=== PATIENT | female | born 1945 | race Caucasian/White ===

== ENCOUNTER 2017-12-29 15:20 | Inpatient (IN) | payer MEDICARE, MEDICAID ==
[~2017-12-29] VITALS: Ht 157.5 cm; Wt 52.2 kg
[2017-12-29] MEDS ORDERED: PIPERACILLIN /TAZOBACTAM 3.375 G in IV D5W 50 ML IV ONE (15:30)
[2017-12-29] MEDS ORDERED: IV NS 0.9% 1,000 ML BAG IV ONE (15:30)
--- NOTE | 2017-12-29 15:30 | NUR ---
BIBRA FROM HOME C/O ALTERED MENTAL STATUS, LKW=YESTERDAY PER DAUGHTER REPORT. NON VERBAL AT THIS MOMENT. SKIN IS WARM AND DRY. RESP IS EVEN AND UNLABORED WITH NAD NOTED. PLACED ON THE MONITOR. AWAITING MD FOR EVAL.
[2017-12-29 15:52] LABS: CALCIUM, SERUM 9.6 mg/dL (8.5-10.1); CARBON DIOXIDE 28 mmol/L (21-32); CHLORIDE 102 mmol/L (98-107); CREATININE 2.1 mg/dL (0.6-1.3); GLUCOSE 107 mg/dL (74-106); POTASSIUM 4.8 mmol/L (3.5-5.1); SODIUM SERUM 141 mmol/L (136-145); UREA NITROGEN, BLOOD 43 mg/dL (7-18)
[2017-12-29 15:53] LABS: BASOPHILS # (AUTO) 0.1 /CMM (0.0-0.2); BASOPHILS % (AUTO) 0.3 % (0.0-2.0); HEMATOCRIT 38 % (33-45); HEMOGLOBIN 12.3 g/dL (11.5-14.8); LYMPHOCYTES # (AUTO) 1.5 /CMM (0.8-4.8); LYMPHOCYTES % (AUTO) 5.7 % (20.0-44.0); MEAN CORPUSCULAR HGB CONC 33 g/dl (31.0-36.0); MEAN CORPUSCULAR VOLUME 76 fL (82-100); MONOCYTES # (AUTO) 0.7 /CMM (0.1-1.30); MONOCYTES % (AUTO) 2.7 % (2.0-12.0); NEUTROPHILS # (AUTO) 24.8 /CMM (1.8-8.9); NEUTROPHILS % (AUTO) 91.3 % (43.0-81.0); PLATELET COUNT (AUTO) 268 /CMM (150-450); RDW COEFFICIENT OF VARIATION 15.1 (11.5-15.0); RED BLOOD CELL COUNT(AUTO) 4.97 MIL/uL (4.0-5.2); WHITE BLOOD COUNT (AUTO) 27.2 K/uL (4.3-11.0)
[2017-12-29 15:57] LABS: ALANINE AMINOTRANSFERASE 30 U/L (12-78); ALBUMIN 2.9 g/dL (3.4-5.0); ALKALINE PHOSPHATASE 96 U/L (46-116); ASPARTATE AMINOTRANSFERASE 32 U/L (15-37); BILIRUBIN,DIRECT 0.3 mg/dL (0.0-0.2); BILIRUBIN,TOTAL 0.6 mg/dL (0.2-1.0); TOTAL PROTEIN, SERUM 8.6 g/dL (6.4-8.2)
[2017-12-29 15:59] LABS: TROPONIN I 0.018 ng/mL (0.00-0.056)
[2017-12-29 16:00] LABS: INR 1.07 (0.85-1.15)
[2017-12-29 16:10] LABS: APPEARANCE,URINE Cloudy (CLEAR); BILIRUBIN,URINE Negative (NEGATIVE); BLOOD, URINE Moderate Ery/uL (NEGATIVE); COLOR,URINE Yellow (YELLOW); KETONES,URINE Negative (NEGATIVE); LEUKOCYTE ESTERASE ,URINE Large (NEGATIVE); NITRITE, URINE Negative (NEGATIVE); PROTEIN,URINE >=300 mg/dl (NEGATIVE); UGLUCOSE Negative (NEGATIVE); UROBILINOGEN,URINE 0.2 EU/dL (0.2)
--- NOTE | 2017-12-29 16:10 | NUR ---
PATIENT TRANSPORTED FOR CT HEAD VIA [facility].
[2017-12-29 16:22] LABS: WBC,URINE 81-100 /HPF (0-3)
[2017-12-29 16:23] LABS: SQUAMOUS EPITHELIAL CELL,UR Few /HPF (None Seen)
[2017-12-29 16:25] LABS: BACTERIA,URINE 2+ /HPF (None Seen); URINE AMORPHOUS URATE Many /HPF (None Seen)
[2017-12-29] MEDS ORDERED: ACETAMINOPHEN 650 MG/SUPP.RECT RC ONE ×2 (16:30→16:56)
[2017-12-29 16:33] LABS: BAND % (MANUAL) 1 % (0.0-5.0); BASOPHILS % (MANUAL) 0 % (0.0-2.0); EOSINOPHILS % (MANUAL) 0 % (0-4); LYMPHOCYTES % (MANUAL) 12 % (16-48); MONOCYTES % (MANUAL) 4 % (0-11.0); NEUTROPHILS % (MANUAL) 83 (42-76)
--- NOTE | 2017-12-29 16:56 | NUR ---
CALLED NURSING SUP. FOR TELE BED
--- NOTE | 2017-12-29 16:56 | NUR ---
GRIFFIN PAGED, DEYANIRA FIGUEROA AIRCRAFT STRUCTURAL DESIGN ENGINEER INTERN
--- NOTE | 2017-12-29 17:00 | NUR ---
TELE 326-2, DEYANIRA FIGUEROA NP ADMITTING
[2017-12-29] MEDS ORDERED: ONDANSETRON HCL/PF 4 MG/2 ML VIAL IVP PRN (17:30)
[2017-12-29] MEDS ORDERED: DIGO125T PO (18:00)
[2017-12-29] MEDS ORDERED: POTA10TA21 PO (18:00)
[2017-12-29] MEDS ORDERED: BETH25TA PO (18:00)
[2017-12-29] MEDS ORDERED: CYAN10009 PO (18:00)
[2017-12-29] MEDS ORDERED: MONT10TA22 PO (18:00)
[2017-12-29] MEDS ORDERED: FERR325T23 PO (18:00)
[2017-12-29] MEDS ORDERED: MECL-102 PO (18:00)
[2017-12-29] MEDS ORDERED: TIZA4TAB4 PO (18:00)
[2017-12-29] MEDS ORDERED: FOLI1TAB16 PO (18:00)
[2017-12-29] MEDS ORDERED: GABA-532 PO (18:00)
[2017-12-29] MEDS ORDERED: FLUO10TA PO (18:00)
[2017-12-29] MEDS ORDERED: ERGO500014 PO (18:00)
[2017-12-29] MEDS ORDERED: MELO-105 PO (18:00)
[2017-12-29] MEDS ORDERED: ROSU5TAB12 PO (18:00)
[2017-12-29] MEDS ORDERED: TRAM50TA2 PO (18:00)
[2017-12-29] MEDS ORDERED: FAMO20TA8 PO (18:00)
[2017-12-29] MEDS ORDERED: ASPI-1152 PO (18:00)
[2017-12-29] MEDS ORDERED: BACL10TA PO (18:00)
--- NOTE | 2017-12-29 18:10 | NUR ---
*ROEL 101
[2017-12-29] MEDS ORDERED: FEE PK DOSING 1 MIN EA MC ONE (18:33)
--- NOTE | 2017-12-29 18:53 | NUR ---
REPORT GIVEN TO ADWOA MCCLENDON FOR ANTONI TELE 101
[2017-12-29] MEDS ORDERED: VANCOMYCIN 1 GM in IV D5W 250 ML IV ONE (19:00)
--- NOTE | 2017-12-29 19:20 | NUR ---
RN NOTES ADMITTED A 72YEAR OLD FROM EMERGENCY DEPARTMENT VIA STRETCHER ACCOMPANIED BY TWO CHEESEMAKER HELPER WITH NO RESPIRATORY DISTRESS OR SHORTNESS OF BREATH. BREATHING EVEN AND UNLABORED. ON 2LPM O2 VIA NASAL CANNULA, TOLERATING WELL. VITAL SIGNS CHECKED WNL. NO PHYSICAL MANIFESTATION OF PAIN OR DISCOMFORT. ALERT AND RESPONSIVE. NON VERBAL. NEEDS ATTENDED. KEPT CLEAN AND DRY. WILL CONTINUE TO MONITOR.
[2017-12-29 20:00] VITALS: BP_SYST 91; BP_DIAS 51; BP_DIAS 53
[2017-12-29] MEDS: IV NS 0.9% 1,000 ML IV PRN (20:29)
[2017-12-30] VITALS: BP 144/68
[2017-12-30] MEDS ORDERED: PIPERACILLIN /TAZOBACTAM 3.375 G in IV D5W 50 ML IV SCH ×2
[2017-12-30] MEDS: PIPERACILLIN /TAZOBACTAM 2.25 G in IV D5W 50 ML IV SCH ×4 (00:02→17:16)
[2017-12-30 04:00] VITALS: BP 111/62
--- NOTE | 2017-12-30 07:00 | NUR ---
RN NOTES NO SIGNIFICANT CHANGE OF CONDITION, REMAINS AFEBRILE WITH SKIN WARM AND DRY TO TOUCH. NO PHYSICAL MANIFESTATION OF PAIN OR DISCOMFORT. ALERT AND RESPONSIVE. NODS HEAD TO ANSWER A YES QUESTION. VITAL SIGNS WNL. KEPT CLEAN AND DRY.
--- NOTE | 2017-12-30 07:00 | NUR ---
RN NOTES RECEIVED PT ON BED, A/Ox1, ON 2L O2 N/C , RESPIRATION EVEN AND UNLABORED, NO SOB NOTED, ON TELE HR IN 70'S SR , IVF NS AT 75CC./HR RUNNING VIA R WRIST IV SITE G 20 , SITE CDI, SR UP x3, CALL LIGHT WITHIN EASY REACH, BED LOCKED AND IN LOWEST POSITION , WILL CONTINUE TO MONITOR .
[2017-12-30 08:00] VITALS: BP 105/50
[2017-12-30] MEDS: FAMOTIDINE (20 MG) 20 MG TABLET PO SCH ×2 (08:23→16:35)
[2017-12-30] MEDS: BETHANECHOL CHLORIDE (25 MG) 25 MG TABLET PO SCH ×2 (08:23→16:36)
[2017-12-30] MEDS: DIGOXIN 0.125 MG TABLET PO SCH (08:23)
[2017-12-30] MEDS: POTASSIUM CHLORIDE 10 MEQ TABLET.SA PO SCH (08:23)
[2017-12-30] MEDS: CYANOCOBALAMIN 100 MCG TABLET PO SCH (08:23)
[2017-12-30] MEDS: MECLIZINE HCL 25 MG TABLET PO SCH ×3 (08:23→16:36)
[2017-12-30] MEDS: FOLIC ACID 1 MG TABLET PO SCH ×2 (08:23→16:35)
[2017-12-30] MEDS: ASPIRIN EC 81 MG TABLET.DR PO SCH (08:23)
[2017-12-30] MEDS: Fluoxetine 10 mg capsule PO SCH (08:23)
[2017-12-30] MEDS: FERROUS SULFATE (325 MG) 325 MG/TAB TABLET PO SCH ×2 (08:23→16:36)
[2017-12-30] MEDS: ATORVASTATIN 10 MG TABLET PO SCH (08:23)
[2017-12-30] MEDS: PANTOPRAZOLE 40 MG VIAL IV SCH (08:24)
[2017-12-30] MEDS: TIZANIDINE HCL 4 MG TABLET PO SCH ×2 (08:24→16:36)
[2017-12-30] MEDS: MONTELUKAST SODIUM (10MG) 10 MG TABLET PO SCH (08:24)
[2017-12-30] MEDS: LACTOBACILLUS RHAMNOSUS GG 1 EACH CAP.SPRINK PO SCH ×2 (08:49→16:36)
[2017-12-30] MEDS ORDERED: MELOXICAM 7.5 MG TABLET PO SCH (09:00)
[2017-12-30] MEDS ORDERED: POTASSIUM CITRATE 5 MEQ TABLET.SA PO SCH (09:00)
[2017-12-30 11:55] LABS: CALCIUM, SERUM 8.4 mg/dL (8.5-10.1); CARBON DIOXIDE 26 mmol/L (21-32); CHLORIDE 107 mmol/L (98-107); CREATININE 2.3 mg/dL (0.6-1.3); GLUCOSE 138 mg/dL (74-106); SODIUM SERUM 142 mmol/L (136-145); UREA NITROGEN, BLOOD 53 mg/dL (7-18)
[2017-12-30 12:00] VITALS: BP_SYST 85; BP_SYST 88; BP_DIAS 44
--- NOTE | 2017-12-30 12:26 | NUR ---
RN NOTES BP=85/44/ HR =55 [place] SECRETARY BOOKKEEPER NOTIFED, NEW ORDER GIVEN .
[2017-12-30] MEDS ORDERED: IV NS 0.9% 1,000 ML IV PRN ×2 (12:30→15:30)
--- NOTE | 2017-12-30 13:00 | NUR ---
RN NOTES BP= 94/55 AT THIS TIME , FAMILY AT THE BEDSIDE , CONTINUE TO MONITOR.
--- NOTE | 2017-12-30 13:33 | NUR ---
RN NOTE BP 90/49 HR 64 , PT ALERT NO DISTRESS NOTED, CONTINUE TO MONITOR
[2017-12-30] MEDS: IV NS 0.9% 1,000 ML IV PRN (13:35)
--- NOTE | 2017-12-30 15:00 | NUR ---
RN NOTES BP= 95/49 CONTINUE TO MONITOR .
[2017-12-30 16:00] VITALS: BP 94/52
[2017-12-30 16:19] LABS: APPEARANCE,URINE CLOUDY (CLEAR); BILIRUBIN,URINE NEGATIVE (NEGATIVE); BLOOD, URINE 3+ Ery/uL (NEGATIVE); COLOR,URINE YELLOW (YELLOW); KETONES,URINE NEGATIVE (NEGATIVE); LEUKOCYTE ESTERASE ,URINE 1+ (NEGATIVE); NITRITE, URINE POSITIVE (NEGATIVE); PROTEIN,URINE 2+ mg/dl (NEGATIVE); UGLUCOSE NEGATIVE (NEGATIVE); UROBILINOGEN,URINE 0.2 EU/dL (0.2)
[2017-12-30 16:26] LABS: CREATININE, URINE 28.8 MG/DL (30.0-125.0); URINE TOTAL PROTEIN 190.4 mg/dL (0-11.9)
[2017-12-30 16:52] LABS: EOSINOPHIL,URINE Rare
[2017-12-30 18:00] LABS: BACTERIA,URINE 3+ /HPF (None Seen); SQUAMOUS EPITHELIAL CELL,UR 0-2 /HPF (None Seen); WBC,URINE 81-100 /HPF (0-3)
--- NOTE | 2017-12-30 18:00 | NUR ---
RN NOTES NEUMANN INSERTED PER LD PLASTER CASTER ORDER .
--- NOTE | 2017-12-30 18:13 | NUR ---
RN NOTES PT REMANIS THE SAME, VSS STABLE, NS AT 75CC/HR RUNNING VIA R WRIST IV SITE , SR UP x3, CALL LIGHT WITHIN EASY REACH, WILL ENDOSE TO BACKUP SAWYER NURSE FOR ANTONI
[2017-12-30 20:00] VITALS: BP_SYST 130; BP_SYST 97; BP_DIAS 49; BP_DIAS 67
[2017-12-30] MEDS ORDERED: VANCOMYCIN 500 MG in IV D5W 100 ML IV SCH (20:00)
--- NOTE | 2017-12-30 20:05 | NUR ---
RN NOTES IN BED, LYING COMFORTABLY WITH NO DISTRESS NOTED. BREATHING EVEN AND UNLABORED. NO PHYSICAL MANIFESTATION OF PAIN OR DISCOMFORT. REMAINS AFEBRILE WITH SKIN WARM AND DRY TO TOUCH. ALERT AND RESPONSIVE WITH CONFUSION. KEPT CLEAN AND DRY WILL CONTINUE TO MONITOR.
[2017-12-31] VITALS: BP 107/67
[2017-12-31] MEDS: PIPERACILLIN /TAZOBACTAM 2.25 G in IV D5W 50 ML IV SCH ×4 (00:40→17:27)
[2017-12-31] MEDS: IV NS 0.9% 1,000 ML IV PRN ×2 (00:41→14:48)
[2017-12-31] MEDS ORDERED: DEXTROSE 50%-WATER 50 ML DISP.SYRIN ONE (02:46)
[2017-12-31] MEDS ORDERED: DEXTROSE 50%-WATER 50 ML DISP.SYRIN IVP ONE (03:00)
--- NOTE | 2017-12-31 03:15 | NUR ---
RN NOTES AT ABOUT 3AM NOTED PATIENT TO HAVE AN ELEVATED HEART RATE OF 126BPM. CHECKED VITAL SIGN. BP 133/65, TEMP 98.8 o2saT 100% RR 22. NOTED PATIENT TO BE DIAPHORETIC, BLOOD SUGAR CHECKED, 56MG/DL. CALLED DR LOWRY AND OBTAINED ORDER FOR D50, AND FOLLOW UP IN AM ACCUCHECK FOR THE PATIENT. NOTED AND CARRIED OUT. CHECKED BLOOD SUGAR AFTER 45MINUTES, 163MG/DL. WILL CONTINUE TO MONITOR.
[2017-12-31 04:00] VITALS: BP 133/65
--- NOTE | 2017-12-31 06:51 | NUR ---
RN CLOSING NOTES PATIENT COMFORTABLY LYING IN BED WITH NO ACUTE DISTRESS. BREATHING EVEN AND UNLABORED. MORE ALERT NOW AND VERBAL. NOTED WITH GROSS HEMATURIA. WILL ENDORSE TO AM SHIFT. NO COMPLAINT OF PAIN OR DISCOMFORT. KEPT CLEAN AND DRY.
[2017-12-31 07:32] LABS: EOSINOPHILS % (AUTO) 0.1 % (0.0-6.0); HEMATOCRIT 37 % (33-45); HEMOGLOBIN 11.4 g/dL (11.5-14.8); LYMPHOCYTES # (AUTO) 0.8 /CMM (0.8-4.8); LYMPHOCYTES % (AUTO) 2.8 % (20.0-44.0); MEAN CORPUSCULAR HGB CONC 31 g/dl (31.0-36.0); MEAN CORPUSCULAR VOLUME 78 fL (82-100); MONOCYTES # (AUTO) 0.5 /CMM (0.1-1.30); MONOCYTES % (AUTO) 1.8 % (2.0-12.0); NEUTROPHILS % (AUTO) 95.3 % (43.0-81.0); PLATELET COUNT (AUTO) 194 /CMM (150-450); RDW COEFFICIENT OF VARIATION 15.2 (11.5-15.0); RED BLOOD CELL COUNT(AUTO) 4.65 MIL/uL (4.0-5.2); WHITE BLOOD COUNT (AUTO) 28.4 K/uL (4.3-11.0)
[2017-12-31 07:47] LABS: ALANINE AMINOTRANSFERASE 49 U/L (12-78); ALBUMIN 2.2 g/dL (3.4-5.0); ALKALINE PHOSPHATASE 112 U/L (46-116); ASPARTATE AMINOTRANSFERASE 61 U/L (15-37); BILIRUBIN,TOTAL 0.6 mg/dL (0.2-1.0); CALCIUM, SERUM 8.5 mg/dL (8.5-10.1); CARBON DIOXIDE 22 mmol/L (21-32); CHLORIDE 108 mmol/L (98-107); CREATININE 2.5 mg/dL (0.6-1.3); GLUCOSE 82 mg/dL (74-106); PHOSPHORUS 4.8 mg/dL (2.5-4.9); POTASSIUM 3.7 mmol/L (3.5-5.1); SODIUM SERUM 144 mmol/L (136-145); UREA NITROGEN, BLOOD 52 mg/dL (7-18)
[2017-12-31 08:00] VITALS: BP 126/56
[2017-12-31 08:14] LABS: CREATINE KINASE, TOTAL 49 U/L (26-192)
[2017-12-31 08:39] LABS: BAND % (MANUAL) 6 % (0.0-5.0); LYMPHOCYTES % (MANUAL) 4 % (16-48); MONOCYTES % (MANUAL) 1 % (0-11.0); NEUTROPHILS % (MANUAL) 89 (42-76)
[2017-12-31] MEDS: TIZANIDINE HCL 4 MG TABLET PO SCH ×2 (09:03→16:56)
[2017-12-31] MEDS: Fluoxetine 10 mg capsule PO SCH (09:03)
[2017-12-31] MEDS: MONTELUKAST SODIUM (10MG) 10 MG TABLET PO SCH (09:03)
[2017-12-31] MEDS: FERROUS SULFATE (325 MG) 325 MG/TAB TABLET PO SCH ×2 (09:04→16:56)
[2017-12-31] MEDS: ASPIRIN EC 81 MG TABLET.DR PO SCH (09:04)
[2017-12-31] MEDS: LACTOBACILLUS RHAMNOSUS GG 1 EACH CAP.SPRINK PO SCH (09:04)
[2017-12-31] MEDS: FAMOTIDINE (20 MG) 20 MG TABLET PO SCH ×2 (09:04→16:55)
[2017-12-31] MEDS: BETHANECHOL CHLORIDE (25 MG) 25 MG TABLET PO SCH ×2 (09:04→16:58)
[2017-12-31] MEDS: PANTOPRAZOLE 40 MG VIAL IV SCH (09:05)
[2017-12-31] MEDS: MECLIZINE HCL 25 MG TABLET PO SCH ×3 (09:05→16:56)
[2017-12-31] MEDS: ATORVASTATIN 10 MG TABLET PO SCH (09:05)
[2017-12-31] MEDS: FOLIC ACID 1 MG TABLET PO SCH ×2 (09:05→16:56)
[2017-12-31] MEDS: POTASSIUM CHLORIDE 10 MEQ TABLET.SA PO SCH (09:06)
[2017-12-31] MEDS: DIGOXIN 0.125 MG TABLET PO SCH (09:07)
[2017-12-31] MEDS: CYANOCOBALAMIN 100 MCG TABLET PO SCH (09:08)
[2017-12-31] MEDS ORDERED: Z GUARD REMEDY 2 OZ OINT TP PRN (11:30)
[2017-12-31 13:12] LABS: BILIRUBIN,DIRECT 0.2 mg/dL (0.0-0.2); BILIRUBIN,TOTAL 0.5 mg/dL (0.2-1.0)
[2017-12-31] MEDS ORDERED: DEXTROSE 50%-WATER 50 ML DISP.SYRIN IV PRN (14:00)
[2017-12-31] MEDS ORDERED: CEFAZOLIN IV SCH (14:00)
[2017-12-31] MEDS ORDERED: D5W IV SCH (14:00)
[2017-12-31 16:00] VITALS: BP 106/51
[2017-12-31] MEDS: BLOOD SUGAR DIAGNOSTIC 1 EACH STRIP IN SCH ×2 (17:07→21:58)
[2017-12-31 18:46] LABS: APPEARANCE,URINE CLEAR (CLEAR); BILIRUBIN,URINE NEGATIVE (NEGATIVE); BLOOD, URINE 3+ Ery/uL (NEGATIVE); COLOR,URINE YELLOW (YELLOW); KETONES,URINE NEGATIVE (NEGATIVE); LEUKOCYTE ESTERASE ,URINE 2+ (NEGATIVE); NITRITE, URINE NEGATIVE (NEGATIVE); PROTEIN,URINE 2+ mg/dl (NEGATIVE); UGLUCOSE NEGATIVE (NEGATIVE); UROBILINOGEN,URINE 0.2 EU/dL (0.2)
[2017-12-31 18:53] LABS: CREATININE, URINE 63.7 MG/DL (30.0-125.0)
--- NOTE | 2017-12-31 19:00 | NUR ---
RN NOTE PT NOTED WITH LOW URINE OUTPUT, 200 ML FOR THE SHIFT, MD NOTIFIED, US KIDNEY AND F/C FLUSH ORDERED, F/C FLUSHES WELL, BLADDER SCANNER CHECKED EARLIER, NO RESIDUAL NOTED. PT ALSO PILLS TUBES AND IV. PER MD TO ORDER MITTENS RESTRAINTS.
[2017-12-31 19:08] LABS: BACTERIA,URINE 4+ /HPF (None Seen); RBC,URINE 21-50 /HPF (0-2); SQUAMOUS EPITHELIAL CELL,UR 0-2 /HPF (None Seen); WBC,URINE 81-100 /HPF (0-3)
--- NOTE | 2017-12-31 19:30 | NUR ---
MS RN INITIAL NOTE PT RECEIVED AWAKE IN BED. A/O X 1 AND RESPONSIVE TO NAME. ON 2L OF O2 AND SATURATING 98%. BREATHING REGULAR AND UNLABORED. IV R WRIST #20 CLEAN AND DRY WITH FLUIDS INFUSING. BILATERAL SOFT MITTENS ON FOR PT SAFETY. BED ALARM ENABLED AND LOCKED IN PLACE. HOB ELEVATED. WILL CONTINUE TO MONITOR.
[2017-12-31 20:00] VITALS: BP_SYST 122; BP_SYST 94; BP_DIAS 45; BP_DIAS 65
[2017-12-31 21:00] VITALS: BP 124/54
[2017-12-31 21:10] LABS: EOSINOPHIL,URINE Rare
[2017-12-31] MEDS ORDERED: CT SWABBABLE VALVE TRANS SET 1 EA INFUS.SET MC ONE (22:06)
[2017-12-31] MEDS ORDERED: IOHEXOL-300 100 ML VIAL IV ONE (22:06)
--- NOTE | 2017-12-31 23:00 | NUR ---
MS RN NOTE ORDER TO DO STAT CT UROGRAM . SPOKE WITH SON CHRISTEL AND RECEIVED CONSENT VIA TELEPHONE FOR PROCEDURE. RADIOLOGY PICKED PT UP AND SENT TO RADIOLOGY. IV INFILTRATED AND UNABLE TO START IV AFTER 2 UNSUCCESSFUL ATTEMPTS. PT RETURNED SAFELY TO ROOM. ABLE TO START 2 IV RAC #20 AND INRAV #22. CALLED RADIOLOGY BACK AND SAID THEY WERE TOO BUSY WILL MATERIAL SCHEDULER PT AT 5AM. SON AWARE.
[2018-01-01] VITALS: BP_SYST 119; BP_SYST 124; BP_DIAS 54; BP_DIAS 62
[2018-01-01] MEDS: PIPERACILLIN /TAZOBACTAM 2.25 G in IV D5W 50 ML IV SCH ×2 (00:45→05:08)
[2018-01-01 04:00] VITALS: BP_SYST 106; BP_SYST 144; BP_DIAS 61; BP_DIAS 78
[2018-01-01] MEDS: IV NS 0.9% 1,000 ML IV PRN ×2 (05:10→17:34)
--- NOTE | 2018-01-01 05:30 | NUR ---
MS RN NOTE SPOKE WITH RADIOLOGY THAT THEY ARE UNABLE TO PERFORM CT UROGRAM DUE TO CREATININE TOO HIGH AT 2.5. WILL F/U WITH .
[2018-01-01 06:21] LABS: BASOPHILS # (AUTO) 0.1 /CMM (0.0-0.2); BASOPHILS % (AUTO) 0.3 % (0.0-2.0); EOSINOPHILS % (AUTO) 1.7 % (0.0-6.0); HEMATOCRIT 32 % (33-45); HEMOGLOBIN 10.3 g/dL (11.5-14.8); LYMPHOCYTES # (AUTO) 1.7 /CMM (0.8-4.8); MEAN CORPUSCULAR HGB CONC 32 g/dl (31.0-36.0); MEAN CORPUSCULAR VOLUME 77 fL (82-100); MONOCYTES # (AUTO) 0.5 /CMM (0.1-1.30); MONOCYTES % (AUTO) 2.6 % (2.0-12.0); NEUTROPHILS # (AUTO) 18.1 /CMM (1.8-8.9); NEUTROPHILS % (AUTO) 87.4 % (43.0-81.0); PLATELET COUNT (AUTO) 185 /CMM (150-450); RDW COEFFICIENT OF VARIATION 14.9 (11.5-15.0); WHITE BLOOD COUNT (AUTO) 20.7 K/uL (4.3-11.0)
[2018-01-01 06:27] LABS: CALCIUM, SERUM 8.6 mg/dL (8.5-10.1); CARBON DIOXIDE 21 mmol/L (21-32); CHLORIDE 112 mmol/L (98-107); CREATININE 2.8 mg/dL (0.6-1.3); GLUCOSE 92 mg/dL (74-106); MAGNESIUM 2.1 mg/dL (1.8-2.4); POTASSIUM 4.3 mmol/L (3.5-5.1); SODIUM SERUM 147 mmol/L (136-145); UREA NITROGEN, BLOOD 50 mg/dL (7-18)
--- NOTE | 2018-01-01 06:50 | NUR ---
MS RN CLOSING NOTE PT REMAINED STABLE DURING SHIFT. NO ACUTE DISTRESS NOTED. REPOSITIONED Q2H. HOB ELEVATED. NO BOWEL MOVEMENT THROUGHOUT SHIFT. IV SITES IN PLACE AND FLUSHING WELL. MITTENS ON ORDERED. NEUMANN CATHETER IN PLACE AND DRAINING BY GRAVITY. WILL ENDORSE TO NEXT SHIFT FOR CONTINUITY OF CARE.
--- NOTE | 2018-01-01 07:21 | NUR ---
RN NOTES RECEIVED PT FROM MIXED ANIMAL VETERINARIAN, A&0X1-2, PRIMARILY SLOVAK SPEAKING. ON 2L NC SATING WELL NO SOB OR DISTRESS NOTED. NEUMANN DRAINING TO GRAVITY. NIRAV AND RAC IV SITE INTACT WITH IVF AT 150ML/HR. BED LOCKED AND IN LOWEST POSITION, CALL LIGHT WITHIN REACH, SIDE RAILS UPX3, WILL CONT TO SAMREEN.
[2018-01-01] MEDS: BLOOD SUGAR DIAGNOSTIC 1 EACH STRIP IN SCH ×4 (07:56→21:57)
[2018-01-01 08:00] VITALS: BP 146/75
[2018-01-01] MEDS: CYANOCOBALAMIN 100 MCG TABLET PO SCH (08:11)
[2018-01-01] MEDS: FERROUS SULFATE (325 MG) 325 MG/TAB TABLET PO SCH ×2 (08:11→16:15)
[2018-01-01] MEDS: POTASSIUM CHLORIDE 10 MEQ TABLET.SA PO SCH (08:11)
[2018-01-01] MEDS: ASPIRIN EC 81 MG TABLET.DR PO SCH (08:11)
[2018-01-01] MEDS: PANTOPRAZOLE 40 MG VIAL IV SCH (08:11)
[2018-01-01] MEDS: FOLIC ACID 1 MG TABLET PO SCH ×2 (08:11→16:15)
[2018-01-01] MEDS: MONTELUKAST SODIUM (10MG) 10 MG TABLET PO SCH (08:11)
[2018-01-01] MEDS: BETHANECHOL CHLORIDE (25 MG) 25 MG TABLET PO SCH ×2 (08:11→16:15)
[2018-01-01] MEDS: ATORVASTATIN 10 MG TABLET PO SCH (08:11)
[2018-01-01] MEDS: TIZANIDINE HCL 4 MG TABLET PO SCH ×2 (08:11→16:14)
[2018-01-01] MEDS: DIGOXIN 0.125 MG TABLET PO SCH (08:11)
[2018-01-01] MEDS: Fluoxetine 10 mg capsule PO SCH (08:11)
[2018-01-01] MEDS: MECLIZINE HCL 25 MG TABLET PO SCH ×3 (08:11→16:15)
[2018-01-01] MEDS: FAMOTIDINE (20 MG) 20 MG TABLET PO SCH ×2 (08:11→16:14)
--- NOTE | 2018-01-01 10:51 | NUR ---
WOUND CARE CONSULT: PT PRESENTS WITH STAGE 3 ULCER TO SACRUM, PRESENT ON ADMISSION. SCARRING TO LEFT POSTERIOR THIGH AND SCAB TO LEFT ARM. FIRST STEP MATTRESS ORDERED. ALL WOUND CARE RECOMMENDATIONS AND SKIN PROTECTION MEASURES DISCUSSED WITH NURSING STAFF. WILL SEE PRN. CURRENT JOVANA SCORE IS 12. MD IN AGREEMENT WITH PLAN OF CARE. Addendum: 01/01/18 at 1052 by CHERELLE LEMONS WNDNU Amended: Links added.
[2018-01-01] MEDS: HYDROGEL DRESSING 90 GM TUBE TP SCH (12:16)
--- NOTE | 2018-01-01 13:17 | NUR ---
BRADY received a call from wound RN Lizbeth informing SW that pt. has a stage 3 wound and to inquire if pt. has assistance at home. BRADY consulted with case management specialist Dario who informed SW that pt. lives at home with and has a caregiver. Pt. is also receiving [facility] hours per month. Dario informed SW he will speak to the family in regards to possible SNF placement or Home health. BRADY updated ADWOA Nivees with the aforementioned information.
[2018-01-01] MEDS: CEFAZOLIN 500 MG in IV NS 0.9% 50 ML IV SCH (13:31)
[2018-01-01 16:00] VITALS: BP 163/85
--- NOTE | 2018-01-01 19:22 | NUR ---
MS RN INITIAL NOTE PT RECEIVED AWAKE IN BED. A/O X 1 AND RESPONSIVE TO NAME. ON 2L OF O2 AND SATURATING 98%. BREATHING REGULAR AND UNLABORED. BILATERAL SOFT WRIST RESTRAINTS ON FOR PT SAFETY AND CIRCULATION CHECKED. BED ALARM ENABLED AND LOCKED IN PLACE. NO FACIAL GRIMACE NOTED. HOB ELEVATED. WILL CONTINUE TO MONITOR.
[2018-01-01 20:00] VITALS: BP 163/86
[2018-01-02] MEDS: CEFAZOLIN 500 MG in IV NS 0.9% 50 ML IV SCH ×3 (00:23→23:56)
[2018-01-02] MEDS: ACETAMINOPHEN 325 MG TABLET PO PRN (02:03)
[2018-01-02 04:00] VITALS: BP 163/88
--- NOTE | 2018-01-02 05:00 | NUR ---
MS RN NOTE NOTED PT WITH BLOOD IN URINE. FLUSHED NEUMANN CATHETER WITH NS AND STILL HAS BLOOD WITH CLOTS. THEN BLOOD WITH LARGE CLOTS NOTED ON KATHERIN AREA AND INCONTINENCE PAD. SPOKE WITH SERVICES EXECUTIVE MAYLIN LOWRY STILL OPERATOR WITH NEW ORDER TO DO STAT CBC AND RELAY RESULTS. YESTERDAY H/H 10. AND TODAY'S H/H 10.. ORDERS TO CONTINUE TO MONITOR AND ENDORSE TO NEXT SHIFT.
[2018-01-02 05:11] LABS: *SPE A/G RATIO 0.7 (0.7-1.7); *SPE ALBUMIN 2.6 g/dL (2.9-4.4); *SPE ALPHA-1-GLOBULIN 0.5 g/dL (0.0-0.4); *SPE ALPHA-2-GLOBULIN 1.1 g/dL (0.4-1.0); *SPE GLOBULIN, TOTAL 3.6 g/dL (2.2-3.9); *SPE M-SPIKE Not Observed g/dL (Not Observed)
[2018-01-02 05:14] LABS: BASOPHILS # (AUTO) 0.3 /CMM (0.0-0.2); BASOPHILS % (AUTO) 1.3 % (0.0-2.0); EOSINOPHILS % (AUTO) 1.9 % (0.0-6.0); HEMATOCRIT 35 % (33-45); HEMOGLOBIN 10.9 g/dL (11.5-14.8); LYMPHOCYTES # (AUTO) 1.8 /CMM (0.8-4.8); LYMPHOCYTES % (AUTO) 8.1 % (20.0-44.0); MEAN CORPUSCULAR HGB CONC 32 g/dl (31.0-36.0); MEAN CORPUSCULAR VOLUME 77 fL (82-100); MONOCYTES # (AUTO) 0.8 /CMM (0.1-1.30); MONOCYTES % (AUTO) 3.5 % (2.0-12.0); NEUTROPHILS # (AUTO) 18.5 /CMM (1.8-8.9); NEUTROPHILS % (AUTO) 85.2 % (43.0-81.0); PLATELET COUNT (AUTO) 178 /CMM (150-450); RDW COEFFICIENT OF VARIATION 15.4 (11.5-15.0); RED BLOOD CELL COUNT(AUTO) 4.48 MIL/uL (4.0-5.2); WHITE BLOOD COUNT (AUTO) 21.7 K/uL (4.3-11.0)
[2018-01-02 05:28] LABS: ALANINE AMINOTRANSFERASE 25 U/L (12-78); ALBUMIN 1.8 g/dL (3.4-5.0); ALKALINE PHOSPHATASE 107 U/L (46-116); ASPARTATE AMINOTRANSFERASE 33 U/L (15-37); BILIRUBIN,TOTAL 0.3 mg/dL (0.2-1.0); CALCIUM, SERUM 9.3 mg/dL (8.5-10.1); CARBON DIOXIDE 16 mmol/L (21-32); CHLORIDE 113 mmol/L (98-107); GLUCOSE 80 mg/dL (74-106); MAGNESIUM 2.2 mg/dL (1.8-2.4); PHOSPHORUS 5.4 mg/dL (2.5-4.9); POTASSIUM 4.7 mmol/L (3.5-5.1); SODIUM SERUM 143 mmol/L (136-145); TOTAL PROTEIN, SERUM 6.6 g/dL (6.4-8.2); UREA NITROGEN, BLOOD 47 mg/dL (7-18)
[2018-01-02 05:29] LABS: PREALBUMIN 12.1 MG/DL (18.0-35.7)
[2018-01-02 06:05] LABS: EOSINOPHILS % (MANUAL) 2 % (0-4); LYMPHOCYTES % (MANUAL) 5 % (16-48); MONOCYTES % (MANUAL) 2 % (0-11.0); NEUTROPHILS % (MANUAL) 91 (42-76)
--- NOTE | 2018-01-02 07:29 | NUR ---
MS RN CLOSING NOTE SPOKE WITH LAB SAYING OVA AND PARASITE STOOL SPECIMEN WAS NOT ENOUGH TO PROCESS BUT STANDING ORDER FOR C-DIFF HAD BEEN ORDERED BY DEYANIRA DEVI AND PROCESSED. CHARGE NURSE AWARE.
[2018-01-02 08:00] VITALS: BP 146/84
[2018-01-02] MEDS: ASPIRIN EC 81 MG TABLET.DR PO SCH (08:33)
[2018-01-02] MEDS: FAMOTIDINE (20 MG) 20 MG TABLET PO SCH ×2 (08:33→16:57)
[2018-01-02] MEDS: POTASSIUM CHLORIDE 10 MEQ TABLET.SA PO SCH (08:33)
[2018-01-02] MEDS: FOLIC ACID 1 MG TABLET PO SCH ×2 (08:33→16:57)
[2018-01-02] MEDS: FERROUS SULFATE (325 MG) 325 MG/TAB TABLET PO SCH ×2 (08:33→16:56)
[2018-01-02] MEDS: PANTOPRAZOLE 40 MG VIAL IV SCH (08:33)
[2018-01-02] MEDS: TIZANIDINE HCL 4 MG TABLET PO SCH ×2 (08:34→16:57)
[2018-01-02] MEDS: BETHANECHOL CHLORIDE (25 MG) 25 MG TABLET PO SCH ×2 (08:34→16:57)
[2018-01-02] MEDS: ATORVASTATIN 10 MG TABLET PO SCH (08:34)
[2018-01-02] MEDS: Fluoxetine 10 mg capsule PO SCH (08:34)
[2018-01-02] MEDS: BLOOD SUGAR DIAGNOSTIC 1 EACH STRIP IN SCH ×4 (08:34→22:35)
[2018-01-02] MEDS: MECLIZINE HCL 25 MG TABLET PO SCH ×3 (08:34→16:56)
[2018-01-02] MEDS: MONTELUKAST SODIUM (10MG) 10 MG TABLET PO SCH (08:34)
[2018-01-02] MEDS: CYANOCOBALAMIN 100 MCG TABLET PO SCH (08:34)
[2018-01-02] MEDS: DIGOXIN 0.125 MG TABLET PO SCH (08:34)
[2018-01-02] MEDS: HYDROGEL DRESSING 90 GM TUBE TP SCH (08:35)
--- NOTE | 2018-01-02 09:30 | NUR ---
DOCTORS LIST NOW AVAILABLE. PUT A CALL IN TO DR FELIPE TO INFORM OF LARGE CLOTS IN CATHETER AND INCREASED PT BLEEDING. WAITING FOR RETURN CALL.
--- NOTE | 2018-01-02 10:50 | NUR ---
CONTINUOUS BLADDER IRRIGATION STARTED PER DR MACK'S ORDER. AFTER FLUSH, PT IS DRAINING PINK TINGED URINE AND RETURNING NS. WILL MONITOR CLOSELY.
--- NOTE | 2018-01-02 11:25 | NUR ---
DR MACK CALLED AND ASKED TO HAVE AN ORDER FOR CYSTOGRAM WITH CONTRAST AND BILATERAL NEPHRO US ORDERED. STATES HE WANTS PT TO HAVE CYSTOGRAM AND US DONE PRIOR TO NEPHROSTOMY TUBE PLACEMENT. ALSO STATES TO HAVE ORDER FOR NEPHROSTOMY TUBES BILATERAL. WILL PLACE ORDERS. RADIOLOGY INFORMED OF ORDERS.
--- NOTE | 2018-01-02 11:50 | NUR ---
PT SON, JORDAN, REFUSING TO SIGN CONSENT FOR CYSTOGRAM. SON STATES HE IS WORRIED ABOUT THE CONTRAST NEEDED FOR THE EXAM AND DOES NOT WANT HER TO HAVE THE PROCEDURE. EXPLAINED TO THE SON THAT THE HR MANAGER IS THE PERSON WHO ORDERED THE TEST AND STATES SHE NEEDS THE EXAM TO TAKE THE NEXT STEP. SON STILL REFUSED. CALLED DR QUINTANILLA'S OFFICE TO INFORM, WAITING FOR RETURN CALL.
--- NOTE | 2018-01-02 11:52 | NUR ---
PT IS REFUSING ALL PO INTAKE WITH SON TRANSLATING PATIENT STATES "NOTHING NOW, NO FOOD NO MEDICATION." EXPLAINED THE IMPORTANCE OF MEDICATIONS AND EATING, BUT PT STILL REFUSING.
--- NOTE | 2018-01-02 12:11 | NUR ---
DR TANNER ON FLOOR. TRANSITION ASSISTANT CHANGED THE THREE WAY CATHETER THERE WAS A LOT OF CLOGS AND UNABLE TO CLEAR. PT NO DRAINING BRIGHT RED URINE WITH CLOTS ON IRRIGATION.
[2018-01-02 12:12] LABS: PTH, INTACT 133 pg/mL (15-65)
[2018-01-02] MEDS ORDERED: MORPHINE SULFATE INJ 4 MG/ML DISP.SYRIN IV ONE (13:30)
[2018-01-02 14:02] LABS: BASOPHILS % (AUTO) 0.1 % (0.0-2.0); EOSINOPHILS % (AUTO) 0.5 % (0.0-6.0); HEMATOCRIT 30 % (33-45); HEMOGLOBIN 9.8 g/dL (11.5-14.8); LYMPHOCYTES # (AUTO) 1.3 /CMM (0.8-4.8); MEAN CORPUSCULAR HGB CONC 32 g/dl (31.0-36.0); MEAN CORPUSCULAR VOLUME 76 fL (82-100); MONOCYTES # (AUTO) 0.5 /CMM (0.1-1.30); MONOCYTES % (AUTO) 1.9 % (2.0-12.0); NEUTROPHILS # (AUTO) 24.6 /CMM (1.8-8.9); NEUTROPHILS % (AUTO) 92.5 % (43.0-81.0); PLATELET COUNT (AUTO) 249 /CMM (150-450); RDW COEFFICIENT OF VARIATION 15.1 (11.5-15.0); WHITE BLOOD COUNT (AUTO) 26.6 K/uL (4.3-11.0)
[2018-01-02 16:00] VITALS: BP 130/70
--- NOTE | 2018-01-02 19:00 | NUR ---
PT STABLE AT THIS TIME. DRAINING PALE PINK COLORED OUTPUT FROM NEUMANN. NO SOB OR DISTRESS NOTED AT THIS TIME. PATIENT DENIES PAIN. Addendum: 01/02/18 at 1912 by CIRO DAVIS RN HEART RATE SR IN THE 90S. VITALS STABLE.
[2018-01-02 20:00] VITALS: BP 132/76
[2018-01-02 21:25] LABS: BASOPHILS # (AUTO) 0.1 /CMM (0.0-0.2); BASOPHILS % (AUTO) 0.2 % (0.0-2.0); EOSINOPHILS % (AUTO) 0.1 % (0.0-6.0); HEMATOCRIT 27 % (33-45); HEMOGLOBIN 8.9 g/dL (11.5-14.8); LYMPHOCYTES # (AUTO) 1.4 /CMM (0.8-4.8); LYMPHOCYTES % (AUTO) 4.9 % (20.0-44.0); MEAN CORPUSCULAR HGB CONC 33 g/dl (31.0-36.0); MEAN CORPUSCULAR VOLUME 76 fL (82-100); MONOCYTES # (AUTO) 0.6 /CMM (0.1-1.30); MONOCYTES % (AUTO) 2.1 % (2.0-12.0); NEUTROPHILS # (AUTO) 26.8 /CMM (1.8-8.9); NEUTROPHILS % (AUTO) 92.7 % (43.0-81.0); PLATELET COUNT (AUTO) 263 /CMM (150-450); RDW COEFFICIENT OF VARIATION 15.3 (11.5-15.0); RED BLOOD CELL COUNT(AUTO) 3.51 MIL/uL (4.0-5.2)
[2018-01-03] MEDS ORDERED: AMINOCAPROIC ACID IV ONE ×2 (01:00→07:30)
[2018-01-03] MEDS ORDERED: D5W IV ONE ×2 (01:00→07:30)
--- NOTE | 2018-01-03 01:00 | NUR ---
RN NOTE MEDICATION AMICAR 4000 MG IV SCHEDULED AT 1 AM, MEDICATION IS NOT AVAILABLE IN THE HOSPITAL, SPOKE TO ZION POON NP TO ADMINISTER MEDICATION AT 7AM WHEN PHARMACY OPENS
[2018-01-03 04:00] VITALS: BP 123/60
[2018-01-03 06:33] LABS: BASOPHILS % (AUTO) 0.1 % (0.0-2.0); HEMATOCRIT 23 % (33-45); HEMOGLOBIN 7.5 g/dL (11.5-14.8); LYMPHOCYTES # (AUTO) 1.9 /CMM (0.8-4.8); LYMPHOCYTES % (AUTO) 6.7 % (20.0-44.0); MEAN CORPUSCULAR HGB CONC 33 g/dl (31.0-36.0); MEAN CORPUSCULAR VOLUME 76 fL (82-100); MONOCYTES # (AUTO) 0.7 /CMM (0.1-1.30); MONOCYTES % (AUTO) 2.4 % (2.0-12.0); NEUTROPHILS # (AUTO) 25.8 /CMM (1.8-8.9); NEUTROPHILS % (AUTO) 90.8 % (43.0-81.0); PLATELET COUNT (AUTO) 253 /CMM (150-450); RDW COEFFICIENT OF VARIATION 15.3 (11.5-15.0); RED BLOOD CELL COUNT(AUTO) 3.06 MIL/uL (4.0-5.2); WHITE BLOOD COUNT (AUTO) 28.4 K/uL (4.3-11.0)
[2018-01-03 06:50] LABS: CALCIUM, SERUM 8.4 mg/dL (8.5-10.1); CARBON DIOXIDE 17 mmol/L (21-32); CHLORIDE 115 mmol/L (98-107); CREATININE 4.2 mg/dL (0.6-1.3); GLUCOSE 90 mg/dL (74-106); PHOSPHORUS 6.4 mg/dL (2.5-4.9); SODIUM SERUM 148 mmol/L (136-145); UREA NITROGEN, BLOOD 51 mg/dL (7-18)
[2018-01-03] MEDS: ERGOCALCIFEROL (VITAMIN D 2) 50,000 UNIT CAPSULE PO SCH (07:30)
[2018-01-03 08:00] VITALS: BP 122/53
[2018-01-03 08:09] LABS: INR 1.1 (0.87-1.13)
[2018-01-03] MEDS: BLOOD SUGAR DIAGNOSTIC 1 EACH STRIP IN SCH ×4 (08:18→21:43)
[2018-01-03] MEDS: ASPIRIN EC 81 MG TABLET.DR PO SCH (09:00)
[2018-01-03] MEDS: MECLIZINE HCL 25 MG TABLET PO SCH ×3 (09:00→17:00)
[2018-01-03] MEDS: MONTELUKAST SODIUM (10MG) 10 MG TABLET PO SCH (09:00)
[2018-01-03] MEDS: BETHANECHOL CHLORIDE (25 MG) 25 MG TABLET PO SCH ×2 (09:00→17:00)
[2018-01-03] MEDS: Fluoxetine 10 mg capsule PO SCH (09:00)
[2018-01-03] MEDS: FERROUS SULFATE (325 MG) 325 MG/TAB TABLET PO SCH ×2 (09:00→17:00)
[2018-01-03] MEDS: CYANOCOBALAMIN 100 MCG TABLET PO SCH (09:00)
[2018-01-03] MEDS: TIZANIDINE HCL 4 MG TABLET PO SCH ×2 (09:00→17:00)
[2018-01-03] MEDS: FOLIC ACID 1 MG TABLET PO SCH ×2 (09:00→17:00)
[2018-01-03] MEDS: ATORVASTATIN 10 MG TABLET PO SCH (09:00)
[2018-01-03] MEDS: FAMOTIDINE (20 MG) 20 MG TABLET PO SCH ×2 (09:00→17:00)
[2018-01-03 10:10] LABS: LYMPHOCYTES % (MANUAL) 7 % (16-48); MONOCYTES % (MANUAL) 2 % (0-11.0); NEUTROPHILS % (MANUAL) 91 (42-76)
[2018-01-03] MEDS: IV D5W 1,000 ML IV PRN (11:08)
[2018-01-03] MEDS: PANTOPRAZOLE 40 MG VIAL IV SCH (11:08)
[2018-01-03] MEDS: HYDROGEL DRESSING 90 GM TUBE TP SCH (11:12)
[2018-01-03 12:00] VITALS: BP 109/46
[2018-01-03] MEDS: CEFAZOLIN 500 MG in IV NS 0.9% 50 ML IV SCH (12:01)
[2018-01-03] MEDS: DIGOXIN 0.125 MG TABLET PO SCH (12:06)
--- NOTE | 2018-01-03 12:32 | NUR ---
AWAITING KIDNEY US ORDER TO BE ENTERED SPOKE TO ADWOA CAMPOS AT 1200
--- NOTE | 2018-01-03 15:34 | NUR ---
PATIENT WITH POOR IV ACCESS,UNABLE TO GET PERIPHERAL VEIN DESPITE USE OF ACCUVEINSTACIA AT BEDSIDE ORDERED MIDLINE,NURSING SUP MADE AWARE.PATIENT WITH NO URINE OUTPUT ALSO PENDING NEPHROSTOMY, AWARE.STACIA OROZCO TALKING TO FAMILY AT BEDSIDE,WILL FF. UP.
[2018-01-03 16:00] VITALS: BP 133/46
--- NOTE | 2018-01-03 16:50 | NUR ---
DISCUSS WITH STACIA OROZCO THAT PER CM DR. BRADFORD MIGHT SEE PT. AND IF NOT CAN TRANSFER TO [place].PER DR. STACIA TANNER PT. VERY SICK AND NEED NEPHROSTOMY DONE AND UNSTABLE FOR TRANSFER .NURSING SUP NOTIFIED PT. SCHEDULE FOR NEPHROSTOMY IN AM AT 1030.FAMILY MADE AWARE.
[2018-01-03] MEDS: CEFEPIME 1 GM in IV D5W 50 ML IV SCH (17:36)
--- NOTE | 2018-01-03 17:36 | NUR ---
STARTED TO HAVE BLOODY OUTPUT IN FC,MD NOTIFIED AND GAVE ORDERS TO RESUME BLADDER IRRIGATION,ABLE TO OBTAIN CRANBERRY CLORED POST IRRIGATION INITIATED.
--- NOTE | 2018-01-03 19:30 | NUR ---
ROEL/RN NOTES: RECEIVED PT. IN BED W/ HOB ELEVATED W/ O2 @ 2LPM VIA N/C SAT. 98%. A/O X 1 TO NAME BUT MORE RESPONSIVE TO SON. ON TELE MONITOR W/ SR. W/ SOFT WRIST RESTRAINT DUE TO PULLING ON HER F/C. HAS CONTINUOUS BLADDER IRRIGATION W/ PINK COLOR OUTPUT. PT. WILL BE NPO AFTER MIDNIGHT. NO FACIAL GRIMACES OR MOANING NOTED. CALL LIGHT W/REACH. BEDS LOCKED IN LOW POSITION. WILL CONTINUE TO MONITOR.
[2018-01-03 20:00] VITALS: BP_SYST 121; BP_SYST 131; BP_DIAS 66
[2018-01-04] VITALS (18 sets, daily range): BP systolic 115–149; BP diastolic 35–76
[2018-01-04] MEDS: BLOOD SUGAR DIAGNOSTIC 1 EACH STRIP IN SCH ×4 (06:37→22:32)
[2018-01-04 06:50] LABS: BASOPHILS % (AUTO) 0.2 % (0.0-2.0); EOSINOPHILS % (AUTO) 0.5 % (0.0-6.0); LYMPHOCYTES # (AUTO) 2.2 /CMM (0.8-4.8); LYMPHOCYTES % (AUTO) 8.6 % (20.0-44.0); MEAN CORPUSCULAR HGB CONC 32 g/dl (31.0-36.0); MEAN CORPUSCULAR VOLUME 76 fL (82-100); NEUTROPHILS # (AUTO) 22.6 /CMM (1.8-8.9); NEUTROPHILS % (AUTO) 86.7 % (43.0-81.0); PLATELET COUNT (AUTO) 273 /CMM (150-450); RDW COEFFICIENT OF VARIATION 15.7 (11.5-15.0); RED BLOOD CELL COUNT(AUTO) 2.69 MIL/uL (4.0-5.2); WHITE BLOOD COUNT (AUTO) 26.1 K/uL (4.3-11.0)
[2018-01-04 06:56] LABS: CALCIUM, SERUM 8.3 mg/dL (8.5-10.1); CARBON DIOXIDE 18 mmol/L (21-32); CHLORIDE 114 mmol/L (98-107); CREATININE 5.1 mg/dL (0.6-1.3); GLUCOSE 96 mg/dL (74-106); PHOSPHORUS 6.6 mg/dL (2.5-4.9); POTASSIUM 4.4 mmol/L (3.5-5.1); SODIUM SERUM 146 mmol/L (136-145); UREA NITROGEN, BLOOD 55 mg/dL (7-18)
[2018-01-04 06:59] LABS: URINE TOTAL PROTEIN 98.6 mg/dL (0-11.9)
[2018-01-04 07:31] LABS: CREATININE, URINE < 0.6 MG/DL (30.0-125.0)
[2018-01-04 07:43] LABS: HEMATOCRIT 20 % (33-45); HEMOGLOBIN 6.6 g/dL (11.5-14.8)
--- NOTE | 2018-01-04 07:46 | NUR ---
RN/ROEL NOTES: NO ACUTE CHANGES NOTED DURING THIS SHIFT. REPORT GIVEN TO NEXT SHIFT FOR ANTONI.
--- NOTE | 2018-01-04 07:58 | NUR ---
ROEL RN NOTE PATIENT IN BED , ALL NEEDS ATTENDED WITH NEUMANN CATH TO CONT BLADDER IRRIGATION ON NPO STATUS , RT FA HL INTACT ON IVF ORDERED, BED IN LOWEST AND LOCKED POSITION WILL CONT TO MONITOR CLOSELY CONT ON SOFT RESTRAIN ORDERED FOR PATIENT SAFETY , CALL LIGHT WITHIN REACH
[2018-01-04 08:08] LABS: BAND % (MANUAL) 2 % (0.0-5.0); LYMPHOCYTES % (MANUAL) 10 % (16-48); MONOCYTES % (MANUAL) 3 % (0-11.0); NEUTROPHILS % (MANUAL) 85 (42-76)
[2018-01-04] MEDS: PANTOPRAZOLE 40 MG VIAL IV SCH (08:54)
[2018-01-04] MEDS: MECLIZINE HCL 25 MG TABLET PO SCH ×3 (08:55→16:32)
[2018-01-04] MEDS: ASPIRIN EC 81 MG TABLET.DR PO SCH (08:56)
[2018-01-04] MEDS: Fluoxetine 10 mg capsule PO SCH (08:56)
[2018-01-04] MEDS: MONTELUKAST SODIUM (10MG) 10 MG TABLET PO SCH (08:56)
[2018-01-04] MEDS: FOLIC ACID 1 MG TABLET PO SCH ×2 (08:56→16:32)
[2018-01-04] MEDS: CYANOCOBALAMIN 100 MCG TABLET PO SCH (08:56)
[2018-01-04] MEDS: ATORVASTATIN 10 MG TABLET PO SCH (08:56)
[2018-01-04] MEDS: BETHANECHOL CHLORIDE (25 MG) 25 MG TABLET PO SCH ×2 (08:56→16:32)
[2018-01-04] MEDS: FAMOTIDINE (20 MG) 20 MG TABLET PO SCH ×2 (08:56→16:32)
[2018-01-04] MEDS: FERROUS SULFATE (325 MG) 325 MG/TAB TABLET PO SCH ×2 (08:56→16:32)
[2018-01-04] MEDS: HYDROGEL DRESSING 90 GM TUBE TP SCH (08:57)
[2018-01-04] MEDS: TIZANIDINE HCL 4 MG TABLET PO SCH ×2 (08:57→16:32)
--- NOTE | 2018-01-04 09:00 | NUR ---
ROEL RN NOTE DR LUU PROMOTIONS ASSISTANT SALES MARKETING AWARE THAT BUN AND CREATINE IS ABNORMAL, PHOS LEVEL IS 6.6
--- NOTE | 2018-01-04 09:04 | NUR ---
ROEL ADWOA OTE CALLED TO DR STACIA OROZCO NOTIFIED THAT 6.6 WITH ORDER 2 UNITS PRBC ,ORDER CARRIED OUT
[2018-01-04] MEDS ORDERED: FENTANYL PF 250MCG/5ML AMPUL IV ONE (09:30)
[2018-01-04] MEDS ORDERED: NALOXONE PREFILLED SYRINGE 2 MG/2 ML SYRINGE IV ONE (09:30)
[2018-01-04] MEDS ORDERED: MIDAZOLAM HCL 5MG/ML VIAL 25 MG/5 ML VIAL IV ONE (09:30)
[2018-01-04] MEDS: IV D5W 1,000 ML IV PRN (11:23)
--- NOTE | 2018-01-04 12:00 | NUR ---
ROEL RN NOTE TRY TO GO TO LAB TO PICK BLOOD BUT PATIENT IS TAKING FOR PROCEDURE WILL F\U AFTER
[2018-01-04] MEDS ORDERED: IV NS 0.9% 500 ML IV ONE (12:15)
[2018-01-04] MEDS ORDERED: IOHEXOL-350 100 ML VIAL IV ONE (12:15)
[2018-01-04] MEDS ORDERED: LIDOCAINE HCL/PF 1% 30 ML SDV ONE (13:53)
--- NOTE | 2018-01-04 14:36 | NUR ---
ROEL RN NOTE STILL AT PROCEDURE UNABLE TO REPOSITION
--- NOTE | 2018-01-04 15:12 | NUR ---
ROEL RN NOTE STARTED ORDERED 1ST UNIT PRBC NO ADVERSE REACTION NOTE , ALSO PER STACIA TANNER DNP OK TO CONT BLADDER IRRIGATION AND SEND SPECIMEN FOR CX OK TO START [facility] SOFT DIET Addendum: 01/04/18 at 1532 by CARLOTA YIN RN SPECIMENT FOR NEPHROSTOMES CX SEND TO LAB
[2018-01-04] MEDS: DIGOXIN 0.125 MG TABLET PO SCH (15:48)
--- NOTE | 2018-01-04 16:00 | NUR ---
ROEL RN NOTE UNABLE TO GIVE MAXIPINE IV PB ,PATIENT ON BLOOD TRANSFUSIONS, WILL F\U
--- NOTE | 2018-01-04 17:20 | NUR ---
ROEL RN NOTE CONT ON BLOOD TRANSFUSION, NEW HL ON RT WRIST INSERTED MARSHAL 20 WITH GOOD BLOOD RETURN,
--- NOTE | 2018-01-04 17:45 | NUR ---
ROEL RN NOTE BLOOD TRANSFUSION 1 UNIT PRBC COMPETED ,NO ADVERSE REACTION NOTED STARTED TO INFUSE MAXIPINE IVPB
--- NOTE | 2018-01-04 18:00 | NUR ---
ROEL RN NOTE UNABLE TO REMOVE SOFT RESTRAIN ,PATIENT AT RISK TO REMOVE ALL LINES, WILL F\U
--- NOTE | 2018-01-04 18:35 | NUR ---
ROEL RN NOTE ON RT SIDE NEPHROSTOMY 350 ML OF URINE AND LT SIDE NEPHROSTOMY 400ML CON ON BLADDER IRRIGATION ORDERED
[2018-01-04] MEDS: CEFEPIME 1 GM in IV D5W 50 ML IV SCH (18:41)
--- NOTE | 2018-01-04 19:30 | NUR ---
ROEL/RN NOTES: RECEIVED PT. IN BED W/ HOB ELEVATED W/ O2 @ 2LPM VIA N/C SAT. 97%. A/O X 1-2 SPEAKS UPPER SORBIAN AND LITTLE JORDANIAN. ON TELE MONITOR W/ SR 95. W/ KARIE. SOFT WRIST RESTRAINTS DUE TO PT. PULLING OUT IV'S. HAS A LEFT AND RIGHT UROSTOMY TUBE W/ CRANBERRY COLOR. HAS A F/C W/ LOW RATE CONTINUOUS BLADDER IRRIGATION W/ CRANBERRY COLOR. S/P 1 UNIT BLOOD TRANSFUSION AN AM SHIFT. HAS RFA G 20 PATENT AND INTACT W/ IVF PER ORDER. CALL LIGHT W/ REACH. ALL NEEDS MEET. WILL CONTINUE TO MONITOR.
--- NOTE | 2018-01-04 22:00 | NUR ---
ROEL/RN NOTES: STARTED W/ 2ND. BLOOD TRANSFUSION.
[2018-01-05 00:31] VITALS: BP 143/75
--- NOTE | 2018-01-05 00:45 | NUR ---
ROEL/RN NOTES: 2ND UNIT BLOOD TRANSFUSION UNIT FINISHED W/ NO ADVERSE REACTIONS. PT. TOLERATED WELL.
[2018-01-05 04:00] VITALS: BP 151/70
[2018-01-05 07:11] LABS: BASOPHILS % (AUTO) 0.1 % (0.0-2.0); EOSINOPHILS % (AUTO) 0.8 % (0.0-6.0); HEMATOCRIT 31 % (33-45); HEMOGLOBIN 10.3 g/dL (11.5-14.8); LYMPHOCYTES % (AUTO) 8.5 % (20.0-44.0); MEAN CORPUSCULAR HGB CONC 34 g/dl (31.0-36.0); MEAN CORPUSCULAR VOLUME 80 fL (82-100); MONOCYTES # (AUTO) 0.8 /CMM (0.1-1.30); MONOCYTES % (AUTO) 3.3 % (2.0-12.0); NEUTROPHILS # (AUTO) 20.3 /CMM (1.8-8.9); NEUTROPHILS % (AUTO) 87.3 % (43.0-81.0); PLATELET COUNT (AUTO) 258 /CMM (150-450); RDW COEFFICIENT OF VARIATION 17.2 (11.5-15.0); RED BLOOD CELL COUNT(AUTO) 3.84 MIL/uL (4.0-5.2); WHITE BLOOD COUNT (AUTO) 23.2 K/uL (4.3-11.0)
[2018-01-05 07:18] LABS: CALCIUM, SERUM 8.4 mg/dL (8.5-10.1); CARBON DIOXIDE 16 mmol/L (21-32); CHLORIDE 114 mmol/L (98-107); CREATININE 4.3 mg/dL (0.6-1.3); GLUCOSE 83 mg/dL (74-106); MAGNESIUM 1.9 mg/dL (1.8-2.4); PHOSPHORUS 6.3 mg/dL (2.5-4.9); SODIUM SERUM 147 mmol/L (136-145); UREA NITROGEN, BLOOD 54 mg/dL (7-18)
--- NOTE | 2018-01-05 07:40 | NUR ---
ROEL/RN NOTES: NO ACUTE CHANGES NOTED DURING THIS SHIFT. REPORT GIVEN TO AM NURSE FOR ANTONI.
[2018-01-05] MEDS: BLOOD SUGAR DIAGNOSTIC 1 EACH STRIP IN SCH ×4 (07:49→21:04)
--- NOTE | 2018-01-05 07:50 | NUR ---
RN NOTE RECEIVED PATIENT AWAKE IN BED WITH HOB ELEVATED FOR COMFORT. ALERT AND ORIENTED X 1-2, BUT IS ABLE TO UNDERSTAND IN HER RED CLIFF LANGUAGE. BREATHING EVEN AND UNLABORED WITH NO DISTRESS NOTED. CURRENTLY ON O2 2L VIA NC SATURATING WELL. ON GAS ATTENDANT SINUS RHYTHM HR OF 92. PATIENT HAS SOFT WRIST RESTRAINT ON LEFT WRIST DUE TO PATIENT PULLING OUT IV'S. WILL RELEASE AND ASSESS CIRCULATION Q2HRS. EMILT HAS A LEFT AND RIGHT UROSTOMY TUBE W/ PINK LEMONADE COLOR AND HAS A F/C WITH LOW RATE CONTINUOUS BLADDER IRRIGATION PINK LEMONADE COLOR. RIGHT FA IV SITE IN TACT AND PATENT. BED LOW AND LOCKED POSITION. PLACED CALL LIGHT WITH IN REACH. WILL CONTINUE TO MONITOR CLOSELY
[2018-01-05 08:00] VITALS: BP 135/82
[2018-01-05] MEDS: Fluoxetine 10 mg capsule PO SCH (08:14)
[2018-01-05] MEDS: MECLIZINE HCL 25 MG TABLET PO SCH ×3 (08:14→16:23)
[2018-01-05] MEDS: ATORVASTATIN 10 MG TABLET PO SCH (08:14)
[2018-01-05] MEDS: FAMOTIDINE (20 MG) 20 MG TABLET PO SCH ×2 (08:14→16:23)
[2018-01-05] MEDS: MONTELUKAST SODIUM (10MG) 10 MG TABLET PO SCH (08:14)
[2018-01-05] MEDS: ASPIRIN EC 81 MG TABLET.DR PO SCH (08:14)
[2018-01-05] MEDS: PANTOPRAZOLE 40 MG VIAL IV SCH (08:15)
[2018-01-05] MEDS: FERROUS SULFATE (325 MG) 325 MG/TAB TABLET PO SCH ×2 (08:15→16:23)
[2018-01-05] MEDS: BETHANECHOL CHLORIDE (25 MG) 25 MG TABLET PO SCH ×2 (08:15→16:23)
[2018-01-05] MEDS: FOLIC ACID 1 MG TABLET PO SCH ×2 (08:15→16:23)
[2018-01-05] MEDS: TIZANIDINE HCL 4 MG TABLET PO SCH ×2 (08:15→16:22)
[2018-01-05] MEDS: HYDROGEL DRESSING 90 GM TUBE TP SCH (08:16)
[2018-01-05] MEDS: CYANOCOBALAMIN 100 MCG TABLET PO SCH (08:52)
[2018-01-05 12:00] VITALS: BP 135/61
[2018-01-05] MEDS: DIGOXIN 0.125 MG TABLET PO SCH (12:25)
[2018-01-05] MEDS: IV D5W 1,000 ML IV PRN (13:52)
[2018-01-05 14:17] LABS: *SPE A/G RATIO 0.8 (0.7-1.7); *SPE ALBUMIN 2.1 g/dL (2.9-4.4); *SPE ALPHA-1-GLOBULIN 0.5 g/dL (0.0-0.4); *SPE ALPHA-2-GLOBULIN 0.8 g/dL (0.4-1.0); *SPE BETA GLOBULIN 0.8 g/dL (0.7-1.3); *SPE GLOBULIN, TOTAL 2.8 g/dL (2.2-3.9); *SPE M-SPIKE Not Observed g/dL (Not Observed); *SPEGAMMA GLOBULIN 0.7 g/dL (0.4-1.8)
[2018-01-05] MEDS: CEFEPIME 1 GM in IV D5W 50 ML IV SCH (15:25)
[2018-01-05 16:00] VITALS: BP 120/52
--- NOTE | 2018-01-05 18:51 | NUR ---
RN NOTE PATIENT REMAINED STABLE THROUGHOUT SHIFT, NO ACUTE DISTRESS NOTED. CONTINUED WITH BLADDER IRRIGATION AT A LOW RATE. WILL ENDORSE TO NEXT SHIFT CONTINUE CONTINUITY OF CARE.
--- NOTE | 2018-01-05 18:57 | NUR ---
RN NOTE PATIENTS MARISEL RODRIGUEZ STATED THAT PATIENT TAKES BACLOFEN AND COPAXONE AT HOME. CALLED MD STACIA TANNER RECEIVED NEW ORDERS FOR PATIENT TO START BACLOFEN 20 QID AND COPAXONE. PATIENTS MARISEL RODRIGUEZ BROUGHT COPAXONE FROM HOME AND GAVE IT TO ME. TOOK MEDICATION TO STACIA FROM PHARMACY TO TRANSCRIBE THE DOSE AND FREQUENCY. WILL ENDORSE TO NEXT SHIFT.
--- NOTE | 2018-01-05 19:30 | NUR ---
RN OPENING NOTES PT AWAKE AND ALERT. RESTING IN BED. NO COMPLAINTS OF PAIN, SOB, OR DISTRESS AT THIS TIME. PT IS SAMI/CZECH SPEAKER. PT TELE MONITORED SINUS RHYTHM. PT HAS A LEFT AND RIGHT UROSTOMY TUBES INTACT AND DRAINING WELL. PT HAS [address] CONTINUOUS BLADDER IRRIGATION. PT HAS RIGHT WRIST RESTRAINT DUE TO PULLING OUT HER IV. PT HAS A RIGHT FOREARM #20 RUNNING D5 @100ML/HR. SAFETY PRECAUTIONS IN PLACE, BED IN LOW, LOCKED POSITION, X3 SIDE RAILS UP, CALL LIGHT WITHIN REACH. WILL CONTINUE TO MONITOR.
[2018-01-05 20:00] VITALS: BP 153/94
[2018-01-05] MEDS: BACLOFEN (10 MG) 10 MG TABLET PO SCH (20:50)
[2018-01-05] MEDS: COPAXONE 40 MG SQ SCH (20:54)
[2018-01-06] VITALS (7 sets, daily range): BP systolic 111–155; BP diastolic 64–84
[2018-01-06] MEDS: IV D5W 1,000 ML IV PRN ×3 (00:30→22:18)
[2018-01-06 06:08] LABS: COMPLEMENT C3, SERUM 122 mg/dL (82-167); COMPLEMENT C4, SERUM 21 mg/dL (14-44)
[2018-01-06 06:29] LABS: BASOPHILS % (AUTO) 0.1 % (0.0-2.0); EOSINOPHILS % (AUTO) 4.2 % (0.0-6.0); HEMATOCRIT 32 % (33-45); HEMOGLOBIN 10.8 g/dL (11.5-14.8); LYMPHOCYTES # (AUTO) 2.7 /CMM (0.8-4.8); LYMPHOCYTES % (AUTO) 11.4 % (20.0-44.0); MEAN CORPUSCULAR HGB CONC 34 g/dl (31.0-36.0); MEAN CORPUSCULAR VOLUME 80 fL (82-100); MONOCYTES # (AUTO) 0.5 /CMM (0.1-1.30); NEUTROPHILS # (AUTO) 19.3 /CMM (1.8-8.9); NEUTROPHILS % (AUTO) 82.3 % (43.0-81.0); PLATELET COUNT (AUTO) 288 /CMM (150-450); RDW COEFFICIENT OF VARIATION 16.9 (11.5-15.0); RED BLOOD CELL COUNT(AUTO) 4.01 MIL/uL (4.0-5.2); WHITE BLOOD COUNT (AUTO) 23.5 K/uL (4.3-11.0)
--- NOTE | 2018-01-06 06:42 | NUR ---
RN CLOSING NOTES PT AWAKE AND ALERT. RESTING IN BED. NO COMPLAINTS OF PAIN, SOB, OR DISTRESS OVERNIGHT. PT IS FAROESE/GRENADIAN/ SAMI SPEAKER. PT TELE MONITORED SINUS RHYTHM 92. PT HAS LEFT AND RIGHT UROSTOMY TUBES INTACT AND DRAINING WELL. PT HAS 3 WAY CONTINUOUS BLADDER IRRIGATION. OUTPUT OVERNIGHT FROM L/R UROSTOMY AND NEUMANN: 9900 AFTER 3 BAGS OF 3L NS CONTINUOUSLY INFUSED INTO BLADDER. PT HAS RIGHT WRIST RESTRAINT DUE TO PULLING OUT HER IV. PT HAS A RIGHT FOREARM #20 RUNNING D5 @100ML/HR. SAFETY PRECAUTIONS IN PLACE, BED IN LOW, LOCKED POSITION, X3 SIDE RAILS UP, CALL LIGHT WITHIN REACH. ALL PT NEEDS MET. WILL ENDORSE TO DAY SHIFT NURSE FOR CONTINUITY OF CARE
--- NOTE | 2018-01-06 07:10 | NUR ---
teleprinter initial notes Received patient in bed, awake, head of bed elevated, no SOB or distress noted, on 2lpm via NC and tolerated well, 02 sat of 98%. Alert and oriented x 2, lithuanian/uzbek speaking. on tele monitor SR heart rate of 91, no complaint of pain or discomfort noted. Irrigation bag in placed and running. Bilateral nephrostomy bag in placed. left side is more clear. Right side bag still pinkish blood in color. IV intact and patent with IVF infusing well. Cormier in placed. Call light with in patient reach, will continue to monitor accordingly.
[2018-01-06 07:36] LABS: CALCIUM, SERUM 8.5 mg/dL (8.5-10.1); CARBON DIOXIDE 20 mmol/L (21-32); CHLORIDE 109 mmol/L (98-107); CREATININE 2.4 mg/dL (0.6-1.3); GLUCOSE 98 mg/dL (74-106); MAGNESIUM 1.5 mg/dL (1.8-2.4); PHOSPHORUS 3.9 mg/dL (2.5-4.9); SODIUM SERUM 144 mmol/L (136-145); UREA NITROGEN, BLOOD 40 mg/dL (7-18)
[2018-01-06] MEDS: PANTOPRAZOLE 40 MG VIAL IV SCH (08:18)
[2018-01-06] MEDS: ASPIRIN EC 81 MG TABLET.DR PO SCH (08:19)
[2018-01-06] MEDS: BACLOFEN (10 MG) 10 MG TABLET PO SCH ×5 (08:19→21:30)
[2018-01-06] MEDS: MECLIZINE HCL 25 MG TABLET PO SCH ×3 (08:19→16:35)
[2018-01-06] MEDS: TIZANIDINE HCL 4 MG TABLET PO SCH ×2 (08:19→16:35)
[2018-01-06] MEDS: BETHANECHOL CHLORIDE (25 MG) 25 MG TABLET PO SCH ×2 (08:19→16:35)
[2018-01-06] MEDS: FOLIC ACID 1 MG TABLET PO SCH ×2 (08:19→16:35)
[2018-01-06] MEDS: ATORVASTATIN 10 MG TABLET PO SCH (08:19)
[2018-01-06] MEDS: Fluoxetine 10 mg capsule PO SCH (08:19)
[2018-01-06] MEDS: FAMOTIDINE (20 MG) 20 MG TABLET PO SCH ×2 (08:19→16:35)
[2018-01-06] MEDS: MONTELUKAST SODIUM (10MG) 10 MG TABLET PO SCH (08:19)
[2018-01-06] MEDS: FERROUS SULFATE (325 MG) 325 MG/TAB TABLET PO SCH ×2 (08:19→16:35)
[2018-01-06] MEDS: BLOOD SUGAR DIAGNOSTIC 1 EACH STRIP IN SCH ×4 (08:20→21:29)
[2018-01-06] MEDS: HYDROGEL DRESSING 90 GM TUBE TP SCH (08:20)
[2018-01-06 09:03] LABS: BAND % (MANUAL) 1 % (0.0-5.0); EOSINOPHILS % (MANUAL) 4 % (0-4); LYMPHOCYTES % (MANUAL) 13 % (16-48); MONOCYTES % (MANUAL) 5 % (0-11.0); MYELOCYTES % 1 % (0-0); NEUTROPHILS % (MANUAL) 76 (42-76)
[2018-01-06] MEDS: CYANOCOBALAMIN 100 MCG TABLET PO SCH (09:20)
[2018-01-06] MEDS ORDERED: POTASSIUM CHLORIDE 20 MEQ TAB.PRT.SR PO ONE (10:30)
[2018-01-06] MEDS ORDERED: Magnesium 1GM/D5W 100ML PREMIX PIGGYBACK IV ONE (10:30)
[2018-01-06] MEDS: Magnesium 1GM/D5W 100ML PREMIX 100 ML IV SCH ×3 (11:06→13:39)
[2018-01-06] MEDS: DIGOXIN 0.125 MG TABLET PO SCH (12:23)
[2018-01-06] MEDS: CEFEPIME 1 GM in IV D5W 50 ML IV SCH (16:34)
--- NOTE | 2018-01-06 19:21 | NUR ---
telecom specialist closing notes All needs provided, attended, and anticipated, patient in stable condition. Endorsed to next shift RN to continue care. Call light with in reach.
--- NOTE | 2018-01-06 19:40 | NUR ---
MAINTENANCE MILLWRIGHT NOTE RECEIVED PATIENT FROM DAY SHIFT, PATIENT IS ALERT AND ORIENTEDX2, NO S/S OF RESPIRATORY DISTRESS, GETTING O2 VIA NC 2L/MIN. NO FACIAL GRIMACE NOTED. FAMILY AT BEDSIDE. TWO NEPHROSTOMY BAGS AND NEUMANN PRESENT, NEUMANN HAS BLOODY URINE, RIGHT SIDE HAS BLOODY DRAINAGE ALSO. MD AWARE OF IT. IV ON LEFT HAND IS PATENT AND INTACT, FLUID IS RUNNING. TELE SR 88. SRX2, BED IN LOW POSITION, CALL LIGHT WITHIN REACH, WILL CONTINUE TO MONITOR THE PATIENT.
[2018-01-07] VITALS: BP 90/51
[2018-01-07 04:00] VITALS: BP 104/56
--- NOTE | 2018-01-07 06:44 | NUR ---
MANAGER INVENTORY MANAGEMENT NOTE PATIENT IS RESTING IN BED COMFORTABLY, SLEPT THROUGHOUT THE SHIFT. PATIENT GOT TOTAL 3 BAGS OF 3L NS, EMPTIED NEPHROSTOMY AND NEUMANN CATH BAGS FREQUENTLY. IV ON LEFT HAND IS PATENT AND INTACT, FLUID IS RUNNING. MORNING CARE RENDERED. TELE SR 74. NO S/S OF RESPIRATORY DISTRESS OF FACIAL GRIMACE NOTED. WILL ENDORSE TO DAY SHIFT NURSE FOR ANTONI.
[2018-01-07 07:14] LABS: EOSINOPHILS % (AUTO) 0.2 % (0.0-6.0); HEMATOCRIT 31 % (33-45); LYMPHOCYTES # (AUTO) 2.5 /CMM (0.8-4.8); LYMPHOCYTES % (AUTO) 7.6 % (20.0-44.0); MEAN CORPUSCULAR HGB CONC 33 g/dl (31.0-36.0); MEAN CORPUSCULAR VOLUME 80 fL (82-100); MONOCYTES # (AUTO) 0.8 /CMM (0.1-1.30); MONOCYTES % (AUTO) 2.5 % (2.0-12.0); NEUTROPHILS # (AUTO) 29.7 /CMM (1.8-8.9); NEUTROPHILS % (AUTO) 89.7 % (43.0-81.0); PLATELET COUNT (AUTO) 310 /CMM (150-450); RDW COEFFICIENT OF VARIATION 16.7 (11.5-15.0); RED BLOOD CELL COUNT(AUTO) 3.83 MIL/uL (4.0-5.2)
[2018-01-07 07:20] LABS: WHITE BLOOD COUNT (AUTO) 33.1 K/uL (4.3-11.0)
[2018-01-07 07:29] LABS: CARBON DIOXIDE 23 mmol/L (21-32); CHLORIDE 103 mmol/L (98-107); CREATININE 1.4 mg/dL (0.6-1.3); GLUCOSE 161 mg/dL (74-106); MAGNESIUM 1.8 mg/dL (1.8-2.4); PHOSPHORUS 3.2 mg/dL (2.5-4.9); SODIUM SERUM 139 mmol/L (136-145); UREA NITROGEN, BLOOD 27 mg/dL (7-18)
[2018-01-07 07:33] LABS: POTASSIUM 2.4 mmol/L (3.5-5.1)
--- NOTE | 2018-01-07 07:45 | NUR ---
SUPERVISOR LEAF SPRING FABRICATION NOTE: RECEIVED PATIENT IN BED, ALERT TO HER NAME, SPONTANEOUSLY OPEN HER EYES WHEN CALLED AND NODDED HER HEAD WHEN ANSWERING TO THE NURSE. ON O2 2L NC SATURATING 100%. NO FACIAL GRIMACING NOTED AND DENIED PAIN. HOB ELEVATED. ON MANAGER OF NETWORK, SR HR= 88. (L) HAND IV PERIPHERAL LINE NOTED INTACT AND PATENT INFUSING D5W @ 100ML/HR. CALL LIGHT WITHIN REACH. NEEDS ANTICIPATED. CALLED AND PAGED DR. STACIA TANNER RE: THE PATIENT'S WBC (33.1) AND POTASSIUM (2.4). AWAITING FOR MD'S RESPONSE.
[2018-01-07] MEDS: BLOOD SUGAR DIAGNOSTIC 1 EACH STRIP IN SCH ×4 (07:50→21:11)
[2018-01-07 08:00] VITALS: BP 106/61
[2018-01-07] MEDS: IV D5W 1,000 ML IV PRN (09:49)
[2018-01-07] MEDS: ATORVASTATIN 10 MG TABLET PO SCH (09:51)
[2018-01-07] MEDS: MONTELUKAST SODIUM (10MG) 10 MG TABLET PO SCH (09:52)
[2018-01-07] MEDS: FOLIC ACID 1 MG TABLET PO SCH ×3 (09:52→17:06)
[2018-01-07] MEDS: FAMOTIDINE (20 MG) 20 MG TABLET PO SCH ×3 (09:52→17:05)
[2018-01-07] MEDS: CYANOCOBALAMIN 100 MCG TABLET PO SCH (09:52)
[2018-01-07] MEDS: BETHANECHOL CHLORIDE (25 MG) 25 MG TABLET PO SCH ×3 (09:52→17:06)
[2018-01-07] MEDS: TIZANIDINE HCL 4 MG TABLET PO SCH ×2 (09:52→17:00)
[2018-01-07] MEDS: BACLOFEN (10 MG) 10 MG TABLET PO SCH ×5 (09:52→21:11)
[2018-01-07] MEDS: PANTOPRAZOLE 40 MG VIAL IV SCH (09:53)
[2018-01-07] MEDS: ASPIRIN EC 81 MG TABLET.DR PO SCH (09:53)
[2018-01-07] MEDS: Fluoxetine 10 mg capsule PO SCH (09:53)
[2018-01-07] MEDS: FERROUS SULFATE (325 MG) 325 MG/TAB TABLET PO SCH ×3 (09:53→17:05)
[2018-01-07] MEDS: MECLIZINE HCL 25 MG TABLET PO SCH ×4 (09:53→17:07)
[2018-01-07] MEDS: HYDROGEL DRESSING 90 GM TUBE TP PRN (09:55)
[2018-01-07] MEDS: HYDROGEL DRESSING 90 GM TUBE TP SCH (10:11)
[2018-01-07 10:21] LABS: LYMPHOCYTES % (MANUAL) 5 % (16-48); MONOCYTES % (MANUAL) 2 % (0-11.0); NEUTROPHILS % (MANUAL) 93 (42-76)
[2018-01-07] MEDS ORDERED: POTASSIUM CHLORIDE 20 MEQ TAB.PRT.SR PO ONE (11:00)
--- NOTE | 2018-01-07 11:02 | NUR ---
INDUSTRIAL MAINTENANCE MECHANIC NOTE: RECEIVED A CALL BACK FROM DR. STACIA TANNER RE: THE POTASSIUM OF THE PATIENT. MD GAVE AN ORDER TO REPLACE THE POTASSIUM W/ POTASSIUM 80MEQ PO X1 AND POTASSIUM 40MEQ IV AND REPEAT THE POTASSIUM LEVEL AFTER THE INFUSION.
[2018-01-07] MEDS: POTASSIUM CL. PREMIX PERIPHER. 50 ML IV SCH ×4 (11:31→15:34)
[2018-01-07 12:00] VITALS: BP 101/42
[2018-01-07] MEDS: DIGOXIN 0.125 MG TABLET PO SCH (13:00)
[2018-01-07 16:00] VITALS: BP 126/66
[2018-01-07] MEDS: CEFEPIME 1 GM in IV D5W 50 ML IV SCH (17:05)
--- NOTE | 2018-01-07 19:09 | NUR ---
SYSTEMS ARCHITECTURE ANALYST NOTE: PATIENT IN BED, ALERT TO HER NAME, SPONTANEOUSLY OPEN HER EYES WHEN CALLED AND NODDED HER HEAD WHEN ANSWERING TO THE NURSE. ON O2 2L NC SATURATING 100%. NO FACIAL GRIMACING NOTED AND DENIED PAIN. HOB ELEVATED. ON MACHINE SILK SCREEN PRINTER, SR HR= 85. (L) HAND IV PERIPHERAL LINE NOTED INTACT AND PATENT INFUSING D5W @ 100ML/HR. CALL LIGHT WITHIN REACH. RE-DRAW FOR THE POTASSIUM LEVEL WAS DONE AND AWAITING FOR THE RESULT. REPORT GIVEN TO PM SHIFT NURSE FOR CONTINUITY OF CARE.
--- NOTE | 2018-01-07 19:40 | NUR ---
HEALTH INSURANCE AGENT NOTES, RECEIVED PATIENT IN BED, SLEEPING AT THIS TIME, BREATHING EVEN AND UNLABORED, SO S\S OF PAIN OR DISCOMFORT NOTED AT THIS TIME, NOTED WITH BILATERAL NEPHROSTOMY DRAINAGE AT THIS TIME ABOUT 50CC IN EACH BAG YELLOWISH COLOR, ALSO NOTED WITH BLOODY URINE IN F/C, ALONG WITH IRRIGATION, LEFT HAND IV ACCESS INTACT AND PATENT, IFV INFUSING WELL AND PATIENT TOLERATED WELL, DRY AND CLEAN AT THIS TIME, AND WELL REPOSITIONED, CALL LIGHT W/I REACH, WILL CONTINUE TO MONITOR CLOSELY.
[2018-01-07 20:00] VITALS: BP 96/54
[2018-01-07] MEDS: METRONIDAZOLE 250 MG TABLET PO SCH (21:55)
[2018-01-08] VITALS: BP 115/61
[2018-01-08] MEDS: IV D5W 1,000 ML IV PRN ×2 (00:02→14:33)
[2018-01-08] MEDS: METRONIDAZOLE 250 MG TABLET PO SCH ×4 (00:03→18:09)
[2018-01-08] MEDS: ACETAMINOPHEN 325 MG TABLET PO PRN (03:05)
[2018-01-08 04:00] VITALS: BP 107/60
[2018-01-08 06:45] LABS: BASOPHILS # (AUTO) 0.1 /CMM (0.0-0.2); BASOPHILS % (AUTO) 0.2 % (0.0-2.0); HEMATOCRIT 27 % (33-45); HEMOGLOBIN 8.9 g/dL (11.5-14.8); LYMPHOCYTES # (AUTO) 3.9 /CMM (0.8-4.8); LYMPHOCYTES % (AUTO) 12.2 % (20.0-44.0); MEAN CORPUSCULAR HGB CONC 33 g/dl (31.0-36.0); MEAN CORPUSCULAR VOLUME 81 fL (82-100); MONOCYTES # (AUTO) 1.1 /CMM (0.1-1.30); MONOCYTES % (AUTO) 3.3 % (2.0-12.0); NEUTROPHILS # (AUTO) 26.4 /CMM (1.8-8.9); NEUTROPHILS % (AUTO) 82.3 % (43.0-81.0); PLATELET COUNT (AUTO) 320 /CMM (150-450); RDW COEFFICIENT OF VARIATION 16.9 (11.5-15.0); RED BLOOD CELL COUNT(AUTO) 3.27 MIL/uL (4.0-5.2)
--- NOTE | 2018-01-08 06:45 | NUR ---
ANESTHESIOLOGIST ATTENDING NOTES, PATIENT IN BED, AWAKE AT THIS TIME, BREATHING EVEN AND UNLABORED, SO S\S OF PAIN OR DISCOMFORT NOTED AT THIS TIME, O2 SATURATION >97% @2LPM VIA NC, BILATERAL NEPHROSTOMY DRAINAGE AT THIS TIME ABOUT, EMPTIED AT THIS TIME, CONTINUE WITH BLOODY URINE IN F/C, ALONG WITH IRRIGATION, LEFT HAND IV ACCESS INTACT AND PATENT, IVF INFUSING WELL AND PATIENT TOLERATED WELL, DRY AND CLEAN AT THIS TIME, AND WELL REPOSITIONED, CALL LIGHT W/I REACH, CONTINUE WITH RIGHT WRIST BILATERAL RESTRAIN DUE TO PATIENT PULLING TUBINGS, FREQUENT CHECKS FOR CIRCULATION AND SKIN INTEGRITY PROVIDED, NO ABNORMALITY NOTES AT THIS TIME, NO SIGNIFICANT CHANGE OF CONDITION THROUGHOUT THE NIGHT, WILL ENDORSE CONTINUITY OF CARE TO ONCOMING NURSE,
[2018-01-08 07:13] LABS: CALCIUM, SERUM 8.1 mg/dL (8.5-10.1); CARBON DIOXIDE 26 mmol/L (21-32); CHLORIDE 102 mmol/L (98-107); CREATININE 1.1 mg/dL (0.6-1.3); GLUCOSE 87 mg/dL (74-106); MAGNESIUM 1.5 mg/dL (1.8-2.4); PHOSPHORUS 2.2 mg/dL (2.5-4.9); SODIUM SERUM 139 mmol/L (136-145); UREA NITROGEN, BLOOD 21 mg/dL (7-18)
[2018-01-08 07:22] LABS: POTASSIUM 2.4 mmol/L (3.5-5.1)
[2018-01-08] MEDS: BLOOD SUGAR DIAGNOSTIC 1 EACH STRIP IN SCH ×4 (07:30→21:00)
[2018-01-08 08:00] VITALS: BP 97/59
[2018-01-08] MEDS: CYANOCOBALAMIN 100 MCG TABLET PO SCH (09:00)
--- NOTE | 2018-01-08 09:00 | NUR ---
Rn notes: received pt in bed awake, alert, oriented x2 verbally responsive with soft voice, taken poor intake, ivf infusing, repositioned for comfort, cather urine clear yellow, st on the monitor, no distress.
[2018-01-08 10:03] LABS: BAND % (MANUAL) 1 % (0.0-5.0); EOSINOPHILS % (MANUAL) 2 % (0-4); LYMPHOCYTES % (MANUAL) 9 % (16-48); MONOCYTES % (MANUAL) 4 % (0-11.0); MYELOCYTES % 1 % (0-0); NEUTROPHILS % (MANUAL) 83 (42-76)
[2018-01-08] MEDS ORDERED: Magnesium 1GM/D5W 100ML PREMIX 100 ML IV SCH (11:17)
[2018-01-08] MEDS: PANTOPRAZOLE 40 MG VIAL IV SCH (11:29)
[2018-01-08] MEDS: ASPIRIN EC 81 MG TABLET.DR PO SCH (11:29)
[2018-01-08] MEDS: BETHANECHOL CHLORIDE (25 MG) 25 MG TABLET PO SCH ×2 (11:30→18:09)
[2018-01-08] MEDS: BACLOFEN (10 MG) 10 MG TABLET PO SCH ×4 (11:30→20:52)
[2018-01-08] MEDS: FERROUS SULFATE (325 MG) 325 MG/TAB TABLET PO SCH ×2 (11:30→18:09)
[2018-01-08] MEDS: MONTELUKAST SODIUM (10MG) 10 MG TABLET PO SCH (11:30)
[2018-01-08] MEDS: TIZANIDINE HCL 4 MG TABLET PO SCH ×2 (11:31→18:09)
[2018-01-08] MEDS: ATORVASTATIN 10 MG TABLET PO SCH (11:31)
[2018-01-08] MEDS: FAMOTIDINE (20 MG) 20 MG TABLET PO SCH ×2 (11:31→18:09)
[2018-01-08] MEDS: FOLIC ACID 1 MG TABLET PO SCH ×2 (11:31→18:09)
[2018-01-08] MEDS: MECLIZINE HCL 25 MG TABLET PO SCH ×3 (11:31→18:09)
[2018-01-08] MEDS: Fluoxetine 10 mg capsule PO SCH (11:31)
[2018-01-08] MEDS: HYDROGEL DRESSING 90 GM TUBE TP SCH (11:33)
[2018-01-08 12:00] VITALS: BP 105/64
[2018-01-08] MEDS ORDERED: NEUTRA PHOS 1 POWD.PACKET PO ONE (12:00)
--- NOTE | 2018-01-08 12:00 | NUR ---
Rn notes: Repositioned for comfort, afebrile, nephrostomy in place draining yellow urine, encouarge pos fluids, iv infusing as orders no distress,
[2018-01-08] MEDS ORDERED: POTASSIUM CL. PREMIX PERIPHER. 50 ML IV SCH (12:30)
[2018-01-08] MEDS ORDERED: POTASSIUM CHLORIDE 20 MEQ TAB.PRT.SR PO ONE (12:30)
[2018-01-08 13:09] LABS: *ANCANTIMYELOPEROXIDASE (MPO) <9.0 U/mL (0.0-9.0); *ANCANTIPROTEINASE 3 (PR-3) AB <3.5 U/mL (0.0-3.5)
[2018-01-08] MEDS: DIGOXIN 0.125 MG TABLET PO SCH (14:35)
[2018-01-08] MEDS: CEFEPIME 1 GM in IV D5W 50 ML IV SCH (15:02)
[2018-01-08 15:11] LABS: *ANCA ATYPICAL p-ANCA <1:20 titer (Neg:<1:20); *ANCA CYTOPLASMIC (C-ANCA) <1:20 titer (Neg:<1:20); *ANCA PERINUCLEAR (P-ANCA) <1:20 titer (Neg:<1:20)
[2018-01-08 16:00] VITALS: BP 93/56
--- NOTE | 2018-01-08 17:41 | NUR ---
Dr Young was called d/t pt's nephrostomy forbes is cramberry urine also B/p was low at 1645 in the 80s now , awaiting for md to call back,pt's son in unit and made him aware.
--- NOTE | 2018-01-08 19:25 | NUR ---
TECHNICAL ANALYST NOTES, RECEIVED PATIENT IN BED, AWAKE, ALERT AND ORIENTED TO SELF, AND ABLE TO COMMUNICATE NEEDS AND CONCERNS, BREATHING EVEN AND UNLABORED, SO C/O OF PAIN OR DISCOMFORT REPORTED AT THIS TIME, BILATERAL NEPHROSTOMY DRAINAGE AT THIS TIME ABOUT 30ML IN EACH BAG YELLOWISH COLOR, ALSO NOTED WITH BLOODY URINE IN F/C, ALONG WITH IRRIGATION, ON LOW RATE CONTINUOUS IRRIGATION AT THIS TIME, LEFT HAND IV ACCESS INTACT AND PATENT, IVF INFUSING WELL AND PATIENT TOLERATED WELL, DRY AND CLEAN AT THIS TIME, AND WELL REPOSITIONED, CALL LIGHT W/I REACH, WILL CONTINUE TO MONITOR CLOSELY.
[2018-01-08 20:00] VITALS: BP 99/46
[2018-01-08] MEDS: COPAXONE 40 MG SQ SCH (21:00)
[2018-01-09] VITALS: BP 114/64
[2018-01-09] MEDS: CEFEPIME 1 GM in IV D5W 50 ML IV SCH ×2 (01:29→14:32)
[2018-01-09 04:00] VITALS: BP 130/73
[2018-01-09] MEDS: ACETAMINOPHEN 325 MG TABLET PO PRN ×2 (05:06→22:41)
[2018-01-09] MEDS: IV D5W 1,000 ML IV PRN (05:43)
[2018-01-09 07:10] LABS: CALCIUM, SERUM 8.3 mg/dL (8.5-10.1); CARBON DIOXIDE 26 mmol/L (21-32); CHLORIDE 105 mmol/L (98-107); GLUCOSE 89 mg/dL (74-106); MAGNESIUM 1.6 mg/dL (1.8-2.4); PHOSPHORUS 2.6 mg/dL (2.5-4.9); POTASSIUM 3.6 mmol/L (3.5-5.1); SODIUM SERUM 141 mmol/L (136-145); UREA NITROGEN, BLOOD 18 mg/dL (7-18)
[2018-01-09 07:13] LABS: BASOPHILS % (AUTO) 0.2 % (0.0-2.0); EOSINOPHILS % (AUTO) 3.9 % (0.0-6.0); HEMATOCRIT 27 % (33-45); LYMPHOCYTES % (AUTO) 11.2 % (20.0-44.0); MEAN CORPUSCULAR HGB CONC 34 g/dl (31.0-36.0); MEAN CORPUSCULAR VOLUME 81 fL (82-100); MONOCYTES % (AUTO) 3.6 % (2.0-12.0); NEUTROPHILS # (AUTO) 21.6 /CMM (1.8-8.9); NEUTROPHILS % (AUTO) 81.1 % (43.0-81.0); PLATELET COUNT (AUTO) 338 /CMM (150-450); RDW COEFFICIENT OF VARIATION 17.8 (11.5-15.0); RED BLOOD CELL COUNT(AUTO) 3.32 MIL/uL (4.0-5.2); WHITE BLOOD COUNT (AUTO) 26.7 K/uL (4.3-11.0)
--- NOTE | 2018-01-09 07:30 | NUR ---
ROOFER METAL NOTES PATIENT IS A/O X2, APPEARS ANXIOUS. OXYGEN AT 2L VIA NC, NO SOB. RIGHT HAND, SOFT WRIST RESTRAINT IN PLACE. IVC IN LEFT HAND PATENT AND INTACT, IVF D5W INFUSING AT 100ML/HR. NEUMANN 3WAY CATH IN PLACE, DRAINAGE NOTED HEMATURIA. CONTINUOUS BLADDER IRRIGATION IN PROGRESS, LEAKING FLUIDS WITH REDDISH BLOOD SURROUNDING URETHRAL AREA. BILATERAL NEPHROSTOMY TUBE INTACT WITH FLUID DRAINAGE IN THE BAG. DENIES PAIN, SAFETY MEASURES IN PLACE. WILL CONT TO MONITOR.
[2018-01-09 08:00] VITALS: BP 136/72
[2018-01-09] MEDS: BLOOD SUGAR DIAGNOSTIC 1 EACH STRIP IN SCH ×4 (08:50→23:19)
[2018-01-09] MEDS: TIZANIDINE HCL 4 MG TABLET PO SCH ×2 (08:50→17:34)
[2018-01-09] MEDS: BACLOFEN (10 MG) 10 MG TABLET PO SCH ×4 (08:51→20:44)
[2018-01-09] MEDS: MECLIZINE HCL 25 MG TABLET PO SCH ×3 (08:51→17:34)
[2018-01-09] MEDS: ATORVASTATIN 10 MG TABLET PO SCH (08:51)
[2018-01-09] MEDS: BETHANECHOL CHLORIDE (25 MG) 25 MG TABLET PO SCH ×2 (08:51→17:34)
[2018-01-09] MEDS: CYANOCOBALAMIN 100 MCG TABLET PO SCH (08:51)
[2018-01-09] MEDS: ASPIRIN EC 81 MG TABLET.DR PO SCH (08:51)
[2018-01-09] MEDS: FAMOTIDINE (20 MG) 20 MG TABLET PO SCH ×2 (08:51→17:34)
[2018-01-09] MEDS: PANTOPRAZOLE 40 MG VIAL IV SCH (08:52)
[2018-01-09] MEDS: MONTELUKAST SODIUM (10MG) 10 MG TABLET PO SCH (08:52)
[2018-01-09] MEDS: FERROUS SULFATE (325 MG) 325 MG/TAB TABLET PO SCH ×2 (08:52→17:34)
[2018-01-09] MEDS: FOLIC ACID 1 MG TABLET PO SCH ×2 (09:01→17:34)
[2018-01-09] MEDS: Fluoxetine 10 mg capsule PO SCH (09:02)
[2018-01-09] MEDS: HYDROGEL DRESSING 90 GM TUBE TP SCH (10:13)
[2018-01-09 10:17] LABS: EOSINOPHILS % (MANUAL) 4 % (0-4); LYMPHOCYTES % (MANUAL) 12 % (16-48); MONOCYTES % (MANUAL) 5 % (0-11.0); NEUTROPHILS % (MANUAL) 79 (42-76)
[2018-01-09 12:11] LABS: *PEUR ALBUMIN 28.1 % (.); *PEUR ALPHA-1-GLOBULIN 6.8 % (.); *PEUR ALPHA-2-GLOBULIN 20.6 % (.); *PEUR BETA GLOBULIN 32.8 % (.); *PEUR GAMMA GLOBULIN 11.8 % (.)
[2018-01-09] MEDS: Magnesium 1GM/D5W 100ML PREMIX 100 ML IV SCH ×2 (12:15→13:14)
[2018-01-09] MEDS: DIGOXIN 0.125 MG TABLET PO SCH (13:07)
[2018-01-09 16:00] VITALS: BP 135/73
[2018-01-09] MEDS ORDERED: POTASSIUM CL. PREMIX PERIPHER. 50 ML IV SCH (17:00)
--- NOTE | 2018-01-09 19:40 | NUR ---
ROD BUSTER HELPER NOTES, RECEIVED PATIENT IN BED, AWAKE AT THIS TIME, BREATHING EVEN AND UNLABORED, SO S\S OF PAIN OR DISCOMFORT NOTED AT THIS TIME, NOTED WITH BILATERAL NEPHROSTOMY DRAINAGE AT THIS TIME ABOUT 50CC IN EACH BAG YELLOWISH COLOR, ALSO NOTED WITH IN F/C EMPTY PRIOR SHIFT EMPTIED, F/C 3WAYS, WILL FLUSH ORDERED, WITH IRRIGATION, DRY AND CLEAN AT THIS TIME, AND WELL REPOSITIONED, CALL LIGHT W/I REACH, WILL CONTINUE TO MONITOR CLOSELY.
[2018-01-09 20:00] VITALS: BP 130/63
--- NOTE | 2018-01-09 20:07 | NUR ---
MS RN CLOSING NOTES VS REMAINS STABLE, AFEBRILE DURING THE SHIFT. LOW MAGNESIUM 1.6, SUPPLEMENTED TODAY ORDERED. BILATERAL NEPHROSTOMY TUBE, INTACT, NO LEAKING, DRESSING CLEAN AND DRY. 3WAY NEUMANN IN PLACE, WITH CONTINUOUS BLADDER IRRIGATION. NEW ORDERS TO FLUSH 3WAY NEUMANN CATH EVERY 4 HOURS DUE TO BLOOD CLOTS FROM NEUMANN CATH. FOR CT UROGRAM ORDERED. NO IVC PERIPHERAL LINE AT THIS TIME, UNABLE TO RE INSERT IVC, ATTEMPTED X2 BY 2 RN, UNSUCCESSFUL. FOR MIDLINE INSERTION ORDERED, CHARGE NURSE IS AWARE, DR. STACIA TANNER WAS INFORMED. SAFETY MEASURES IN PLACE, ENDORSED TO NIGHT RN.
[2018-01-10] MEDS: CEFEPIME 1 GM in IV D5W 50 ML IV SCH ×3 (01:00→21:21)
[2018-01-10 04:00] VITALS: BP 123/76
--- NOTE | 2018-01-10 06:27 | NUR ---
PLATE PUT IN WORKER NOTES, PATIENT IN BED, SLEEPING AT THIS TIME, BREATHING EVEN AND UNLABORED, SO S\S OF PAIN OR DISCOMFORT NOTED AT THIS TIME, NOTED WITH BILATERAL NEPHROSTOMY DRAINAGE AT THIS TIME WITH F/C 3WAYS FOR CONTINUOS LOW RATE IRRIGATION, AND FLUSH Q4HRS ORDERED, DRY AND CLEAN AT THIS TIME, AND WELL REPOSITIONED, CALL LIGHT W/I REACH, WILL HAVE CT UROGRAM, CONSENT OBTAINED FROM SON JORDAN FERNANDEZ, AND IS IN CHART, WILL BE NPO AFTER BREAKFAST PER RADIOLOGY, NO CHANGE IN CONDITION THROUGHOUT THE NIGHT, CONTINUE IN SOFT WRIST RESTRAINS FOR RIGHT WRIST, DUE TO PATIENT PULLING TUBINGS AND EQUIPMENT, FREQUENT CHECKS FOR SKIN AND CIRCULATION PROVIDED, BED LOCKED AND IN PROPER POSITION, CALL LIGHT W/I REACH, WILL ENDORSE CONTINUITY OF CARE TO ONCOMING NURSE.
[2018-01-10 06:30] LABS: BASOPHILS % (AUTO) 0.1 % (0.0-2.0); EOSINOPHILS % (AUTO) 1.9 % (0.0-6.0); HEMATOCRIT 27 % (33-45); HEMOGLOBIN 8.8 g/dL (11.5-14.8); LYMPHOCYTES # (AUTO) 2.7 /CMM (0.8-4.8); LYMPHOCYTES % (AUTO) 9.2 % (20.0-44.0); MEAN CORPUSCULAR HGB CONC 33 g/dl (31.0-36.0); MEAN CORPUSCULAR VOLUME 81 fL (82-100); MONOCYTES # (AUTO) 0.7 /CMM (0.1-1.30); MONOCYTES % (AUTO) 2.4 % (2.0-12.0); NEUTROPHILS # (AUTO) 25.9 /CMM (1.8-8.9); NEUTROPHILS % (AUTO) 86.4 % (43.0-81.0); PLATELET COUNT (AUTO) 370 /CMM (150-450); RDW COEFFICIENT OF VARIATION 18.1 (11.5-15.0); RED BLOOD CELL COUNT(AUTO) 3.27 MIL/uL (4.0-5.2)
[2018-01-10 07:08] LABS: CALCIUM, SERUM 8.3 mg/dL (8.5-10.1); CARBON DIOXIDE 26 mmol/L (21-32); CHLORIDE 105 mmol/L (98-107); CREATININE 0.8 mg/dL (0.6-1.3); GLUCOSE 85 mg/dL (74-106); MAGNESIUM 1.8 mg/dL (1.8-2.4); PHOSPHORUS 3.2 mg/dL (2.5-4.9); POTASSIUM 3.7 mmol/L (3.5-5.1); SODIUM SERUM 141 mmol/L (136-145); UREA NITROGEN, BLOOD 15 mg/dL (7-18)
--- NOTE | 2018-01-10 07:15 | NUR ---
RN INITIAL NOTES: Rec'd pt awake on bed, not in any distress, A/O x 1. On NC at 2lpm, no SOB. No IV line access noted. Has FC on CBI, still w/ hematuria & clots noted on BSB. Has bilateral nephrostomy tube patent & intact. Has R soft wrist restraint d/t pulling out of lines. Pt has sched CT urogram today. Inserted new line on R hand G22, w/ good venous return. Provided comfort & safety environment. Bed kept low & in locked pos. Call light placed w/in reach. will continue to monitor & attend pt needs.
[2018-01-10 08:00] VITALS: BP 129/70
[2018-01-10] MEDS: BLOOD SUGAR DIAGNOSTIC 1 EACH STRIP IN SCH ×4 (08:14→21:26)
[2018-01-10 08:35] LABS: BAND % (MANUAL) 2 % (0.0-5.0); EOSINOPHILS % (MANUAL) 1 % (0-4); LYMPHOCYTES % (MANUAL) 14 % (16-48); MONOCYTES % (MANUAL) 4 % (0-11.0); NEUTROPHILS % (MANUAL) 79 (42-76)
[2018-01-10] MEDS ORDERED: IV NS 0.9% 500 ML IV ONE (09:00)
[2018-01-10] MEDS ORDERED: IOHEXOL-300 100 ML VIAL IV ONE (09:00)
[2018-01-10] MEDS ORDERED: CT SWABBABLE VALVE TRANS SET 1 EA INFUS.SET MC ONE (09:00)
[2018-01-10] MEDS: PANTOPRAZOLE 40 MG VIAL IV SCH (09:05)
[2018-01-10] MEDS: HYDROGEL DRESSING 90 GM TUBE TP SCH (09:09)
--- NOTE | 2018-01-10 09:45 | NUR ---
RN NOTES: CT Urogram done. Pt tolerated the procedure.
[2018-01-10] MEDS: BACLOFEN (10 MG) 10 MG TABLET PO SCH ×4 (10:24→21:36)
[2018-01-10] MEDS: ATORVASTATIN 10 MG TABLET PO SCH (10:24)
[2018-01-10] MEDS: ASPIRIN EC 81 MG TABLET.DR PO SCH (10:24)
[2018-01-10] MEDS: Fluoxetine 10 mg capsule PO SCH (10:24)
[2018-01-10] MEDS: MONTELUKAST SODIUM (10MG) 10 MG TABLET PO SCH (10:24)
[2018-01-10] MEDS: FERROUS SULFATE (325 MG) 325 MG/TAB TABLET PO SCH ×2 (10:24→16:36)
[2018-01-10] MEDS: MECLIZINE HCL 25 MG TABLET PO SCH ×3 (10:24→16:32)
[2018-01-10] MEDS: FOLIC ACID 1 MG TABLET PO SCH ×2 (10:25→16:33)
[2018-01-10] MEDS: FAMOTIDINE (20 MG) 20 MG TABLET PO SCH ×2 (10:25→16:33)
[2018-01-10] MEDS: TIZANIDINE HCL 4 MG TABLET PO SCH ×2 (10:25→16:34)
[2018-01-10] MEDS: BETHANECHOL CHLORIDE (25 MG) 25 MG TABLET PO SCH ×2 (10:25→16:33)
[2018-01-10] MEDS: ERGOCALCIFEROL (VITAMIN D 2) 50,000 UNIT CAPSULE PO SCH (10:27)
[2018-01-10] MEDS: CYANOCOBALAMIN 100 MCG TABLET PO SCH (10:27)
[2018-01-10 12:00] VITALS: BP 105/62
--- NOTE | 2018-01-10 12:30 | NUR ---
RN NOTES: ADITHYA Midline G18 inserted c/o Dr. Almaraz. No bleeding noted. Pt tolerated well.
[2018-01-10] MEDS: IV D5W 1,000 ML IV PRN (12:36)
[2018-01-10] MEDS: DIGOXIN 0.125 MG TABLET PO SCH (12:49)
[2018-01-10 16:00] VITALS: BP 125/68
--- NOTE | 2018-01-10 16:00 | NUR ---
RN NOTES: Emilia DEVI made aware that son Lorenzo wanted to speak w/ her re: CT Urogram result. Lorenzo updated. Per Emilia, she will call Lorenzo re: plan of care.
[2018-01-10] MEDS ORDERED: LIDOCAINE 1%-EPI 1:100,000 20 ML VIAL TP ONE (17:30)
[2018-01-10] MEDS ORDERED: SILVER NITRATE APPLICATOR 1 EA BOX TP ONE (18:00)
--- NOTE | 2018-01-10 19:00 | NUR ---
RN CLOSING NOTES: No acute changes noted w/in shift. Pt tolerated NC at 2lpm, no SOB. New IV line on ADITHYA midline & R hand G22 kept patent & intact, w/ IVF infusing well. FC kept patent & intact still on CBI, flushed q4h. Bilateral nephrostomy tube kept patent & intact. Pt still has R soft wrist restraint d/t pulling out of lines. Consent secured for serial wound debridement, spoke w/ son Lorenzo. Per Lorenzo, he was able to talk to Emilia DEVI & discussed about poss transfer out to [facility] but they wanted pt to be transferred out to [facility] ([place] - MARK Bishpo made aware. Kept well rested. Needs attended. Bed kept low & in locked pos. Call light placed w/in reach. Endorsed to PM RN for ANTONI.
[2018-01-10 20:00] VITALS: BP 122/50
--- NOTE | 2018-01-10 20:00 | NUR ---
RN INITIAL NOTES: Received pt awake on bed, not in any distress, A/O x 1. On NC at 2lpm, no SOB. ADITHYA Midline #22 with fluids infusing . Has FC on CBI, still w/ hematuria & clots noted on BSB. Has bilateral nephrostomy tube patent & intact. Has R soft wrist restraint d/t pulling out of lines. Pt Provided comfort & safety environment. Bed kept low & in locked pos. Call light placed w/in reach. will continue to monitor & attend pt needs.
[2018-01-10] MEDS: COPAXONE 40 MG SQ SCH (21:36)
[2018-01-11] VITALS: BP 122/50
[2018-01-11] MEDS: IV D5W 1,000 ML IV PRN ×2 (00:05→21:37)
[2018-01-11 04:00] VITALS: BP 137/61
[2018-01-11 07:06] LABS: BASOPHILS % (AUTO) 0.2 % (0.0-2.0); EOSINOPHILS % (AUTO) 1.1 % (0.0-6.0); HEMATOCRIT 26 % (33-45); HEMOGLOBIN 8.7 g/dL (11.5-14.8); LYMPHOCYTES % (AUTO) 7.9 % (20.0-44.0); MEAN CORPUSCULAR HGB CONC 33 g/dl (31.0-36.0); MEAN CORPUSCULAR VOLUME 81 fL (82-100); MONOCYTES # (AUTO) 0.8 /CMM (0.1-1.30); MONOCYTES % (AUTO) 3.3 % (2.0-12.0); NEUTROPHILS # (AUTO) 21.9 /CMM (1.8-8.9); NEUTROPHILS % (AUTO) 87.5 % (43.0-81.0); PLATELET COUNT (AUTO) 287 /CMM (150-450); RDW COEFFICIENT OF VARIATION 17.9 (11.5-15.0); RED BLOOD CELL COUNT(AUTO) 3.23 MIL/uL (4.0-5.2); WHITE BLOOD COUNT (AUTO) 25.1 K/uL (4.3-11.0)
--- NOTE | 2018-01-11 07:08 | NUR ---
RN CLOSING NOTES: No acute changes noted w/in shift. Pt tolerated NC at 2lpm, no SOB. New IV line on ADITHYA midline & R hand G22 kept patent & intact, w/ IVF infusing well. FC kept patent & intact still on CBI, flushed q4h. Bilateral nephrostomy tube kept patent & intact. Pt still has R soft wrist restraint d/t pulling out of lines. Consent secured for serial wound debridement. Bed kept low & in locked pos. Call light placed w/in reach. Endorsed to AM RN for ANTONI.
[2018-01-11 07:32] LABS: CALCIUM, SERUM 8.5 mg/dL (8.5-10.1); CARBON DIOXIDE 26 mmol/L (21-32); CHLORIDE 102 mmol/L (98-107); CREATININE 1.1 mg/dL (0.6-1.3); GLUCOSE 108 mg/dL (74-106); MAGNESIUM 1.6 mg/dL (1.8-2.4); PHOSPHORUS 3.1 mg/dL (2.5-4.9); POTASSIUM 3.7 mmol/L (3.5-5.1); SODIUM SERUM 135 mmol/L (136-145); UREA NITROGEN, BLOOD 14 mg/dL (7-18)
[2018-01-11 08:00] VITALS: BP 127/69
[2018-01-11] MEDS: MECLIZINE HCL 25 MG TABLET PO SCH ×3 (09:58→16:40)
[2018-01-11] MEDS: FERROUS SULFATE (325 MG) 325 MG/TAB TABLET PO SCH ×2 (09:58→16:40)
[2018-01-11] MEDS: ATORVASTATIN 10 MG TABLET PO SCH (09:59)
[2018-01-11] MEDS: BACLOFEN (10 MG) 10 MG TABLET PO SCH ×4 (09:59→21:28)
[2018-01-11] MEDS: ASPIRIN EC 81 MG TABLET.DR PO SCH (09:59)
[2018-01-11] MEDS: MONTELUKAST SODIUM (10MG) 10 MG TABLET PO SCH (10:00)
[2018-01-11] MEDS: PANTOPRAZOLE 40 MG VIAL IV SCH (10:01)
[2018-01-11] MEDS: BETHANECHOL CHLORIDE (25 MG) 25 MG TABLET PO SCH ×2 (10:01→17:00)
[2018-01-11] MEDS: FOLIC ACID 1 MG TABLET PO SCH ×2 (10:01→16:40)
[2018-01-11] MEDS: Fluoxetine 10 mg capsule PO SCH (10:02)
[2018-01-11] MEDS: FAMOTIDINE (20 MG) 20 MG TABLET PO SCH ×2 (10:02→17:00)
[2018-01-11] MEDS: TIZANIDINE HCL 4 MG TABLET PO SCH ×2 (10:02→16:40)
[2018-01-11] MEDS: Magnesium 1GM/D5W 100ML PREMIX 100 ML IV SCH ×2 (10:31→14:55)
[2018-01-11] MEDS: BLOOD SUGAR DIAGNOSTIC 1 EACH STRIP IN SCH ×4 (10:48→21:27)
[2018-01-11] MEDS: HYDROGEL DRESSING 90 GM TUBE TP SCH (10:58)
[2018-01-11] MEDS: CYANOCOBALAMIN 100 MCG TABLET PO SCH (13:53)
[2018-01-11] MEDS: CEFEPIME 1 GM in IV D5W 50 ML IV SCH (13:58)
[2018-01-11] MEDS: DIGOXIN 0.125 MG TABLET PO SCH (13:59)
[2018-01-11 16:00] VITALS: BP 108/57
[2018-01-11 20:00] VITALS: BP_SYST 109; BP_SYST 94; BP_DIAS 49; BP_DIAS 61
--- NOTE | 2018-01-11 20:38 | NUR ---
RN NOTES IN BED RESTING COMFORTABLY WITH NO DISTRESS NOTED. BREATHING EVEN AND UNLABORED. O2 AT 2LPM VIA NASAL CANNULA WELL TOLERATED. HEAD OF BED ELEVATED. CONTINUOUS BLADDER IRRIGATION IN PLACE. NEUMANN CATHETER INTACT DRAINING CLEAR PINKISH URINE. NEPHROSTOMY TUBE PATENT, LEFT SIDE DRAINING CLEAR YELLOW URINE AND RIGHT SIDE DRAINING CLEAR PINKISH URINE. NO PHYSICAL MANIFESTATION OF PAIN OR DISCOMFORT. ALERT AND ORIENTED, MOUTHWORDS, PITCAIRN ISLANDER SPEAKING. KEPT CLEAN AND DRY. WILL CONTINUE TO MONITOR.
[2018-01-12] VITALS: BP 94/49
[2018-01-12] MEDS: CEFEPIME 1 GM in IV D5W 50 ML IV SCH ×2 (01:28→12:52)
[2018-01-12 04:00] VITALS: BP_SYST 94; BP_SYST 95; BP_DIAS 49; BP_DIAS 57
--- NOTE | 2018-01-12 06:32 | NUR ---
RN CLOSING NOTES NO SIGNIFICANT CHANGE OF CONDITION. VITAL SIGNS WNL. NO DISTRESS NOTED. BREATHING EVEN AND UNLABORED. NO COMPLAINT OF PAIN OR DISCOMFORT. LEFT AND RIGHT NEPHROSTOMY TUBE PATENT AND INTACT. KEPT CLEAN AND DRY. WILL ENDORSE TO AM SHIFT FOR CONTINUITY OF CARE.
[2018-01-12] MEDS: BLOOD SUGAR DIAGNOSTIC 1 EACH STRIP IN SCH ×4 (07:06→22:24)
[2018-01-12 07:10] LABS: BASOPHILS % (AUTO) 0.2 % (0.0-2.0); EOSINOPHILS % (AUTO) 2.1 % (0.0-6.0); HEMATOCRIT 26 % (33-45); HEMOGLOBIN 8.5 g/dL (11.5-14.8); LYMPHOCYTES # (AUTO) 2.5 /CMM (0.8-4.8); LYMPHOCYTES % (AUTO) 12.1 % (20.0-44.0); MEAN CORPUSCULAR HGB CONC 33 g/dl (31.0-36.0); MEAN CORPUSCULAR VOLUME 82 fL (82-100); MONOCYTES # (AUTO) 0.7 /CMM (0.1-1.30); MONOCYTES % (AUTO) 3.4 % (2.0-12.0); NEUTROPHILS # (AUTO) 16.9 /CMM (1.8-8.9); NEUTROPHILS % (AUTO) 82.2 % (43.0-81.0); PLATELET COUNT (AUTO) 325 /CMM (150-450); RDW COEFFICIENT OF VARIATION 18.3 (11.5-15.0); RED BLOOD CELL COUNT(AUTO) 3.15 MIL/uL (4.0-5.2); WHITE BLOOD COUNT (AUTO) 20.6 K/uL (4.3-11.0)
[2018-01-12 07:14] LABS: CALCIUM, SERUM 8.7 mg/dL (8.5-10.1); CARBON DIOXIDE 28 mmol/L (21-32); CHLORIDE 105 mmol/L (98-107); CREATININE 0.9 mg/dL (0.6-1.3); GLUCOSE 80 mg/dL (74-106); MAGNESIUM 1.9 mg/dL (1.8-2.4); PHOSPHORUS 3.4 mg/dL (2.5-4.9); POTASSIUM 3.2 mmol/L (3.5-5.1); SODIUM SERUM 141 mmol/L (136-145); UREA NITROGEN, BLOOD 13 mg/dL (7-18)
--- NOTE | 2018-01-12 07:46 | NUR ---
MS RN OPENING NOTE RECEIVED BEDSIDE SBAR REPORT ON THE PATIENT. PATIENT IS AWAKE ANS RESPONSIVE IN BED. PATIENT UNDERSTANDS GREENLANDIC, DOES NOT SPEAK, BUT NODS WITH THE HEAD WHEN SPOKEN TO IN GREENLANDIC. RN SPEAKS GREENLANDIC. EDUCATION/INFORMATION/DIRECTIONS ARE GIVEN IN GREENLANDIC. PATIENT IS IN BED. BED IS LOCKED IN LOWEST POSITION, SIDE RAILS UP X3, BED ALARM IS ON. NEUMANN CATHETER DRAINING PINK, BLOODY URINE. RIGHT NEPHROSTOMY DRAIN IS DRAINING SEROSANGUINEOUS FLUID. LEFT NEPHROSTOMY DRAIN IS DRAINING SEROUS FLUID. DENIES PAIN/DISCOMFORT AT THIS TIME. ALL NEEDS ARE MET. CALL LIGHT WITHIN REACH. EDUCATED TO CALL FOR ASSISTANCE USING THE CALL LIGHT AND VERBALIZED UNDERSTANDING. WILL CONTINUE TO ASSESS/MONITOR THROUGHOUT THE SHIFT.
[2018-01-12 08:00] VITALS: BP 95/57
[2018-01-12] MEDS: FERROUS SULFATE (325 MG) 325 MG/TAB TABLET PO SCH ×2 (10:38→17:41)
[2018-01-12] MEDS: MECLIZINE HCL 25 MG TABLET PO SCH ×3 (10:38→17:41)
[2018-01-12] MEDS: FAMOTIDINE (20 MG) 20 MG TABLET PO SCH ×2 (10:38→17:41)
[2018-01-12] MEDS: Fluoxetine 10 mg capsule PO SCH (10:38)
[2018-01-12] MEDS: ATORVASTATIN 10 MG TABLET PO SCH (10:39)
[2018-01-12] MEDS: MONTELUKAST SODIUM (10MG) 10 MG TABLET PO SCH (10:39)
[2018-01-12] MEDS: ASPIRIN EC 81 MG TABLET.DR PO SCH (10:39)
[2018-01-12] MEDS: FOLIC ACID 1 MG TABLET PO SCH ×2 (10:39→17:41)
[2018-01-12] MEDS: BETHANECHOL CHLORIDE (25 MG) 25 MG TABLET PO SCH ×2 (10:39→17:41)
[2018-01-12] MEDS: BACLOFEN (10 MG) 10 MG TABLET PO SCH ×4 (10:39→20:22)
[2018-01-12] MEDS: PANTOPRAZOLE 40 MG VIAL IV SCH (10:40)
--- NOTE | 2018-01-12 10:43 | NUR ---
DOCUMENTED PREVIOUS SHIFT'S MISSED MEDICATIONS NOT ADMINISTERED TO RID OF THE RED REMINDER FROM THE EMAR.
[2018-01-12] MEDS: TIZANIDINE HCL 4 MG TABLET PO SCH ×2 (10:48→17:42)
[2018-01-12] MEDS: CYANOCOBALAMIN 100 MCG TABLET PO SCH (10:48)
[2018-01-12] MEDS: HYDROGEL DRESSING 90 GM TUBE TP PRN ×2 (10:49→11:04)
[2018-01-12] MEDS: HYDROGEL DRESSING 90 GM TUBE TP SCH (11:05)
[2018-01-12] MEDS: DIGOXIN 0.125 MG TABLET PO SCH (12:51)
[2018-01-12] MEDS: POTASSIUM CHLORIDE 20 MEQ POWDER PACKET PO SCH ×2 (12:51→13:04)
[2018-01-12 16:00] VITALS: BP 95/57
[2018-01-12] MEDS ORDERED: CEFE1FRO IV (16:05)
[2018-01-12] MEDS ORDERED: PANT40VI IV (16:05)
[2018-01-12] MEDS ORDERED: BACL10TA PO (16:05)
--- NOTE | 2018-01-12 18:41 | NUR ---
PATIENT IS BEING TRANSFER TO [facility] [place] [facility]. SBAR TELEPHONE REPORT GIVEN TO ADWOA FLOYD. THE SON NOTIFIED VIA THE TELEPHONE. ALL BELONGINGS ARE ACCOUNTED FOR. ALL NURSING CARE RENDERED. WOUND CARE PERFORMED. SKIN ASSESSMENT PICTURES TAKEN AND PLACED IN THE CHART. ADITHYA MIDLINE IS INTACT AND PATENT. THREE WAY NEUMANN CATHETER INTACT, DRAINING SANGUINEOUS URINE. BILATERAL NEPHROTOMY DRAINS PRESENT. BOT DRAINING SEROUS FLUID. WILL ENDORSE TO THE AGRONOMY SPECIALIST NURSE FOR ANTONI. AMBULANCE AUXILIARY EQUIPMENT TENDER IS SCHEDULED BETWEEN 6:30-7:30 PM.
--- NOTE | 2018-01-12 19:33 | NUR ---
SPOKE ON THE PHONE WITH CHRISTEL THE SON OF THE PATIENT. CHRISTEL STATED PATIENT HAS COPAXON IN THE PHARMACY. RN PLACED COPAXON IN PATIENT'S BELONGINGS BAG. ONLY TWO SYRINGES LEFT IN THE BOX. CALLED CHRISTEL AND INFORMED. ENDORSED TO THE HATCHERY ATTENDANT NURSE.
--- NOTE | 2018-01-12 19:35 | NUR ---
MS RN CLOSING NOTE PATIENT IS AWAKE ANS RESPONSIVE IN BED. PATIENT IS IN BED. BED IS LOCKED IN LOWEST POSITION, SIDE RAILS UP X3, BED ALARM IS ON. NEUMANN CATHETER DRAINING PINK, BLOODY URINE. RIGHT NEPHROSTOMY DRAIN IS DRAINING SEROUS FLUID. LEFT NEPHROSTOMY DRAIN IS DRAINING SEROUS FLUID. DENIES PAIN/DISCOMFORT AT THIS TIME. ALL NEEDS ARE MET. CALL LIGHT WITHIN REACH. EDUCATED TO CALL FOR ASSISTANCE USING THE CALL LIGHT AND VERBALIZED UNDERSTANDING. WILL ENDORSE TO THE SPIRAL GEAR GENERATOR NURSE FOR ANTONI
[2018-01-12 20:00] VITALS: BP 100/61
--- NOTE | 2018-01-12 20:12 | NUR ---
RN INITIAL MS NOTE RECEIVED PT AWAKE IN BED STABLE VS WNR, PT FOR TRANSFER TO [facility] AWARE. AM SHIFT RN GAVE REPORT TO RN [place] DAY SHIFT, RM ASSIGNED [id number] NOT AWARE WHO MD IS, ALL PERSONAL BELONGING GIVEN TO EMT. SCHEDULED MEDS TO BE GIVEN ORDERED. PT CLEAN AND DRY.
[2018-01-12] MEDS: COPAXONE 40 MG SQ SCH (20:25)
--- NOTE | 2018-01-12 20:31 | NUR ---
[facility], UNABLE TO SCAN BARCODE
--- NOTE | 2018-01-12 22:14 | NUR ---
1189 CALL [facility] GAVE TO JUAN RN ADMITTING FULL REPORT AND REASON FOR THE TRANSFER. ON THE CASE NOT KNOWN BY CHARGE AND RN ADMITTING. AMBULANCE HERE TO SAMPLE CUTTER PT.
--- NOTE | 2018-01-12 22:38 | NUR ---
9639 SON JORDAN NOTIFIED OF PT SWITCH ADJUSTER MD ADMITTING IS SAMANTA AND SON AWARE ALL PERSONAL BELONGING TAKEN WITH PT.
== END 2018-01-12 22:33 | disposition short-term general hospital (02) | DRG 853 ==
LOC: ER 15:21 → TELE1 18:12 → TELE-TD 19:20 → TELE1 12-30 11:18 → MEDSG1 12-31 11:37 → TELE1 01-02 13:15 → TELE-TD 01-03 15:33 → TELE1 01-05 16:47 → MEDSG1 01-09 10:48
PROVIDERS: ADMIT Registered Nurse; ATTEND Registered Nurse
PROC: 0T133JD Bypass Right Kidney Pelvis to Cutaneous with Synthetic Substitute, Percutaneous Approach (ICD-10-PCS; 2018-01-04)
PROC: 0T143JD Bypass Left Kidney Pelvis to Cutaneous with Synthetic Substitute, Percutaneous Approach (ICD-10-PCS; 2018-01-04)
PROC: 30233N1 Transfusion of Nonautologous Red Blood Cells into Peripheral Vein, Percutaneous Approach (ICD-10-PCS; 2018-01-04)
PROC: 05H533Z Insertion of Infusion Device into Right Subclavian Vein, Percutaneous Approach (ICD-10-PCS; 2018-01-10)
PROC: B546ZZA Ultrasonography of Right Subclavian Vein, Guidance (ICD-10-PCS; 2018-01-10)
PROC: 0JB70ZZ Excision of Back Subcutaneous Tissue and Fascia, Open Approach (ICD-10-PCS; principal; 2018-01-11)
DX: A41.59 Other Gram-negative sepsis (principal); N17.0 Acute kidney failure with tubular necrosis; G92 Toxic encephalopathy; L89.153 Pressure ulcer of sacral region, stage 3; E87.2 Acidosis; E87.0 Hyperosmolality and hypernatremia; E11.22 Type 2 diabetes mellitus with diabetic chronic kidney disease; G35 Multiple sclerosis; N13.6 Pyonephrosis; B96.20 Unspecified Escherichia coli [E. coli] as the cause of diseases classified elsewhere; D49.4 Neoplasm of unspecified behavior of bladder; I50.32 Chronic diastolic (congestive) heart failure; I69.851 Hemiplegia and hemiparesis following other cerebrovascular disease affecting right dominant side; G93.89 Other specified disorders of brain; R65.20 Severe sepsis without septic shock; N18.9 Chronic kidney disease, unspecified; M19.90 Unspecified osteoarthritis, unspecified site; K21.9 Gastro-esophageal reflux disease without esophagitis; G89.4 Chronic pain syndrome; E78.5 Hyperlipidemia, unspecified; E53.8 Deficiency of other specified B group vitamins; E55.9 Vitamin D deficiency, unspecified; F32.9 Major depressive disorder, single episode, unspecified; F03.90 Unspecified dementia, unspecified severity, without behavioral disturbance, psychotic disturbance, mood disturbance, and anxiety; R33.9 Retention of urine, unspecified; M79.2 Neuralgia and neuritis, unspecified; B96.1 Klebsiella pneumoniae [K. pneumoniae] as the cause of diseases classified elsewhere; E83.39 Other disorders of phosphorus metabolism; M62.50 Muscle wasting and atrophy, not elsewhere classified, unspecified site; Z74.01 Bed confinement status; D50.9 Iron deficiency anemia, unspecified; N30.81 Other cystitis with hematuria; K76.0 Fatty (change of) liver, not elsewhere classified; E87.6 Hypokalemia
CPT/HCPCS: 36415; 36569; 70450-TC; 70551-TC; 71045-TC; 74178; 75989; 75989-TC; 76770-TC; 76856-TC; 80048-TC; 80053-TC; 80076-TC; 81000-TC; 82247-TC; 82248-TC; 82550-TC; 82570-TC; 82962-TC; 83520; 83605-TC; 83735-TC; 83970; 84100-TC; 84132-TC; 84134-TC; 84155; 84155-TC; 84156; 84165; 84166; 84300-TC; 84484-TC; 85025-TC; 85385-TC; 85610-TC; 85730-TC; 86256; 86850-TC; 86921-TC; 87040-TC; 87070-TC; 87081-TC; 87086-TC; 87186-TC; A4215; A4216; A4217; A4606; A6248; A6253; A6402; A6403; C9113; J0690; J0692; J2250; J2270; J2310; J2543; J3010; J3370; J3475; J3480; J3490; J7030; J7040; J7042; J7050; J7060; J7070; J8597; P9016-BL; Q9967; Z7610

== ENCOUNTER 2018-02-12 22:21 | Inpatient (IN) | payer MEDICARE, MEDICAID ==
[~2018-02-12] VITALS: Ht 165.1 cm; Wt 52.2 kg
[~2018-02-12 22:21] MED LIST: ASPI-1152 PO; BACL10TA PO; BETH25TA PO; CEFE1FRO IV; CYAN10009 PO; DIGO125T PO; ERGO500014 PO; FAMO20TA8 PO; FERR325T23 PO; FLUO10TA PO; FOLI1TAB16 PO; GABA-532 PO; MECL-102 PO; MELO-105 PO; MONT10TA22 PO; PANT40VI IV; POTA10TA21 PO; ROSU5TAB11 PO; TIZA4TAB4 PO; TRAM50TA2 PO
[2018-02-12] MEDS ORDERED: ACETAMINOPHEN 650 MG/SUPP.RECT RC ONE (22:46)
[2018-02-12] MEDS ORDERED: CEFEPIME 1 GM VIAL IV ONE (23:00)
[2018-02-12] MEDS ORDERED: IV NS 0.9% 1,000 ML BAG IV ONE (23:00)
[2018-02-12 23:12] LABS: BASOPHILS % (AUTO) 0.1 % (0.0-2.0); HEMATOCRIT 27 % (33-45); HEMOGLOBIN 8.9 g/dL (11.5-14.8); LYMPHOCYTES % (AUTO) 3.2 % (20.0-44.0); MEAN CORPUSCULAR HEMOGLOBIN 26 PG (26.0-33.0); MEAN CORPUSCULAR HGB CONC 33 g/dl (31.0-36.0); MEAN CORPUSCULAR VOLUME 81 fL (82-100); MONOCYTES # (AUTO) 0.7 /CMM (0.1-1.30); MONOCYTES % (AUTO) 2.1 % (2.0-12.0); NEUTROPHILS # (AUTO) 30.9 /CMM (1.8-8.9); NEUTROPHILS % (AUTO) 94.6 % (43.0-81.0); PLATELET COUNT (AUTO) 318 /CMM (150-450); RED BLOOD CELL COUNT(AUTO) 3.37 MIL/uL (4.0-5.2)
[2018-02-12] MEDS ORDERED: CEFEPIME 1 GM VIAL ONE (23:16)
[2018-02-12 23:28] LABS: WHITE BLOOD COUNT (AUTO) 32.6 K/uL (4.3-11.0)
[2018-02-12 23:32] LABS: INR 1.03 (0.87-1.13)
[2018-02-12 23:33] LABS: CALCIUM, SERUM 8.9 mg/dL (8.5-10.1); CARBON DIOXIDE 21 mmol/L (21-32); CHLORIDE 99 mmol/L (98-107); CREATININE 1.3 mg/dL (0.6-1.3); GLUCOSE 143 mg/dL (74-106); POTASSIUM 3.6 mmol/L (3.5-5.1); SODIUM SERUM 134 mmol/L (136-145); UREA NITROGEN, BLOOD 45 mg/dL (7-18)
[2018-02-12 23:38] LABS: ALANINE AMINOTRANSFERASE 84 U/L (12-78); ALBUMIN 2.1 g/dL (3.4-5.0); ALKALINE PHOSPHATASE 120 U/L (46-116); ASPARTATE AMINOTRANSFERASE 114 U/L (15-37); BILIRUBIN,DIRECT 0.1 mg/dL (0.0-0.2); BILIRUBIN,TOTAL 0.4 mg/dL (0.2-1.0); TOTAL PROTEIN, SERUM 7.3 g/dL (6.4-8.2)
[2018-02-12 23:40] LABS: BAND % (MANUAL) 5 % (0.0-5.0); LYMPHOCYTES % (MANUAL) 4 % (16-48); MONOCYTES % (MANUAL) 2 % (0-11.0); NEUTROPHILS % (MANUAL) 89 (42-76)
[2018-02-12 23:42] LABS: TROPONIN I 0.194 ng/mL (0.00-0.056)
[2018-02-13] VITALS (46 sets, daily range): BP systolic 77–157; BP diastolic 32–133
[2018-02-13] MEDS: ASPIRIN 325 MG TABLET PO ONE ×2 (00:30→00:44)
[2018-02-13] MEDS ORDERED: IV NS 0.9% 1,000 ML BAG IV ONE (00:30)
[2018-02-13] MEDS ORDERED: ASPIRIN 325 MG TABLET ONE (00:33)
[2018-02-13] MEDS ORDERED: VANCOMYCIN 1 GM in IV NS 0.9% 250 ML IV STA (00:57)
[2018-02-13] MEDS ORDERED: ASPIRIN 300 MG/SUPP.RECT RC STA (00:59)
[2018-02-13] MEDS ORDERED: NOREPINEPHRINE 8 MG in IV D5W 500 ML IV PRN ×4 (01:00→06:30)
[2018-02-13] MEDS ORDERED: ONDANSETRON HCL/PF 4 MG/2 ML VIAL IVP PRN (01:00)
[2018-02-13] MEDS ORDERED: VANCOMYCIN 1 GM in IV D5W 250 ML IV ONE (01:00)
[2018-02-13] MEDS ORDERED: ACETAMINOPHEN 650 MG/SUPP.RECT RC PRN (01:00)
[2018-02-13] MEDS ORDERED: ASPIRIN 300 MG/SUPP.RECT RC ONE (01:13)
[2018-02-13] MEDS ORDERED: VANCOMYCIN 1 GM VIAL ONE (01:13)
[2018-02-13] MEDS ORDERED: NOREPINEPHRINE 4 MG/4 ML AMPUL IV ONE (01:30)
--- NOTE | 2018-02-13 01:45 | NUR ---
PER MD'S ORDERS, LEVOPHED STARTED AT 2MCG/KG/MIN, TITRATE PER PROTOCOL. WILL CONTINUE TO MONITOR PT.
--- NOTE | 2018-02-13 02:16 | NUR ---
REPORT GIVEN TO GROUND CREWMANADWOA MCKEON FOR ANTONI
--- NOTE | 2018-02-13 04:00 | NUR ---
received pt from ER, alert, follows simple commands, SB, SR, receiving levo at 1mcg, on RA, lungs partially congested, no edema, NPO, L and R urostomy draining urine, no BM, v/s stable, no pain, pt cleaned, changed and repositioned q2hrs.
--- NOTE | 2018-02-13 05:00 | NUR ---
charting for Initial, Initial Physical and Past Medical assessment done on the paper, because of down time.
[2018-02-13 05:58] LABS: APPEARANCE,URINE CLOUDY (CLEAR); BILIRUBIN,URINE NEGATIVE (NEGATIVE); BLOOD, URINE NEGATIVE Ery/uL (NEGATIVE); COLOR,URINE YELLOW (YELLOW); KETONES,URINE NEGATIVE (NEGATIVE); LEUKOCYTE ESTERASE ,URINE TRACE (NEGATIVE); NITRITE, URINE NEGATIVE (NEGATIVE); PROTEIN,URINE 3+ mg/dl (NEGATIVE); UGLUCOSE NEGATIVE (NEGATIVE)
[2018-02-13] MEDS: IV NS 0.9% 1,000 ML IV PRN (06:00)
[2018-02-13 07:27] LABS: THYROID STIMULATING HORMONE 0.489 uIU/mL (0.358-3.74)
--- NOTE | 2018-02-13 07:30 | NUR ---
INITIAL NOTES: PT ALERT AND ORIENTED X1 THROUGH ARMEAN SPEAKING PERSON PT KNOWS NAME AND KEEPS REPEATING NAME WHEN ASKED TIME, PLACE, OR CIRCUMSTANCE. PT ABLE TO FOLLOW SIMPLE COMMANDS TO LIFT RIGHT ARM BUT LEFT ARM AND LEFT LEG UNABLE TO RISE. LEFT LEG ATTEMPTS TO RISE BOUT OVERCOME BY GRAVITY. PT S/P CVA WITH LEFT SIDE RESIDUAL WEAKNESS. PT SR ON JAIL OFFICER. PT HAS CT SCAN CONSENT. PT HAS TWO NEPHROLOGY TUBES PLACED IN KIDNEYS BOTH DRAINING HOWEVER, RIGHT SIDE DRAINS MORE THAN LEFT. LEFT-SIDE CLIENT MANAGER TUBE NEEDS REPOSITIONING. PT HAS 18 G IN LEFT HAND AND 20 G IN LEFT FOREARM BOTH H/L BUT FLUSH WELL. PT HAS TKO NS THROUGH TRIPLE LUMEN CATH IN LEFT EJ CLEAN DRY AND FLUSHES WELL. PT NPO SINCE ADMISSION. BED IN LOW POSITION LOCKED WILL CONTINUE TO MONITOR.
[2018-02-13 08:14] LABS: PH,URINE >8.5 (5.0-8.0)
[2018-02-13 08:16] LABS: BACTERIA,URINE Many /HPF (None Seen); SQUAMOUS EPITHELIAL CELL,UR Rare /HPF (None Seen); URIC ACID CRYSTALS,URINE Moderate /HPF (None Seen)
[2018-02-13] MEDS ORDERED: PANTOPRAZOLE 40 MG VIAL IV SCH (09:00)
[2018-02-13] MEDS: ASPIRIN EC 81 MG TABLET.DR PO SCH (09:28)
[2018-02-13] MEDS: MONTELUKAST SODIUM (10MG) 10 MG TABLET PO SCH (09:28)
[2018-02-13] MEDS: PANTOPRAZOLE 40 MG VIAL IV SCH (09:30)
[2018-02-13] MEDS ORDERED: FENTANYL PF 250MCG/5ML AMPUL IV ONE (13:30)
[2018-02-13] MEDS ORDERED: NALOXONE PREFILLED SYRINGE 2 MG/2 ML SYRINGE IV ONE (13:30)
[2018-02-13] MEDS ORDERED: MIDAZOLAM HCL 5MG/ML VIAL 25 MG/5 ML VIAL IV ONE (13:30)
[2018-02-13] MEDS ORDERED: LEVOFLOXACIN 500 MG /D5W 100ML 500 MG in PREMIX 1 EA IV ONE (17:00)
[2018-02-13] MEDS ORDERED: FEE PK DOSING 1 MIN EA MC ONE (17:24)
[2018-02-13] MEDS: PIPERACILLIN /TAZOBACTAM 2.25 G in IV NS 0.9% 50 ML IV SCH (18:22)
--- NOTE | 2018-02-13 19:22 | NUR ---
CLOSING: PT STABLE ALL SHIFT WENT TO IR TO HAVE LEFT NEPHROLOGY TUBE REPLACE. AFTER PT STARTED ON LEVOPHED AT 1 MCG. PT TOLERATED PROCEDURE WELL SON AT BEDISE CURRENTLY. LEFT NEPHROLOGY TUBE DRAINING WELL. ENDORSE CARE TO ASSISTANT PLANT CONTROL OPERATOR RN.
--- NOTE | 2018-02-13 19:30 | NUR ---
ELECTORAL OFFICER INITIAL NOTE RECEIVED PATIENT AWAKE, ALERT, SON AT BEDSIDE, STATES PATIENT DOES NOT SPEAK LIBERIAN AND SHE SOMETIMES RECOGNIZES HER SON WITH REMINDER. NO S/S PAIN OR DISCOMFORT. NO RESPIRATORY DISTRESS NOTED, ON RA SPO2 100%. SKIN WARM AND DRY TO TOUCH. ON TELE SR WITH PAC'S. NOTED WITH BILATERAL NEPHROSTOMY TUBES IN PLACE, DRAINING. DRESSING DRY AND INTACT. WITH F/C IN PLACE. WITH LIJ PATENT AND INTACT, NS AT 125ML/HR AND LEVO AT 2MCG/MIN RUNNING. NOTED PATIENT WITH RESTLESS RIGHT ARM, PER SON REQUEST TO HAVE HIS MOM'S RIGHT ARM RESTRAINED, PATIENT HAS PULLED HER LINES AND TUBES BEFORE. WITH NEW ORDER RIGHT ARM SOFT WRIST RESTRAINT. NOTED AND CARRIED OUT. HOB ELEVATED. SIDE RAILS UP AND LOCKED. BED KEPT AT LOWEST POSITION. WILL CLOSELY MONITOR.
[2018-02-13] MEDS: VANCOMYCIN 500 MG in IV NS 0.9% 100 ML IV SCH (20:13)
--- NOTE | 2018-02-13 20:55 | NUR ---
RANCH MANAGER NOTE SPOKE WITH TIMO REGARDING DR. PATEL MICRO REQUEST. PER FLASH, MICROBIOLOGISTS ARRIVE IN THE MORNING BETWEEN 6-7AM TO FAX MD REQUEST FOR THEM TO LOOK AT IN THE MORNING. [facility] [place] ORDER REQUEST FOR PREVIOUS REPORT OF SENSITIVITIES FAXED.
[2018-02-13] MEDS ORDERED: CEFEPIME 1 GM in IV D5W 50 ML IV SCH (23:00)
[2018-02-14] VITALS (24 sets, daily range): BP systolic 105–150; BP diastolic 58–103
[2018-02-14] MEDS: PIPERACILLIN /TAZOBACTAM 2.25 G in IV NS 0.9% 50 ML IV SCH ×5 (00:33→23:56)
[2018-02-14] MEDS: IV NS 0.9% 1,000 ML IV PRN ×2 (01:49→11:32)
[2018-02-14 04:28] LABS: BASOPHILS % (AUTO) 0.1 % (0.0-2.0); EOSINOPHILS % (AUTO) 0.5 % (0.0-6.0); HEMATOCRIT 25 % (33-45); LYMPHOCYTES % (AUTO) 5.4 % (20.0-44.0); MEAN CORPUSCULAR HEMOGLOBIN 27 PG (26.0-33.0); MEAN CORPUSCULAR HGB CONC 33 g/dl (31.0-36.0); MEAN CORPUSCULAR VOLUME 82 fL (82-100); MONOCYTES # (AUTO) 0.6 /CMM (0.1-1.30); MONOCYTES % (AUTO) 3.3 % (2.0-12.0); NEUTROPHILS # (AUTO) 16.1 /CMM (1.8-8.9); NEUTROPHILS % (AUTO) 90.7 % (43.0-81.0); PLATELET COUNT (AUTO) 261 /CMM (150-450); RDW COEFFICIENT OF VARIATION 15.6 (11.5-15.0); RED BLOOD CELL COUNT(AUTO) 3.01 MIL/uL (4.0-5.2); WHITE BLOOD COUNT (AUTO) 17.8 K/uL (4.3-11.0)
[2018-02-14 04:48] LABS: ALANINE AMINOTRANSFERASE 53 U/L (12-78); ALBUMIN 1.7 g/dL (3.4-5.0); ALKALINE PHOSPHATASE 98 U/L (46-116); ASPARTATE AMINOTRANSFERASE 51 U/L (15-37); BILIRUBIN,TOTAL 0.3 mg/dL (0.2-1.0); CALCIUM, SERUM 8.1 mg/dL (8.5-10.1); CARBON DIOXIDE 18 mmol/L (21-32); CHLORIDE 112 mmol/L (98-107); CREATININE 0.8 mg/dL (0.6-1.3); GLUCOSE 73 mg/dL (74-106); MAGNESIUM 1.4 mg/dL (1.8-2.4); PHOSPHORUS 3.5 mg/dL (2.5-4.9); SODIUM SERUM 145 mmol/L (136-145); TROPONIN I 0.061 ng/mL (0.00-0.056); UREA NITROGEN, BLOOD 25 mg/dL (7-18)
[2018-02-14 04:59] LABS: POTASSIUM 2.6 mmol/L (3.5-5.1)
[2018-02-14 05:10] LABS: EOSINOPHILS % (MANUAL) 1 % (0-4); LYMPHOCYTES % (MANUAL) 7 % (16-48); MONOCYTES % (MANUAL) 3 % (0-11.0); NEUTROPHILS % (MANUAL) 89 (42-76)
--- NOTE | 2018-02-14 05:11 | NUR ---
GUEST EXPERIENCE CAPTAIN NOTE RELAYED POTASSIUM LEVEL 2.6 TO DEYANIRA DEVI WITH NEW ORDERS FOR KCL 40MEQ NOW AND RECHECK BMP. NOTED AND CARRIED OUT. WILL CONTINUE TO MONITOR .
[2018-02-14] MEDS: POTASSIUM CL. PREMIX PERIPHER. 50 ML IV SCH ×4 (05:22→08:38)
--- NOTE | 2018-02-14 05:48 | NUR ---
KINDERGARTEN ASSISTANT NOTE SEEN AND EXAMINED BY DR. RIVAS
--- NOTE | 2018-02-14 06:01 | NUR ---
TRAINING DIRECTOR NOTE PER DR. RIVAS IF PATIENT IS OFF PRESSORS TIL THIS AFTERNOON, PATIENT CAN BE DOWNGRADED.
[2018-02-14] MEDS: Magnesium 1GM/D5W 100ML PREMIX 100 ML IV SCH ×2 (06:12→07:30)
[2018-02-14] MEDS: POTASSIUM CHLORIDE 20 MEQ TAB.PRT.SR PO SCH ×5 (06:13→10:45)
--- NOTE | 2018-02-14 06:36 | NUR ---
RETURN TO VENDOR CLOSING NOTE NO SIGNIFICANT CHANGES OVERNIGHT. NO RESPIRATORY DISTRESS, ON RA WITH SPO2 100%. AFEBRILE. PATIENT A/O TO SELF, FOLLOWS SIMPLE COMMANDS. OFF LEVO SINCE 2114 ON 02/13. KEPT CLEAN AND DRY. TURNED AND REPOSITIONED Q2 AND PRN. WOUND TX PROVIDED. RIGHT WRIST RESTRAINT IN PLACE, CIRCULATION CHECKED. HOB ELEVATED. SIDE RAILS UP AND LOCKED. BED KEPT AT LOWEST POSITION. WILL ENDORSE CONTINUITY OF CARE TO AM NURSE. Addendum: 02/14/18 at 0640 by RIRI JONES RN ADD TO NOTE BILATERAL NEPHROSTOMY IN PLACE, PATENT AND INTACT, DRAINING BY GRAVITY, NO OCCLUSION NOTED.
--- NOTE | 2018-02-14 06:41 | NUR ---
WOUND CARE CONSULT WOUND CARE RECEIVED CONSULT FOR PRESSURE ULCERS. WOUND CARE WILL DEFER CONSULT AND ALL TREATMENT PLANS TO SURGICAL TEAM WHO ARE CURRENTLY FOLLOWING. PATIENT WITH CURRENT JOVANA AT 12, ALL PRESSURE ULCER PREVENTION MEASURES ARE NOTED TO BE IN PLACE. WILL SEE PRN.
[2018-02-14] MEDS: VANCOMYCIN 500 MG in IV NS 0.9% 100 ML IV SCH ×2 (07:52→20:01)
--- NOTE | 2018-02-14 07:58 | NUR ---
ICU/RN INITIAL NOTES,AM RECEIVED REPORT FROM NIGHT NURSE. PT ALERT, OPENS EYES, FOLLOW SOME SIMPLE COMMANDS. PT ON ROOM AIR, NO DISTRESS NOTED, MAINTAINING 02 SAT >95%. ON TELE, PT SINUS WITH OCCASIONAL PACS. LEFT IJ AND PIV PATENT AND INTACT, NO S/S OF INFECTION OR INFILTRATION NOTED, IV FLUIDS INFUSING ORDERED. PT NPO EXCEPT MEDS AT THIS TIME, SWALLOW EVAL PENDING. RIGHT WRIST RESTRAINT IN PLACE, ASSESSED PER PROTOCOL. BILATERAL NEPHROSTOMY DRAINS PRESENT AND DRAINING. WILL CONTINUE TO MONITOR. ALL NEEDS WILL BE ATTENDED TO, SAFETY MEASURES TAKEN, BED IN LOW POSITION, SIDE RIALS UP, CALL LIGHT WITHIN REACH
[2018-02-14] MEDS: PANTOPRAZOLE 40 MG VIAL IV SCH (08:12)
[2018-02-14] MEDS: ASPIRIN EC 81 MG TABLET.DR PO SCH (08:13)
[2018-02-14] MEDS: MONTELUKAST SODIUM (10MG) 10 MG TABLET PO SCH (08:13)
--- NOTE | 2018-02-14 12:00 | NUR ---
ICU/RN: WALTER ALEJANDRO AT BEDSIDE. PT'S WOUNDS ASSESSED. PT SCHEDULED FOR WOUND DEBRIDEMENT TOMORROW. WILL OBTAIN CONSENT AND PLACE IN CHART. WILL CONTINUE WITH WOUND CARE ORDERED. PT TURNED AND REPOSITIONED Q 2HOURS AND NEEDED.
--- NOTE | 2018-02-14 14:50 | NUR ---
ICU/RN: REPORT ENDORSED TO SAMMY ORONA. PT TRANSFERRED TO ROOM 325-1. ALL BELONGINGS AND MEDICATIONS TRANSFERRED WITH PT. LINENS CHANGED, TURNED AND REPOSITIONED. CONSENT PLACED IN CHART. WILL CONTINUE CARE.
--- NOTE | 2018-02-14 15:00 | NUR ---
RN NOTES PT WAS BROUGHT TO FLOOR BY ICU NURSE IN STABLE CONDITION. PT ON RA, RESPIRATIONS ARE EVEN AND UNLABORED. IV ON LIJ INTACT AND RUNNING NS @ 125ML/HR AND RFA IV INTACT AND SL. BILATERAL NEPHROSTOMY TUBES IN PLACE AND DRAINING TO GRAVITY. NO SIGNS OF DISTRESS NOTED. SAFETY MEASURES ARE IN PLACE, CALL LIGHT IS IN REACH. WILL CONTINUE TO MONITOR.
[2018-02-14] MEDS: SOD FERRIC GLUC 125 MG in IV NS 0.9% 100 ML IV SCH (15:12)
[2018-02-14] MEDS: LEVOFLOXACIN 250 MG /D5W 50 ML 250 MG in PREMIX 1 EA IV SCH (16:06)
--- NOTE | 2018-02-14 18:49 | NUR ---
RN NOTES PT IS SITTING UP IN BED, AWAKE, RESTING COMFORTABLY. PT ON RA, RESPIRATIONS ARE EVEN AND UNLABORED. IV ON LIJ RUNNING NS @ 125ML/HR AND RFA INTACT AND SL. NEPHROSTOMY TUBES ARE IN PLACE AND DRAINING TO GRAVITY. NO SIGNS OF DISTRESS NOTED. SAFETY MEASURES ARE IN PLACE, CALL LIGHT IS IN REACH. WILL ENDORSE TO IC ENGINEER RN FOR CONTINUITY OF CARE.
--- NOTE | 2018-02-14 19:51 | NUR ---
MS RN NOTES RECEIVED ON BED A/O X1-2,BREATHING NON LABORED,WITH BILATERAL NEPHROSTOMY TUBE,EMPTY AT THE MOMENT.WITH LEFT IJ TRIPLE LUMEN INFUSING NS AT 125ML/HR RATE.ON PUREE DIET TOLERATED WELL.KCI MATTRESS IN USED FOR WOUND MANAGEMENT.SACRAL WOUND WITH DRESSING INTACT AND DRY.REPOSITION PER PROTOCOL.ISOLATION PRECAUTION FOR MRSA NARES,WILL CONTINUE TO MONITOR STATUS.
--- NOTE | 2018-02-14 20:00 | NUR ---
MS RN NOTES DUE VANCOMYCIN 500MG IVPB HUNG
[2018-02-14] MEDS: MUPIROCIN OINT 2% 22 GM TUBE SCH (20:56)
--- NOTE | 2018-02-15 | NUR ---
MS RN NOTES DUE ZOSYN 2.25GM IVPB HUNG
[2018-02-15] MEDS: IV NS 0.9% 1,000 ML IV PRN (01:29)
--- NOTE | 2018-02-15 02:00 | NUR ---
MS RN NOTES REPOSITION PER PROTOCOL
[2018-02-15] MEDS: PIPERACILLIN /TAZOBACTAM 2.25 G in IV NS 0.9% 50 ML IV SCH ×2 (05:30→11:10)
--- NOTE | 2018-02-15 05:30 | NUR ---
MS RN NOTES MORNING CARE RENDERED TOLERATED WELL,REPOSITION. DRESSING CHANGE DONE TO SACRAL WOUND. UV ZOSYN 2.25GM IVPB HUNG
--- NOTE | 2018-02-15 06:27 | NUR ---
MS RN NOTES NPO FOR NOW.POSSIBLE BUTTOCKS AND SACRAL WOUND DEBRIDEMENT.IVF INFUSING,SITE REMAINS PATENT.WILL ENDORSE TO SAMMY ORONA FOR ANTONI.
--- NOTE | 2018-02-15 07:15 | NUR ---
RN NOTES PT IS SITTING UP IN BED, SLEEPING COMFORTABLY. PT ON RA, RESPIRATIONS ARE EVEN AND UNLABORED. IV ON LIJ RUNNING NS @125ML/HR AND RFA INTACT AND SL. R SOFT WRIST RESTRAINT INTACT, NO SIGNS OF IRRITATION NOTED. NEPHROSTOMY TUBES IN PLACE AND DRAINING TO GRAVITY. NO SIGNS OF DISTRESS NOTED. SAFETY MEASURES ARE IN PLACE, CALL LIGHT IS IN REACH. WILL CONTINUE TO MONITOR.
[2018-02-15 07:22] LABS: BASOPHILS % (AUTO) 0.3 % (0.0-2.0); EOSINOPHILS % (AUTO) 1.1 % (0.0-6.0); HEMATOCRIT 25 % (33-45); HEMOGLOBIN 8.1 g/dL (11.5-14.8); LYMPHOCYTES # (AUTO) 1.7 /CMM (0.8-4.8); LYMPHOCYTES % (AUTO) 12.2 % (20.0-44.0); MEAN CORPUSCULAR HEMOGLOBIN 26 PG (26.0-33.0); MEAN CORPUSCULAR HGB CONC 32 g/dl (31.0-36.0); MEAN CORPUSCULAR VOLUME 81 fL (82-100); MONOCYTES # (AUTO) 0.5 /CMM (0.1-1.30); MONOCYTES % (AUTO) 3.3 % (2.0-12.0); NEUTROPHILS # (AUTO) 11.7 /CMM (1.8-8.9); NEUTROPHILS % (AUTO) 83.1 % (43.0-81.0); PLATELET COUNT (AUTO) 294 /CMM (150-450); RDW COEFFICIENT OF VARIATION 16.3 (11.5-15.0); RED BLOOD CELL COUNT(AUTO) 3.11 MIL/uL (4.0-5.2); WHITE BLOOD COUNT (AUTO) 14.1 K/uL (4.3-11.0)
[2018-02-15 07:42] LABS: ALANINE AMINOTRANSFERASE 42 U/L (12-78); ALBUMIN 1.8 g/dL (3.4-5.0); ALKALINE PHOSPHATASE 102 U/L (46-116); ASPARTATE AMINOTRANSFERASE 30 U/L (15-37); BILIRUBIN,TOTAL 0.3 mg/dL (0.2-1.0); CALCIUM, SERUM 8.8 mg/dL (8.5-10.1); CARBON DIOXIDE 19 mmol/L (21-32); CHLORIDE 113 mmol/L (98-107); CREATININE 0.7 mg/dL (0.6-1.3); GLUCOSE 82 mg/dL (74-106); MAGNESIUM 1.6 mg/dL (1.8-2.4); PHOSPHORUS 2.8 mg/dL (2.5-4.9); POTASSIUM 3.3 mmol/L (3.5-5.1); SODIUM SERUM 144 mmol/L (136-145); TOTAL PROTEIN, SERUM 6.1 g/dL (6.4-8.2); UREA NITROGEN, BLOOD 16 mg/dL (7-18)
[2018-02-15 08:00] VITALS: BP 152/86
[2018-02-15] MEDS: PANTOPRAZOLE 40 MG VIAL IV SCH (08:06)
[2018-02-15] MEDS: ASPIRIN EC 81 MG TABLET.DR PO SCH (08:06)
[2018-02-15] MEDS: MONTELUKAST SODIUM (10MG) 10 MG TABLET PO SCH (08:06)
[2018-02-15] MEDS: VANCOMYCIN 500 MG in IV NS 0.9% 100 ML IV SCH ×2 (08:06→20:20)
[2018-02-15] MEDS: MUPIROCIN OINT 2% 22 GM TUBE SCH ×2 (08:26→20:20)
[2018-02-15] MEDS: Magnesium 1GM/D5W 100ML PREMIX 100 ML IV SCH ×2 (09:12→10:12)
[2018-02-15] MEDS: POTASSIUM CHLORIDE 20 MEQ TAB.PRT.SR PO SCH ×3 (09:13→11:06)
[2018-02-15] MEDS ORDERED: LIDOCAINE 1%-EPI 1:100,000 20 ML VIAL TP ONE (10:30)
[2018-02-15] MEDS ORDERED: SILVER NITRATE APPLICATOR 1 EA BOX TP ONE (10:30)
[2018-02-15] MEDS: SOD FERRIC GLUC 125 MG in IV NS 0.9% 100 ML IV SCH (15:05)
[2018-02-15 16:00] VITALS: BP 137/83
[2018-02-15] MEDS: LEVOFLOXACIN 250 MG /D5W 50 ML 250 MG in PREMIX 1 EA IV SCH (16:21)
[2018-02-15] MEDS: ENSURE ENLIVE 237 ML LIQUID (VANILLA) PO SCH (18:00)
--- NOTE | 2018-02-15 18:50 | NUR ---
RN NOTES PT IS SITTING UP IN BED, RESTING COMFORTABLY. PT ON RA, RESPIRATIONS ARE EVEN AND UNLABORED. IV ON LIJ RUNNING NS @ 100ML/HR AND IV ON RFA INTACT AND SL. NEPHROSTOMY TUBES IN PLACE AND DRAINING TO GRAVITY. WOUND DEBRIDEMENT DONE TODAY AND DRESSING CHANGED. SOFT WRIST RESTRAINT ON R WRIST IN PLACE, NO SIGNS OF IRRITATION NOTED. ALL PT NEEDS ANTICIPATED FOR AND MET. NO SIGNS OF DISTRESS NOTED. SAFETY MEASURES ARE IN PLACE, CALL LIGHT IS IN REACH. WILL ENDORSE TO MANAGER PROJECT MANAGEMENT RN FOR CONTINUITY OF CARE.
--- NOTE | 2018-02-15 19:05 | NUR ---
MS ORONA OPENING NOTES: RECEIVED PT IN BED AND IS LAYING IN BED COMFORTABLY. PT IS ON ROOM AIR. PT IS ON IV FLUIDS AND BEING INFUSED WITH LEVAQUIN AT THIS TIME. PT HAS L AND R NEPHROSTOMY TUBES. PT HAS R WRIST RESTRAINT. PT HAS EYES OPEN AND SPEAKS CZECH ONLY. BED ALARM ACTIVATED. CALL LIGHT WITHIN PT'S REACH. BED KEPT IN LOW, LOCKED POSITION, AND SIDE RAILS X 2UP. WILL CONTINUE TO MONITOR PT. Addendum: 02/15/18 at 5 by ROSY REECE RN BOTH NEPHROSTOMY TUBES DRAINING YELLOWISH LIKE COLOR FLUID. ONE OF THEM HAS SEROSANGUINEOUS FLUID.
[2018-02-15 20:00] VITALS: BP 151/84
[2018-02-16] MEDS: IV NS 0.9% 1,000 ML IV PRN ×3 (00:38→22:22)
[2018-02-16 01:56] VITALS: BP 144/93
--- NOTE | 2018-02-16 03:15 | NUR ---
MS RN NOTES: INFORMED MARITO FIGUEROA THAT PT HAS NOT BEEN EATING THROUGHOUT THE DAY. PT REFUSED SNACKS. CHECKED BLOOD SUGAR AND IT WAS 77. CONCERNED ABOUT BLOOD SUGAR DROPPING IN THE MORNING. MARITO FIGUEROA AWARE. NO ORDERS FOR NOW.
--- NOTE | 2018-02-16 06:41 | NUR ---
MS RN CLOSING NOTES: ALL NEEDS WERE ATTENDED AND ANTICIPATED FOR. PT KEPT CLEAN, DRY, AND COMFORTABLE. PT TURNED AND REPOSITIONED Q2HRS. PT ON ROOM AIR. PT IS ONLY FRISIAN SPEAKING. PT HAS BILATERAL NEPHROSTOMY TUBES AND BOTH DRAINING YELLOW FLUID. L TUBE OUTPUT WAS 1,125ML AND R TUBE OUTPUT WAS 1,000ML. WOUND TX PERFORMED. PT HAS IV ON L IJ TRIPLE LUMEN CATH AND IS BEING INUSED WITH IV NS AT 125ML/HR. PT ALSO HAS R FOREARM #20G AND IS PATENT AND INTACT. BED ALARM ACTIVATED. CALL LIGHT WITHIN PT'S REACH. BED KEPT IN LOW, LOCKED POSITION, AND SIDE RAILS X 3 UP. WILL ENDORSE TO AM NURSE FOR ANTONI.
[2018-02-16 07:06] LABS: CALCIUM, SERUM 9.1 mg/dL (8.5-10.1); CARBON DIOXIDE 18 mmol/L (21-32); CHLORIDE 113 mmol/L (98-107); CREATININE 0.7 mg/dL (0.6-1.3); GLUCOSE 84 mg/dL (74-106); POTASSIUM 3.4 mmol/L (3.5-5.1); SODIUM SERUM 145 mmol/L (136-145); UREA NITROGEN, BLOOD 12 mg/dL (7-18)
--- NOTE | 2018-02-16 07:41 | NUR ---
MS RN OPENING NOTES RECEIVED PT SITTING UPRIGHT IN BED. AWAKE AND RESPONSIVE. RESPIRATIONS ARE EVEN AND UNLABORED, NOT IN ANY ACUTE DISTRESS NOTED. NO C/O PAIN, N/V, SOB AT THIS TIME. IV SITE INTACT, NO INFILTRATION NOTED. DRESSING KEPT CLEAN AND DRY. PT HAS BILATERAL NEPHROSTOMY TUBES WITH CLEAR YELLOW FLUID OUTPUT, INTACT AND FREE OF KINKS. SAFETY MEASURES ARE IN PLACE. WILL CONTINUE TO MONITOR THROUGHOUT SHIFT FOR CONTINUITY OF CARE.
[2018-02-16 08:00] VITALS: BP 142/98
[2018-02-16 08:39] LABS: BASOPHILS # (AUTO) 0.1 /CMM (0.0-0.2); BASOPHILS % (AUTO) 0.3 % (0.0-2.0); EOSINOPHILS % (AUTO) 0.4 % (0.0-6.0); HEMATOCRIT 27 % (33-45); HEMOGLOBIN 8.6 g/dL (11.5-14.8); LYMPHOCYTES # (AUTO) 1.7 /CMM (0.8-4.8); LYMPHOCYTES % (AUTO) 10.1 % (20.0-44.0); MEAN CORPUSCULAR HEMOGLOBIN 26 PG (26.0-33.0); MEAN CORPUSCULAR HGB CONC 32 g/dl (31.0-36.0); MEAN CORPUSCULAR VOLUME 81 fL (82-100); MONOCYTES # (AUTO) 0.5 /CMM (0.1-1.30); MONOCYTES % (AUTO) 2.7 % (2.0-12.0); NEUTROPHILS # (AUTO) 14.7 /CMM (1.8-8.9); NEUTROPHILS % (AUTO) 86.5 % (43.0-81.0); PLATELET COUNT (AUTO) 328 /CMM (150-450); RED BLOOD CELL COUNT(AUTO) 3.34 MIL/uL (4.0-5.2)
[2018-02-16] MEDS: MUPIROCIN OINT 2% 22 GM TUBE SCH ×2 (08:41→20:03)
[2018-02-16] MEDS: PANTOPRAZOLE 40 MG VIAL IV SCH (08:41)
[2018-02-16] MEDS: MONTELUKAST SODIUM (10MG) 10 MG TABLET PO SCH (08:41)
[2018-02-16] MEDS: POTASSIUM CHLORIDE 20 MEQ TAB.PRT.SR PO SCH ×3 (08:41→09:23)
[2018-02-16] MEDS: VANCOMYCIN 500 MG in IV NS 0.9% 100 ML IV SCH ×2 (08:41→19:49)
[2018-02-16] MEDS: ASPIRIN EC 81 MG TABLET.DR PO SCH (08:41)
[2018-02-16] MEDS: ENSURE ENLIVE 237 ML LIQUID (VANILLA) PO SCH ×3 (08:46→17:29)
[2018-02-16] MEDS: SOD FERRIC GLUC 125 MG in IV NS 0.9% 100 ML IV SCH (13:43)
[2018-02-16 16:00] VITALS: BP 146/92
[2018-02-16] MEDS: LEVOFLOXACIN 250 MG /D5W 50 ML 250 MG in PREMIX 1 EA IV SCH (17:29)
--- NOTE | 2018-02-16 18:22 | NUR ---
MS RN CLOSING NOTES ALL DUE MEDS GIVEN, NEEDS MET AND RENDERED. AWAKE AND RESPONSIVE, REMAINS AFEBRILE. RESPIRATIONS ARE EVEN AND UNLABORED, NOT IN ANY ACUTE DISTRESS NOTED. DENIES ANY PAIN. NO C/O SOB, N/V. IV SITE INTACT, NO INFILTRATION NOTED. DRESSING KEPT CLEAN AND DRY. REPOSITIONED PER PROTOCOL. BILATERAL NEPHROSTOMY DRAINING FREELY, TUBING FREE OF KINKS, WILL CLEAR/YELLOW DRAINAGE. SAFETY MEASURES ARE IN PLACE. WILL ENDORSE TO NEXT SHIFT FOR CONTINUITY OF CARE.
--- NOTE | 2018-02-16 19:15 | NUR ---
MS RN OPENING NOTES: RECEIVED PT IN BED AND IS AWAKE AT THIS TIME. PT IS GERMAN SPEAKING ONLY. PT HAS R SOFT WRIST RESTRAINT. PT HAS BILATERAL NEPHROSTOMY TUBES BOTH DRAINING FLUID. L IS PINK TINGED FLUID WHILE R IS CLEAR/YELLOW. PT HAS L IJ TRIPLE LUMEN AND IS BEING INFUSED WITH IV NS AT 125ML/HR. PT ALSO HAS R FA #20G AND IS PATENT AND INTACT. CALL LIGHT WITHIN PT'S REACH. BED KEPT IN LOW, LOCKED POSITION, AND SIDE RAILS X 2UP. BED ALARM ACTIVATED. WILL CONTINUE TO MONITOR PT.
[2018-02-16 20:00] VITALS: BP 122/64
--- NOTE | 2018-02-17 00:15 | NUR ---
MS RN NOTES: MARITO FIGUEROA AWARE OF PINK TINGED FLUID FROM L NEPHROSTOMY TUBE. WILL MONITOR FOR THE SHIFT. ALSO, OK TO RENEW RESTRAINT FOR R WRIST.
[2018-02-17] MEDS: IV NS 0.9% 1,000 ML IV PRN (05:26)
--- NOTE | 2018-02-17 06:34 | NUR ---
MS RN CLOSING NOTES: ALL NEEDS WERE ATTENDED AND ANTICIPATED FOR. PT ON ROOM AIR AND TOLERATING WELL. PT HAS L IJ TRIPLE LUMEN CATH AND BEING INFUSED WITH IV NS AT 125ML/HR. PT HAS R FOREARM IV AND IS PATENT AND INTACT. CURRENTLY S/L. PT HAS BILATERAL NEPHROSTOMY TUBES. L TUBE OUTPUT WAS 1565ML AND R TUBE OUTPUT WAS 750 ML. BED ALARM ACTIVATED. CALL LIGHT WITHIN PT'S REACH. BED KEPT IN LOW, LOCKED POSITION, AND SIDE RAILS X 2UP. PT TURNED AND REPOSITIONED. WILL ENDORSE TO AM NURSE FOR ANTONI.
--- NOTE | 2018-02-17 07:17 | NUR ---
MS RN OPENING NOTES RECEIVED PATIENT IN STABLE CONDITION. IN NO APPARENT DISTRESS. BEDSIDE RAILS ARE UPX2. BED IS LOCKED AND LOWERED. CALL LIGHT IS WITHIN REACH. IV LINE IS INTACT AND PATENT. WILL CONTINUE TO MONITOR.
[2018-02-17 07:34] LABS: BASOPHILS % (AUTO) 0.3 % (0.0-2.0); EOSINOPHILS % (AUTO) 0.4 % (0.0-6.0); HEMATOCRIT 26 % (33-45); HEMOGLOBIN 8.4 g/dL (11.5-14.8); LYMPHOCYTES # (AUTO) 2.4 /CMM (0.8-4.8); LYMPHOCYTES % (AUTO) 15.5 % (20.0-44.0); MEAN CORPUSCULAR HEMOGLOBIN 26 PG (26.0-33.0); MEAN CORPUSCULAR HGB CONC 32 g/dl (31.0-36.0); MEAN CORPUSCULAR VOLUME 81 fL (82-100); MONOCYTES # (AUTO) 0.6 /CMM (0.1-1.30); MONOCYTES % (AUTO) 3.9 % (2.0-12.0); NEUTROPHILS # (AUTO) 12.2 /CMM (1.8-8.9); NEUTROPHILS % (AUTO) 79.9 % (43.0-81.0); PLATELET COUNT (AUTO) 314 /CMM (150-450); RDW COEFFICIENT OF VARIATION 16.3 (11.5-15.0); RED BLOOD CELL COUNT(AUTO) 3.19 MIL/uL (4.0-5.2); WHITE BLOOD COUNT (AUTO) 15.3 K/uL (4.3-11.0)
[2018-02-17 07:39] LABS: CALCIUM, SERUM 8.7 mg/dL (8.5-10.1); CARBON DIOXIDE 22 mmol/L (21-32); CHLORIDE 114 mmol/L (98-107); CREATININE 0.7 mg/dL (0.6-1.3); GLUCOSE 92 mg/dL (74-106); SODIUM SERUM 147 mmol/L (136-145); UREA NITROGEN, BLOOD 13 mg/dL (7-18)
[2018-02-17] MEDS: VANCOMYCIN 500 MG in IV NS 0.9% 100 ML IV SCH ×2 (08:50→20:33)
[2018-02-17] MEDS: ENSURE ENLIVE 237 ML LIQUID (VANILLA) PO SCH ×3 (08:52→17:24)
[2018-02-17 08:55] LABS: BAND % (MANUAL) 2 % (0.0-5.0); LYMPHOCYTES % (MANUAL) 16 % (16-48); MONOCYTES % (MANUAL) 2 % (0-11.0); NEUTROPHILS % (MANUAL) 80 (42-76)
[2018-02-17] MEDS: PANTOPRAZOLE 40 MG VIAL IV SCH (08:55)
[2018-02-17] MEDS: ASPIRIN EC 81 MG TABLET.DR PO SCH (08:59)
[2018-02-17] MEDS: MONTELUKAST SODIUM (10MG) 10 MG TABLET PO SCH (08:59)
[2018-02-17] MEDS: POTASSIUM CHLORIDE 20 MEQ TAB.PRT.SR PO SCH ×3 (09:04→10:01)
[2018-02-17] MEDS: HYDROGEL DRESSING 90 GM TUBE TP SCH (09:04)
[2018-02-17] MEDS: MUPIROCIN OINT 2% 22 GM TUBE SCH ×2 (09:04→20:40)
[2018-02-17] MEDS ORDERED: Potassium Chloride 40 MEQ in IV D5W 1,000 ML IV PRN (12:15)
--- NOTE | 2018-02-17 13:05 | NUR ---
PHARMACY TO PROVIDE KCL + 40 MEQ IN D5W. BAG IS NOT YET AVAILABLE.
[2018-02-17] MEDS: SOD FERRIC GLUC 125 MG in IV NS 0.9% 100 ML IV SCH (15:28)
--- NOTE | 2018-02-17 15:28 | NUR ---
MS RN NOTES ADMINISTERED FERRLE[facility] PHARMACY PROVIDED MEDICATION
[2018-02-17] MEDS: LEVOFLOXACIN 250 MG /D5W 50 ML 250 MG in PREMIX 1 EA IV SCH (17:24)
--- NOTE | 2018-02-17 18:28 | NUR ---
MS RN CLOSING NOTES PATIENT IS IN STABLE CONDITION. IN NO APPARENT DISTRESS. BEDSIDE RAILS ARE UPX2. BED IS LOCKED AND LOWERED. CALL LIGHT IS WITHIN REACH. IV LINE IS INTACT AND PATENT. WILL ENDORSE CARE TO RESPIRATORY CARE TECHNICIAN NURSE FOR ANTONI.
--- NOTE | 2018-02-17 19:40 | NUR ---
MS RN OPENING NOTES PT IN BED , A/O X 2. PT LUXEMBOURGER SPEAKING. NO DISTRESS OR COMPLAIN OF PAIN AT THIS TIME.L IJ TRIPLE LUMEN , R FA G 20 INTACT AND PATENT. BED IN LOW AND LOCKED POSITION, SIDE RAILS UPX2, CALL LIGHT WITHIN REACH. WILL CONTINUE TO MONITOR .
[2018-02-17 20:00] VITALS: BP 145/87
--- NOTE | 2018-02-18 07:02 | NUR ---
MS RN CLOSING NOTES PT IN BED , A/O X 2. NO DISTRESS OR COMPLAIN OF PAIN AT THIS TIME.L IJ TRIPLE LUMEN , R FA G 20 INTACT AND PATENT, L NEPHROSTOMY TUBE DRAINING PINKISH OUTPUT IN MODERATE AMOUNT, R NEPHROSTOMY DRAINING YELLOWISH OUTPUT MODERATE AMOUNT. BED IN LOW AND LOCKED POSITION, SIDE RAILS UPX2, CALL LIGHT WITHIN REACH.
[2018-02-18 07:18] LABS: EOSINOPHILS % (AUTO) 0.9 % (0.0-6.0); HEMATOCRIT 27 % (33-45); HEMOGLOBIN 8.7 g/dL (11.5-14.8); LYMPHOCYTES # (AUTO) 2.7 /CMM (0.8-4.8); LYMPHOCYTES % (AUTO) 15.6 % (20.0-44.0); MEAN CORPUSCULAR HEMOGLOBIN 26 PG (26.0-33.0); MEAN CORPUSCULAR HGB CONC 32 g/dl (31.0-36.0); MEAN CORPUSCULAR VOLUME 81 fL (82-100); MONOCYTES # (AUTO) 0.8 /CMM (0.1-1.30); MONOCYTES % (AUTO) 4.3 % (2.0-12.0); NEUTROPHILS # (AUTO) 13.8 /CMM (1.8-8.9); NEUTROPHILS % (AUTO) 79.2 % (43.0-81.0); PLATELET COUNT (AUTO) 347 /CMM (150-450); RDW COEFFICIENT OF VARIATION 16.3 (11.5-15.0); RED BLOOD CELL COUNT(AUTO) 3.36 MIL/uL (4.0-5.2); WHITE BLOOD COUNT (AUTO) 17.5 K/uL (4.3-11.0)
[2018-02-18 07:30] LABS: ALANINE AMINOTRANSFERASE 25 U/L (12-78); ALBUMIN 2.4 g/dL (3.4-5.0); ALKALINE PHOSPHATASE 87 U/L (46-116); ASPARTATE AMINOTRANSFERASE 21 U/L (15-37); BILIRUBIN,TOTAL 0.4 mg/dL (0.2-1.0); CALCIUM, SERUM 9.2 mg/dL (8.5-10.1); CARBON DIOXIDE 22 mmol/L (21-32); CHLORIDE 111 mmol/L (98-107); CREATININE 0.7 mg/dL (0.6-1.3); GLUCOSE 86 mg/dL (74-106); PHOSPHORUS 3.4 mg/dL (2.5-4.9); POTASSIUM 3.1 mmol/L (3.5-5.1); SODIUM SERUM 146 mmol/L (136-145); TOTAL PROTEIN, SERUM 6.6 g/dL (6.4-8.2); UREA NITROGEN, BLOOD 12 mg/dL (7-18)
[2018-02-18 07:41] LABS: MAGNESIUM 1.2 mg/dL (1.8-2.4)
[2018-02-18 08:00] VITALS: BP 152/88
--- NOTE | 2018-02-18 09:20 | NUR ---
LOW POTASSIUM 3.1 DR. RIVAS ORDERED ORAL POTASSIUM SUPPLEMENT. CLARIFIED ORDERS WITH , ORDERED TO DC IV D5W + KCL 40 MEQ NOTED AND ACKNOWLEDGED.
[2018-02-18] MEDS: MONTELUKAST SODIUM (10MG) 10 MG TABLET PO SCH (09:26)
[2018-02-18] MEDS: POTASSIUM CHLORIDE 20 MEQ TAB.PRT.SR PO SCH ×5 (09:27→14:12)
[2018-02-18] MEDS: ASPIRIN EC 81 MG TABLET.DR PO SCH (09:28)
[2018-02-18] MEDS: PANTOPRAZOLE 40 MG VIAL IV SCH (09:28)
--- NOTE | 2018-02-18 09:30 | NUR ---
MS RN NOTES PATIENT IN BED, AWAKE, THAI SPEAKING. APPEARS PALE, ON ROOM AIR WITH NO SOB. RIGHT HAND WITH WRIST RESTRAINT IN PLACE, CIRCULATION INTACT, ABLE TO MOVE FINGERS WITHOUT DIFFICULTY. IVC IN LEFT IJ WITH TLC INTACT, FLUSHES WELL WITH GOOD BLOOD RETURN IN 2 PORT. BILATERAL NEPHROSTOMY TUBE INTACT, RIGHT TUBE DRAINING CLEAR YELLOW AND LEFT TUBE WITH SEROSANGUINEOUS FLUID DRAINAGE, DENIES PAIN. CALL LIGHT WITHIN REACH. WILL CONT TO MONITOR.
[2018-02-18] MEDS: ENSURE ENLIVE 237 ML LIQUID (VANILLA) PO SCH (09:33)
[2018-02-18] MEDS: VANCOMYCIN 500 MG in IV NS 0.9% 100 ML IV SCH ×2 (09:42→19:55)
[2018-02-18] MEDS: MUPIROCIN OINT 2% 22 GM TUBE SCH ×2 (09:48→20:46)
[2018-02-18] MEDS: HYDROGEL DRESSING 90 GM TUBE TP SCH (10:09)
[2018-02-18] MEDS: Magnesium 1GM/D5W 100ML PREMIX 100 ML IV SCH ×4 (10:48→14:12)
[2018-02-18] MEDS ORDERED: Magnesium 1GM/D5W 100ML PREMIX 1 G in PREMIX 1 EA IV SCH (11:30)
[2018-02-18] MEDS: ENSURE ENLIVE CHOC 237 ML CAN PO SCH ×2 (13:47→17:20)
[2018-02-18] MEDS: SOD FERRIC GLUC 125 MG in IV NS 0.9% 100 ML IV SCH (15:12)
[2018-02-18 16:00] VITALS: BP 138/79
[2018-02-18] MEDS: LEVOFLOXACIN 250 MG /D5W 50 ML 250 MG in PREMIX 1 EA IV SCH (16:36)
--- NOTE | 2018-02-18 18:20 | NUR ---
RN CLOSING NOTES PATIENT IN BED REMAINS STABLE, TOLERATED ROOM AIR WITH NO SHORTNESS OF BREATH. AFEBRILE DURING THE SHIFT, CONT ANTIBIOTIC PER ID RECOMMENDATION. MAGNESIUM AND POTASSIUM SUPPLEMENTED TODAY ORDERED. POOR APPETITE, PROVIDED NUTRITIONAL SUPPLEMENT ENSURE. LEFT IJ WITH TLC, PATENT AND INTACT, FLUSHES WELL WITH GOOD BLOOD RETURN. MAINTAINED SOFT WRIST RESTRAINT IN PLACE, CIRCULATION INTACT. SCD IN PLACE. CALL LIGHT WITHIN REACH, MAINTAINED CONTACT ISOLATION. WILL ENDORSE TO ONCOMING RN.
--- NOTE | 2018-02-18 19:10 | NUR ---
MS RN INITIAL NOTES: PATIENT RECEIVED IN BED, FAMILY AT BEDSIDE. BREARTING EVEN AND UNLABORED. NO SHORTNESS OF BREATH NOTED. ACCESS ON LEFT IJ WITH TLC, PATENT AND INTACT, FLUSHES WELL. SOFT WRIST RESTRAINT IN PLACE, CIRCULATION INTACT. SCD IN PLACE. CALL LIGHT WITHIN REACH. ON CONTACT ISOLATION. WILL CONTINUE TO MONITOR.
[2018-02-18 20:00] VITALS: BP 121/81
--- NOTE | 2018-02-19 06:42 | NUR ---
MS RN CLOSING NOTES: PATIENT IN BED, REMAINS STABLE. TOLERATED ROOM AIR WITH NO SHORTNESS OF BREATH. AFEBRILE DURING THE SHIFT. LEFT IJ WITH TLC, PATENT AND INTACT, FLUSHES WELL. MAINTAINED SOFT WRIST RESTRAINT IN PLACE, CIRCULATION INTACT. SCD IN PLACE. ALL NEEDS ATTENDED TO. ALL DUE MEDICATIONS GIVEN ORDERED. CALL LIGHT WITHIN REACH, MAINTAINED CONTACT ISOLATION. WILL ENDORSE ANTONI TO MORNING SHIFT RN. Addendum: 02/19/18 at 0718 by TRUNG BATEMAN RN ADDITIONAL NOTES: RIGHT NEPHROSTOMY TUBES DRAINED 550ML OF PALE YELLOW URINE. LEFT NEPHROSTOMY TUBE DRAINED 200ML OF PINK-TINGED YELLOW COLOR URINE
[2018-02-19 07:33] LABS: BASOPHILS % (AUTO) 0.2 % (0.0-2.0); EOSINOPHILS % (AUTO) 1.1 % (0.0-6.0); HEMATOCRIT 28 % (33-45); HEMOGLOBIN 8.8 g/dL (11.5-14.8); LYMPHOCYTES % (AUTO) 16.4 % (20.0-44.0); MEAN CORPUSCULAR HEMOGLOBIN 26 PG (26.0-33.0); MEAN CORPUSCULAR HGB CONC 32 g/dl (31.0-36.0); MEAN CORPUSCULAR VOLUME 81 fL (82-100); MONOCYTES # (AUTO) 0.7 /CMM (0.1-1.30); MONOCYTES % (AUTO) 4.1 % (2.0-12.0); NEUTROPHILS # (AUTO) 14.2 /CMM (1.8-8.9); NEUTROPHILS % (AUTO) 78.2 % (43.0-81.0); PLATELET COUNT (AUTO) 354 /CMM (150-450); RDW COEFFICIENT OF VARIATION 16.6 (11.5-15.0); RED BLOOD CELL COUNT(AUTO) 3.43 MIL/uL (4.0-5.2); WHITE BLOOD COUNT (AUTO) 18.2 K/uL (4.3-11.0)
[2018-02-19 07:39] LABS: CALCIUM, SERUM 9.4 mg/dL (8.5-10.1); CARBON DIOXIDE 26 mmol/L (21-32); CHLORIDE 110 mmol/L (98-107); CREATININE 0.9 mg/dL (0.6-1.3); GLUCOSE 97 mg/dL (74-106); POTASSIUM 3.5 mmol/L (3.5-5.1); SODIUM SERUM 146 mmol/L (136-145); UREA NITROGEN, BLOOD 16 mg/dL (7-18)
[2018-02-19 08:00] VITALS: BP 153/92
[2018-02-19] MEDS: VANCOMYCIN 500 MG in IV NS 0.9% 100 ML IV SCH ×2 (08:19→20:00)
[2018-02-19] MEDS: MUPIROCIN OINT 2% 22 GM TUBE SCH ×2 (08:27→20:17)
[2018-02-19] MEDS: ENSURE ENLIVE CHOC 237 ML CAN PO SCH ×3 (08:53→17:06)
[2018-02-19] MEDS: POTASSIUM CHLORIDE 20 MEQ TAB.PRT.SR PO SCH ×3 (08:54→11:49)
[2018-02-19] MEDS: MONTELUKAST SODIUM (10MG) 10 MG TABLET PO SCH (08:54)
[2018-02-19] MEDS: PANTOPRAZOLE 40 MG VIAL IV SCH (08:54)
[2018-02-19] MEDS: ASPIRIN EC 81 MG TABLET.DR PO SCH (08:54)
--- NOTE | 2018-02-19 08:54 | NUR ---
MS RN NOTES PATIENT IN BED, AWAKE, [place] SPEAKING. BREAKFAST SERVED WITH POOR APPETITE. OFFERED ENSURE DRINK FOR NUTRITIONAL SUPPLEMENT. APPEARS PALE, ON ROOM AIR WITH NO SOB. RIGHT HAND WITH WRIST RESTRAINT IN PLACE, CIRCULATION INTACT, ABLE TO MOVE FINGERS WITHOUT DIFFICULTY. IVC IN LEFT IJ WITH TLC INTACT, FLUSHES WELL WITH GOOD BLOOD RETURN IN ALL 3 LUMENS. BILATERAL NEPHROSTOMY TUBE INTACT, RIGHT TUBE DRAINING CLEAR YELLOW AND LEFT TUBE WITH PINKISH FLUID DRAINAGE, DENIES PAIN. CALL LIGHT WITHIN REACH. WILL CONT TO MONITOR. MAINTAINED CONTACT ISOLATION.
[2018-02-19] MEDS: HYDROGEL DRESSING 90 GM TUBE TP SCH (09:34)
--- NOTE | 2018-02-19 11:49 | NUR ---
WOUND CARE CONSULT WOUND CARE RECEIVED CONSULT FOR LEFT HEEL SCAR. WOUND CARE WILL DEFER CONSULT AND TREATMENT PLAN TO SURGICAL TEAM WHO ARE CURRENTLY FOLLOWING. WILL SEE PRN
[2018-02-19] MEDS: Z GUARD REMEDY 2 OZ OINT TP SCH (12:46)
[2018-02-19] MEDS: PIPERACILLIN /TAZOBACTAM 2.25 G in IV D5W 50 ML IV SCH ×3 (12:51→23:40)
[2018-02-19 16:00] VITALS: BP 134/80
[2018-02-19] MEDS: LEVOFLOXACIN 250 MG /D5W 50 ML 250 MG in PREMIX 1 EA IV SCH (16:57)
--- NOTE | 2018-02-19 18:26 | NUR ---
RN CLOSING NOTES PATIENT IN BED REMAINS STABLE, TOLERATED ROOM AIR WITH NO SHORTNESS OF BREATH. AFEBRILE DURING THE SHIFT, CONT ANTIBIOTIC PER ID RECOMMENDATION. POOR APPETITE, PROVIDED NUTRITIONAL SUPPLEMENT ENSURE. LEFT IJ WITH TLC, PATENT AND INTACT, FLUSHES WELL WITH GOOD BLOOD RETURNED. SOFT WRIST RESTRAINT IN PLACE, CIRCULATION INTACT. SCD IN PLACE. ELEVATED HEELS AT ALL TIMES, TURN AND REPOSITION Q 2HR. CALL LIGHT WITHIN REACH, MAINTAINED CONTACT ISOLATION. WILL ENDORSE TO ONCOMING RN.
--- NOTE | 2018-02-19 19:00 | NUR ---
MS RN INITIAL NOTES: PATIENT RECEIVED IN BED, AWAKE. ANSWERS TO NAME. ON ROOM AIR WITH NO SOB. RIGHT HAND WITH WRIST RESTRAINT IN PLACE, CIRCULATION INTACT, ABLE TO MOVE FINGERS WITHOUT DIFFICULTY. IV ACCESS IN LEFT IJ WITH TLC INTACT, FLUSHES WELL WITH GOOD BLOOD RETURN IN ALL 3 LUMENS. BILATERAL NEPHROSTOMY TUBE INTACT, RIGHT TUBE DRAINING CLEAR YELLOW AND LEFT TUBE WITH PINKISH FLUID DRAINAGE. NO COMPLAINTS OF PAIN OR DISCOMFORT OF THIS TIME. CALL LIGHT WITHIN REACH. MAINTAINED CONTACT ISOLATION. PATIENT STABLE ENDORSED BY THE MORNING SHIFT RN. WILL CONTINUE TO MONITOR
--- NOTE | 2018-02-19 19:55 | NUR ---
RN NOTES: VANCOMYCIN TROUGH IS 21. CALLED PHARMACY; TO HOLD VANCOMYCIN.
[2018-02-19 20:00] VITALS: BP 118/71
[2018-02-20] MEDS: PIPERACILLIN /TAZOBACTAM 2.25 G in IV D5W 50 ML IV SCH ×4 (05:18→23:18)
--- NOTE | 2018-02-20 06:46 | NUR ---
RN CLOSING NOTES: PATIENT IN BED REMAINS STABLE, TOLERATED ROOM AIR WITH NO SHORTNESS OF BREATH. AFEBRILE DURING THE SHIFT. OFFERED NUTRITIONAL SUPPLEMENT, ENSURE, BUT REFUSED. LEFT IJ WITH TLC, PATENT AND INTACT, FLUSHES WELL WITH GOOD BLOOD RETURN. SOFT WRIST RESTRAINT IN PLACE, CIRCULATION INTACT. SCD IN PLACE. ELEVATED HEELS AT ALL TIMES, TURN AND REPOSITION Q 2HR. ALL NEEDS ATTENDED TO, ALL MEDICATIONS GIVEN ORDERED. CALL LIGHT WITHIN REACH, MAINTAINED CONTACT ISOLATION. WILL ENDORSE ANTONI TO ONCOMING RN. Addendum: 02/20/18 at 0651 by TRUNG BATEMAN RN ADDITIONAL NOTES: RIGHT NEPHROSTOMY TUBE DRAINED 350ML OF CLEAR YELLOW URINE. LEFT NEPHROSTOMY TUBE DRAINED 300ML OF CLEAR YELLOW URINE
[2018-02-20 07:23] LABS: BASOPHILS # (AUTO) 0.1 /CMM (0.0-0.2); BASOPHILS % (AUTO) 0.3 % (0.0-2.0); EOSINOPHILS % (AUTO) 1.5 % (0.0-6.0); HEMATOCRIT 27 % (33-45); HEMOGLOBIN 8.7 g/dL (11.5-14.8); LYMPHOCYTES # (AUTO) 3.6 /CMM (0.8-4.8); MEAN CORPUSCULAR HEMOGLOBIN 26 PG (26.0-33.0); MEAN CORPUSCULAR HGB CONC 32 g/dl (31.0-36.0); MEAN CORPUSCULAR VOLUME 81 fL (82-100); MONOCYTES # (AUTO) 0.8 /CMM (0.1-1.30); MONOCYTES % (AUTO) 4.2 % (2.0-12.0); NEUTROPHILS # (AUTO) 13.2 /CMM (1.8-8.9); PLATELET COUNT (AUTO) 341 /CMM (150-450); RED BLOOD CELL COUNT(AUTO) 3.31 MIL/uL (4.0-5.2); WHITE BLOOD COUNT (AUTO) 17.8 K/uL (4.3-11.0)
[2018-02-20 07:35] LABS: CARBON DIOXIDE 26 mmol/L (21-32); CHLORIDE 108 mmol/L (98-107); CREATININE 0.9 mg/dL (0.6-1.3); GLUCOSE 90 mg/dL (74-106); POTASSIUM 3.8 mmol/L (3.5-5.1); SODIUM SERUM 145 mmol/L (136-145); UREA NITROGEN, BLOOD 22 mg/dL (7-18)
[2018-02-20 08:00] VITALS: BP 117/77
--- NOTE | 2018-02-20 08:00 | NUR ---
MS RN RECEIVED ON BED, AWAKE,ALERT,ORIENTED X1,NOT IN ANY FORM OF DISTRESS, RESPIRATIONS EVEN AND UNLABORED,NO SOB NOTED, LUNGS ARE CLEAR,ABDOMEN SOFT, POSITIVE BOWEL SOUNDS, NEPHROSTOMY INTACT W/ URINE DRAINING DENIES PAIN AT THIS TIME, WILL MONITOR PATIENT'S CONDITION.
--- NOTE | 2018-02-20 09:10 | NUR ---
MS ORONA BREAKFAST SERVED,DUE MEDS GIVEN,TOLERATED WELL.
[2018-02-20] MEDS: ENSURE ENLIVE CHOC 237 ML CAN PO SCH ×3 (10:08→18:17)
[2018-02-20] MEDS: PANTOPRAZOLE 40 MG VIAL IV SCH (10:09)
[2018-02-20] MEDS: VANCOMYCIN 500 MG in IV D5W 100 ML IV SCH (10:09)
[2018-02-20] MEDS: MONTELUKAST SODIUM (10MG) 10 MG TABLET PO SCH (10:10)
[2018-02-20] MEDS: ASPIRIN EC 81 MG TABLET.DR PO SCH (10:10)
[2018-02-20] MEDS: HYDROGEL DRESSING 90 GM TUBE TP SCH (10:25)
[2018-02-20] MEDS: MUPIROCIN OINT 2% 22 GM TUBE SCH ×2 (10:25→21:20)
[2018-02-20] MEDS: Z GUARD REMEDY 2 OZ OINT TP SCH (10:26)
[2018-02-20 16:00] VITALS: BP 128/78
--- NOTE | 2018-02-20 17:00 | NUR ---
MS RN WAS SEEN BY DR. JORGE Gonsales/ ORDER MADE AND CARRIED OUT.
[2018-02-20] MEDS: LEVOFLOXACIN 250 MG /D5W 50 ML 250 MG in PREMIX 1 EA IV SCH (18:18)
--- NOTE | 2018-02-20 19:50 | NUR ---
MS RN INITIAL NOTE PT IS IN BED RESTING. NO SIGNS OF SOB OR DISTRESS, BREATHING EVENLY AND UNLABORED ON RA. RIGHT WRIST RESTRAINT IN PLACE. IJ AND RIGHT ARM IV IN PLACE AND PATENT. 2X NEPHROSTOMY TUBES IN PLAIN AND DRAINING. BED IS IN LOW AND LOCKED POSITION, CALL LIGHT WITHIN REACH. WILL CONTINUE TO MONITOR PT
[2018-02-20 20:00] VITALS: BP 123/83
[2018-02-20 20:37] VITALS: BP 123/83
[2018-02-21] MEDS: PIPERACILLIN /TAZOBACTAM 2.25 G in IV D5W 50 ML IV SCH ×2 (05:09→12:14)
--- NOTE | 2018-02-21 06:13 | NUR ---
MS RN CLOSING NOTE PT IS IN BED RESTING. NO SIGNS OR SOB OR DISTRESS. IV AND NEPHROSTOMY TUBES INTACT AND PATENT. RIGHT WRIST RESTRAINT IN PLACE. SO SIGNS/ SYMPTOMS OF PAIN. NO ACUTE CHANGES THROUGHOUT THE SHIFT. ALL NEEDS WERE ANTICIPATED AND MET. BED IS IN LOW AND LOCKD POSITION, BED ALARM IS ON. WILL ENDORSE TO DAYSHIFT
[2018-02-21 07:26] LABS: BASOPHILS % (AUTO) 0.2 % (0.0-2.0); EOSINOPHILS % (AUTO) 2.1 % (0.0-6.0); HEMATOCRIT 27 % (33-45); HEMOGLOBIN 8.7 g/dL (11.5-14.8); LYMPHOCYTES # (AUTO) 3.5 /CMM (0.8-4.8); LYMPHOCYTES % (AUTO) 18.8 % (20.0-44.0); MEAN CORPUSCULAR HEMOGLOBIN 26 PG (26.0-33.0); MEAN CORPUSCULAR HGB CONC 32 g/dl (31.0-36.0); MEAN CORPUSCULAR VOLUME 82 fL (82-100); MONOCYTES # (AUTO) 0.8 /CMM (0.1-1.30); MONOCYTES % (AUTO) 4.1 % (2.0-12.0); NEUTROPHILS # (AUTO) 13.7 /CMM (1.8-8.9); NEUTROPHILS % (AUTO) 74.8 % (43.0-81.0); PLATELET COUNT (AUTO) 321 /CMM (150-450); RDW COEFFICIENT OF VARIATION 17.6 (11.5-15.0); WHITE BLOOD COUNT (AUTO) 18.4 K/uL (4.3-11.0)
[2018-02-21 07:32] LABS: CARBON DIOXIDE 26 mmol/L (21-32); CHLORIDE 107 mmol/L (98-107); CREATININE 0.8 mg/dL (0.6-1.3); GLUCOSE 96 mg/dL (74-106); MAGNESIUM 1.5 mg/dL (1.8-2.4); PHOSPHORUS 3.4 mg/dL (2.5-4.9); POTASSIUM 3.1 mmol/L (3.5-5.1); SODIUM SERUM 142 mmol/L (136-145); UREA NITROGEN, BLOOD 20 mg/dL (7-18)
[2018-02-21 08:00] VITALS: BP 142/79
--- NOTE | 2018-02-21 08:00 | NUR ---
MS RN RECEIVED ON BED, AWAKE,ALERT,ORIENTED X1,NOT IN ANY FORM OF DISTRESS , RESPIRATIONS EVEN AND UNLABORED,NO SOB NOTED, LUNGS ARE DIMINISHED, ABDOMEN SOFT,POSITIVE BOWEL SOUNDS, DENIES PAIN AT THIS TIME, BILATERAL NEPHROSTOMY INTACT, DRAINING CLEAR URINE OUTPUT, ALL NEEDS ATTENDED.
[2018-02-21 08:09] LABS: IMMUNOGLOBULIN A, SERUM 409 mg/dL (64-422); IMMUNOGLOBULIN G, SERUM 780 mg/dL (700-1600); IMMUNOGLOBULIN M, SERUM 128 mg/dL (26-217)
[2018-02-21] MEDS: MONTELUKAST SODIUM (10MG) 10 MG TABLET PO SCH (09:50)
[2018-02-21] MEDS: PANTOPRAZOLE 40 MG VIAL IV SCH (09:50)
[2018-02-21] MEDS: ASPIRIN EC 81 MG TABLET.DR PO SCH (09:51)
[2018-02-21] MEDS: VANCOMYCIN 500 MG in IV D5W 100 ML IV SCH (09:51)
[2018-02-21] MEDS: HYDROGEL DRESSING 90 GM TUBE TP SCH (09:52)
[2018-02-21] MEDS: MUPIROCIN OINT 2% 22 GM TUBE SCH ×2 (09:52→20:31)
[2018-02-21] MEDS: ENSURE ENLIVE CHOC 237 ML CAN PO SCH ×3 (09:54→18:17)
[2018-02-21] MEDS: Z GUARD REMEDY 2 OZ OINT TP SCH (09:54)
[2018-02-21 10:18] LABS: *SPE A/G RATIO 0.9 (0.7-1.7); *SPE ALBUMIN 2.9 g/dL (2.9-4.4); *SPE ALPHA-1-GLOBULIN 0.3 g/dL (0.0-0.4); *SPE ALPHA-2-GLOBULIN 0.9 g/dL (0.4-1.0); *SPE BETA GLOBULIN 0.9 g/dL (0.7-1.3); *SPE GLOBULIN, TOTAL 3.1 g/dL (2.2-3.9); *SPE M-SPIKE Not Observed g/dL (Not Observed); *SPEGAMMA GLOBULIN 0.9 g/dL (0.4-1.8)
[2018-02-21] MEDS: Magnesium 1GM/D5W 100ML PREMIX 100 ML IV SCH ×2 (11:17→12:13)
[2018-02-21] MEDS: POTASSIUM CHLORIDE 20 MEQ TAB.PRT.SR PO SCH ×2 (11:17→12:13)
[2018-02-21] MEDS ORDERED: DOSE PER PHARMACY MICAFUNGIN 1 EA XX PRN (12:30)
[2018-02-21] MEDS: FLUCONAZOLE IN NS,PREMIX 200 MG in PREMIX 1 EA IV SCH ×2 (15:51)
[2018-02-21 16:00] VITALS: BP 108/67
[2018-02-21] MEDS: PIPERACILLIN /TAZOBACTAM 3.375 G in IV D5W 50 ML IV SCH ×2 (18:16→23:47)
--- NOTE | 2018-02-21 19:30 | NUR ---
MS RN NOTES RECEIVED PT IN BED, AWAKE, A/O X 1 , VERBALLY RESPONSIVE. NO DISTRESS NOR SOB NOTED AT THIS TIME, RESPIRATION IS EVEN AND UNLABORED,NO SOB NOTED. BILATERAL NEPHROSTOMY INTACT, DRAINING WITH CLEAR URINE. LIJ AND RFA IV SITE, INTACT AND PATENT, IVF INFUSING WELL TO RFA, NO INFILTRATION NOTED. NO S/S OF PAIN OR DISCOMFORT AT THIS TIME. ALL NEEDS ATTENDED AND MET SAFETY PRECAUTIONS OBSERVED. CALL LIGHT WITHIN REACH. WILL CONTINUE TO MONITOR.
[2018-02-21 20:00] VITALS: BP 125/73
[2018-02-22] MEDS: IV NS 0.9% 1,000 ML IV PRN ×2 (01:21→05:37)
[2018-02-22] MEDS: PIPERACILLIN /TAZOBACTAM 3.375 G in IV D5W 50 ML IV SCH ×3 (05:34→17:35)
--- NOTE | 2018-02-22 06:41 | NUR ---
MS RN NOTES PT IN BED, AWAKE, A/O X 1 , VERBALLY RESPONSIVE. APPEARS COMFORTABLE. NO DISTRESS NOR SOB NOTED AT THIS TIME, RESPIRATION IS EVEN AND UNLABORED,NO SOB NOTED. BILATERAL NEPHROSTOMY INTACT, DRAINING WITH CLEAR URINE. LIJ AND RFA IV SITE, INTACT AND PATENT, IVF INFUSING WELL TO RFA, NO INFILTRATION NOTED. NO S/S OF PAIN OR DISCOMFORT AT THIS TIME. ALL NEEDS ATTENDED AND MET, ALL DUE MEDS GIVEN. SAFETY PRECAUTIONS OBSERVED. CALL LIGHT WITHIN REACH. WILL ENDORSE TO NEXT SHIFT FOR ANTONI.
--- NOTE | 2018-02-22 07:14 | NUR ---
MS RN OPENING NOTE RECEIVED BEDSIDE SBAR REPORT ON THE PATIENT. PATIENT IS A/OX1, CONFUSED. MALDIVIAN SPEAKING. AWAKE AND RESPONSIVE IN BED. BED IS LOCKED IN LOWEST POSITION, SIDE RAILS UP X3, BED ALARM IS ON, DVT PUMPS IN PLACE. BILATERAL NEPHROSTOMY TUBES PRESENT. CHEST RISING EQUALLY, BILATERALLY. SPO2 98% ON 2L OXYGEN VIA NASAL CANNULA. CALL LIGHT WITHIN REACH. EDUCATED TO USE THE CALL LIGHT TO CALL FOR ASSISTANCE. PATIENT VERBALIZED UNDERSTANDING. PATIENT PRESENTS WITH LEFT SIDED WEAKNESS. RIGHT WRIST IN SOFT WRIST RESTRAIN PATIENT TRIES TO REMOVE THE JUGULAR PICC LINE. ACUTE MEDICAL RESTRAINT ORDER OBTAINED. DOCUMENTATION PER POLICY. ALL NEEDS ARE MET. WILL CONTINUE TO ASSES/MONITOR THROUGHOUT THE SHIFT.
[2018-02-22 08:00] VITALS: BP 109/80
[2018-02-22 08:38] LABS: BASOPHILS # (AUTO) 0.1 /CMM (0.0-0.2); BASOPHILS % (AUTO) 0.3 % (0.0-2.0); EOSINOPHILS % (AUTO) 1.5 % (0.0-6.0); HEMATOCRIT 27 % (33-45); HEMOGLOBIN 8.6 g/dL (11.5-14.8); LYMPHOCYTES # (AUTO) 2.6 /CMM (0.8-4.8); LYMPHOCYTES % (AUTO) 14.6 % (20.0-44.0); MEAN CORPUSCULAR HEMOGLOBIN 26 PG (26.0-33.0); MEAN CORPUSCULAR HGB CONC 32 g/dl (31.0-36.0); MEAN CORPUSCULAR VOLUME 82 fL (82-100); MONOCYTES # (AUTO) 0.6 /CMM (0.1-1.30); MONOCYTES % (AUTO) 3.5 % (2.0-12.0); NEUTROPHILS # (AUTO) 14.1 /CMM (1.8-8.9); NEUTROPHILS % (AUTO) 80.1 % (43.0-81.0); PLATELET COUNT (AUTO) 322 /CMM (150-450); RED BLOOD CELL COUNT(AUTO) 3.36 MIL/uL (4.0-5.2); WHITE BLOOD COUNT (AUTO) 17.6 K/uL (4.3-11.0)
[2018-02-22] MEDS: VANCOMYCIN 500 MG in IV D5W 100 ML IV SCH (08:55)
[2018-02-22] MEDS: MONTELUKAST SODIUM (10MG) 10 MG TABLET PO SCH (08:57)
[2018-02-22] MEDS: ASPIRIN EC 81 MG TABLET.DR PO SCH (08:57)
[2018-02-22] MEDS: PANTOPRAZOLE 40 MG VIAL IV SCH (08:57)
[2018-02-22 08:59] LABS: CALCIUM, SERUM 8.7 mg/dL (8.5-10.1); CARBON DIOXIDE 28 mmol/L (21-32); CHLORIDE 106 mmol/L (98-107); CREATININE 0.7 mg/dL (0.6-1.3); GLUCOSE 98 mg/dL (74-106); MAGNESIUM 1.6 mg/dL (1.8-2.4); PHOSPHORUS 2.7 mg/dL (2.5-4.9); POTASSIUM 3.5 mmol/L (3.5-5.1); SODIUM SERUM 142 mmol/L (136-145); UREA NITROGEN, BLOOD 18 mg/dL (7-18)
[2018-02-22] MEDS: ENSURE ENLIVE CHOC 237 ML CAN PO SCH ×3 (09:04→17:36)
[2018-02-22] MEDS: MUPIROCIN OINT 2% 22 GM TUBE SCH (09:07)
[2018-02-22] MEDS: HYDROGEL DRESSING 90 GM TUBE TP SCH (09:09)
[2018-02-22] MEDS: Z GUARD REMEDY 2 OZ OINT TP SCH (09:09)
[2018-02-22] MEDS ORDERED: FLUC200T PO (13:38)
[2018-02-22] MEDS ORDERED: VANC500F2 IV (13:38)
[2018-02-22] MEDS ORDERED: PIPE3.379 IV (13:38)
[2018-02-22] MEDS: FLUCONAZOLE IN NS,PREMIX 200 MG in PREMIX 1 EA IV SCH ×2 (14:52)
[2018-02-22 16:12] VITALS: BP 120/71
--- NOTE | 2018-02-22 16:34 | NUR ---
Telephone report given to Dar, the son. the son informed of patient's discharge and pending transportation home scheduled for 7pm tonight.
--- NOTE | 2018-02-22 19:54 | NUR ---
MS TIE LAYER NOTE DISCHARGE ORDER RECEIVED. DISCHARGE EDUCATION PROVIDED. SKIN ASESSMENT COMPLETED. PICTURES TAKEN AND PLACED IN CHART. WOUND CARE PERFORMED ORDERED. PERIPHERAL IV CATHETER REMOVED WITH THE TIP INTACT. JUGULAR PICC LINE INTACT FOR HOME ANTIBIOTIC THERAPY. BILATERAL NEPHROSTOMY BAGS PRESENTS. PATIENT IS A/OX1, CONFUSED. IRISH SPEAKING. AWAKE AND RESPONSIVE. CHEST RISING EQUALLY, BILATERALLY. SPO2 95% ON ROOM AIR. CALL LIGHT WITHIN REACH. PATIENT LEAVING THE HOSPITAL PREMISES VIA GURNEY ACCOMPANIED BY THE AMBULANCE STAFF
[2018-02-23] MEDS ORDERED: VANCOMYCIN 500 MG in IV D5W 100 ML IV SCH (02:00)
== END 2018-02-22 20:00 | disposition home health service (06) | DRG 853 ==
LOC: ER 22:22 → ICU 02-13 00:44 → MED 02-14 15:04
PROVIDERS: ADMIT Nurse Practitioner Acute Care; ATTEND Nurse Practitioner Acute Care
PROC: 0T25X0Z Change Drainage Device in Kidney, External Approach (ICD-10-PCS; 2018-02-13)
PROC: 0JB90ZZ Excision of Buttock Subcutaneous Tissue and Fascia, Open Approach (ICD-10-PCS; principal; 2018-02-15)
DX: A41.9 Sepsis, unspecified organism (principal); L89.323 Pressure ulcer of left buttock, stage 3; E43 Unspecified severe protein-calorie malnutrition; J15.9 Unspecified bacterial pneumonia; J15.6 Pneumonia due to other Gram-negative bacteria; N17.0 Acute kidney failure with tubular necrosis; R65.21 Severe sepsis with septic shock; G92 Toxic encephalopathy; I21.A1 Myocardial infarction type 2; R53.2 Functional quadriplegia; D68.59 Other primary thrombophilia; I69.354 Hemiplegia and hemiparesis following cerebral infarction affecting left non-dominant side; N39.0 Urinary tract infection, site not specified; E87.2 Acidosis; E87.1 Hypo-osmolality and hyponatremia; I50.32 Chronic diastolic (congestive) heart failure; N13.6 Pyonephrosis; E87.0 Hyperosmolality and hypernatremia; K21.9 Gastro-esophageal reflux disease without esophagitis; G35 Multiple sclerosis; F32.9 Major depressive disorder, single episode, unspecified; M06.9 Rheumatoid arthritis, unspecified; D72.829 Elevated white blood cell count, unspecified; D50.9 Iron deficiency anemia, unspecified; E86.1 Hypovolemia; G89.4 Chronic pain syndrome; G62.9 Polyneuropathy, unspecified; S70.311A Abrasion, right thigh, initial encounter; X58.XXXA Exposure to other specified factors, initial encounter; Y92.89 Other specified places as the place of occurrence of the external cause; E83.42 Hypomagnesemia; Z85.51 Personal history of malignant neoplasm of bladder; Z87.440 Personal history of urinary (tract) infections; E87.6 Hypokalemia; T83.022A Displacement of nephrostomy catheter, initial encounter; Y83.9 Surgical procedure, unspecified as the cause of abnormal reaction of the patient, or of later complication, without mention of misadventure at the time of the procedure; L89.150 Pressure ulcer of sacral region, unstageable; B96.4 Proteus (mirabilis) (morganii) as the cause of diseases classified elsewhere; B96.1 Klebsiella pneumoniae [K. pneumoniae] as the cause of diseases classified elsewhere; B95.62 Methicillin resistant Staphylococcus aureus infection as the cause of diseases classified elsewhere; D63.8 Anemia in other chronic diseases classified elsewhere; G93.9 Disorder of brain, unspecified; D72.825 Bandemia; Z66 Do not resuscitate; Z74.01 Bed confinement status; E78.5 Hyperlipidemia, unspecified
CPT/HCPCS: 36415; 70450-TC; 71045-TC; 75989; 80048-TC; 80053-TC; 80061-TC; 80076-TC; 80202-TC; 81000-TC; 82728-TC; 82746; 82784; 82962-TC; 83540-TC; 83605-TC; 83735-TC; 84100-TC; 84155; 84165; 84439-TC; 84443-TC; 84484-TC; 85025-TC; 85730-TC; 86334; 87040-TC; 87081-TC; 87086-TC; 87186-TC; 92611-TC; 93307-TC; A4215; A4216; A4606; A6248; A6403; C1751; C9113; J0692; J1450; J1956; J2250; J2310; J2543; J2916; J3010; J3370; J3475; J3480; J3490; J7030; J7050; J7060; J7070; Z7610

== ENCOUNTER 2018-02-24 17:45 | Inpatient (IN) | payer MEDICARE, MEDICAID ==
[~2018-02-24] VITALS: Ht 162.6 cm; Wt 47.2 kg
[~2018-02-24 17:45] MED LIST changes: -BACL10TA PO; -CEFE1FRO IV; +FLUC200T PO; -MECL-102 PO; -MELO-105 PO; -PANT40VI IV; +PIPE3.379 IV; -POTA10TA21 PO; -TIZA4TAB4 PO; -TRAM50TA2 PO; +VANC500F2 IV
--- NOTE | 2018-02-24 17:55 | NUR ---
[id number] FROM HOME: ALOC, WEAKNESS, LOW BP. BILAT NEPHROSTOMY TUBES NOTED. PT PLACED ON MONITOR. PICCLINE INTACT. RR EVEN AND UNLABORED. PT PLACED ON MONITOR. DR MADRID AT BEDSIDE FOR EVAL.
[2018-02-24] MEDS ORDERED: VANCOMYCIN 1 GM in IV D5W 250 ML IV ONE (18:00)
[2018-02-24] MEDS ORDERED: CEFEPIME 1 GM in IV D5W 50 ML IV ONE (18:00)
[2018-02-24] MEDS ORDERED: IV NS 0.9% 1,000 ML BAG IV ONE (18:00)
[2018-02-24] MEDS ORDERED: ACETAMINOPHEN 650 MG/SUPP.RECT RC ONE ×2 (18:00→18:11)
--- NOTE | 2018-02-24 18:15 | NUR ---
PT TO CT
[2018-02-24 18:16] LABS: BASOPHILS # (AUTO) 0.1 /CMM (0.0-0.2); BASOPHILS % (AUTO) 0.3 % (0.0-2.0); EOSINOPHILS % (AUTO) 1.7 % (0.0-6.0); HEMATOCRIT 26 % (33-45); HEMOGLOBIN 8.2 g/dL (11.5-14.8); LYMPHOCYTES # (AUTO) 3.2 /CMM (0.8-4.8); LYMPHOCYTES % (AUTO) 17.3 % (20.0-44.0); MEAN CORPUSCULAR HEMOGLOBIN 26 PG (26.0-33.0); MEAN CORPUSCULAR HGB CONC 31 g/dl (31.0-36.0); MEAN CORPUSCULAR VOLUME 82 fL (82-100); MONOCYTES % (AUTO) 5.5 % (2.0-12.0); NEUTROPHILS # (AUTO) 13.7 /CMM (1.8-8.9); NEUTROPHILS % (AUTO) 75.2 % (43.0-81.0); PLATELET COUNT (AUTO) 303 /CMM (150-450); RDW COEFFICIENT OF VARIATION 18.2 (11.5-15.0); RED BLOOD CELL COUNT(AUTO) 3.17 MIL/uL (4.0-5.2); WHITE BLOOD COUNT (AUTO) 18.3 K/uL (4.3-11.0)
[2018-02-24 18:29] LABS: CALCIUM, SERUM 8.6 mg/dL (8.5-10.1); CARBON DIOXIDE 26 mmol/L (21-32); CHLORIDE 106 mmol/L (98-107); CREATININE 0.9 mg/dL (0.6-1.3); GLUCOSE 87 mg/dL (74-106); POTASSIUM 3.8 mmol/L (3.5-5.1); SODIUM SERUM 141 mmol/L (136-145); UREA NITROGEN, BLOOD 29 mg/dL (7-18)
[2018-02-24 18:33] LABS: ALANINE AMINOTRANSFERASE 14 U/L (12-78); ALBUMIN 2.3 g/dL (3.4-5.0); ALKALINE PHOSPHATASE 66 U/L (46-116); ASPARTATE AMINOTRANSFERASE 19 U/L (15-37); BILIRUBIN,TOTAL 0.2 mg/dL (0.2-1.0); TOTAL PROTEIN, SERUM 6.4 g/dL (6.4-8.2); TROPONIN I < 0.017 ng/mL (0.00-0.056)
[2018-02-24 18:35] LABS: INR 1.01 (0.87-1.13)
[2018-02-24] MEDS ORDERED: GLAT40SY SQ (18:43)
[2018-02-24 18:46] LABS: APPEARANCE,URINE SL CLOUDY (CLEAR); BILIRUBIN,URINE NEGATIVE (NEGATIVE); BLOOD, URINE 3+ Ery/uL (NEGATIVE); COLOR,URINE YELLOW (YELLOW); KETONES,URINE TRACE (NEGATIVE); LEUKOCYTE ESTERASE ,URINE 1+ (NEGATIVE); NITRITE, URINE NEGATIVE (NEGATIVE); PH,URINE 5.5 (5.0-8.0); PROTEIN,URINE 2+ mg/dl (NEGATIVE); UGLUCOSE NEGATIVE (NEGATIVE); UROBILINOGEN,URINE 0.2 EU/dL (0.2)
--- NOTE | 2018-02-24 18:56 | NUR ---
REPORT RECEIVED FROM ADWOA GOMEZ FOR ANTONI.
[2018-02-24 19:01] LABS: BACTERIA,URINE 1+ /HPF (None Seen); CALCIUM OXALATE CRYSTALS,UR Few /HPF (None Seen); SQUAMOUS EPITHELIAL CELL,UR 0-2 /HPF (None Seen)
--- NOTE | 2018-02-24 19:28 | NUR ---
CALLED AT [phone], TRANSFERRED CALL TO
--- NOTE | 2018-02-24 19:29 | NUR ---
MD AT BEDSIDE SPEAKING WITH PT FAMILY AT BEDSIDE.
--- NOTE | 2018-02-24 19:54 | NUR ---
TELE 310-2 FOR SEPSIS AND AMS, ADMITTING
[2018-02-24 20:00] VITALS: BP 135/69
[2018-02-24] MEDS ORDERED: MAGNESIUM HYDROXIDE 30 ML UDC PO PRN (20:00)
[2018-02-24] MEDS ORDERED: ONDANSETRON HCL/PF 4 MG/2 ML VIAL IVP PRN (20:00)
[2018-02-24] MEDS ORDERED: ZOLPIDEM TARTRATE 5 MG TABLET PO PRN (20:00)
[2018-02-24] MEDS ORDERED: ACETAMINOPHEN 325 MG TABLET PO PRN (20:00)
[2018-02-24] MEDS ORDERED: Z GUARD REMEDY 2 OZ OINT TP PRN (20:00)
[2018-02-24] MEDS ORDERED: HYDROCODONE/APAP 5/325MG 1 EACH TABLET PO PRN (20:00)
[2018-02-24] MEDS ORDERED: MAG HYDROX/AL HYDROX/SIMETH 30 ML UDC PO PRN (20:00)
--- NOTE | 2018-02-24 20:03 | NUR ---
REPORT GIVEN TO ADWOA SANTAMARIA FOR ANTONI. PT ADMIT TO TELE RM 310.2.
--- NOTE | 2018-02-24 20:27 | NUR ---
PT TRANSPORTED TO TELE 310.2 VIA STRETCHER ON STUDENT SPECIALIST WITH RN PER ACLS PROTOCOL. VSS.
[2018-02-24 20:32] VITALS: BP 135/69
[2018-02-24] MEDS: IV NS 0.9% 1,000 ML IV PRN (20:35)
--- NOTE | 2018-02-24 20:45 | NUR ---
COMMERCIAL HVAC SERVICE TECHNICIAN NOTES RECEIVE PT FROM [facility] AT 2030 ADMIT TO TELE PT A/O X 1, HEAD TO TOE ASSESSMENT IS DONE, NEPHROSTOMY TUBE INTACT BOTH RIGHT AND LEFT DRAINING YELLOW URINE VIA GRAVITY WITH NO SEDIMENTS NO HEMATURIA NO CLOUDINESS NO S/S OF INFECTION AND NO SKIN BREAKDOWN, RESPIRATIONS EVEN AND UNLABORED NO S/S OF DISTRESS NO FACIAL GRIMACING SAFETY MEASURES IN PLACE WILL MONITOR.
[2018-02-24] MEDS ORDERED: PIPERACILLIN /TAZOBACTAM 3.375 G VIAL IV ONE (22:42)
[2018-02-25] VITALS: BP 118/68
[2018-02-25] MEDS ORDERED: PIPERACILLIN /TAZOBACTAM 3.375 G in IV D5W 50 ML IV SCH ×2
[2018-02-25 04:00] VITALS: BP_SYST 116
[2018-02-25] MEDS ORDERED: PIPERACILLIN /TAZOBACTAM 3.375 G VIAL IV ONE (05:11)
[2018-02-25] MEDS ORDERED: PIPERACILLIN /TAZOBACTAM 2.25 G VIAL IV ONE (05:21)
[2018-02-25] MEDS: PIPERACILLIN /TAZOBACTAM 2.25 G in IV D5W 50 ML IV SCH ×3 (05:29→17:28)
--- NOTE | 2018-02-25 06:25 | NUR ---
COLLECTION AGENT CLOSING NOTES PT COMFORTABLY ASLEEP AND EASILY AWAKEN, IN STABLE CONDITION. ON ROOM AIR 98% RESPIRATION EVEN AND UNLABORED. GOOD SKIN CARE PROVIDED. KEPT CLEAN AND DRY AND COMFORTABLE, ALL NURSING CARE RENDERED. NEEDS ATTENDED AND ANTICIPATED, FREQUENT VISUAL CHECK DONE FOR SAFETY EVERY 2 HOURS. ON LOW BED AT ALL TIMES TO ENSURE SAFETY. SAFE HAZARD FREE ENVIRONMENT PROVIDED. ASSISTED REPOSITION EVERY 2 HOURS. OFFLOAD HEELS AND ELBOWS. CALL LIGHT WITHIN EASY TO REACH. WILL ENDORSE NEXT SHIFT CONTINUITY OF CARE. ON TELE 107'S.
--- NOTE | 2018-02-25 07:18 | NUR ---
ACT ENGLISH TUTOR NOTES OUTPUT FOR R NEPHROSTOMY IS 950CC OUTPUT FOR L NEPHROSTOMY 1000 CC
--- NOTE | 2018-02-25 07:28 | NUR ---
ICT DEVELOPMENT MANAGER OPENING NOTES RECEIVED PT AWAKE IN BED IN NO ACUTE SIGNS OF DISTRESS. A/O X1. ABLE TO SAY HER NAME WHEN ASKED. ON TELE MONITORING WITH CURRENT READING OF SINUS TACH WITH HR OF 102, NO CARDIAC DISTRESS VOICED. PT WITH LEFT IJ INTACT AND PATENT, IVF OF NS INFUSING @ 75ML/HR, NO S/S OF INFILTRATION NOTED. PT WITH LEFT AND RIGHT NEPHROSTOMY TUBE IN PLACE AND BOTH NOTED WITH CLEAR LIGHT YELLOW OUTPUT. HOB ELEVATED. NEUMANN IN PLACE WITH CLEAR YELLOW OUTPUT NOTED. BED IN LOW/LOCKED POSITION WITH SIDE-RAILS X2 UP AND BED ALARM SET FOR SAFETY. CALL LIGHT WITHIN AT REACH. WILL CONTINUE MONITORING PT ACCORDINGLY. Addendum: 02/25/18 at 1854 by MARGUERITE SCHMITT RN CORRECTION: PT WITHOUT NEUMANN BUT WITH LEFT AND RIGHT NEPHROSTOMY TUBES.
[2018-02-25 07:40] LABS: BASOPHILS # (AUTO) 0.1 /CMM (0.0-0.2); BASOPHILS % (AUTO) 0.6 % (0.0-2.0); EOSINOPHILS % (AUTO) 1.1 % (0.0-6.0); HEMATOCRIT 26 % (33-45); HEMOGLOBIN 8.3 g/dL (11.5-14.8); LYMPHOCYTES # (AUTO) 1.7 /CMM (0.8-4.8); LYMPHOCYTES % (AUTO) 10.5 % (20.0-44.0); MEAN CORPUSCULAR HEMOGLOBIN 26 PG (26.0-33.0); MEAN CORPUSCULAR HGB CONC 32 g/dl (31.0-36.0); MEAN CORPUSCULAR VOLUME 82 fL (82-100); MONOCYTES # (AUTO) 0.6 /CMM (0.1-1.30); MONOCYTES % (AUTO) 3.9 % (2.0-12.0); NEUTROPHILS # (AUTO) 13.4 /CMM (1.8-8.9); NEUTROPHILS % (AUTO) 83.9 % (43.0-81.0); PLATELET COUNT (AUTO) 259 /CMM (150-450); RDW COEFFICIENT OF VARIATION 17.9 (11.5-15.0); RED BLOOD CELL COUNT(AUTO) 3.17 MIL/uL (4.0-5.2); WHITE BLOOD COUNT (AUTO) 15.9 K/uL (4.3-11.0)
[2018-02-25 07:59] LABS: ALANINE AMINOTRANSFERASE 16 U/L (12-78); ALBUMIN 2.1 g/dL (3.4-5.0); ALKALINE PHOSPHATASE 67 U/L (46-116); ASPARTATE AMINOTRANSFERASE 33 U/L (15-37); BILIRUBIN,DIRECT 0.1 mg/dL (0.0-0.2); BILIRUBIN,TOTAL 0.4 mg/dL (0.2-1.0); CALCIUM, SERUM 8.2 mg/dL (8.5-10.1); CARBON DIOXIDE 20 mmol/L (21-32); CHLORIDE 109 mmol/L (98-107); CREATININE 0.7 mg/dL (0.6-1.3); GLUCOSE 92 mg/dL (74-106); MAGNESIUM 1.3 mg/dL (1.8-2.4); PHOSPHORUS 2.7 mg/dL (2.5-4.9); POTASSIUM 2.9 mmol/L (3.5-5.1); SODIUM SERUM 143 mmol/L (136-145); TOTAL PROTEIN, SERUM 6.1 g/dL (6.4-8.2); UREA NITROGEN, BLOOD 16 mg/dL (7-18)
[2018-02-25 08:00] VITALS: BP 126/71
[2018-02-25 08:00] LABS: IRON, SERUM 15 ug/dl (50-175); TOTAL IRON BINDING CAPACITY 165 ug/dl (250-450)
[2018-02-25 08:06] LABS: THYROID STIMULATING HORMONE 0.197 uIU/mL (0.358-3.74)
[2018-02-25] MEDS: GABAPENTIN 100 MG CAPSULE PO SCH ×3 (08:50→17:00)
[2018-02-25] MEDS: MONTELUKAST SODIUM (10MG) 10 MG TABLET PO SCH (08:50)
[2018-02-25] MEDS: ATORVASTATIN 10 MG TABLET PO SCH (08:50)
[2018-02-25] MEDS: FOLIC ACID 1 MG TABLET PO SCH ×2 (08:50→17:00)
[2018-02-25] MEDS: FAMOTIDINE (20 MG) 20 MG TABLET PO SCH ×2 (08:50→17:00)
[2018-02-25] MEDS: Fluoxetine 10 mg capsule PO SCH (08:50)
[2018-02-25] MEDS: ASPIRIN EC 81 MG TABLET.DR PO SCH (08:50)
[2018-02-25] MEDS: FERROUS SULFATE (325 MG) 325 MG/TAB TABLET PO SCH ×2 (08:51→17:00)
[2018-02-25] MEDS: POTASSIUM CHLORIDE 20 MEQ TAB.PRT.SR PO SCH ×3 (09:46→12:00)
[2018-02-25] MEDS: Magnesium 1GM/D5W 100ML PREMIX 100 ML IV SCH ×4 (09:47→14:51)
[2018-02-25] MEDS ORDERED: POTASSIUM CHLORIDE 20 MEQ TAB.PRT.SR PO ONE (11:00)
[2018-02-25] MEDS: FLUCONAZOLE IN NS 100 MG in PREMIX 1 EA IV SCH ×2 (11:28)
[2018-02-25] MEDS: IV NS 0.9% 1,000 ML IV PRN (11:57)
--- NOTE | 2018-02-25 12:00 | NUR ---
RN NOTES PATIENT WITH LOW POTASSIUM LEVEL 3.0. MARITO JOSHI MADE AWARE. POTASSIUM REPLACED WITH K-DUR 60 MEQ TAB. WILL CONTINUE TO MONITOR.
[2018-02-25] MEDS: DIGOXIN 0.125 MG TABLET PO SCH (12:56)
[2018-02-25 13:00] VITALS: BP 136/81
--- NOTE | 2018-02-25 13:01 | NUR ---
RN NOTES PATIENT WITH LOW MG LEVEL 1.3 TODAY. MARITO JOSHI MADE AWARE. MG REPLACED WITH 1MG IN 100ML D5W IV X 4BAGS. WILL CONTINUE TO MONITOR.
[2018-02-25] MEDS: SOD FERRIC GLUC 125 MG in IV NS 0.9% 100 ML IV SCH (15:47)
[2018-02-25] MEDS: HYDROGEL DRESSING 90 GM TUBE TP SCH (15:53)
[2018-02-25 16:00] VITALS: BP 111/65
--- NOTE | 2018-02-25 18:30 | NUR ---
RN NOTES PATIENT WITH ORDER FOR SACRAL AND LEFT BUTTOCK WOUND DEBRIDEMENT. CALLED SON CHRISTEL JOSE AND EXPLAINED PROCEDURE AND VERBALIZED UNDERSTANDING. TELEPHONE CONSENT OBTAINED AND VERIFIED BY ANOTHER RN. CONSENT FILED ON THE CHART.
--- NOTE | 2018-02-25 18:50 | NUR ---
CROZER CLOSING NOTES PT AWAKE AND LYING COMFORTABLY IN BED. HOB ELEVATED. A/O X1. VERBALLY RESPONSIVE AND FOLLOWS SIMPLE COMMANDS. ON TELE MONITORING WITH CURRENT READING OF SINUS TACH WITH HR OF 97, NO CARDIAC DISTRESS NOTED. PT WITH LEFT IJ INTACT AND PATENT, IVF OF NS INFUSING @ 75ML/HR, NO S/S OF INFILTRATION NOTED. PT WITH LEFT AND RIGHT NEPHROSTOMY TUBE IN PLACE AND BOTH NOTED WITH CLEAR LIGHT YELLOW OUTPUT. BED IN LOW/LOCKED POSITION WITH SIDE-RAILS UP X2. CALL LIGHT WITHIN AT REACH. ALL NEEDS AND CARE PROVIDED WELL. WILL ENDORSE TO MONOLOGIST NURSE FOR ANTONI.
--- NOTE | 2018-02-25 19:30 | NUR ---
RN NOTES RECEIVED PATIENT IN BED AWAKE, AO X 1, ABLE TO MAKE NEEDS KNOWN. NO ACUTE DISTRESS NOTED. NO SIGNS OF PAIN NOTED. IV SITE PATENT, INTACT; IVF INFUSING ORDERED. BILATERAL NEPHROSTOMY DRAINAGES INTACT. ON LOW BED WITH BILATERAL UPPER SIDE RAILS UP. CALL SEXTON WITHIN EASY REACH. WILL CONTINUE TO MONITOR.
[2018-02-25 20:00] VITALS: BP 104/61
[2018-02-26] VITALS: BP 129/71
[2018-02-26] MEDS: PIPERACILLIN /TAZOBACTAM 2.25 G in IV D5W 50 ML IV SCH ×5 (00:22→23:29)
[2018-02-26] MEDS: IV NS 0.9% 1,000 ML IV PRN ×2 (06:15→23:29)
--- NOTE | 2018-02-26 07:00 | NUR ---
RN NOTES PATIENT ASLEEP, EASILY AROUSABLE. RESPIRATIONS EVEN. NO SIGNS OF PAIN NOTED. DUE MEDS GIVEN WITH NO ASE NOTED. NEEDS ATTENDED. KEPT CLEAN, DRY AND COMFORTABLE. SAFETY PRECAUTIONS AND COMFORT MEASURES IN PLACE. WILL GIVE REPORT TO DAY SHIFT FOR CONTINUITY OF CARE.
[2018-02-26 07:01] LABS: CALCIUM, SERUM 8.3 mg/dL (8.5-10.1); CARBON DIOXIDE 20 mmol/L (21-32); CHLORIDE 109 mmol/L (98-107); CREATININE 0.6 mg/dL (0.6-1.3); GLUCOSE 81 mg/dL (74-106); MAGNESIUM 2.1 mg/dL (1.8-2.4); POTASSIUM 3.1 mmol/L (3.5-5.1); SODIUM SERUM 139 mmol/L (136-145); UREA NITROGEN, BLOOD 8 mg/dL (7-18)
[2018-02-26 08:00] VITALS: BP 115/71
--- NOTE | 2018-02-26 08:00 | NUR ---
MEDICARE BILLER NOTES PATIENT IN BED RESTING NO SOB OR ACUTE DISTRESS NOTED. PATIENT CYPRIOT SPEAKING. WITH CENTRAL LINE ON LEFT IJ, INTACT, PATENT. PATIENT WITH BILATERAL NEPHROSTOMY TUBES, INTACT PATENT. BED IN LOW LOCKED POSITION. CALL LIGHT WITHIN REACH. WILL CONTINUE TO MONITOR.
[2018-02-26] MEDS: Fluoxetine 10 mg capsule PO SCH (08:42)
[2018-02-26] MEDS: ATORVASTATIN 10 MG TABLET PO SCH (08:42)
[2018-02-26] MEDS: FOLIC ACID 1 MG TABLET PO SCH ×2 (08:42→16:11)
[2018-02-26] MEDS: FAMOTIDINE (20 MG) 20 MG TABLET PO SCH ×2 (08:42→16:11)
[2018-02-26] MEDS: ASPIRIN EC 81 MG TABLET.DR PO SCH (08:42)
[2018-02-26] MEDS: FERROUS SULFATE (325 MG) 325 MG/TAB TABLET PO SCH ×2 (08:42→16:11)
[2018-02-26] MEDS: GABAPENTIN 100 MG CAPSULE PO SCH ×3 (08:43→16:11)
[2018-02-26] MEDS: MONTELUKAST SODIUM (10MG) 10 MG TABLET PO SCH (08:43)
[2018-02-26] MEDS: HYDROGEL DRESSING 90 GM TUBE TP SCH (08:43)
[2018-02-26 11:04] LABS: BASOPHILS # (AUTO) 0.1 /CMM (0.0-0.2); BASOPHILS % (AUTO) 0.4 % (0.0-2.0); EOSINOPHILS % (AUTO) 1.7 % (0.0-6.0); HEMATOCRIT 23 % (33-45); HEMOGLOBIN 7.7 g/dL (11.5-14.8); LYMPHOCYTES # (AUTO) 1.8 /CMM (0.8-4.8); LYMPHOCYTES % (AUTO) 13.7 % (20.0-44.0); MEAN CORPUSCULAR HEMOGLOBIN 26 PG (26.0-33.0); MEAN CORPUSCULAR HGB CONC 33 g/dl (31.0-36.0); MEAN CORPUSCULAR VOLUME 80 fL (82-100); MONOCYTES # (AUTO) 0.7 /CMM (0.1-1.30); NEUTROPHILS # (AUTO) 10.6 /CMM (1.8-8.9); NEUTROPHILS % (AUTO) 79.2 % (43.0-81.0); PLATELET COUNT (AUTO) 247 /CMM (150-450); RDW COEFFICIENT OF VARIATION 16.9 (11.5-15.0); RED BLOOD CELL COUNT(AUTO) 2.93 MIL/uL (4.0-5.2); WHITE BLOOD COUNT (AUTO) 13.4 K/uL (4.3-11.0)
[2018-02-26] MEDS: FLUCONAZOLE IN NS 100 MG in PREMIX 1 EA IV SCH ×2 (11:10)
--- NOTE | 2018-02-26 11:19 | NUR ---
WOUND CARE CONSULT WOUND CARE RECEIVED CONSULT FOR WOUND SACRUM. WOUND CARE WILL DEFER CONSULT AND ALL TREATMENT PLANS TO SURGICAL TEAM THEY ARE CURRENTLY FOLLOWING. PATIENT WITH JOVANA AT 13. ALL PRESSURE ULCER PREVENTION MEASURES ARE NOTED TO BE IN PLACE. WILL SEE PRN.
[2018-02-26] MEDS: POTASSIUM CHLORIDE 20 MEQ TAB.PRT.SR PO SCH ×3 (11:56→16:11)
[2018-02-26] MEDS: DIGOXIN 0.125 MG TABLET PO SCH (13:58)
[2018-02-26] MEDS: SOD FERRIC GLUC 125 MG in IV NS 0.9% 100 ML IV SCH (14:57)
[2018-02-26 16:00] VITALS: BP 138/78
[2018-02-26] MEDS: ENSURE ENLIVE 237 ML LIQUID (VANILLA) PO SCH (16:17)
--- NOTE | 2018-02-26 19:30 | NUR ---
MSRN ASLEEP, EASILY AWAKENED. REPOSITIONED BILATERAL NEPHROSTOMY OUTPUT MONITORED. PRESENT IVF INFUSING WELL VIA LEFT IJ. TO CONTINUE
[2018-02-26 20:00] VITALS: BP 116/72
[2018-02-26 22:00] VITALS: BP 116/72
--- NOTE | 2018-02-27 02:04 | NUR ---
MSRN REMAINS UNCHANGED, FREQ REPOSITIONED PER PATIENTS COMFORT.
[2018-02-27] MEDS: PIPERACILLIN /TAZOBACTAM 2.25 G in IV D5W 50 ML IV SCH ×3 (05:58→19:00)
--- NOTE | 2018-02-27 06:00 | NUR ---
MSRN RIGHT NEPHROSTOMY 800. LEFT NEPHROSTOMY 2OO CC .
[2018-02-27 06:30] LABS: BASOPHILS # (AUTO) 0.1 /CMM (0.0-0.2); BASOPHILS % (AUTO) 0.6 % (0.0-2.0); EOSINOPHILS % (AUTO) 1.5 % (0.0-6.0); HEMATOCRIT 26 % (33-45); HEMOGLOBIN 8.2 g/dL (11.5-14.8); LYMPHOCYTES # (AUTO) 2.6 /CMM (0.8-4.8); LYMPHOCYTES % (AUTO) 19.9 % (20.0-44.0); MEAN CORPUSCULAR HEMOGLOBIN 26 PG (26.0-33.0); MEAN CORPUSCULAR HGB CONC 32 g/dl (31.0-36.0); MEAN CORPUSCULAR VOLUME 82 fL (82-100); MONOCYTES # (AUTO) 0.6 /CMM (0.1-1.30); NEUTROPHILS # (AUTO) 9.4 /CMM (1.8-8.9); PLATELET COUNT (AUTO) 243 /CMM (150-450); RDW COEFFICIENT OF VARIATION 17.4 (11.5-15.0); RED BLOOD CELL COUNT(AUTO) 3.13 MIL/uL (4.0-5.2); WHITE BLOOD COUNT (AUTO) 12.9 K/uL (4.3-11.0)
[2018-02-27 07:09] LABS: CALCIUM, SERUM 8.8 mg/dL (8.5-10.1); CARBON DIOXIDE 23 mmol/L (21-32); CHLORIDE 110 mmol/L (98-107); CREATININE 0.6 mg/dL (0.6-1.3); GLUCOSE 76 mg/dL (74-106); MAGNESIUM 1.7 mg/dL (1.8-2.4); PHOSPHORUS 2.3 mg/dL (2.5-4.9); POTASSIUM 3.9 mmol/L (3.5-5.1); SODIUM SERUM 141 mmol/L (136-145); UREA NITROGEN, BLOOD 7 mg/dL (7-18)
--- NOTE | 2018-02-27 07:30 | NUR ---
RECEIVED PT. ALERT AND ORIENTED X1.IV INFUSING.VS STABLE.
[2018-02-27 08:00] VITALS: BP 127/68
[2018-02-27] MEDS: ENSURE ENLIVE 237 ML LIQUID (VANILLA) PO SCH ×3 (09:00→17:59)
[2018-02-27] MEDS: FERROUS SULFATE (325 MG) 325 MG/TAB TABLET PO SCH ×2 (10:59→17:59)
[2018-02-27] MEDS: ATORVASTATIN 10 MG TABLET PO SCH (11:00)
[2018-02-27] MEDS: FAMOTIDINE (20 MG) 20 MG TABLET PO SCH ×2 (11:00→17:58)
[2018-02-27] MEDS: MONTELUKAST SODIUM (10MG) 10 MG TABLET PO SCH (11:00)
[2018-02-27] MEDS: GABAPENTIN 100 MG CAPSULE PO SCH ×3 (11:00→17:59)
[2018-02-27] MEDS: Fluoxetine 10 mg capsule PO SCH (11:00)
[2018-02-27] MEDS: FOLIC ACID 1 MG TABLET PO SCH ×2 (11:00→17:58)
[2018-02-27] MEDS: ASPIRIN EC 81 MG TABLET.DR PO SCH (11:00)
[2018-02-27] MEDS: FLUCONAZOLE IN NS 100 MG in PREMIX 1 EA IV SCH ×2 (11:02)
[2018-02-27] MEDS: HYDROGEL DRESSING 90 GM TUBE TP SCH (11:02)
--- NOTE | 2018-02-27 13:00 | NUR ---
SON IN TO VISIT,PT. FOUND PULLING AT TRIPLE LUMEN SITE,TAKING OFF CLOTHES.ORDER FOR SOFT RESTRAINT FOR RT. HAND NEW DRESSING CHANGE FOR LT. NECK IV SITE.
[2018-02-27] MEDS: Magnesium 1GM/D5W 100ML PREMIX 100 ML IV SCH ×2 (14:09→15:28)
--- NOTE | 2018-02-27 14:30 | NUR ---
MG IV REPLACEMENT DONE.
[2018-02-27] MEDS: DIGOXIN 0.125 MG TABLET PO SCH (14:41)
[2018-02-27 16:00] VITALS: BP 135/80
[2018-02-27] MEDS: SOD FERRIC GLUC 125 MG in IV NS 0.9% 100 ML IV SCH (16:32)
--- NOTE | 2018-02-27 17:50 | NUR ---
AT THIS TIME NOTED LRG. CLOT PASSED VAGINALLY.STACIA TANNER TEXTED AND ORDER GIVEN FOR CBC.
--- NOTE | 2018-02-27 18:00 | NUR ---
RT. NEPHROSTOMY OUTPUT-475 ML.LT. NEPHROSTOMY OUTPUT 400 ML.
[2018-02-27 18:28] LABS: BASOPHILS # (AUTO) 0.1 /CMM (0.0-0.2); BASOPHILS % (AUTO) 0.5 % (0.0-2.0); EOSINOPHILS % (AUTO) 2.2 % (0.0-6.0); HEMATOCRIT 25 % (33-45); HEMOGLOBIN 7.9 g/dL (11.5-14.8); LYMPHOCYTES # (AUTO) 2.9 /CMM (0.8-4.8); LYMPHOCYTES % (AUTO) 25.2 % (20.0-44.0); MEAN CORPUSCULAR HEMOGLOBIN 26 PG (26.0-33.0); MEAN CORPUSCULAR HGB CONC 32 g/dl (31.0-36.0); MEAN CORPUSCULAR VOLUME 82 fL (82-100); MONOCYTES # (AUTO) 0.6 /CMM (0.1-1.30); MONOCYTES % (AUTO) 5.4 % (2.0-12.0); NEUTROPHILS # (AUTO) 7.8 /CMM (1.8-8.9); NEUTROPHILS % (AUTO) 66.7 % (43.0-81.0); PLATELET COUNT (AUTO) 277 /CMM (150-450); RDW COEFFICIENT OF VARIATION 17.3 (11.5-15.0); RED BLOOD CELL COUNT(AUTO) 3.02 MIL/uL (4.0-5.2); WHITE BLOOD COUNT (AUTO) 11.7 K/uL (4.3-11.0)
--- NOTE | 2018-02-27 19:45 | NUR ---
MSRN RESTING QUIETLY , NO ACTIVE BLEEDING FROM PERIAREA. REPOSTIONED, PER PATIENT COMFORT. V/S STABLE
[2018-02-27 20:00] VITALS: BP 126/76
[2018-02-27] MEDS: IV NS 0.9% 1,000 ML IV PRN (20:59)
--- NOTE | 2018-02-27 21:00 | NUR ---
MSRN WAS VISITED BY SON STAYED FOR AWHILE. NO NEEDS MADE. IVF CONTINUED
[2018-02-27] MEDS ORDERED: K PHOS NEUTRAL 250 MG TABLET PO ONE (21:30)
[2018-02-28] MEDS: PIPERACILLIN /TAZOBACTAM 2.25 G in IV D5W 50 ML IV SCH ×5 (00:25→23:56)
--- NOTE | 2018-02-28 01:15 | NUR ---
MSRN SLEEPING, NEPHROSTOMY OUTPUT MONITORED. EMPTIED 450 ON LEFT, 30O ON RIGHT.
[2018-02-28] MEDS ORDERED: K PHOS NEUTRAL 250 MG TABLET ONE (02:50)
--- NOTE | 2018-02-28 06:00 | NUR ---
MSRN AM CARE, HAD MODERATE BM WITH SMALL AMOUNT OF BLOOD. PARTIAL SPONGE BATHED, REPOSTIONED. REMAINS AFEBRILE.
[2018-02-28 07:36] LABS: CALCIUM, SERUM 8.8 mg/dL (8.5-10.1); CARBON DIOXIDE 24 mmol/L (21-32); CHLORIDE 108 mmol/L (98-107); CREATININE 0.6 mg/dL (0.6-1.3); GLUCOSE 76 mg/dL (74-106); PHOSPHORUS 3.4 mg/dL (2.5-4.9); POTASSIUM 3.7 mmol/L (3.5-5.1); SODIUM SERUM 141 mmol/L (136-145); UREA NITROGEN, BLOOD 7 mg/dL (7-18)
[2018-02-28 08:00] VITALS: BP 146/76
[2018-02-28] MEDS: FOLIC ACID 1 MG TABLET PO SCH ×2 (10:23→18:42)
[2018-02-28] MEDS: GABAPENTIN 100 MG CAPSULE PO SCH ×3 (10:23→18:42)
[2018-02-28] MEDS: ASPIRIN EC 81 MG TABLET.DR PO SCH (10:23)
[2018-02-28] MEDS: LACTOBACILLUS RHAMNOSUS GG 1 EACH CAP.SPRINK PO SCH ×2 (10:23→18:42)
[2018-02-28] MEDS: ATORVASTATIN 10 MG TABLET PO SCH (10:23)
[2018-02-28] MEDS: FAMOTIDINE (20 MG) 20 MG TABLET PO SCH ×2 (10:23→18:42)
[2018-02-28] MEDS: Fluoxetine 10 mg capsule PO SCH (10:23)
[2018-02-28] MEDS: FERROUS SULFATE (325 MG) 325 MG/TAB TABLET PO SCH ×2 (10:23→18:42)
[2018-02-28] MEDS: MONTELUKAST SODIUM (10MG) 10 MG TABLET PO SCH (10:23)
[2018-02-28] MEDS: ENSURE ENLIVE 237 ML LIQUID (VANILLA) PO SCH ×3 (10:32→18:42)
[2018-02-28] MEDS: HYDROGEL DRESSING 90 GM TUBE TP SCH (10:33)
[2018-02-28] MEDS: IV NS 0.9% 1,000 ML IV PRN (11:06)
[2018-02-28] MEDS: FLUCONAZOLE IN NS 100 MG in PREMIX 1 EA IV SCH ×2 (11:09)
[2018-02-28] MEDS: DIGOXIN 0.125 MG TABLET PO SCH (13:50)
[2018-02-28] MEDS: SOD FERRIC GLUC 125 MG in IV NS 0.9% 100 ML IV SCH (15:44)
[2018-02-28 16:00] VITALS: BP 136/85
--- NOTE | 2018-02-28 18:00 | NUR ---
RT. NEPHROSTOMY OUTPUT 460 ML AND LT. NEPHROSTOMY OUTPUT 500ML. SON IN TO VISIT WELL UTILITY PORTER STACIA TANNER ,NO CHANGES.
--- NOTE | 2018-02-28 19:25 | NUR ---
MS RN NOTES RECEIVED PT IN BED, AWAKE, A/O X 1, VERBALLY RESPONSIVE. NO DISTRESS, NO SOB NOTED. RESPIRATION IS EVEN AND UNLABORED. NO C/O ANY PAIN OR DISCOMFORT AT THIS TIME. LEFT TLC , INTACT AND PATENT, IVF INFUSING WELL. NEPHROSTOMY TUBE INTACT AND PATENT DRAINING WELL WITH YELLOW URINE. SAFETY PRECAUTIONS OBSERVED. ALL NEEDS ANTICIPATED AND MET. KEPT COMFORTABLE. CALL LIGHT WITHIN REACH. WILL CONT TO MONITOR.
[2018-02-28 20:00] VITALS: BP 140/86
[2018-03-01 00:04] LABS: BASOPHILS # (AUTO) 0.1 /CMM (0.0-0.2); BASOPHILS % (AUTO) 0.6 % (0.0-2.0); EOSINOPHILS % (AUTO) 2.4 % (0.0-6.0); HEMATOCRIT 24 % (33-45); HEMOGLOBIN 7.3 g/dL (11.5-14.8); LYMPHOCYTES # (AUTO) 2.9 /CMM (0.8-4.8); LYMPHOCYTES % (AUTO) 27.3 % (20.0-44.0); MEAN CORPUSCULAR HEMOGLOBIN 25 PG (26.0-33.0); MEAN CORPUSCULAR HGB CONC 31 g/dl (31.0-36.0); MEAN CORPUSCULAR VOLUME 82 fL (82-100); MONOCYTES # (AUTO) 0.6 /CMM (0.1-1.30); MONOCYTES % (AUTO) 5.7 % (2.0-12.0); NEUTROPHILS # (AUTO) 6.7 /CMM (1.8-8.9); PLATELET COUNT (AUTO) 286 /CMM (150-450); RDW COEFFICIENT OF VARIATION 18.2 (11.5-15.0); RED BLOOD CELL COUNT(AUTO) 2.88 MIL/uL (4.0-5.2); WHITE BLOOD COUNT (AUTO) 10.5 K/uL (4.3-11.0)
[2018-03-01] MEDS: IV NS 0.9% 1,000 ML IV PRN (06:23)
[2018-03-01] MEDS: PIPERACILLIN /TAZOBACTAM 2.25 G in IV D5W 50 ML IV SCH ×4 (06:23→23:49)
--- NOTE | 2018-03-01 06:31 | NUR ---
RECEIVED AN ORDER FOR CBC NOTED AND CARRIED OUT.
--- NOTE | 2018-03-01 06:33 | NUR ---
MS RN NOTES PT IN BED, AWAKE, A/O X 1, VERBALLY RESPONSIVE. NO DISTRESS, NO SOB NOTED. RESPIRATION IS EVEN AND UNLABORED. NO C/O ANY PAIN OR DISCOMFORT AT THIS TIME. LEFT IJ TLC , INTACT AND PATENT, IVF INFUSING WELL. NEPHROSTOMY TUBE INTACT AND PATENT DRAINING WELL WITH YELLOW URINE. SAFETY PRECAUTIONS OBSERVED. MORNING CARE DONE, PT STILL NOTED WITH MINIMAL BLOOD CLOTS PRESENT IN THE DIAPER. ALL NEEDS ANTICIPATED AND MET. KEPT COMFORTABLE. CALL LIGHT WITHIN REACH. WILL ENDORSE TO DAY SHIFT ACCORDINGLY.
--- NOTE | 2018-03-01 07:40 | NUR ---
M/S RN - Assessment Patient awake, alert to self, confused, reality orientation provided, right wrist restraints in place to prevent pulling out bilateral nephrostomies and left IJ TLC, less restrictive measures implemented but ineffective, no s/s of pain, no apparent distress seen. IVF NS at 75 ml/hr infusing well on the left IJ TLC with no signs of infiltration.Will do wound treatment on the sacral and left buttock as ordered. All needs attended and met. Fall and aspiration precautions maintained. Will continue to monitor closely.
[2018-03-01 08:00] VITALS: BP 153/82
[2018-03-01 08:05] LABS: BASOPHILS # (AUTO) 0.1 /CMM (0.0-0.2); BASOPHILS % (AUTO) 0.8 % (0.0-2.0); EOSINOPHILS % (AUTO) 2.8 % (0.0-6.0); HEMATOCRIT 23 % (33-45); HEMOGLOBIN 7.5 g/dL (11.5-14.8); LYMPHOCYTES # (AUTO) 1.9 /CMM (0.8-4.8); LYMPHOCYTES % (AUTO) 21.2 % (20.0-44.0); MEAN CORPUSCULAR HEMOGLOBIN 26 PG (26.0-33.0); MEAN CORPUSCULAR HGB CONC 32 g/dl (31.0-36.0); MEAN CORPUSCULAR VOLUME 81 fL (82-100); MONOCYTES # (AUTO) 0.4 /CMM (0.1-1.30); MONOCYTES % (AUTO) 4.9 % (2.0-12.0); NEUTROPHILS # (AUTO) 6.3 /CMM (1.8-8.9); NEUTROPHILS % (AUTO) 70.3 % (43.0-81.0); PLATELET COUNT (AUTO) 297 /CMM (150-450); RDW COEFFICIENT OF VARIATION 17.4 (11.5-15.0); RED BLOOD CELL COUNT(AUTO) 2.87 MIL/uL (4.0-5.2); WHITE BLOOD COUNT (AUTO) 8.9 K/uL (4.3-11.0)
[2018-03-01] MEDS: GABAPENTIN 100 MG CAPSULE PO SCH ×3 (08:06→17:17)
[2018-03-01] MEDS: MONTELUKAST SODIUM (10MG) 10 MG TABLET PO SCH (08:06)
[2018-03-01] MEDS: Fluoxetine 10 mg capsule PO SCH (08:06)
[2018-03-01] MEDS: ATORVASTATIN 10 MG TABLET PO SCH (08:06)
[2018-03-01] MEDS: LACTOBACILLUS RHAMNOSUS GG 1 EACH CAP.SPRINK PO SCH ×2 (08:06→17:17)
[2018-03-01] MEDS: FERROUS SULFATE (325 MG) 325 MG/TAB TABLET PO SCH ×2 (08:06→17:17)
[2018-03-01] MEDS: ASPIRIN EC 81 MG TABLET.DR PO SCH (08:06)
[2018-03-01] MEDS: FAMOTIDINE (20 MG) 20 MG TABLET PO SCH ×2 (08:06→17:17)
[2018-03-01] MEDS: FOLIC ACID 1 MG TABLET PO SCH ×2 (08:08→17:17)
[2018-03-01] MEDS: ENSURE ENLIVE 237 ML LIQUID (VANILLA) PO SCH ×3 (08:08→17:18)
[2018-03-01] MEDS: HYDROGEL DRESSING 90 GM TUBE TP SCH (08:09)
[2018-03-01] MEDS: FLUCONAZOLE IN NS 100 MG in PREMIX 1 EA IV SCH ×2 (10:35)
[2018-03-01] MEDS: SOD FERRIC GLUC 125 MG in IV NS 0.9% 100 ML IV SCH (13:05)
[2018-03-01] MEDS: DIGOXIN 0.125 MG TABLET PO SCH (13:42)
--- NOTE | 2018-03-01 14:00 | NUR ---
M/S RN - Notes Called Dar son [phone] and made of discharge to [facility] today. All questions answered to his satisfaction.
[2018-03-01 14:28] LABS: INR 1.03 (0.87-1.13)
--- NOTE | 2018-03-01 15:00 | NUR ---
M/S RN - Notes Called [facility] for report, spoke with ADWOA Delgado. Reviewed discharge instructions including recommendation by Dr. Altamirano (ID) for patient to be on Zosyn 2.25 gms IV q6h until 03/05/18 and Diflucan 200 mg oral daily until 03/07/18. All questions answered to her satisfaction. Ambulance ETA at 16:00.
[2018-03-01 16:00] VITALS: BP 132/82
--- NOTE | 2018-03-01 16:30 | NUR ---
M/S RN - Notes Patient noted with large amount of vaginal clots, CN made aware, Dr. Marcellus Heredia notified with order to cancel discharge today. Will continue to monitor patient closely. Son Raghu made aware of discharge cancellation.
--- NOTE | 2018-03-01 18:40 | NUR ---
M/S RN - End Notes Patient in no acute distress, CBC ordered, IVF maintained for hydration. Left nephrostomy output was 500 ml and right nephrostomy drained 300 ml. All needs attended and met. Will endorse to siding mechanic accordingly.
--- NOTE | 2018-03-01 19:30 | NUR ---
RN MS OPENING NOTES RECEIVED PATIENT COMFORTABLY IN BED AWAKE, A/O X1, VERBALLY RESPONSIVE. BREATHING EVEN AND UNLABORED. NO SOB NOTED. NO S/S OF PAIN OR DISCOMFORT. LEFT IJ TLC PATENT AND INTACT. CURRENTLY RUNNING NS @ 75ML/HR. LEFT HAND SL #20 ALSO INTACT AND PATENT. NEPHROSTOMY TUBE INTACT AND DRAINING WELL. PATIENT NOTED WITH RIGHT WRIST RESTRAINT TO PREVENT PULLING OUT ANY TUBES/LINES. ALL OTHER NEEDS ATTENDED TO. CALL LIGHT WITHIN REACH. BED ON LOWEST LOCKED POSITION. WILL CONTINUE TO MONITOR.
[2018-03-01 20:00] VITALS: BP 133/82
[2018-03-01 21:20] LABS: BASOPHILS # (AUTO) 0.1 /CMM (0.0-0.2); BASOPHILS % (AUTO) 0.8 % (0.0-2.0); EOSINOPHILS % (AUTO) 2.4 % (0.0-6.0); HEMATOCRIT 24 % (33-45); HEMOGLOBIN 7.5 g/dL (11.5-14.8); LYMPHOCYTES # (AUTO) 2.6 /CMM (0.8-4.8); LYMPHOCYTES % (AUTO) 23.5 % (20.0-44.0); MEAN CORPUSCULAR HEMOGLOBIN 26 PG (26.0-33.0); MEAN CORPUSCULAR HGB CONC 32 g/dl (31.0-36.0); MEAN CORPUSCULAR VOLUME 82 fL (82-100); MONOCYTES # (AUTO) 0.6 /CMM (0.1-1.30); MONOCYTES % (AUTO) 5.3 % (2.0-12.0); NEUTROPHILS # (AUTO) 7.5 /CMM (1.8-8.9); PLATELET COUNT (AUTO) 286 /CMM (150-450); RED BLOOD CELL COUNT(AUTO) 2.88 MIL/uL (4.0-5.2)
--- NOTE | 2018-03-02 01:00 | NUR ---
RN MS NOTES PATIENT'S DIAPER CHANGED. STILL NOTED VAGINAL BLOOD CLOTS
[2018-03-02] MEDS: IV NS 0.9% 1,000 ML IV PRN (03:16)
[2018-03-02] MEDS: PIPERACILLIN /TAZOBACTAM 2.25 G in IV D5W 50 ML IV SCH ×2 (05:27→13:01)
[2018-03-02 06:29] LABS: BASOPHILS # (AUTO) 0.1 /CMM (0.0-0.2); BASOPHILS % (AUTO) 0.9 % (0.0-2.0); EOSINOPHILS % (AUTO) 2.6 % (0.0-6.0); HEMATOCRIT 23 % (33-45); HEMOGLOBIN 7.5 g/dL (11.5-14.8); LYMPHOCYTES # (AUTO) 2.8 /CMM (0.8-4.8); LYMPHOCYTES % (AUTO) 26.9 % (20.0-44.0); MEAN CORPUSCULAR HEMOGLOBIN 27 PG (26.0-33.0); MEAN CORPUSCULAR HGB CONC 32 g/dl (31.0-36.0); MEAN CORPUSCULAR VOLUME 82 fL (82-100); MONOCYTES # (AUTO) 0.5 /CMM (0.1-1.30); NEUTROPHILS # (AUTO) 6.6 /CMM (1.8-8.9); NEUTROPHILS % (AUTO) 64.6 % (43.0-81.0); PLATELET COUNT (AUTO) 302 /CMM (150-450); RDW COEFFICIENT OF VARIATION 17.7 (11.5-15.0); RED BLOOD CELL COUNT(AUTO) 2.83 MIL/uL (4.0-5.2); WHITE BLOOD COUNT (AUTO) 10.3 K/uL (4.3-11.0)
--- NOTE | 2018-03-02 06:32 | NUR ---
RN MS CLOSING NOTES PATIENT IN BED AWAKE, A/O X1, VERBALLY RESPONSIVE. BREATHING EVEN AND UNLABORED. NO SOB NOTED. NO S/S OF PAIN OR DISCOMFORT. LEFT IJ TLC PATENT AND INTACT. CURRENTLY RUNNING NS @ 75ML/HR. LEFT HAND SL #20 ALSO INTACT AND PATENT. NEPHROSTOMY TUBE INTACT AND DRAINING CLEAR YELLOW URINE. PATIENT WITH RIGHT WRIST RESTRAINT TO PREVENT PULLING OUT ANY TUBES/LINES CHECKED Q2H. PATIENT STILL NOTED WITH VAGINAL BLOOD CLOTS. CBC STABLE. ALL OTHER NEEDS ATTENDED TO. CALL LIGHT WITHIN REACH. BED ON LOWEST LOCKED POSITION. WILL ENDORSE TO ONCOMING RN FOR CONTINUITY OF CARE.
--- NOTE | 2018-03-02 07:25 | NUR ---
RN INITIAL NOTES: PATIENT RESTING IN BED. NONLABORED BREATHING NOTED ON ROOM AIR. DENYING PAIN AT THE MOMENT. NO FACIAL GRIMACING NOTED. BED IN LOWEST LOCKED POSITION. CALL LIGHT WITHIN REACH. WILL CONTINUE TO MONITOR
[2018-03-02 08:00] VITALS: BP 135/79
[2018-03-02 09:00] VITALS: BP 157/65
--- NOTE | 2018-03-02 09:00 | NUR ---
DR DOCKERY INFORMED OF MODERATE AMOUNT OF BLOOD CLOTS NOTED DURING TECHNICAL OPERATIONS SPECIALIST. DR DOCKERY AWARE OF LATEST H&H. PER HIS ORDERS, PROCEED TO DISCHARGE. VERBAL READBACK DONE
[2018-03-02] MEDS: FAMOTIDINE (20 MG) 20 MG TABLET PO SCH ×2 (09:23→16:37)
[2018-03-02] MEDS: LACTOBACILLUS RHAMNOSUS GG 1 EACH CAP.SPRINK PO SCH ×2 (09:24→16:37)
[2018-03-02] MEDS: FERROUS SULFATE (325 MG) 325 MG/TAB TABLET PO SCH ×2 (09:24→16:38)
[2018-03-02] MEDS: ATORVASTATIN 10 MG TABLET PO SCH (09:24)
[2018-03-02] MEDS: MONTELUKAST SODIUM (10MG) 10 MG TABLET PO SCH (09:25)
[2018-03-02] MEDS: GABAPENTIN 100 MG CAPSULE PO SCH ×3 (09:25→16:38)
[2018-03-02] MEDS: FOLIC ACID 1 MG TABLET PO SCH ×2 (09:25→16:38)
[2018-03-02] MEDS: ASPIRIN EC 81 MG TABLET.DR PO SCH (09:26)
[2018-03-02] MEDS: Fluoxetine 10 mg capsule PO SCH (09:26)
[2018-03-02] MEDS: ENSURE ENLIVE 237 ML LIQUID (VANILLA) PO SCH ×3 (09:28→16:38)
[2018-03-02] MEDS: HYDROGEL DRESSING 90 GM TUBE TP SCH (09:33)
[2018-03-02] MEDS: FLUCONAZOLE IN NS 100 MG in PREMIX 1 EA IV SCH ×2 (11:41)
[2018-03-02] MEDS: DIGOXIN 0.125 MG TABLET PO SCH (12:10)
--- NOTE | 2018-03-02 13:49 | NUR ---
RN NOTES: DR DOCKERY AWARE THAT PATIENT ATTEMPTING TO REMOVE LINES. PER ORDERS, OK TO RENEW RESTRAINTS
--- NOTE | 2018-03-02 15:05 | NUR ---
PER DR DOCKERY N, REMOVE IJ CENTRAL LINE VERBAL READBACK DONE
[2018-03-02 16:00] VITALS: BP 128/71
--- NOTE | 2018-03-02 17:00 | NUR ---
RN NOTES: PATIENT DISCHARGED TO SNF PER DR DOCKERY'S ORDERS. PER DR DOCKERY, PATIENT OK TO LEAVE WITH PERIPHERAL LINE TO SNF FOR CONTINUATION OF IV ANTIBIOTICS. PATIENT LEFT WITH PERIPHERALLY INSERTED IV GAUGE 20 PATENT AND INTACT. SPOKE TO ANTHONY ORONA AT [facility] AND NOTIFIED HER OF IV SITE WELL DATE OF INSERTION. NEPHROSTOMY TUBES ON RIGHT AND LEFT SIDE PATENT AND INTACT, DRAINING YELLOW LIGHT URINE. WOUND CARE DONE THROUGHOUT SHIFT. PATIENT TURNED AND REPOSITIONED EVERY 2 HOURS. SKIN PICTURES TAKEN AND PLACED IN CHART. ALL BELONINGS GIVEN TO AMBULANCE STAFF. SON CHRISTEL NOTIFIED OF DISCHARGE. AT 1530, PATIENT'S IJ CENTRAL REMOVED PER DR. DOCKERY'S ORDERS. HOB LOWERED , PATIENT IN [place]. PATIENT ASKED TO HOLD DEEP BREATH. CATHETER WAS PULLED IN SLOW BUT STEADY MOTION. NO RESISTANCE MET. TIP INTACT. PRESSURE APPLIED ON SITE FOR 5 MINUTES. NO SIGNS OF BLEEDING NOTED. OCCLUSIVE DRESSING APPLIED TO SITE. PATIENT DENYING PAIN AND DENYING SOB VISUAL CHECKS DONE EVERY 15 MINS PATIENT HAD A SOFT RESTRAIN ON RIGHT HAND PER DR DOCKERY'S ORDERS. RELEASE OF RESTRAINTS DONE PER PROTOCOL. PATIENT AND FAMILY EDUCATED. PATIENT ORIENTED TO ENVIRONMENT. TUBES HIDDEN. PATIENT PROVIDED WITH SNACKS AND FLUIDS UPON CHECKS. PATIENT LEFT STABLE WITH AMBULANCE STAFF TO SNF
== END 2018-03-02 17:00 | DRG 871 ==
LOC: ER 17:47 → TELE 20:00 → MED 02-26 21:38
PROVIDERS: ADMIT Internal Medicine; ATTEND Internal Medicine
DX: A41.9 Sepsis, unspecified organism (principal); L89.323 Pressure ulcer of left buttock, stage 3; G93.41 Metabolic encephalopathy; R65.21 Severe sepsis with septic shock; N17.0 Acute kidney failure with tubular necrosis; E43 Unspecified severe protein-calorie malnutrition; C79.31 Secondary malignant neoplasm of brain; I50.32 Chronic diastolic (congestive) heart failure; N39.0 Urinary tract infection, site not specified; R64 Cachexia; Z68.1 Body mass index [BMI] 19.9 or less, adult; K62.5 Hemorrhage of anus and rectum; N13.30 Unspecified hydronephrosis; D63.8 Anemia in other chronic diseases classified elsewhere; Z85.51 Personal history of malignant neoplasm of bladder; L89.150 Pressure ulcer of sacral region, unstageable; E78.5 Hyperlipidemia, unspecified; E83.39 Other disorders of phosphorus metabolism; E83.42 Hypomagnesemia; E87.6 Hypokalemia; F32.9 Major depressive disorder, single episode, unspecified; G35 Multiple sclerosis; K21.9 Gastro-esophageal reflux disease without esophagitis; I11.0 Hypertensive heart disease with heart failure; Z87.440 Personal history of urinary (tract) infections; Z86.73 Personal history of transient ischemic attack (TIA), and cerebral infarction without residual deficits; K80.20 Calculus of gallbladder without cholecystitis without obstruction; E88.09 Other disorders of plasma-protein metabolism, not elsewhere classified; M62.58 Muscle wasting and atrophy, not elsewhere classified, other site; Z93.6 Other artificial openings of urinary tract status; I95.9 Hypotension, unspecified; M06.9 Rheumatoid arthritis, unspecified; N93.9 Abnormal uterine and vaginal bleeding, unspecified; Z74.01 Bed confinement status
CPT/HCPCS: 36415; 70450-TC; 71045-TC; 80048-TC; 80076-TC; 80162-TC; 81000-TC; 82728-TC; 82746; 83540-TC; 83605-TC; 83735-TC; 84100-TC; 84439-TC; 84443-TC; 84484-TC; 85025-TC; 85610-TC; 85730-TC; 87040-TC; 87081-TC; 87086-TC; A4216; A4606; A6248; A6253; A6403; J0692; J1450; J2543; J2916; J3370; J3475; J7030; J7040; J7060; Z7610

== ENCOUNTER 2018-04-09 20:28 | Inpatient (IN) | payer MEDICARE, MEDICAID ==
[~2018-04-09] VITALS: Ht 160 cm; Wt 46.7 kg
[~2018-04-09 20:28] MED LIST changes: +GLAT40SY SQ; -ROSU5TAB11 PO; +ROSU5TAB12 PO
[2018-04-09] MEDS ORDERED: IV NS 0.9% 1,000 ML BAG IV ONE ×2 (21:00→22:30)
[2018-04-09] MEDS ORDERED: ACETAMINOPHEN 650 MG/SUPP.RECT RC ONE ×2 (21:00→21:25)
--- NOTE | 2018-04-09 21:00 | NUR ---
BIB AMBUL[facility] FROM [facility] RT NEPHROSTOMY TUBE CAME OUT. PT ASLEEP BUT WILL OPEN BOTH EYES WHEN CALLED BY HER FIRST NAME. PT SEEN & EVAL'D BY DR. CAREY. PT STABLE NO RESP DISTRESS NOTED @ THIS TIME.
[2018-04-09] MEDS ORDERED: CEFTRIAXONE 1 G VIAL ONE (21:25)
[2018-04-09] MEDS ORDERED: CEFTRIAXONE 1GM BAG (ER ONLY) 1 GM/50 ML PIGGYBACK IV ONE (21:30)
[2018-04-09 21:36] LABS: BASOPHILS % (AUTO) 0.1 % (0.0-2.0); CALCIUM, SERUM 10.6 mg/dL (8.5-10.1); CARBON DIOXIDE 26 mmol/L (21-32); CHLORIDE 103 mmol/L (98-107); CREATININE 0.8 mg/dL (0.6-1.3); EOSINOPHILS % (AUTO) 0.4 % (0.0-6.0); GLUCOSE 170 mg/dL (74-106); HEMATOCRIT 30 % (33-45); HEMOGLOBIN 9.5 g/dL (11.5-14.8); LYMPHOCYTES # (AUTO) 1.7 /CMM (0.8-4.8); LYMPHOCYTES % (AUTO) 7.8 % (20.0-44.0); MEAN CORPUSCULAR HEMOGLOBIN 24 PG (26.0-33.0); MEAN CORPUSCULAR HGB CONC 32 g/dl (31.0-36.0); MEAN CORPUSCULAR VOLUME 76 fL (82-100); MONOCYTES # (AUTO) 0.8 /CMM (0.1-1.30); MONOCYTES % (AUTO) 3.9 % (2.0-12.0); NEUTROPHILS # (AUTO) 19.1 /CMM (1.8-8.9); NEUTROPHILS % (AUTO) 87.8 % (43.0-81.0); PLATELET COUNT (AUTO) 488 /CMM (150-450); POTASSIUM 3.8 mmol/L (3.5-5.1); RDW COEFFICIENT OF VARIATION 15.9 (11.5-15.0); RED BLOOD CELL COUNT(AUTO) 3.96 MIL/uL (4.0-5.2); SODIUM SERUM 138 mmol/L (136-145); UREA NITROGEN, BLOOD 46 mg/dL (7-18); WHITE BLOOD COUNT (AUTO) 21.7 K/uL (4.3-11.0)
[2018-04-09 21:39] LABS: INR 1.09 (0.85-1.15)
[2018-04-09 21:45] LABS: ALANINE AMINOTRANSFERASE 56 U/L (12-78); ALBUMIN 1.8 g/dL (3.4-5.0); ALKALINE PHOSPHATASE 215 U/L (46-116); ASPARTATE AMINOTRANSFERASE 57 U/L (15-37); BILIRUBIN,DIRECT 0.1 mg/dL (0.0-0.2); BILIRUBIN,TOTAL 0.2 mg/dL (0.2-1.0); TOTAL PROTEIN, SERUM 6.7 g/dL (6.4-8.2)
--- NOTE | 2018-04-09 21:49 | NUR ---
CALLED [facility] FOR PANEL CALL AND DR NOLAN WAS PAGED.
--- NOTE | 2018-04-09 21:58 | NUR ---
CALLED NURSING SUP FOR BED
[2018-04-09 22:18] LABS: APPEARANCE,URINE CLOUDY (CLEAR); BILIRUBIN,URINE NEGATIVE (NEGATIVE); BLOOD, URINE 3+ Ery/uL (NEGATIVE); COLOR,URINE YELLOW (YELLOW); KETONES,URINE NEGATIVE (NEGATIVE); LEUKOCYTE ESTERASE ,URINE 2+ (NEGATIVE); NITRITE, URINE NEGATIVE (NEGATIVE); PROTEIN,URINE 1+ mg/dl (NEGATIVE); UGLUCOSE NEGATIVE (NEGATIVE); UROBILINOGEN,URINE 0.2 EU/dL (0.2)
[2018-04-09 22:44] LABS: BACTERIA,URINE Many /HPF (None Seen); RBC,URINE TOO NUMEROUS TO COUN /HPF (0-2); SQUAMOUS EPITHELIAL CELL,UR Few /HPF (None Seen)
[2018-04-09 22:46] LABS: WBC,URINE 51-80 /HPF (0-3)
[2018-04-09 23:30] VITALS: BP 81/56
[2018-04-09] MEDS ORDERED: MAG HYDROX/AL HYDROX/SIMETH 30 ML UDC PO PRN (23:30)
[2018-04-09] MEDS ORDERED: Z GUARD REMEDY 2 OZ OINT TP PRN (23:30)
[2018-04-09] MEDS ORDERED: ONDANSETRON HCL/PF 4 MG/2 ML VIAL IVP PRN (23:30)
[2018-04-09] MEDS ORDERED: MAGNESIUM HYDROXIDE 30 ML UDC PO PRN (23:30)
[2018-04-10] VITALS (8 sets, daily range): BP systolic 81–116; BP diastolic 56–70
[2018-04-10] MEDS: IV NS 0.9% 1,000 ML IV PRN ×3 (00:22→23:41)
[2018-04-10] MEDS: CEFTRIAXONE 1 G in IV NS 0.9% 50 ML IV SCH ×2 (00:30→23:41)
--- NOTE | 2018-04-10 00:30 | NUR ---
ROCEPEN NOT GIVEN DT DOSE GIVEN IN THE ER AT 2130 ORDERED Q24 HOURS
--- NOTE | 2018-04-10 06:06 | NUR ---
ARRIVED TO THE FLOOR AT 2330 FROM ER. OPENS EYES AND SPEAKS IN A WHISPER. 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 PRESSURE SORE ON THE RIGHT BUTTOCKS AND SACRUM AREA PHOTOS TAKEN AND WOUND NURSE CONSULT PLACED. WATER NOT GIVEN YET D/T PATIENT IS NOT AWAKE I NEED TO HAVE HER TO DRINK ASP. PRECAUTIONS. BLOOD PRESSURE UPON ARRIVAL WAS IN THE 80'S SYST/ BUT THIS AM 116 SYST. I NOTE AN INCREASE IN HE BEING ALERT. LEFT NEPHROST. TUBE OUTPUT THIS 12 HOURS 250ML CLEAR AMARIS URINE
[2018-04-10 06:42] LABS: BASOPHILS % (AUTO) 0.1 % (0.0-2.0); EOSINOPHILS % (AUTO) 0.8 % (0.0-6.0); HEMATOCRIT 29 % (33-45); HEMOGLOBIN 8.7 g/dL (11.5-14.8); LYMPHOCYTES # (AUTO) 1.4 /CMM (0.8-4.8); LYMPHOCYTES % (AUTO) 5.7 % (20.0-44.0); MEAN CORPUSCULAR HEMOGLOBIN 23 PG (26.0-33.0); MEAN CORPUSCULAR HGB CONC 30 g/dl (31.0-36.0); MEAN CORPUSCULAR VOLUME 78 fL (82-100); MONOCYTES # (AUTO) 0.3 /CMM (0.1-1.30); MONOCYTES % (AUTO) 1.2 % (2.0-12.0); NEUTROPHILS # (AUTO) 22.2 /CMM (1.8-8.9); NEUTROPHILS % (AUTO) 92.2 % (43.0-81.0); PLATELET COUNT (AUTO) 169 /CMM (150-450); RDW COEFFICIENT OF VARIATION 16.5 (11.5-15.0); RED BLOOD CELL COUNT(AUTO) 3.71 MIL/uL (4.0-5.2); WHITE BLOOD COUNT (AUTO) 24.1 K/uL (4.3-11.0)
[2018-04-10 07:15] LABS: CALCIUM, SERUM 9.4 mg/dL (8.5-10.1); CARBON DIOXIDE 22 mmol/L (21-32); CHLORIDE 110 mmol/L (98-107); CREATININE 0.6 mg/dL (0.6-1.3); GLUCOSE 92 mg/dL (74-106); MAGNESIUM 2.1 mg/dL (1.8-2.4); POTASSIUM 3.5 mmol/L (3.5-5.1); SODIUM SERUM 144 mmol/L (136-145); UREA NITROGEN, BLOOD 40 mg/dL (7-18)
--- NOTE | 2018-04-10 08:00 | NUR ---
RN OPENING NOTES RECEIVED PT. IN BED AWAKE, NON-VERBAL. PT. OPENS AND BLINKS EYES TO HER NAME. A&OX1. BREATHING UNLABORED, AND EVENLY ON ROOM AIR. NO S/S OF ACUTE DISTRESS. IV FLUIDS RUNNING AT 75 ML/HR. BED IS IN LOWEST, AND LOCKED POSITION. 2 SIDE RAILS UP, AND INSTRUCTED PT. TO USE CALL LIGHT FOR ASSISTANCE. ALL NEEDS MET. WILL CONTINUE TO ASSESS AND MONITOR.
[2018-04-10 08:04] LABS: BAND % (MANUAL) 4 % (0.0-5.0); LYMPHOCYTES % (MANUAL) 4 % (16-48); MONOCYTES % (MANUAL) 4 % (0-11.0); NEUTROPHILS % (MANUAL) 88 (42-76)
--- NOTE | 2018-04-10 16:25 | NUR ---
PT.'S SON, MICHAEL GAVE VERBAL CONSENT VIA TELEPHONE FOR RIGHT SIDED PERCUTANEOUS NEPHROSTOMY TUBE PLACEMENT WITH ULTRASOUND, AND COMPUTED TOMOGRAPHY ON 04/11. PT.'S SON WAS EXPLAINED THE PROCEDURE AND ORDER FOR MODERATE SEDATION. MARGARITO ORONA WITNESSED THE TELEPHONE CONSENT.
[2018-04-10] MEDS: DAKINS QUARTER STRENGTH (0.125%) 480 ML BOTTLE TOP SCH (16:31)
--- NOTE | 2018-04-10 17:07 | NUR ---
WOUND TREATMENT WAS PERFORMED PER MD ORDERS WITH SHANEL PER RECOMMENDATIONS. DRESSING WAS CHANGED TO RIGHT BUTTOCKS PRESSURE ULCER, AND LEFT BUTTOCKS PRESSURE ULCER. PT. TOLERATED PROCEDURE WELL.
--- NOTE | 2018-04-10 18:44 | NUR ---
RN CLOSING NOTES PT. IS IN BED AWAKE, A&OX1. BREATHING UNLABORED, AND EVENLY ON ROOM AIR. NO S/S OF ACUTE DISTRESS. IV FLUIDS RUNNING AT 75 ML/HR. BED IS IN LOWEST, AND LOCKED POSITION. 2 SIDE RAILS UP, AND CALL LIGHT WITHIN REACH. ALL NEEDS MET. PT.WILL BE NPO AFTER MIDNIGHT. WILL ENDORSE REPORT TO NURSE.
--- NOTE | 2018-04-10 19:34 | NUR ---
MS/RN OPENING NOTES PATIENT IN BED, RESTING COMFORTABLY IN BED. RESPIRATIONS EVEN AND UNLABORED, REQUIRE FREQUENT POSITION CHANGE, KEEP LEG A FLOAT, WITH NEPHROSTOMY TUBE TO DRAIN, KEEP MONITORING, ON IV FLUID RUNNING AT 75 ML/HR, DUE TO POOR PO INTAKE, WILL HAVE PROCEDURE TRISH AM TO KEEP NPO AFTER MIDNIGHT, SKIN WARM TO TOUCH, WILL NEED KCI MATTRESS, AND WOUND CARE,RIGHT FOREARM GAUGE 20, INTACT ABLE TO FLUSH.RECEIVED REPORT FROM AM RN FOR ANTONI.
--- NOTE | 2018-04-11 07:00 | NUR ---
310-1 MS/RN NOTES PATIENT IN BED, HOB ELEVATE, KEEP COMFORTAVBLE, RESPONSIVE WITH GOOD EYE CONTACT, REPOSITION AND TURNED, RESPIRATIONS EVEN AND UNLABORED, MONITORIN FOR CHANGES, WITH PROCEDURE ON AM, CALL LIGHTS WITHIN REACH, BED IN LOCK POSITION. JENNY ENDORSE TO AM RN FOR ANTONI.
[2018-04-11 08:00] VITALS: BP 126/68
[2018-04-11 08:50] LABS: BASOPHILS # (AUTO) 0.1 /CMM (0.0-0.2); BASOPHILS % (AUTO) 0.3 % (0.0-2.0); EOSINOPHILS % (AUTO) 0.3 % (0.0-6.0); HEMATOCRIT 29 % (33-45); HEMOGLOBIN 8.9 g/dL (11.5-14.8); LYMPHOCYTES # (AUTO) 1.8 /CMM (0.8-4.8); LYMPHOCYTES % (AUTO) 8.3 % (20.0-44.0); MEAN CORPUSCULAR HEMOGLOBIN 24 PG (26.0-33.0); MEAN CORPUSCULAR HGB CONC 31 g/dl (31.0-36.0); MEAN CORPUSCULAR VOLUME 78 fL (82-100); MONOCYTES # (AUTO) 0.7 /CMM (0.1-1.30); NEUTROPHILS # (AUTO) 19.1 /CMM (1.8-8.9); NEUTROPHILS % (AUTO) 88.1 % (43.0-81.0); PLATELET COUNT (AUTO) 401 /CMM (150-450); RDW COEFFICIENT OF VARIATION 16.8 (11.5-15.0); RED BLOOD CELL COUNT(AUTO) 3.73 MIL/uL (4.0-5.2); WHITE BLOOD COUNT (AUTO) 21.7 K/uL (4.3-11.0)
[2018-04-11 09:00] LABS: CALCIUM, SERUM 9.5 mg/dL (8.5-10.1); CARBON DIOXIDE 23 mmol/L (21-32); CHLORIDE 111 mmol/L (98-107); CREATININE 0.6 mg/dL (0.6-1.3); GLUCOSE 83 mg/dL (74-106); POTASSIUM 3.4 mmol/L (3.5-5.1); SODIUM SERUM 146 mmol/L (136-145); UREA NITROGEN, BLOOD 27 mg/dL (7-18)
[2018-04-11] MEDS ORDERED: FENTANYL PF 250MCG/5ML AMPUL IV ONE (09:30)
[2018-04-11] MEDS ORDERED: NALOXONE PREFILLED SYRINGE 2 MG/2 ML SYRINGE IV ONE (09:30)
[2018-04-11] MEDS ORDERED: MIDAZOLAM HCL 5MG/ML VIAL 25 MG/5 ML VIAL IV ONE (09:30)
[2018-04-11] MEDS: DAKINS QUARTER STRENGTH (0.125%) 480 ML BOTTLE TOP SCH (09:53)
[2018-04-11] MEDS ORDERED: LIDOCAINE 1%-EPI 1:100,000 20 ML VIAL TP ONE (10:30)
[2018-04-11] MEDS ORDERED: SILVER NITRATE APPLICATOR 1 EA BOX TP ONE (10:30)
--- NOTE | 2018-04-11 10:37 | NUR ---
MS/RN NOTE REPORT RECEIVED FROM NURSE DOW BUT THE PATIENT WAS ALREADY TAKEN TO PROCEDURE. WILL CHECK/ ASSESS PATIENT ONCE SHE IS BACK IN ROOM.
[2018-04-11] MEDS ORDERED: LIDOCAINE HCL/PF 1% 30 ML SDV ONE (11:00)
[2018-04-11] MEDS ORDERED: GLATIRAMER SQ SCH (12:00)
--- NOTE | 2018-04-11 12:20 | NUR ---
MS/RN NOTE PATIENT IS RECEIVED BACK. PATIENT IN BED. ALERT AND ORIENTED X1. MOZAMBICAN SPEAKING. DENIES PAIN. RESPIRATION REGULAR AND UNLABORED. DENIES SOB. PATIENT IN NO APPARENT DISTRESS. RIGHT NEPHROSTOMY TUBE IN PLACE AND NOTED. NOTED YELLOW CLOUDY FLUID IN COLLECTION BAG (VIA GRAVITY). NO BLEEDING AT THE NEPHROSTOMY INSERTION SITE. BED LOW AND LOCKED. SIDE RAILS UP X3. CALL LIGHT WITHIN REACH. WILL CONTINUE TO MONITOR.
[2018-04-11] MEDS: GABAPENTIN 100 MG CAPSULE PO SCH ×2 (13:59→16:34)
--- NOTE | 2018-04-11 15:32 | NUR ---
MS/RN NOTE OCCULT BLOOD ORDER WAS ENTERED . CANCELED THE ORDER DUE TO IT WAS ENTERED ON WRONG PATIENT. THE ORDER NOT MEANT FORBenny NICHOLSON.
[2018-04-11 16:00] VITALS: BP 107/63
--- NOTE | 2018-04-11 16:00 | NUR ---
MS/RN NOTE NEW ORDER FOR DIGOXIN LEVEL CHECK IS OBTAINED. NOTED AND CARRIED OUT.
[2018-04-11] MEDS: BETHANECHOL CHLORIDE (25 MG) 25 MG TABLET PO SCH (16:34)
[2018-04-11] MEDS: FERROUS SULFATE (325 MG) 325 MG/TAB TABLET PO SCH (16:34)
[2018-04-11] MEDS: FOLIC ACID 1 MG TABLET PO SCH (16:34)
[2018-04-11] MEDS: FAMOTIDINE (20 MG) 20 MG TABLET PO SCH (16:34)
[2018-04-11 16:44] VITALS: BP 107/63
[2018-04-11] MEDS ORDERED: POTASSIUM CHLORIDE 20 MEQ POWDER PACKET PO SCH (17:00)
--- NOTE | 2018-04-11 18:11 | NUR ---
MS/RN NOTE RIGHT NEPHROSTOMY TUBE DRAINED 250 ML YELLOW, CLOUDY OUTPUT AND LEFT NEPHROSTOMY TUBE DRAINED 300 ML YELLOW, CLEAR OUTPUT.
--- NOTE | 2018-04-11 18:12 | NUR ---
MS/RN CLOSING NOTE PATIENT IN BED AWAKE. ALERT AND ORIENTED X1. DENIES SOB. RESPIRATION REGULAR AND UNLABORED. PATIENT IN ROOM AIR AND OXYGEN SATURATION AT 96%. DENIES PAIN. PATIENT IN NO APPARENT DISTRESS. WOUND DRESSING DONE PER ORDER AND THE PATIENT TOLERATED WELL. RIGHT FOREARM G 20 PATENT AND IV FLUID INFUSING PER ORDER AND NO S/S INFILTRATION NOTED. RIGHT AND LEFT NEPHROSTOMY TUBES IN PLACED AND DRAINING WELL BY GRAVITY. NEPHROSTOMY TUBE SITE DRESSINGS INTACT AND NO BLEEDING NOTED. GOOD AND GENTLE SKIN CARE RENDERED. TURNED AND REPOSITIONED Q2HR AND NEEDED. BED LOW AND LOCKED. SIDE RAILS UP X3. CALL LIGHT WITHIN REACH. WILL ENDORSE TO COMMUNITY BOARD MEMBER.
[2018-04-11] MEDS: DIGOXIN 0.125 MG TABLET PO SCH (19:00)
[2018-04-11] MEDS: IV NS 0.9% 1,000 ML IV PRN (19:09)
--- NOTE | 2018-04-11 19:10 | NUR ---
RN OPENING NOTES RECEIVED PT IN BED, AWAKE, NON VERBAL BUT WITH EYES OPEN, ABLE TO NOD FOR YES AND NO QUESTIONS. DENIES PAIN, NO FACIAL GRIMACING, NO SOB, IN NO ACUTE DISTRESS. ALL PATIENT'S NEEDS ATTENDED TO AT THIS TIME. PT BED IN LOW POSITION, LOCKED IN PLACE, CALL LIGHT WITHIN EASY REACH. WILL CONTINUE TO MONITOR. IVF INFUSING WELL ORDERED.
[2018-04-11 20:00] VITALS: BP 94/58
[2018-04-11] MEDS: ACETAMINOPHEN 325 MG TABLET PO PRN (20:54)
[2018-04-11 21:00] VITALS: BP 102/67
[2018-04-12] MEDS: CEFTRIAXONE 1 G in IV NS 0.9% 50 ML IV SCH (00:03)
--- NOTE | 2018-04-12 06:31 | NUR ---
RN CLOSING NOTES PATIENT IN BED, ALERT AND ORIENTED TO SELF, VERBALLY RESPONSIVE, NO SOB NOTED, BREATHING EVEN AND UNLABORED, NO FACIAL GRIMACING NOTED AND IS IN NO ACUTE DISTRESS. PATIENT CONTINUES TO RECEIVE IVF ORDERED, TOLERATING WELL. PT WITH BILATERAL NEPHROSTOMY, IN PLACE AND DRAINING WELL.. ALL PATIENT'S NEEDS ATTENDED TO THROUGHOUT THE SHIFT. DRESSING CHANGED ORDERED. WILL ENDORSE TO AM SHIFT NURSE FOR CONTINUITY OF CARE.
[2018-04-12 08:00] VITALS: BP 118/76
--- NOTE | 2018-04-12 08:00 | NUR ---
MS RN NOTES PATIENT IN BED RESTING NO SOB OR ACUTE DISTRESS NOTED. PATIENT ALERT, ORIENTED X1-2. DENIES ANY PAIN OR DISCOMFORT. BED IN LOW LOCKED POSITION. CALL LIGHT WITHIN REACH. BED IN LOW LOCKED POSITION. WILL CONTINUE TO MONITOR.
[2018-04-12] MEDS: FOLIC ACID 1 MG TABLET PO SCH ×2 (08:03→17:02)
[2018-04-12] MEDS: FERROUS SULFATE (325 MG) 325 MG/TAB TABLET PO SCH ×2 (08:03→17:02)
[2018-04-12] MEDS: BETHANECHOL CHLORIDE (25 MG) 25 MG TABLET PO SCH ×2 (08:03→17:02)
[2018-04-12] MEDS: GABAPENTIN 100 MG CAPSULE PO SCH ×3 (08:03→17:01)
[2018-04-12] MEDS: FAMOTIDINE (20 MG) 20 MG TABLET PO SCH ×2 (08:04→17:02)
[2018-04-12] MEDS: MONTELUKAST SODIUM (10MG) 10 MG TABLET PO SCH (08:06)
[2018-04-12] MEDS: ASPIRIN EC 81 MG TABLET.DR PO SCH (08:06)
[2018-04-12] MEDS: Fluoxetine 10 mg capsule PO SCH (08:06)
[2018-04-12] MEDS: CYANOCOBALAMIN 100 MCG TABLET PO SCH (08:06)
[2018-04-12] MEDS: DAKINS QUARTER STRENGTH (0.125%) 480 ML BOTTLE TOP SCH (08:07)
[2018-04-12] MEDS: ERGOCALCIFEROL (VITAMIN D 2) 50,000 UNIT CAPSULE PO SCH (08:07)
[2018-04-12] MEDS: ATORVASTATIN 10 MG TABLET PO SCH (08:07)
[2018-04-12] MEDS: IV NS 0.9% 1,000 ML IV PRN (12:22)
[2018-04-12] MEDS: DIGOXIN 0.125 MG TABLET PO SCH (13:26)
[2018-04-12] MEDS: IV 1/2NS 1000 ML 1,000 ML IV PRN (14:43)
--- NOTE | 2018-04-12 18:32 | NUR ---
MS RN NOTES PATIENT IN BED RESTING NO SOB OR ACUTE DISTRESS NOTED. ALL DUE MEDICATIONS ADMINISTERED. ALL NEEDS MET. PERIPHERAL IV INTACT PATENT. BED IN LOW LOCKED POSITION , CALL LIGHT WITHIN REACH. PATIENT S/P DEBRIDEMENT TOLERATED WELL. WILL ENDORSE CARE TO PM SHIFT.
[2018-04-12 18:42] LABS: BASOPHILS # (AUTO) 0.1 /CMM (0.0-0.2); BASOPHILS % (AUTO) 0.3 % (0.0-2.0); EOSINOPHILS % (AUTO) 0.3 % (0.0-6.0); HEMATOCRIT 30 % (33-45); HEMOGLOBIN 8.8 g/dL (11.5-14.8); LYMPHOCYTES # (AUTO) 2.2 /CMM (0.8-4.8); LYMPHOCYTES % (AUTO) 9.9 % (20.0-44.0); MEAN CORPUSCULAR HEMOGLOBIN 23 PG (26.0-33.0); MEAN CORPUSCULAR HGB CONC 30 g/dl (31.0-36.0); MEAN CORPUSCULAR VOLUME 79 fL (82-100); MONOCYTES # (AUTO) 0.8 /CMM (0.1-1.30); MONOCYTES % (AUTO) 3.6 % (2.0-12.0); NEUTROPHILS # (AUTO) 18.9 /CMM (1.8-8.9); NEUTROPHILS % (AUTO) 85.9 % (43.0-81.0); PLATELET COUNT (AUTO) 459 /CMM (150-450); RED BLOOD CELL COUNT(AUTO) 3.78 MIL/uL (4.0-5.2)
[2018-04-12 19:04] LABS: CALCIUM, SERUM 9.8 mg/dL (8.5-10.1); CARBON DIOXIDE 23 mmol/L (21-32); CHLORIDE 111 mmol/L (98-107); CREATININE 0.6 mg/dL (0.6-1.3); GLUCOSE 91 mg/dL (74-106); SODIUM SERUM 144 mmol/L (136-145); UREA NITROGEN, BLOOD 21 mg/dL (7-18)
--- NOTE | 2018-04-12 19:15 | NUR ---
MS ORONA INITIAL NOTES Report received. Patient received in bed, awake and verbally responsive. Alert and oriented x3-4. Denies any pain. No face grimacing or moaning noted. No SOB/labored breathing noted. Safety measures in place. Will continue to monitor and assess patient Addendum: 04/12/18 at 1999 by DANIEL TALAMANTES RN CORRECTION ON ORIENTATION Patient is noted to be A/O x1-2
[2018-04-12 20:20] VITALS: BP 119/83
[2018-04-13] MEDS: CEFTRIAXONE 1 G in IV NS 0.9% 50 ML IV SCH (00:45)
--- NOTE | 2018-04-13 02:00 | NUR ---
MS RN - OUTPUT NOTES RIGHT NEPHROSTOMY OUTPUT 300cc LEFT NEPHROSTOMY OUTPUT 175cc
[2018-04-13] MEDS: IV 1/2NS 1000 ML 1,000 ML IV PRN (06:18)
[2018-04-13 06:52] LABS: EOSINOPHILS % (AUTO) 0.2 % (0.0-6.0); HEMATOCRIT 31 % (33-45); HEMOGLOBIN 9.6 g/dL (11.5-14.8); LYMPHOCYTES # (AUTO) 1.9 /CMM (0.8-4.8); LYMPHOCYTES % (AUTO) 9.2 % (20.0-44.0); MEAN CORPUSCULAR HEMOGLOBIN 24 PG (26.0-33.0); MEAN CORPUSCULAR HGB CONC 31 g/dl (31.0-36.0); MEAN CORPUSCULAR VOLUME 78 fL (82-100); MONOCYTES # (AUTO) 0.7 /CMM (0.1-1.30); MONOCYTES % (AUTO) 3.3 % (2.0-12.0); NEUTROPHILS % (AUTO) 87.3 % (43.0-81.0); PLATELET COUNT (AUTO) 421 /CMM (150-450); RDW COEFFICIENT OF VARIATION 17.2 (11.5-15.0); RED BLOOD CELL COUNT(AUTO) 3.99 MIL/uL (4.0-5.2); WHITE BLOOD COUNT (AUTO) 20.6 K/uL (4.3-11.0)
[2018-04-13 07:00] LABS: CALCIUM, SERUM 9.6 mg/dL (8.5-10.1); CARBON DIOXIDE 25 mmol/L (21-32); CHLORIDE 111 mmol/L (98-107); CREATININE 0.4 mg/dL (0.6-1.3); GLUCOSE 76 mg/dL (74-106); SODIUM SERUM 143 mmol/L (136-145); UREA NITROGEN, BLOOD 16 mg/dL (7-18)
[2018-04-13 07:05] LABS: POTASSIUM 2.8 mmol/L (3.5-5.1)
--- NOTE | 2018-04-13 07:36 | NUR ---
MS RN CLOSING NOTES Report given. Patient remained in bed, intermittently awake and verbally responsive. Alert and oriented x1. Denies any pain. No face grimacing or moaning noted. No SOB/labored breathing noted. All needs anticipated and met. Safety measures in place. Bed in lowest position with bed alarm on and call light within reach. Endorsed to ADWOA Ye
[2018-04-13 08:00] VITALS: BP 114/69
--- NOTE | 2018-04-13 08:00 | NUR ---
MS RN NOTES PATIENT IN BED RESTING ALERT, ORIENTED X1. NO SOB OR ACUTE DISTRESS NOTED. PERIPHERAL IV INTACT PATENT. NEPHROSTOMY TUBS INTACT AND PATENT. DRAINING YELLOW CLEAR URIN. BED IN LOW LOCKED POSITION. CALL LIGHT WITHIN REACH. WILL CONTINUE TO MONITOR. TREASURE LOWRY MADE AWARE OF POTASSIUM 2.8 ORDERS TO REPLACE POTASSIUM PER PHARMACY PROTOCOL. SPOKE TO [facility] WILL PLACE ORDERS.
[2018-04-13] MEDS: GABAPENTIN 100 MG CAPSULE PO SCH ×3 (08:19→17:11)
[2018-04-13] MEDS: FAMOTIDINE (20 MG) 20 MG TABLET PO SCH ×2 (08:19→17:11)
[2018-04-13] MEDS: Fluoxetine 10 mg capsule PO SCH (08:19)
[2018-04-13] MEDS: MONTELUKAST SODIUM (10MG) 10 MG TABLET PO SCH (08:19)
[2018-04-13] MEDS: FOLIC ACID 1 MG TABLET PO SCH ×2 (08:19→17:11)
[2018-04-13] MEDS: CYANOCOBALAMIN 100 MCG TABLET PO SCH (08:19)
[2018-04-13] MEDS: ATORVASTATIN 10 MG TABLET PO SCH (08:19)
[2018-04-13] MEDS: FERROUS SULFATE (325 MG) 325 MG/TAB TABLET PO SCH ×2 (08:19→17:11)
[2018-04-13] MEDS: BETHANECHOL CHLORIDE (25 MG) 25 MG TABLET PO SCH ×2 (08:19→17:11)
[2018-04-13] MEDS: ASPIRIN EC 81 MG TABLET.DR PO SCH (08:19)
[2018-04-13] MEDS: DAKINS QUARTER STRENGTH (0.125%) 480 ML BOTTLE TOP SCH (08:20)
[2018-04-13 09:24] LABS: EOSINOPHILS % (MANUAL) 1 % (0-4); LYMPHOCYTES % (MANUAL) 6 % (16-48); MONOCYTES % (MANUAL) 5 % (0-11.0); MYELOCYTES % 2 % (0-0); NEUTROPHILS % (MANUAL) 86 (42-76)
[2018-04-13] MEDS: POTASSIUM CL. PREMIX PERIPHER. 50 ML IV SCH ×4 (10:46→15:11)
[2018-04-13] MEDS: DIGOXIN 0.125 MG TABLET PO SCH (12:09)
[2018-04-13] MEDS: ENSURE ENLIVE CHOC 237 ML CAN PO SCH ×2 (12:10→17:13)
[2018-04-13 16:00] VITALS: BP 111/65
[2018-04-13] MEDS: ACETAMINOPHEN 325 MG TABLET PO PRN (18:31)
--- NOTE | 2018-04-13 18:49 | NUR ---
MS RN NOTES PATIENT IN BED RESTING NO SOB OR ACUTE DISTRESS NOTED. ALL DUE MEDICATIONS ADMINISTERED. ALL NEEDS MET. WILL ENDORSE CARE TO PM SHIFT ANTONI.
[2018-04-13] MEDS ORDERED: FEE PK DOSING 1 MIN EA MC ONE (19:30)
--- NOTE | 2018-04-13 19:30 | NUR ---
MS/RN RECEIVE PATIENT AWAKE, PASSIVE AFFECT, APPEAR COMFORTABLE, NO SIGNS OF DISTRESS NOTED, CALL LIGHT IN REACH. WILL MONITOR.
[2018-04-13] MEDS: VANCOMYCIN 0.75 GM in IV D5W 250 ML IV SCH (19:54)
[2018-04-13 20:00] VITALS: BP 104/61
[2018-04-13] MEDS: CEFTAZIDIME 1 G in IV D5W 50 ML IV SCH (21:14)
--- NOTE | 2018-04-14 01:55 | NUR ---
MS/RN PATIENT IS SLEEPING, EASILY AROUSABLE, APPEAR COMFORTABLE, NO SIGNS OF DISTRESS NOTED, CALL LIGHT IN REACH. WILL CONTINUE TO MONITOR.
--- NOTE | 2018-04-14 06:01 | NUR ---
MS/RN RT. [id number] MLS OUTPUT, YELLOW, CLEAR; LEFT NEPHROSTOMY= 100 MLS YELLOW, CLEAR.
[2018-04-14] MEDS: IV 1/2NS 1000 ML 1,000 ML IV PRN (06:15)
[2018-04-14] MEDS: VANCOMYCIN 0.75 GM in IV D5W 250 ML IV SCH ×2 (07:32→19:52)
[2018-04-14 08:00] VITALS: BP 124/67
[2018-04-14] MEDS: Fluoxetine 10 mg capsule PO SCH (08:23)
[2018-04-14] MEDS: ENSURE ENLIVE CHOC 237 ML CAN PO SCH ×3 (08:25→16:41)
[2018-04-14] MEDS: GABAPENTIN 100 MG CAPSULE PO SCH ×3 (08:26→16:39)
[2018-04-14] MEDS: BETHANECHOL CHLORIDE (25 MG) 25 MG TABLET PO SCH ×2 (08:26→16:41)
[2018-04-14] MEDS: MONTELUKAST SODIUM (10MG) 10 MG TABLET PO SCH (08:26)
[2018-04-14] MEDS: FOLIC ACID 1 MG TABLET PO SCH ×2 (08:26→16:41)
[2018-04-14] MEDS: ASPIRIN EC 81 MG TABLET.DR PO SCH (08:26)
[2018-04-14] MEDS: FERROUS SULFATE (325 MG) 325 MG/TAB TABLET PO SCH ×2 (08:27→16:41)
[2018-04-14] MEDS: FAMOTIDINE (20 MG) 20 MG TABLET PO SCH ×2 (08:27→16:41)
[2018-04-14] MEDS: DAKINS QUARTER STRENGTH (0.125%) 480 ML BOTTLE TOP SCH (08:27)
[2018-04-14] MEDS: CYANOCOBALAMIN 100 MCG TABLET PO SCH (08:27)
[2018-04-14] MEDS: ATORVASTATIN 10 MG TABLET PO SCH (08:27)
[2018-04-14] MEDS: CEFTAZIDIME 1 G in IV D5W 50 ML IV SCH ×2 (08:58→20:59)
[2018-04-14 10:32] LABS: EOSINOPHILS % (AUTO) 0.4 % (0.0-6.0); HEMATOCRIT 30 % (33-45); LYMPHOCYTES # (AUTO) 2.1 /CMM (0.8-4.8); LYMPHOCYTES % (AUTO) 8.8 % (20.0-44.0); MEAN CORPUSCULAR HEMOGLOBIN 23 PG (26.0-33.0); MEAN CORPUSCULAR HGB CONC 30 g/dl (31.0-36.0); MEAN CORPUSCULAR VOLUME 77 fL (82-100); MONOCYTES # (AUTO) 0.6 /CMM (0.1-1.30); MONOCYTES % (AUTO) 2.7 % (2.0-12.0); NEUTROPHILS # (AUTO) 20.7 /CMM (1.8-8.9); NEUTROPHILS % (AUTO) 88.1 % (43.0-81.0); PLATELET COUNT (AUTO) 412 /CMM (150-450); RDW COEFFICIENT OF VARIATION 17.2 (11.5-15.0); RED BLOOD CELL COUNT(AUTO) 3.87 MIL/uL (4.0-5.2); WHITE BLOOD COUNT (AUTO) 23.5 K/uL (4.3-11.0)
[2018-04-14 10:43] LABS: CALCIUM, SERUM 9.6 mg/dL (8.5-10.1); CARBON DIOXIDE 27 mmol/L (21-32); CHLORIDE 106 mmol/L (98-107); CREATININE 0.7 mg/dL (0.6-1.3); GLUCOSE 123 mg/dL (74-106); SODIUM SERUM 140 mmol/L (136-145); UREA NITROGEN, BLOOD 18 mg/dL (7-18)
[2018-04-14] MEDS: DIGOXIN 0.125 MG TABLET PO SCH (12:03)
--- NOTE | 2018-04-14 13:10 | NUR ---
PATIENT DISCHARGED IN STABLE CONDITION. IN NO APPARENT DISTRESS. ALL NEEDS WERE MET. EXITCARE PROVIDED TO THE PATIENT. PATIENT ESCORTED OUT OF THE FACILITY VIA GURNEY BY PARAMEDICS. PRESCRIPTION PROVIDED TO PATIENT. BELONGINGS CHECKED AND SENT WITH PATIENT. NO IV ACCESS. ID BAND WAS REMOVED. PATIENT TO BE TRANSPORTED TO [facility]. Addendum: 04/14/18 at 1354 by LUPE WATKINS RN INCORRECT PATIENT. DISREGARD NOTE.
[2018-04-14] MEDS: POTASSIUM CL. PREMIX PERIPHER. 50 ML IV SCH ×4 (13:33→16:41)
[2018-04-14 16:00] VITALS: BP 118/71
--- NOTE | 2018-04-14 18:13 | NUR ---
MS RN CLOSING NOTES PATIENT IS RESTING IN BED IN NO APPARENT DISTRESS. BEDSIDE RAILS ARE UPX2. BED IS LOCKED AND LOWERED. CALL LIGHT IS WITHIN REACH. IV LINE IS INTACT AND PATENT. ALL NEEDS WERE MET. WILL ENDORSE CARE TO VICE PRESIDENT OF DEVELOPMENT NURSE FOR ANTONI.
--- NOTE | 2018-04-14 19:30 | NUR ---
MS/RN RECEIVE PATIENT AWAKE, ALERT, FLAT AFFECT, APPEAR COMFORTABLE, NO C/O PAIN, NO DISTRESS NOTED, CALL LIGHT IN REACH, WILL MONITOR.
[2018-04-14 20:00] VITALS: BP 129/74
[2018-04-15 07:06] LABS: BASOPHILS % (AUTO) 0.2 % (0.0-2.0); EOSINOPHILS % (AUTO) 0.5 % (0.0-6.0); HEMATOCRIT 29 % (33-45); HEMOGLOBIN 8.8 g/dL (11.5-14.8); LYMPHOCYTES # (AUTO) 2.1 /CMM (0.8-4.8); LYMPHOCYTES % (AUTO) 9.8 % (20.0-44.0); MEAN CORPUSCULAR HEMOGLOBIN 24 PG (26.0-33.0); MEAN CORPUSCULAR HGB CONC 31 g/dl (31.0-36.0); MEAN CORPUSCULAR VOLUME 77 fL (82-100); MONOCYTES # (AUTO) 0.8 /CMM (0.1-1.30); MONOCYTES % (AUTO) 3.9 % (2.0-12.0); NEUTROPHILS # (AUTO) 18.2 /CMM (1.8-8.9); NEUTROPHILS % (AUTO) 85.6 % (43.0-81.0); PLATELET COUNT (AUTO) 351 /CMM (150-450); RDW COEFFICIENT OF VARIATION 17.5 (11.5-15.0); RED BLOOD CELL COUNT(AUTO) 3.73 MIL/uL (4.0-5.2); WHITE BLOOD COUNT (AUTO) 21.3 K/uL (4.3-11.0)
[2018-04-15 07:42] LABS: CALCIUM, SERUM 9.4 mg/dL (8.5-10.1); CARBON DIOXIDE 26 mmol/L (21-32); CHLORIDE 106 mmol/L (98-107); CREATININE 0.5 mg/dL (0.6-1.3); GLUCOSE 81 mg/dL (74-106); POTASSIUM 3.5 mmol/L (3.5-5.1); SODIUM SERUM 140 mmol/L (136-145); UREA NITROGEN, BLOOD 15 mg/dL (7-18)
[2018-04-15 08:00] VITALS: BP 116/70
[2018-04-15] MEDS: VANCOMYCIN 0.75 GM in IV D5W 250 ML IV SCH (08:00)
--- NOTE | 2018-04-15 08:10 | NUR ---
VANCO THROUGH LEVEL IS 21. NON ADMINISTERED VANCOMYCIN PER MEDICATION PARAMETERS.
[2018-04-15] MEDS: ASPIRIN EC 81 MG TABLET.DR PO SCH (08:46)
[2018-04-15] MEDS: FERROUS SULFATE (325 MG) 325 MG/TAB TABLET PO SCH ×2 (08:46→16:00)
[2018-04-15] MEDS: GABAPENTIN 100 MG CAPSULE PO SCH ×3 (08:46→16:00)
[2018-04-15] MEDS: MONTELUKAST SODIUM (10MG) 10 MG TABLET PO SCH (08:46)
[2018-04-15] MEDS: FAMOTIDINE (20 MG) 20 MG TABLET PO SCH ×2 (08:46→16:00)
[2018-04-15] MEDS: BETHANECHOL CHLORIDE (25 MG) 25 MG TABLET PO SCH ×2 (08:46→16:00)
[2018-04-15] MEDS: FOLIC ACID 1 MG TABLET PO SCH ×2 (08:46→16:00)
[2018-04-15] MEDS: ATORVASTATIN 10 MG TABLET PO SCH (08:46)
[2018-04-15] MEDS: Fluoxetine 10 mg capsule PO SCH (08:47)
[2018-04-15] MEDS: CYANOCOBALAMIN 100 MCG TABLET PO SCH (08:47)
[2018-04-15] MEDS: ENSURE ENLIVE CHOC 237 ML CAN PO SCH ×3 (08:47→16:00)
[2018-04-15] MEDS: DAKINS QUARTER STRENGTH (0.125%) 480 ML BOTTLE TOP SCH (08:48)
[2018-04-15] MEDS: CEFTAZIDIME 1 G in IV D5W 50 ML IV SCH ×2 (08:52→20:04)
[2018-04-15] MEDS: DIGOXIN 0.125 MG TABLET PO SCH (12:20)
[2018-04-15] MEDS: IV 1/2NS 1000 ML 1,000 ML IV PRN (14:42)
[2018-04-15] MEDS: ACETAMINOPHEN 325 MG TABLET PO PRN (15:41)
[2018-04-15 16:00] VITALS: BP 91/58
--- NOTE | 2018-04-15 18:17 | NUR ---
MS RN CLOSING NOTES PATIENT IS RESTING IN BED. IN NO APPARENT DISTRESS. BEDSIDE RAILS ARE UPX2. BED IS LOCKED AND LOWERED. CALL LIGHT IS WITHIN REACH. IV LINE IS INTACT AND PATENT. WILL ENDORSE CARE TO PUBLIC WEIGHER NURSE FOR ANTONI.
--- NOTE | 2018-04-15 19:26 | NUR ---
RN MS OPENING NOTES RECEIVED PATIENT IN BED AWAKE. NON VERBAL. IN STABLE CONDITION. BREATHING EVEN AND UNLABORED. NO SOB NOTED. NO S/S OF PAIN OR DISCOMFORT. NO FACIAL GRIMACING. IV ON RIGHT FA#20 INTACT AND PATENT - INFUSING 1/2 NS @ 40ML/HR. PATIENT NOTED WITH A RIGHT AND LEFT NEPHROSTOMY. INTACT AND DRAINING WELL. ON CONTACT ISOLATION FOR MRSA OF URINE. ALL OTHER NEEDS ATTENDED TO. CALL LIGHT WITHIN REACH. BED ON LOWEST LOCKED POSITION. WILL CONTINUE TO MONITOR.
[2018-04-15 20:43] VITALS: BP 99/57
--- NOTE | 2018-04-16 03:15 | NUR ---
PHOTOENGRAVER NOTES VERIFIED WITH AUG FROM PHARMACY IF OK TO GIVE VANCOMYCIN 0.75GM WITH VANCO TROUGH 21. PER AUG, OK TO GIVE.
[2018-04-16] MEDS: VANCOMYCIN 0.75 GM in IV NS 0.9% 250 ML IV SCH ×2 (03:20→22:00)
--- NOTE | 2018-04-16 06:43 | NUR ---
RN MS CLOSING NOTES PATIENT RESTING IN BED. A/O X1. SPEECH UNCLEAR. IN STABLE CONDITION. BREATHING EVEN AND UNLABORED. NO SOB NOTED. NO S/S OF PAIN OR DISCOMFORT. NO FACIAL GRIMACING. IV ON RIGHT FA#20 INTACT AND PATENT - INFUSING 1/2 NS @ 40ML/HR. PATIENT WITH A RIGHT AND LEFT NEPHROSTOMY.- INTACT AND DRAINING WELL. REMAINS ON CONTACT ISOLATION FOR MRSA OF URINE. ALL OTHER NEEDS ATTENDED TO. KEPT CLEAN, DRY AND COMFORTABLE. CALL LIGHT WITHIN REACH. BED ON LOWEST LOCKED POSITION. WILL ENDORSE TO ONCOMING NURSE FOR CONTINUITY OF CARE.
[2018-04-16 07:33] LABS: BASOPHILS # (AUTO) 0.1 /CMM (0.0-0.2); BASOPHILS % (AUTO) 0.4 % (0.0-2.0); EOSINOPHILS % (AUTO) 0.5 % (0.0-6.0); HEMATOCRIT 31 % (33-45); HEMOGLOBIN 9.5 g/dL (11.5-14.8); LYMPHOCYTES # (AUTO) 2.1 /CMM (0.8-4.8); LYMPHOCYTES % (AUTO) 8.9 % (20.0-44.0); MEAN CORPUSCULAR HEMOGLOBIN 24 PG (26.0-33.0); MEAN CORPUSCULAR HGB CONC 31 g/dl (31.0-36.0); MEAN CORPUSCULAR VOLUME 77 fL (82-100); MONOCYTES # (AUTO) 0.9 /CMM (0.1-1.30); MONOCYTES % (AUTO) 3.9 % (2.0-12.0); NEUTROPHILS # (AUTO) 20.3 /CMM (1.8-8.9); NEUTROPHILS % (AUTO) 86.3 % (43.0-81.0); PLATELET COUNT (AUTO) 393 /CMM (150-450); RDW COEFFICIENT OF VARIATION 17.2 (11.5-15.0); RED BLOOD CELL COUNT(AUTO) 3.97 MIL/uL (4.0-5.2); WHITE BLOOD COUNT (AUTO) 23.6 K/uL (4.3-11.0)
[2018-04-16 07:41] LABS: CALCIUM, SERUM 9.7 mg/dL (8.5-10.1); CARBON DIOXIDE 27 mmol/L (21-32); CHLORIDE 102 mmol/L (98-107); CREATININE 0.5 mg/dL (0.6-1.3); GLUCOSE 81 mg/dL (74-106); SODIUM SERUM 140 mmol/L (136-145); UREA NITROGEN, BLOOD 12 mg/dL (7-18)
[2018-04-16 07:43] LABS: POTASSIUM 2.8 mmol/L (3.5-5.1)
[2018-04-16 08:00] VITALS: BP 114/70
--- NOTE | 2018-04-16 08:50 | NUR ---
MS RN NOTES PATIENT IN BED, AWAKE, ABLE TO SPEAK BUT UNCLEAR. NO FACIAL GRIMACE, DENIES PAIN. KARIE NEPHROSTOMY TUBE INTACT, DRAINING CLEAR PALE YELLOW URINE. MAINTAINED ISOLATION PRECAUTION, MRSA WOUND, PPE UTILIZED. ON KCI LOW AIR LOSS MATTRESS. WILL CONT TO MONITOR.
[2018-04-16] MEDS: CEFTAZIDIME 1 G in IV D5W 50 ML IV SCH ×2 (08:52→20:58)
[2018-04-16] MEDS: ATORVASTATIN 10 MG TABLET PO SCH (08:53)
[2018-04-16] MEDS: CYANOCOBALAMIN 100 MCG TABLET PO SCH (08:53)
[2018-04-16] MEDS: FOLIC ACID 1 MG TABLET PO SCH ×2 (08:53→17:21)
[2018-04-16] MEDS: BETHANECHOL CHLORIDE (25 MG) 25 MG TABLET PO SCH ×2 (08:53→17:21)
[2018-04-16] MEDS: FAMOTIDINE (20 MG) 20 MG TABLET PO SCH ×2 (08:53→17:21)
[2018-04-16] MEDS: MONTELUKAST SODIUM (10MG) 10 MG TABLET PO SCH (08:53)
[2018-04-16] MEDS: ASPIRIN EC 81 MG TABLET.DR PO SCH (08:53)
[2018-04-16] MEDS: GABAPENTIN 100 MG CAPSULE PO SCH ×3 (08:53→17:21)
[2018-04-16] MEDS: Fluoxetine 10 mg capsule PO SCH (08:53)
[2018-04-16] MEDS: FERROUS SULFATE (325 MG) 325 MG/TAB TABLET PO SCH ×2 (08:53→17:21)
[2018-04-16] MEDS: ENSURE ENLIVE CHOC 237 ML CAN PO SCH ×3 (09:04→17:22)
[2018-04-16] MEDS: POTASSIUM CL. PREMIX PERIPHER. 50 ML IV SCH ×6 (09:43→15:59)
[2018-04-16 09:44] LABS: EOSINOPHILS % (MANUAL) 1 % (0-4); LYMPHOCYTES % (MANUAL) 11 % (16-48); MONOCYTES % (MANUAL) 3 % (0-11.0); NEUTROPHILS % (MANUAL) 85 (42-76)
[2018-04-16] MEDS: DAKINS QUARTER STRENGTH (0.125%) 480 ML BOTTLE TOP SCH (09:48)
[2018-04-16] MEDS: DIGOXIN 0.125 MG TABLET PO SCH (12:21)
[2018-04-16] MEDS: IV 1/2NS 1000 ML 1,000 ML IV PRN (14:55)
[2018-04-16 16:02] VITALS: BP 108/65
--- NOTE | 2018-04-16 18:02 | NUR ---
MS RN CLOSING NOTES PULSE HAVE BEEN ELEVATED DURING THE SHIFT, PATIENT IS ASYMPTOMATIC, AFEBRILE. SPEECH UNCLEAR, NO FACIAL GRIMACE. LACTIC ACID NEGATIVE. KARIE NEPHOSTOMY TUBE INTACT WITH LARGE URINE OUTPUT, DOCUMENTED. S/P WOUND DEBRIDEMENT TODAY BY DR. BRANDY EASTMAN, PATIENT TOLERATED WELL. TURN AND REPOSITION EVERY 2 HOURS, POSITIONED OFF WOUNDS. POTASSIUM SUPPLEMENTED VIA IV, CONTINUED ON ANTIBIOTIC PER ID. MAINTAINED ISOLATION PRECAUTION MRSA WOUND, PPE UTILIZED.
--- NOTE | 2018-04-16 19:25 | NUR ---
MS RN OPENING NOTES: RECEIVED PT ON ON ROOM AIR AND OPENS EYES. PT ABLE TO SPEAK BUT UNCLEAR. PT HAS IV AND IS BEING INFUSED WITH 1/2 NS AT 40ML/HR. PT HAS BILATERAL NEPHROSTOMY TUBES AND BOTH DRAINING YELLOW OUTPUT. BED ALARM ACTIVATED. PT ON SCD PUMPS. CALL LIGHT WITHIN PT'S REACH. BED KEPT IN LOW, LOCKED POSITION, AND SIDE RAILS X 2UP. WILL CONTINUE TO MONITOR PT.
[2018-04-16 20:00] VITALS: BP 107/71
--- NOTE | 2018-04-16 22:29 | NUR ---
MS RN NOTES: VANCO 0.75GM DOSE NON ADMIN D/T VANCO TROUGH 21.
--- NOTE | 2018-04-17 07:36 | NUR ---
MS RN CLOSING NOTES: ALL NEEDS WERE ATTENDED AND ANTICIPATED FOR. PT KEPT CLEAN, DRY, AND COMFORTABLE. PT ON ROOM AIR AND TOLERATING WELL. PT TURNED AND REPOSITIONED PER PROTOCOL. PT HAS IV AND IS BEING INFUSED WITH IV 1/2 NS AT 40ML/HR. PT HAS BILATERAL NEPHROSTOMY TUBES. L TUBE OUTPUT WAS 175ML AND R TUBE OUTPUT WAS 250ML. BED ALARM ACTIVATED. PT REMAINS ON SCD PUMPS. CALL LIGHT WITHIN PT'S REACH. BED KEPT IN LOW, LOCKED POSITION, AND SIDE RAILS X 2UP. WILL ENDORSE TO AM NURSE FOR ANTONI.
[2018-04-17 07:37] LABS: BASOPHILS # (AUTO) 0.2 /CMM (0.0-0.2); EOSINOPHILS % (AUTO) 1.1 % (0.0-6.0); HEMATOCRIT 27 % (33-45); HEMOGLOBIN 8.5 g/dL (11.5-14.8); LYMPHOCYTES # (AUTO) 1.8 /CMM (0.8-4.8); LYMPHOCYTES % (AUTO) 10.1 % (20.0-44.0); MEAN CORPUSCULAR HEMOGLOBIN 24 PG (26.0-33.0); MEAN CORPUSCULAR HGB CONC 31 g/dl (31.0-36.0); MEAN CORPUSCULAR VOLUME 77 fL (82-100); MONOCYTES # (AUTO) 0.8 /CMM (0.1-1.30); MONOCYTES % (AUTO) 4.4 % (2.0-12.0); NEUTROPHILS % (AUTO) 83.4 % (43.0-81.0); PLATELET COUNT (AUTO) 367 /CMM (150-450); RDW COEFFICIENT OF VARIATION 17.9 (11.5-15.0); RED BLOOD CELL COUNT(AUTO) 3.54 MIL/uL (4.0-5.2); WHITE BLOOD COUNT (AUTO) 17.9 K/uL (4.3-11.0)
[2018-04-17 07:55] LABS: CALCIUM, SERUM 9.2 mg/dL (8.5-10.1); CARBON DIOXIDE 27 mmol/L (21-32); CHLORIDE 103 mmol/L (98-107); CREATININE 0.4 mg/dL (0.6-1.3); GLUCOSE 75 mg/dL (74-106); POTASSIUM 3.5 mmol/L (3.5-5.1); SODIUM SERUM 138 mmol/L (136-145); UREA NITROGEN, BLOOD 11 mg/dL (7-18)
[2018-04-17 08:00] VITALS: BP 105/67
--- NOTE | 2018-04-17 08:00 | NUR ---
MS RN RECEIVED ON BED, AWAKE,ALERT,ORIENTED X1,NOT IN ANY FORM OF DISTRESS, RESPIRATIONS EVEN AND UNLABORED,NO SOB NOTED, LUNGS ARE DIMINISHED,ABDOMEN SOFT,POSITIVE BOWEL SOUNDS,DENIES PAIN AT THIS TIME. BILATERAL NEPHROSTOMY INTACT W/ BLOODY STREAK URINE AT LEFT TUBES, DENIES PAIN AT THIS TIME, WILL MONITOR PATIENT.
--- NOTE | 2018-04-17 09:40 | NUR ---
MS ORONA BREAKFAST SERVED,DUE MEDS GIVEN,TOLERATED WELL.
[2018-04-17] MEDS: CYANOCOBALAMIN 100 MCG TABLET PO SCH (09:42)
[2018-04-17] MEDS: FOLIC ACID 1 MG TABLET PO SCH ×2 (09:42→18:29)
[2018-04-17] MEDS: ATORVASTATIN 10 MG TABLET PO SCH (09:42)
[2018-04-17] MEDS: MONTELUKAST SODIUM (10MG) 10 MG TABLET PO SCH (09:42)
[2018-04-17] MEDS: Fluoxetine 10 mg capsule PO SCH (09:42)
[2018-04-17] MEDS: ENSURE ENLIVE CHOC 237 ML CAN PO SCH ×3 (09:42→18:29)
[2018-04-17] MEDS: FAMOTIDINE (20 MG) 20 MG TABLET PO SCH ×2 (09:42→18:29)
[2018-04-17] MEDS: BETHANECHOL CHLORIDE (25 MG) 25 MG TABLET PO SCH ×2 (09:42→18:29)
[2018-04-17] MEDS: FERROUS SULFATE (325 MG) 325 MG/TAB TABLET PO SCH ×2 (09:42→18:29)
[2018-04-17] MEDS: ASPIRIN EC 81 MG TABLET.DR PO SCH (09:42)
[2018-04-17] MEDS: GABAPENTIN 100 MG CAPSULE PO SCH ×3 (09:42→18:29)
[2018-04-17] MEDS: CEFTAZIDIME 1 G in IV D5W 50 ML IV SCH ×2 (09:48→20:28)
[2018-04-17] MEDS: DAKINS QUARTER STRENGTH (0.125%) 480 ML BOTTLE TOP SCH (09:52)
--- NOTE | 2018-04-17 10:15 | NUR ---
MS RN WAS SEEN BY DR. CATRACHITA Gonsales/ ORDERS MADE AND CARRIED OUT.
--- NOTE | 2018-04-17 13:30 | NUR ---
MS RN WAS SEEN BY THE INFECTIOUS BOXCAR WEIGHER, NO ORDER AT THIS TIME.
[2018-04-17] MEDS: DIGOXIN 0.125 MG TABLET PO SCH (13:54)
--- NOTE | 2018-04-17 14:00 | NUR ---
MS RN CHANGED DRESSING TO SACRAL AREA,ALL NEEDS ATTENDED.
[2018-04-17 16:00] VITALS: BP 100/59
[2018-04-17] MEDS: VANCOMYCIN 0.75 GM in IV NS 0.9% 250 ML IV SCH (18:30)
--- NOTE | 2018-04-17 19:10 | NUR ---
MS RN OPENING NOTES RECEIVED PT ON ROOM AIR A/O X1. PT HAS IV ON RFA 20 g AND IS BEING INFUSED WITH 1/2 NS AT 40ML/HR. PT HAS BILATERAL NEPHROSTOMY TUBES AND BOTH DRAINING YELLOW OUTPUT. BED ALARM ON. PT ON SCD PUMPS. CALL LIGHT WITHIN REACH. BED IN LOW, LOCKED POSITION, AND SIDE RAILS X 2UP. WILL CONTINUE TO MONITOR PT.
--- NOTE | 2018-04-17 19:14 | NUR ---
ms rn on bed,no distress noted.
[2018-04-17 19:39] VITALS: BP 110/71
[2018-04-17 20:00] VITALS: BP 110/71
[2018-04-17] MEDS: IV 1/2NS 1000 ML 1,000 ML IV PRN (20:34)
--- NOTE | 2018-04-18 06:55 | NUR ---
MS RN CLOSING NOTES PT ON ROOM AIR A/O X1. PT HAS IV ON RFA 20 g AND IS BEING INFUSED WITH 1/2 NS AT 40ML/HR. PT HAS BILATERAL NEPHROSTOMY TUBES AND BOTH DRAINING YELLOW OUTPUT. BED ALARM ON. PT ON SCD PUMPS. CALL LIGHT WITHIN REACH. BED IN LOW, LOCKED POSITION, AND SIDE RAILS X 2UP.ALL NEEDS ANTICIPATED. WILL ENDORSE TO NEXT SHIFT FOR ANTONI.
--- NOTE | 2018-04-18 07:00 | NUR ---
MSRN. PT RECEIVED A&0X1, TOLERATING ROOM AIR WITHOUT SOB OR RESP DISTRESS. PT DENIES PAIN AND IS WITHOUT S/S OF PAIN OR DISCOMFORT. PT WITH IVC AT R FA FIRM TO FLUSH AND PT REPORTS IT PAINFUL, NAD AT SITE, WILL REPLACE. PT WITH BILAT NEPHROSTOMY TUBES, INTACT WITH LITE YELLOW URINE IN COLLECTION. PT WITH SCD PUMPS IN.SITU. PT BED IN LOWEST LOCKED POSITION WITH HANDRAILSX2 AND CALL SEXTON WITHIN REACH. WILL CONTINUE POC.
[2018-04-18 07:31] LABS: BASOPHILS # (AUTO) 0.1 /CMM (0.0-0.2); BASOPHILS % (AUTO) 0.3 % (0.0-2.0); EOSINOPHILS % (AUTO) 0.8 % (0.0-6.0); HEMATOCRIT 30 % (33-45); HEMOGLOBIN 9.1 g/dL (11.5-14.8); LYMPHOCYTES # (AUTO) 1.5 /CMM (0.8-4.8); LYMPHOCYTES % (AUTO) 7.7 % (20.0-44.0); MEAN CORPUSCULAR HEMOGLOBIN 24 PG (26.0-33.0); MEAN CORPUSCULAR HGB CONC 31 g/dl (31.0-36.0); MEAN CORPUSCULAR VOLUME 78 fL (82-100); NEUTROPHILS # (AUTO) 16.6 /CMM (1.8-8.9); NEUTROPHILS % (AUTO) 86.2 % (43.0-81.0); PLATELET COUNT (AUTO) 360 /CMM (150-450); RDW COEFFICIENT OF VARIATION 17.5 (11.5-15.0); RED BLOOD CELL COUNT(AUTO) 3.82 MIL/uL (4.0-5.2); WHITE BLOOD COUNT (AUTO) 19.2 K/uL (4.3-11.0)
[2018-04-18 07:42] LABS: CALCIUM, SERUM 9.9 mg/dL (8.5-10.1); CARBON DIOXIDE 28 mmol/L (21-32); CHLORIDE 102 mmol/L (98-107); CREATININE 0.4 mg/dL (0.6-1.3); GLUCOSE 82 mg/dL (74-106); POTASSIUM 2.9 mmol/L (3.5-5.1); SODIUM SERUM 137 mmol/L (136-145); UREA NITROGEN, BLOOD 11 mg/dL (7-18)
[2018-04-18 08:00] VITALS: BP 114/73
[2018-04-18] MEDS: CEFTAZIDIME 1 G in IV D5W 50 ML IV SCH ×2 (09:21→20:45)
[2018-04-18] MEDS: MONTELUKAST SODIUM (10MG) 10 MG TABLET PO SCH (09:22)
[2018-04-18] MEDS: Fluoxetine 10 mg capsule PO SCH (09:22)
[2018-04-18] MEDS: ENSURE ENLIVE CHOC 237 ML CAN PO SCH ×3 (09:22→17:23)
[2018-04-18] MEDS: CYANOCOBALAMIN 100 MCG TABLET PO SCH (09:23)
[2018-04-18] MEDS: ASPIRIN EC 81 MG TABLET.DR PO SCH (09:23)
[2018-04-18] MEDS: GABAPENTIN 100 MG CAPSULE PO SCH ×3 (09:23→17:13)
[2018-04-18] MEDS: DAKINS QUARTER STRENGTH (0.125%) 480 ML BOTTLE TOP SCH (09:23)
[2018-04-18] MEDS: ATORVASTATIN 10 MG TABLET PO SCH (09:23)
[2018-04-18] MEDS: FAMOTIDINE (20 MG) 20 MG TABLET PO SCH ×2 (09:23→17:13)
[2018-04-18] MEDS: BETHANECHOL CHLORIDE (25 MG) 25 MG TABLET PO SCH ×2 (09:23→17:13)
[2018-04-18] MEDS: FOLIC ACID 1 MG TABLET PO SCH ×2 (09:23→17:13)
[2018-04-18] MEDS: FERROUS SULFATE (325 MG) 325 MG/TAB TABLET PO SCH ×2 (09:23→17:13)
[2018-04-18] MEDS: VANCOMYCIN 0.75 GM in IV NS 0.9% 250 ML IV SCH (10:55)
[2018-04-18] MEDS: POTASSIUM CHLORIDE 20 MEQ POWDER PACKET PO SCH ×3 (12:05→17:14)
[2018-04-18] MEDS: DIGOXIN 0.125 MG TABLET PO SCH (13:01)
--- NOTE | 2018-04-18 14:11 | NUR ---
JACY. PT REFUSING FINAL K REPLACEMENT. WILL TRY ADMIN LATER.
[2018-04-18 16:00] VITALS: BP 118/78
--- NOTE | 2018-04-18 16:49 | NUR ---
MSRN. PT WITH EXCESSIVE VAGINAL DISCHARGE NOTED DURING PT CARE, ID MADE AWARE DURING ROUNDS.
--- NOTE | 2018-04-18 18:17 | NUR ---
MSRN. PT REMAINS A&0X1, TOLERATING ROOM AIR WITHOUT SOB OR RESP DISTRESS. PT WITHOUT S/S OF PAIN OR DISCOMFORT. PT WITH IVC INTACT AND OPERATIONAL WITH IVF PER RX. PT WITH BILAT NEPHROSTOMY TUBES, INTACT WITH LITE YELLOW URINE IN COLLECTION, OUTPUT CHARTED. PT WITH SCD PUMPS IN.SITU. PT BED IN LOWEST LOCKED POSITION WITH HANDRAILSX2 AND CALL SEXTON WITHIN REACH. WOUND CARE PER RX. ALL DAY NURSE DUTIES ATTENDED TO AND PT IS WITHOUT CONCERN OR COMPLAINT.
--- NOTE | 2018-04-18 18:25 | NUR ---
MSRN. CALLED PHARMACY FOR PT MISSING IVAB. PHARMACY TO DELIVER.
[2018-04-18] MEDS: METRONIDAZOLE 500MG/ NS 100ML 500 MG in PREMIX 1 EA IV SCH (19:01)
--- NOTE | 2018-04-18 19:24 | NUR ---
MS RN OPENING NOTES PT A&0X1, ON ROOM AIR ,NO SOB OR RESP DISTRESS NOTED. PT WITH IV AT R FA INTACT AND PATENT. PT WITH L/R NEPHROSTOMY TUBES, INTACT WITH CLEAR YELLOW URINE IN COLLECTION. PT WITH SCD PUMPS IN.SITU. PT BED IN LOWEST LOCKED POSITION WITH HANDRAILSX2 AND CALL SEXTON WITHIN REACH. WILL CONTINUE TO MONITOR.
[2018-04-18 20:00] VITALS: BP 109/70
[2018-04-18] MEDS: HYDROCODONE/APAP 5/325MG 1 EACH TABLET PO PRN (22:31)
[2018-04-18] MEDS: MICONAZOLE NITRATE VAG CREAM 45 GM TUBE VG SCH (22:44)
--- NOTE | 2018-04-18 22:45 | NUR ---
PT NONVERBAL AND CONFUSED , WAS NOTICED WITH FACIAL GRIMACING AND RESTLESS. VS TAKEN O2 98% HR 135 BP 143/84 AND TEMP. 97.9. PRN NORCO WAS GIVEN. WILL CONTINUE TO MONITOR AND REASSESS
[2018-04-19] MEDS: IV 1/2NS 1000 ML 1,000 ML IV PRN (02:56)
[2018-04-19] MEDS: VANCOMYCIN HCL 0.75 GM in IV D5W 250 ML IV SCH ×2 (03:19→22:00)
[2018-04-19] MEDS: METRONIDAZOLE 500MG/ NS 100ML 500 MG in PREMIX 1 EA IV SCH ×3 (05:02→20:18)
--- NOTE | 2018-04-19 06:22 | NUR ---
MS N CLOSING NOTES PT A&0X1, ON ROOM AIR WITHOUT SOB OR RESP DISTRESS. PT WITHOUT S/S OF PAIN AT THIS TIME. PT WITH IVC INTACT AND PATENT RFA # 22. PT WITH BILAT NEPHROSTOMY TUBES, INTACT WITH OUTPUT R 80ML, L 90 ML. WOUND CARE DONE. PT BED IN LOWEST LOCKED POSITION WITH HANDRAILSX2, CALL SEXTON WITHIN REACH.NEEDS ATTENDED. WILL ENDORSE TO NEXT SHIFT FOR ANTONI.
--- NOTE | 2018-04-19 07:20 | NUR ---
RN NOTES PT IS LAYING DOWN IN BED, SLEEPING COMFORTABLY. PT ON RA, RESPIRATIONS ARE EVEN AND UNLABORED. IV ON RFA INTACT AND RUNNING 1/2NS @ 40 ML/HR. NO SIGNS OF DISTRESS NOTED. SAFETY MEASURES ARE IN PLACE, CALL LIGHT IS IN REACH. WILL CONTINUE TO MONITOR.
[2018-04-19 08:00] VITALS: BP 97/57
[2018-04-19 08:06] LABS: EOSINOPHILS % (AUTO) 1.4 % (0.0-6.0); HEMATOCRIT 28 % (33-45); HEMOGLOBIN 8.6 g/dL (11.5-14.8); LYMPHOCYTES # (AUTO) 1.8 /CMM (0.8-4.8); LYMPHOCYTES % (AUTO) 7.8 % (20.0-44.0); MEAN CORPUSCULAR HEMOGLOBIN 24 PG (26.0-33.0); MEAN CORPUSCULAR HGB CONC 31 g/dl (31.0-36.0); MEAN CORPUSCULAR VOLUME 77 fL (82-100); MONOCYTES # (AUTO) 0.9 /CMM (0.1-1.30); MONOCYTES % (AUTO) 3.9 % (2.0-12.0); NEUTROPHILS # (AUTO) 19.7 /CMM (1.8-8.9); NEUTROPHILS % (AUTO) 86.9 % (43.0-81.0); PLATELET COUNT (AUTO) 371 /CMM (150-450); RDW COEFFICIENT OF VARIATION 17.8 (11.5-15.0); RED BLOOD CELL COUNT(AUTO) 3.65 MIL/uL (4.0-5.2); WHITE BLOOD COUNT (AUTO) 22.6 K/uL (4.3-11.0)
[2018-04-19] MEDS: Fluoxetine 10 mg capsule PO SCH (08:21)
[2018-04-19] MEDS: ATORVASTATIN 10 MG TABLET PO SCH (08:21)
[2018-04-19] MEDS: FERROUS SULFATE (325 MG) 325 MG/TAB TABLET PO SCH ×2 (08:21→16:24)
[2018-04-19] MEDS: FAMOTIDINE (20 MG) 20 MG TABLET PO SCH ×2 (08:21→16:24)
[2018-04-19] MEDS: CYANOCOBALAMIN 100 MCG TABLET PO SCH (08:21)
[2018-04-19] MEDS: MONTELUKAST SODIUM (10MG) 10 MG TABLET PO SCH (08:21)
[2018-04-19] MEDS: GABAPENTIN 100 MG CAPSULE PO SCH ×3 (08:21→16:24)
[2018-04-19] MEDS: BETHANECHOL CHLORIDE (25 MG) 25 MG TABLET PO SCH ×2 (08:21→16:24)
[2018-04-19] MEDS: ASPIRIN EC 81 MG TABLET.DR PO SCH (08:21)
[2018-04-19] MEDS: FOLIC ACID 1 MG TABLET PO SCH ×2 (08:21→16:24)
[2018-04-19] MEDS: ERGOCALCIFEROL (VITAMIN D 2) 50,000 UNIT CAPSULE PO SCH (08:25)
[2018-04-19] MEDS: CEFTAZIDIME 1 G in IV D5W 50 ML IV SCH ×2 (08:25→21:29)
[2018-04-19] MEDS: DAKINS QUARTER STRENGTH (0.125%) 480 ML BOTTLE TOP SCH (08:28)
[2018-04-19] MEDS: ENSURE ENLIVE CHOC 237 ML CAN PO SCH ×3 (08:29→16:24)
[2018-04-19 08:42] LABS: CALCIUM, SERUM 9.5 mg/dL (8.5-10.1); CARBON DIOXIDE 28 mmol/L (21-32); CHLORIDE 101 mmol/L (98-107); CREATININE 0.6 mg/dL (0.6-1.3); GLUCOSE 96 mg/dL (74-106); POTASSIUM 4.4 mmol/L (3.5-5.1); SODIUM SERUM 136 mmol/L (136-145); UREA NITROGEN, BLOOD 14 mg/dL (7-18)
[2018-04-19] MEDS: DIGOXIN 0.125 MG TABLET PO SCH (12:09)
[2018-04-19 16:00] VITALS: BP 97/62
[2018-04-19] MEDS: ACETAMINOPHEN 325 MG TABLET PO PRN (16:25)
--- NOTE | 2018-04-19 18:46 | NUR ---
RN NOTES PT IS LAYING DOWN IN BED, RESTING COMFORTABLY. PT ON RA, RESPIRATIONS ARE EVEN AND UNLABORED. IV ON RFA INTACT AND RUNNING 1/2NS @ 40ML/HR. NEPHROSTOMY TUBES ARE IN PLACE AND DRAINING TO GRAVITY, CLEAR, YELLOW URINE. ALL MEDS WERE GIVEN ORDERED AND PT NEEDS MET. NO SIGNS OF DISTRESS NOTED. SAFETY MEASURES ARE IN PLACE, CALL LIGHT IS IN REACH. WILL ENDORSE TO INSURANCE VERIFICATION REP RN FOR CONTINUITY OF CARE.
--- NOTE | 2018-04-19 19:30 | NUR ---
RN NOTES RECEIVED PATIENT IN BED WITH EYES CLOSED, EASILY AROUSABLE. AO X 1, VERBALLY RESPONSIVE. NO ACUTE DISTRESS NOTED. NO SIGNS OF PAIN NOTED. IV SITE PATENT, INTACT; IVF INFUSING ORDERED. BILATERAL NEPHROSTOMY TUBES INTACT; DRAINING CLEAR SEROSANGUINOUS FLUID. ON LOW BED WITH BILATERAL UPPER SIDE RAILS UP. CALL SEXTON WITHIN EASY REACH. WILL CONTINUE TO MONITOR.
[2018-04-19 20:00] VITALS: BP 90/57
[2018-04-19] MEDS: MICONAZOLE NITRATE VAG CREAM 45 GM TUBE VG SCH (22:30)
[2018-04-20] MEDS: METRONIDAZOLE 500MG/ NS 100ML 500 MG in PREMIX 1 EA IV SCH ×3 (05:13→20:50)
--- NOTE | 2018-04-20 06:54 | NUR ---
RN NOTES PATIENT ASLEEP, EASILY AROUSABLE. RESPIRATIONS EVEN. NO SIGNS OF PAIN NOTED. NEEDS ATTENDED. KEPT CLEAN, DRY, AND COMFORTABLE. REPOSITIONED Q 2 HOURS. SAFETY PRECAUTIONS AND COMFORT MEASURES IN PLACE. WILL GIVE REPORT TO DAY SHIFT FOR CONTINUITY OF CARE.
[2018-04-20 06:58] LABS: EOSINOPHILS % (AUTO) 0.3 % (0.0-6.0); HEMATOCRIT 28 % (33-45); HEMOGLOBIN 8.7 g/dL (11.5-14.8); LYMPHOCYTES # (AUTO) 1.5 /CMM (0.8-4.8); LYMPHOCYTES % (AUTO) 6.2 % (20.0-44.0); MEAN CORPUSCULAR HEMOGLOBIN 24 PG (26.0-33.0); MEAN CORPUSCULAR HGB CONC 31 g/dl (31.0-36.0); MEAN CORPUSCULAR VOLUME 78 fL (82-100); MONOCYTES # (AUTO) 0.7 /CMM (0.1-1.30); MONOCYTES % (AUTO) 2.9 % (2.0-12.0); NEUTROPHILS # (AUTO) 22.5 /CMM (1.8-8.9); NEUTROPHILS % (AUTO) 90.6 % (43.0-81.0); PLATELET COUNT (AUTO) 394 /CMM (150-450); RDW COEFFICIENT OF VARIATION 18.4 (11.5-15.0); RED BLOOD CELL COUNT(AUTO) 3.64 MIL/uL (4.0-5.2); WHITE BLOOD COUNT (AUTO) 24.9 K/uL (4.3-11.0)
--- NOTE | 2018-04-20 07:20 | NUR ---
RN NOTES PT IS LAYING DOWN IN BED, SLEEPING COMFORTABLY. PT ON RA, RESPIRATIONS ARE EVEN AND UNLABORED. IV ON RFA INTACT AND RUNNING 1/2NS @ 40ML/HR. NEPHROSTOMY TUBES ARE IN PLACE AND DRAINING TO GRAVITY. NO SIGNS OF DISTRESS NOTED. SAFETY MEASURES ARE IN PLACE, CALL LIGHT IS IN REACH. WILL CONTINUE TO MONITOR.
[2018-04-20 07:23] LABS: CALCIUM, SERUM 9.9 mg/dL (8.5-10.1); CARBON DIOXIDE 26 mmol/L (21-32); CHLORIDE 101 mmol/L (98-107); CREATININE 0.6 mg/dL (0.6-1.3); GLUCOSE 73 mg/dL (74-106); POTASSIUM 4.1 mmol/L (3.5-5.1); SODIUM SERUM 137 mmol/L (136-145); UREA NITROGEN, BLOOD 16 mg/dL (7-18)
[2018-04-20 08:00] VITALS: BP 99/45
[2018-04-20] MEDS: CEFTAZIDIME 1 G in IV D5W 50 ML IV SCH ×2 (08:07→21:52)
[2018-04-20] MEDS: ENSURE ENLIVE CHOC 237 ML CAN PO SCH ×3 (08:07→16:17)
[2018-04-20] MEDS: GABAPENTIN 100 MG CAPSULE PO SCH ×3 (08:40→16:17)
[2018-04-20] MEDS: BETHANECHOL CHLORIDE (25 MG) 25 MG TABLET PO SCH ×2 (08:40→16:17)
[2018-04-20] MEDS: CYANOCOBALAMIN 100 MCG TABLET PO SCH (08:40)
[2018-04-20] MEDS: VANCOMYCIN 0.75 GM in IV D5W 250 ML IV SCH (08:40)
[2018-04-20] MEDS: ATORVASTATIN 10 MG TABLET PO SCH (08:40)
[2018-04-20] MEDS: MONTELUKAST SODIUM (10MG) 10 MG TABLET PO SCH (08:40)
[2018-04-20] MEDS: ASPIRIN EC 81 MG TABLET.DR PO SCH (08:40)
[2018-04-20] MEDS: FERROUS SULFATE (325 MG) 325 MG/TAB TABLET PO SCH ×2 (08:40→16:16)
[2018-04-20] MEDS: FAMOTIDINE (20 MG) 20 MG TABLET PO SCH ×2 (08:41→16:17)
[2018-04-20] MEDS: FOLIC ACID 1 MG TABLET PO SCH ×2 (08:41→16:17)
[2018-04-20] MEDS: Fluoxetine 10 mg capsule PO SCH (08:41)
[2018-04-20] MEDS: DAKINS QUARTER STRENGTH (0.125%) 480 ML BOTTLE TOP SCH (08:41)
[2018-04-20] MEDS: DIGOXIN 0.125 MG TABLET PO SCH (13:29)
[2018-04-20 16:00] VITALS: BP 98/61
[2018-04-20] MEDS: ACETAMINOPHEN 325 MG TABLET PO PRN (16:17)
--- NOTE | 2018-04-20 18:44 | NUR ---
RN NOTES PT IS LAYING DOWN IN BED, RESTING COMFORTABLY. PT ON RA, RESPIRATIONS ARE EVEN AND UNLABORED. IV ON RFA INTACT AND RUNNING 1/2 NS@ 40ML/HR. NEPHROSTOMY TUBES IN PLACE AND DRAINING TO GRAVITY. ALL MEDS WERE GIVEN ORDERED. PT NEEDS MET AND WOUND CARE PROVIDED. NO SIGNS OF DISTRESS NOTED. SAFETY MEASURES ARE IN PLACE, CALL LIGHT IS IN REACH. WILL ENDORSE TO BASKET BRAIDER RN FOR CONTINUITY OF CARE.
--- NOTE | 2018-04-20 19:55 | NUR ---
RN INITIAL NOTES: RECEIVED REPORT FROM SAMMY ORONA, PT IN BED, AWAKE, A/O X1, ON RA RESPIRATION EVEN AND UNLABORED. IV ACCESS PATENT AND FLUSHING WELL, NO S/S OF REDNESS OR INFILTRATION NOTED, RECEIVING 1/2 NS AT 40ML/HR. PT S/P SACRAL WOUND DEBRIDEMENT BY DR NAVA AND RIGHT PERCUTANEOUS NEPHROSTOMY TUBE PLACEMENT ON 04/16, HENCE PT HAS BILATERAL NEPHROSTOMY TUBE IN PLACED. DRESSING OF THESE TUBES WERE INTACT, NO S/S OF LEAKING NOTED, NO REDNESS ON SITE OR UNEXPECTED DRAINAGE NOTED AROUND THE AREA. LEFT SIDE NEPHROSTOMY TUBE BAG NOTED TO HAVE CLEAR OUTPUT, AND THE RIGHT NEPHROSTOMY TUBE BAG NOTED TO BE WITH PINKISH COLORED OUTPUT. BLE OFFLOADED. SAFETY PRECAUTIONS FRO FALL INITIATED, CALL LIGHT IN REACH, WILL CONTINUE MONITORING PT.
[2018-04-20 20:00] VITALS: BP 90/54
[2018-04-20 21:00] VITALS: BP 90/56
[2018-04-20] MEDS: MICONAZOLE NITRATE VAG CREAM 45 GM TUBE VG SCH (21:57)
[2018-04-20 22:00] VITALS: BP 90/47
--- NOTE | 2018-04-20 23:23 | NUR ---
RN NOTES: ASSISTED BURR GRINDER IN CLEANING PT, PT HAD BM SMALL AMOUNT, SOFT GREENISH BLACK IN COLOR
[2018-04-21] VITALS (13 sets, daily range): BP systolic 85–107; BP diastolic 47–71
[2018-04-21] MEDS: METRONIDAZOLE 500MG/ NS 100ML 500 MG in PREMIX 1 EA IV SCH ×3 (04:10→20:23)
[2018-04-21] MEDS: IV 1/2NS 1000 ML 1,000 ML IV PRN ×2 (04:13→20:23)
--- NOTE | 2018-04-21 05:40 | NUR ---
WOUND CARE: PERFORMED WOUND TREATMENT ORDERED, ASSISTED BY SINTIA PIERRE. ASSISTED METALWORKER IN PERFORMING BED BATH. NOTED DISCHARGES COMING OUT OF PT'S VAGINA, BLOOD TINGED, SCANTY IN AMOUNT
--- NOTE | 2018-04-21 06:53 | NUR ---
RN CLOSING NOTES: PT IN BED, AWAKE, REMAINS ON 2L NC, CONNECTED TO CONTINUOS PULSE OXIMETRY SPO2 100%. NO FACIAL GRIMACE NOTED, PT CALM AND APPEARS TO BE COMFORTABLE. NO FEVER LATEST TEMP 98.5. IV ACCESS REMAINS PATENT AND FLUSHING WELL, FREE FROM REDNESS OR INFILTRATION, INFUSING WITH 1/2 NS AT 40ML/HR. BLE OFFLOADED. BILATERAL NEPHROSTOMY TUBE NOW YELLOW IN COLOR WITH CLEAR TRANSPARENCY, NO PARTICLES NOTED. DRESSING REMAINS INTACT. BLE OFFLOADED. VS REMAINS STABLE, NEEDS ATTENDED. SAFETY PRECAUTIONS FOR FALL REMAINS ENGAGED, CALL LIGHT IN REACH,WILL ENDORSE TO DAY RN FOR CONTINUITY OF CARE.
[2018-04-21 07:22] LABS: CALCIUM, SERUM 9.5 mg/dL (8.5-10.1); CARBON DIOXIDE 27 mmol/L (21-32); CHLORIDE 103 mmol/L (98-107); CREATININE 0.5 mg/dL (0.6-1.3); GLUCOSE 83 mg/dL (74-106); POTASSIUM 3.4 mmol/L (3.5-5.1); SODIUM SERUM 137 mmol/L (136-145); UREA NITROGEN, BLOOD 15 mg/dL (7-18)
--- NOTE | 2018-04-21 07:30 | NUR ---
RN OPENING NOTES PT. IS IN BED SLEEPING. BREATHING UNLABORED, AND EVENLY ON OXYGEN AT 2L/MIN VIA NASAL CANNULA. BED IS IN LOWEST, AND LOCKED POSITION. 2 SIDE RAILS UP, AND CALL LIGHT WITHIN REACH. ALL NEEDS MET. WILL CONTINUE TO ASSESS AND MONITOR.
[2018-04-21] MEDS: ENSURE ENLIVE CHOC 237 ML CAN PO SCH ×3 (08:10→17:30)
[2018-04-21] MEDS: CEFTAZIDIME 1 G in IV D5W 50 ML IV SCH ×2 (08:23→21:58)
[2018-04-21] MEDS: DAKINS QUARTER STRENGTH (0.125%) 480 ML BOTTLE TOP SCH (09:00)
[2018-04-21] MEDS: CYANOCOBALAMIN 100 MCG TABLET PO SCH (09:53)
[2018-04-21] MEDS: ATORVASTATIN 10 MG TABLET PO SCH (09:53)
[2018-04-21] MEDS: FERROUS SULFATE (325 MG) 325 MG/TAB TABLET PO SCH ×2 (09:53→17:31)
[2018-04-21] MEDS: GABAPENTIN 100 MG CAPSULE PO SCH ×3 (09:53→17:30)
[2018-04-21] MEDS: ASPIRIN EC 81 MG TABLET.DR PO SCH (09:53)
[2018-04-21] MEDS: FOLIC ACID 1 MG TABLET PO SCH ×2 (09:53→17:31)
[2018-04-21] MEDS: BETHANECHOL CHLORIDE (25 MG) 25 MG TABLET PO SCH ×2 (09:53→17:31)
[2018-04-21] MEDS: MONTELUKAST SODIUM (10MG) 10 MG TABLET PO SCH (09:53)
[2018-04-21] MEDS: FAMOTIDINE (20 MG) 20 MG TABLET PO SCH ×2 (09:53→17:31)
[2018-04-21] MEDS: Fluoxetine 10 mg capsule PO SCH (09:53)
[2018-04-21] MEDS: VANCOMYCIN 0.75 GM in IV D5W 250 ML IV SCH (10:22)
[2018-04-21] MEDS ORDERED: POTASSIUM CHLORIDE 20 MEQ POWDER PACKET PO SCH (10:30)
[2018-04-21] MEDS: DIGOXIN 0.125 MG TABLET PO SCH (13:48)
[2018-04-21] MEDS: HYDROCODONE/APAP 5/325MG 1 EACH TABLET PO PRN (15:35)
[2018-04-21] MEDS ORDERED: IV NS 0.9% 500 ML IV ONE (19:30)
--- NOTE | 2018-04-21 19:32 | NUR ---
RN CLOSING NOTES PT. IS IN BED AWAKE, HEAD OF BED UP. A&OX1. BREATHING UNLABORED, AND EVENLY ON OXYGEN AT 2L/MIN VIA NASAL CANNULA. PT.'S BP 80/50, PULSE 107 , TEMP. 97.6, AND 02 SAT 100%. REPORTED VIA PHONE TO DR. TANNER PT.'S BP IS LOW, LACTIC ACID, AND PT. 'S VITALS. NEW ORDER WAS GIVEN TO GIVE A ONE TIME BOLUS 500 CC OF NORMAL SALINE. OUTPUT IN NEPHROSTOMY LEFT OUTPUT 75 CC CLEAR, AND YELLOW URINE, RIGHT SIDE 100 CC OF CLEAR, AND YELLOW WITH PINK TINGE. BED IS IN LOWEST, AND LOCKED POSITION. 2 SIDE RAILS UP, AND CALL LIGHT WITHIN REACH. ALL NEEDS MET. WILL ENDORSE REPORT TO NURSE.
--- NOTE | 2018-04-21 19:35 | NUR ---
RN INITIAL NOTES: Received report from Bea ORONA. Pt in bed, awake, a/o x1, pleasant lady, on 2l oxygen via nc, respiration even, unlabored, no facial grimace noted, denies pain at this time. Pt reported have low bp, md aware, with orders for bolus. iv access patent and flushing well, iv access noted to have some blood around access site, no s/s of infiltration noted, free from any redness. pt s/p nephrostomy tube placement, with total of 2 nephrostomy tube (left and right side). Left and Right side nephrostomy tube bag noted to have yellow color output with clear transparency. Ble offloaded. Safety precautions for fall engaged, call light in reach, aspiration precaution initiated, will continue monitoring pt.
--- NOTE | 2018-04-21 19:36 | NUR ---
RN NOTES: PER WAREHOUSE RECEIVING CLERK MD, TO GIVE 500ML NS BOLUS FOR PT'S LOW BP, MD AWARE OF PT HX OF CHF
--- NOTE | 2018-04-21 19:37 | NUR ---
RN NOTES: PER DAY RN REPORT, ID DOCTOR IS LOOKING FOR A VAGINAL CULTURE, AND NOTHING WAS COLLECTED, WILL OBTAIN SPECIMEN/COLLECT TONIGHT
--- NOTE | 2018-04-21 19:40 | NUR ---
RN NOTES: CONNECTED PT TO VS MONITORING [id number], VS TAKEN AND RECORDED, PLACED T-KING POSITION, ONGOING BOLUS NS 500ML
--- NOTE | 2018-04-21 20:23 | NUR ---
RN NOTES: CHANGED ALL IV TUBINGS AT THIS TIME
--- NOTE | 2018-04-21 20:37 | NUR ---
RN NOTES: ABOVE BOLUS COMPLETED, VS TAKEN AND RECORDED, WILL CONTINUE MONITORING PT [id number], CONNECTED TO CONTINUOUS PULSE OXIMETRY TOO
--- NOTE | 2018-04-21 20:45 | NUR ---
RN NOTES: NOTIFIED FUND DIRECTOR MD REGARDING LATEST VITAL SIGNS OF PT AFTER IV BOLUS, 93/57 HR 74, PER MD NO NEW ORDERS, CONTINUE MONITOR PT
[2018-04-21] MEDS: MICONAZOLE NITRATE VAG CREAM 45 GM TUBE VG SCH (22:11)
[2018-04-22 02:04] VITALS: BP 100/66
[2018-04-22 04:00] VITALS: BP 97/60
[2018-04-22] MEDS: METRONIDAZOLE 500MG/ NS 100ML 500 MG in PREMIX 1 EA IV SCH ×3 (04:07→20:30)
[2018-04-22 06:00] VITALS: BP 90/49
--- NOTE | 2018-04-22 06:50 | NUR ---
RN CLOSING NOTES: PT IN BED, AWAKE, REMAINS A/O X1, ON 2L OXYGEN VIA NC RESPIRATION EVEN AND UNLABORED. REMAINS ON CONTINUOUS PULSE OXIMETER SPO2 99-100%, NO FEVER NOTED THROUGHOUT THE SHIFT, IV ACCESS REMAINS PATENT AND FLUSHING WELL, NO REDNESS OR INFILTRATION NOTED, INFUSING WITH 1/2 NS AT 40ML/HR. NEPHROSTOMY TUBE IN PLACED, LEFT SIDE NEPHROSTOMY TUBE BAG EMPTIED WITH 550ML AMOUNT OF OUTPUT, YELLOW COLOR WITH CLEAR TRANSPARENCY. RIGHT SIDE NEPHROSTOMY TUBE WITH TOTAL OF 150 ML OF OUTPUT, YELLOWISH COLOR WITH CLEAR TRANSPARENCY. BLE OFFLOADED. VS STABLE, NEEDS ATTENDED. AWAITING VAGINAL CULTURE RESULT. SAFETY PRECAUTIONS FOR FALL REMAINS ENGAGED, CALL LIGHT IN REACH, WILL ENDORSE TO DAY RN FOR CONTUITY OF CARE.
--- NOTE | 2018-04-22 07:10 | NUR ---
RN OPENING NOTES PT. IS IN BED SLEEPING. BREATHING UNLABORED, AND EVENLY ON OXYGEN AT 2L/MIN VIA NASAL CANNULA. BED IS IN LOWEST, AND LOCKED POSITION. IV FLUIDS RUNNING AT 40 ML/HR. 2 SIDE RAILS UP, AND CALL LIGHT WITHIN REACH. ALL NEEDS MET. WILL CONTINUE TO ASSESS AND MONITOR.
[2018-04-22 07:55] LABS: CALCIUM, SERUM 8.9 mg/dL (8.5-10.1); CARBON DIOXIDE 30 mmol/L (21-32); CHLORIDE 104 mmol/L (98-107); CREATININE 0.5 mg/dL (0.6-1.3); GLUCOSE 89 mg/dL (74-106); POTASSIUM 3.6 mmol/L (3.5-5.1); SODIUM SERUM 139 mmol/L (136-145); UREA NITROGEN, BLOOD 18 mg/dL (7-18)
[2018-04-22 08:00] VITALS: BP 97/58
[2018-04-22 09:46] LABS: BASOPHILS # (AUTO) 0.1 /CMM (0.0-0.2); BASOPHILS % (AUTO) 0.2 % (0.0-2.0); EOSINOPHILS % (AUTO) 0.7 % (0.0-6.0); HEMATOCRIT 26 % (33-45); HEMOGLOBIN 7.6 g/dL (11.5-14.8); LYMPHOCYTES # (AUTO) 1.6 /CMM (0.8-4.8); LYMPHOCYTES % (AUTO) 7.7 % (20.0-44.0); MEAN CORPUSCULAR HEMOGLOBIN 23 PG (26.0-33.0); MEAN CORPUSCULAR HGB CONC 30 g/dl (31.0-36.0); MEAN CORPUSCULAR VOLUME 78 fL (82-100); MONOCYTES % (AUTO) 4.7 % (2.0-12.0); NEUTROPHILS # (AUTO) 18.5 /CMM (1.8-8.9); NEUTROPHILS % (AUTO) 86.7 % (43.0-81.0); PLATELET COUNT (AUTO) 323 /CMM (150-450); RDW COEFFICIENT OF VARIATION 18.3 (11.5-15.0); WHITE BLOOD COUNT (AUTO) 21.3 K/uL (4.3-11.0)
[2018-04-22] MEDS: CEFTAZIDIME 1 G in IV D5W 50 ML IV SCH ×2 (09:56→21:30)
[2018-04-22] MEDS: ENSURE ENLIVE CHOC 237 ML CAN PO SCH ×3 (09:56→17:46)
[2018-04-22] MEDS: ATORVASTATIN 10 MG TABLET PO SCH (09:57)
[2018-04-22] MEDS: Fluoxetine 10 mg capsule PO SCH (09:57)
[2018-04-22] MEDS: GABAPENTIN 100 MG CAPSULE PO SCH ×3 (09:57→17:46)
[2018-04-22] MEDS: FERROUS SULFATE (325 MG) 325 MG/TAB TABLET PO SCH ×2 (09:57→17:46)
[2018-04-22] MEDS: MONTELUKAST SODIUM (10MG) 10 MG TABLET PO SCH (09:58)
[2018-04-22] MEDS: ASPIRIN EC 81 MG TABLET.DR PO SCH (09:58)
[2018-04-22] MEDS: CYANOCOBALAMIN 100 MCG TABLET PO SCH (09:58)
[2018-04-22] MEDS: BETHANECHOL CHLORIDE (25 MG) 25 MG TABLET PO SCH ×2 (09:58→17:46)
[2018-04-22] MEDS: FAMOTIDINE (20 MG) 20 MG TABLET PO SCH ×2 (09:58→17:46)
[2018-04-22] MEDS: FOLIC ACID 1 MG TABLET PO SCH ×2 (09:58→17:46)
[2018-04-22] MEDS: DAKINS QUARTER STRENGTH (0.125%) 480 ML BOTTLE TOP SCH (09:58)
[2018-04-22] MEDS: VANCOMYCIN 0.75 GM in IV D5W 250 ML IV SCH (11:40)
[2018-04-22] MEDS: DIGOXIN 0.125 MG TABLET PO SCH (13:28)
[2018-04-22 16:00] VITALS: BP 100/58
--- NOTE | 2018-04-22 19:50 | NUR ---
RN CLOSING NOTES PT. IS IN BED AWAKE, HEAD OF BED UP. A&OX1. BREATHING UNLABORED, AND EVENLY ON OXYGEN AT 2L/MIN VIA NASAL CANNULA. OUTPUT IN NEPHROSTOMY LEFT OUTPUT 150 CC CLEAR, AND YELLOW URINE, RIGHT SIDE 200 CC OF CLEAR, AND YELLOW. BED IS IN LOWEST, AND LOCKED POSITION. 2 SIDE RAILS UP, AND CALL LIGHT WITHIN REACH. ALL NEEDS MET. WILL ENDORSE REPORT TO NURSE.
--- NOTE | 2018-04-22 19:55 | NUR ---
RN INITIAL NOTES: Received report from Bea ORONA. Pt in bed, awake, a/o x1, on 2l oxygen via nc, respiration even, unlabored, no facial grimace noted, denies pain at this time. iv access patent and flushing well, no s/s of infiltration noted, free from any redness. pt s/p nephrostomy tube placement, with total of 2 nephrostomy tube (left and right side), both bag noted to have yellow color output with clear transparency. Ble offloaded. Safety precautions for fall engaged, call light in reach, aspiration precaution initiated, will continue monitoring pt.
[2018-04-22 20:00] VITALS: BP 92/52
[2018-04-22] MEDS: IV 1/2NS 1000 ML 1,000 ML IV PRN (20:03)
[2018-04-22] MEDS: MICONAZOLE NITRATE VAG CREAM 45 GM TUBE VG SCH (21:23)
--- NOTE | 2018-04-22 22:00 | NUR ---
Wound care: Wound treatment performed as ordered assisted by another rn darrick
[2018-04-23] VITALS: BP 95/58
[2018-04-23] MEDS: METRONIDAZOLE 500MG/ NS 100ML 500 MG in PREMIX 1 EA IV SCH ×3 (05:13→21:49)
[2018-04-23 06:35] LABS: EOSINOPHILS % (AUTO) 0.5 % (0.0-6.0); HEMATOCRIT 27 % (33-45); HEMOGLOBIN 8.3 g/dL (11.5-14.8); LYMPHOCYTES # (AUTO) 1.8 /CMM (0.8-4.8); LYMPHOCYTES % (AUTO) 8.8 % (20.0-44.0); MEAN CORPUSCULAR HEMOGLOBIN 24 PG (26.0-33.0); MEAN CORPUSCULAR HGB CONC 31 g/dl (31.0-36.0); MEAN CORPUSCULAR VOLUME 78 fL (82-100); MONOCYTES # (AUTO) 0.9 /CMM (0.1-1.30); MONOCYTES % (AUTO) 4.6 % (2.0-12.0); NEUTROPHILS # (AUTO) 17.4 /CMM (1.8-8.9); NEUTROPHILS % (AUTO) 86.1 % (43.0-81.0); PLATELET COUNT (AUTO) 349 /CMM (150-450); RDW COEFFICIENT OF VARIATION 18.5 (11.5-15.0); RED BLOOD CELL COUNT(AUTO) 3.47 MIL/uL (4.0-5.2); WHITE BLOOD COUNT (AUTO) 20.2 K/uL (4.3-11.0)
--- NOTE | 2018-04-23 06:57 | NUR ---
RN CLOSING NOTES: PT IN BED, AWAKE, REMAINS A/O X1, ON 2L OXYGEN VIA NC RESPIRATION EVEN AND UNLABORED. IV ACCESS REMAINS PATENT AND FLUSHING WELL, NO REDNESS OR INFILTRATION NOTED, INFUSING WITH 1/2 NS AT 40ML/HR. NO FEVER THROUGHOUT THE SHIFT. LEFT SIDE NEPHROSTOMY TUBE BAG EMPTIED WITH 550ML AMOUNT OF OUTPUT, YELLOW COLOR WITH CLEAR TRANSPARENCY. RIGHT SIDE NEPHROSTOMY TUBE EMPTIED WITH TOTAL OF 650ML OF OUTPUT, YELLOWISH COLOR WITH CLEAR TRANSPARENCY. BLE OFFLOADED. VS STABLE, NEEDS ATTENDED. SAFETY PRECAUTIONS FOR FALL REMAINS ENGAGED, CALL LIGHT IN REACH, WILL ENDORSE TO DAY RN FOR CONTUITY OF CARE.
[2018-04-23 07:01] LABS: CALCIUM, SERUM 8.7 mg/dL (8.5-10.1); CARBON DIOXIDE 28 mmol/L (21-32); CHLORIDE 104 mmol/L (98-107); CREATININE 0.5 mg/dL (0.6-1.3); GLUCOSE 85 mg/dL (74-106); POTASSIUM 3.4 mmol/L (3.5-5.1); SODIUM SERUM 138 mmol/L (136-145); UREA NITROGEN, BLOOD 16 mg/dL (7-18)
--- NOTE | 2018-04-23 07:30 | NUR ---
RN MS OPENING NOTES PT RECIEVED IN BED AT LOWEST AND LOCKED POSITION SIDE RAILS UP X2, A/O X1, ON O2 2L VIA NC, NO S/S OF DISTRESS OR PAIN NOTED, RESPIRATIONS EVEN AND UNLABORED, LEFT AND RIGHT SIDE NEPHROSTOMY NOTED TO HAVE YELLOWISH TO CLEAR URINE, IV PATENT AND INTACT WITH IVF RUNNING ORDERED, STAGE 4 SACRAL WOUND NOTED DRY AND INTACT, SAFETY PRECAUTIONS IN PLACE, WILL CONTINUE TO MONITOR AND ASSESS.
[2018-04-23 08:00] VITALS: BP 92/59
[2018-04-23] MEDS: VANCOMYCIN 0.75 GM in IV D5W 250 ML IV SCH ×2 (09:00→10:05)
[2018-04-23] MEDS: CEFTAZIDIME 1 G in IV D5W 50 ML IV SCH ×2 (09:28→21:10)
[2018-04-23] MEDS: ENSURE ENLIVE CHOC 237 ML CAN PO SCH ×3 (09:28→16:53)
[2018-04-23] MEDS: FOLIC ACID 1 MG TABLET PO SCH ×2 (09:29→16:47)
[2018-04-23] MEDS: GABAPENTIN 100 MG CAPSULE PO SCH ×3 (09:29→16:47)
[2018-04-23] MEDS: FAMOTIDINE (20 MG) 20 MG TABLET PO SCH ×2 (09:29→16:48)
[2018-04-23] MEDS: FERROUS SULFATE (325 MG) 325 MG/TAB TABLET PO SCH ×2 (09:30→16:46)
[2018-04-23] MEDS: ATORVASTATIN 10 MG TABLET PO SCH (09:30)
[2018-04-23] MEDS: ASPIRIN EC 81 MG TABLET.DR PO SCH (09:31)
[2018-04-23] MEDS: Fluoxetine 10 mg capsule PO SCH (09:31)
[2018-04-23] MEDS: BETHANECHOL CHLORIDE (25 MG) 25 MG TABLET PO SCH ×2 (09:31→16:47)
[2018-04-23] MEDS: MONTELUKAST SODIUM (10MG) 10 MG TABLET PO SCH (09:32)
[2018-04-23] MEDS: DAKINS QUARTER STRENGTH (0.125%) 480 ML BOTTLE TOP SCH (09:32)
[2018-04-23] MEDS: CYANOCOBALAMIN 100 MCG TABLET PO SCH (09:32)
--- NOTE | 2018-04-23 09:51 | NUR ---
RN MS NOTES CINDYO TROUGH 21 HELD PER MD ORDER, WILL NOTIFY PHARMACY
--- NOTE | 2018-04-23 10:00 | NUR ---
RN MS NOTES PER LD FROM PHARMACY OKAY TO GIVE VANCO, WILL ADMINISTER ORDERED AND WILL CONTINUE TOP MONITOR
[2018-04-23] MEDS ORDERED: POTASSIUM CHLORIDE 20 MEQ POWDER PACKET PO SCH (10:30)
[2018-04-23] MEDS: DIGOXIN 0.125 MG TABLET PO SCH ×2 (15:11→15:12)
[2018-04-23 16:00] VITALS: BP 101/57
--- NOTE | 2018-04-23 18:30 | NUR ---
RN MS CLOSING NOTES PT IN BED AT LOWEST AND LOCKED POSITION WITH SIDE RAILS UP X2, A/O X1, ON O2 2L VIA NC, NO S/S OF DISTRESS NOTED, IV PATENT AND INTACT RUNNING IVF ORDERED, PT HAS BILATERAL NEPHROSTOMY WITH LEFT BAG HAVING 125ML YELLOW/CLEAR OUTPUT AND THE RIGHT BAG HAVING 200 ML WITH AMARIS COLORED OUTPUT, EDEMA PRESENT IN BUE AND BLE, VS STABLE, ALL NEEDS ATTENDED TO, CALL LIGHT WITHIN REACH AND WILL ENDORSE TO PLANT PULLER RN
--- NOTE | 2018-04-23 19:00 | NUR ---
RN INITIAL NOTES Received patient A/O X1 on semi-Wong's position on bed with patent peripheral IV line RFA G#22 with 1/2 NS infusing well @ 4oml/hr as ordered. With O2 inhalation via NC @ 2LPM as ordered, tolerated well no SOB/dyspnea noted. With patent bilateral nephrostomy tubes draining clear yellow output. Kept comfortable, clean and dry. Will continue to monitor.
[2018-04-23 20:00] VITALS: BP 103/65
[2018-04-23] MEDS: HYDROCODONE/APAP 5/325MG 1 EACH TABLET PO PRN (21:27)
--- NOTE | 2018-04-23 21:30 | NUR ---
MS RN NOTES Patient complaint on anterior chest 01/04. Reposition on bed comfortably. Administered Thayer 5mg as ordered PO with applesauce. Patient tolerated the medication well. Will continue to monitor.
[2018-04-23] MEDS: MICONAZOLE NITRATE VAG CREAM 45 GM TUBE VG SCH (21:55)
[2018-04-24] MEDS: IV 1/2NS 1000 ML 1,000 ML IV PRN (04:23)
[2018-04-24] MEDS: METRONIDAZOLE 500MG/ NS 100ML 500 MG in PREMIX 1 EA IV SCH ×2 (04:23→13:14)
--- NOTE | 2018-04-24 06:47 | NUR ---
MS RN CLOSING NOTES Patient asleep on semi-Fowlers position on bed with patent peripheral IV line RFA G#22 with 1/2 NS infusing well @ 40 ml/hr as ordered. With patent indwelling bilateral nephrostomy tube with yellow output total of 500ml. Kept clean, dry and comfortable. No s/s of discomfort at this time, afebrile the whole shift. All due meds given, no ASE noted. Endorsed to the next shift.
[2018-04-24 07:07] LABS: CALCIUM, SERUM 9.4 mg/dL (8.5-10.1); CARBON DIOXIDE 27 mmol/L (21-32); CHLORIDE 103 mmol/L (98-107); CREATININE 0.5 mg/dL (0.6-1.3); GLUCOSE 95 mg/dL (74-106); POTASSIUM 4.2 mmol/L (3.5-5.1); SODIUM SERUM 137 mmol/L (136-145); UREA NITROGEN, BLOOD 19 mg/dL (7-18)
--- NOTE | 2018-04-24 07:47 | NUR ---
RN OPENING NOTES RECEIVED PATIENT RESTING IN BED. RESPONSIVE TO VERBAL STIMULI. A/OX1-2, CONFUSED, REORIENTED PATIENT. NO ACUTE DISTRESSS, NO SOB, DENIED PAIN OR DISCOMFORT AT THE MOMENT. IV SITE INTACT AND PATENT, IVF INFUSING AT 40ML/HR. NEPHROSTOMY TUBE IN PLACE. KEPT PATIENT SAFE AND COMFORTABLE. BED IN LOW/LOCKED POSIITON, SIDRAILS UPX2, CALL LIGHT IN REACH. WILL CONTINUE TO MONIOTR ACCORDINGLY.
[2018-04-24 08:00] VITALS: BP 96/52
[2018-04-24] MEDS: ENSURE ENLIVE CHOC 237 ML CAN PO SCH ×3 (09:12→17:45)
[2018-04-24] MEDS: CEFTAZIDIME 1 G in IV D5W 50 ML IV SCH (09:14)
[2018-04-24] MEDS: ASPIRIN EC 81 MG TABLET.DR PO SCH (09:17)
[2018-04-24] MEDS: MONTELUKAST SODIUM (10MG) 10 MG TABLET PO SCH (09:17)
[2018-04-24] MEDS: GABAPENTIN 100 MG CAPSULE PO SCH ×3 (09:17→17:50)
[2018-04-24] MEDS: CYANOCOBALAMIN 100 MCG TABLET PO SCH (09:18)
[2018-04-24] MEDS: BETHANECHOL CHLORIDE (25 MG) 25 MG TABLET PO SCH ×2 (09:18→17:50)
[2018-04-24] MEDS: FERROUS SULFATE (325 MG) 325 MG/TAB TABLET PO SCH ×2 (09:18→17:49)
[2018-04-24] MEDS: ATORVASTATIN 10 MG TABLET PO SCH (09:19)
[2018-04-24] MEDS: FAMOTIDINE (20 MG) 20 MG TABLET PO SCH ×2 (09:19→17:49)
[2018-04-24] MEDS: Fluoxetine 10 mg capsule PO SCH (09:19)
[2018-04-24] MEDS: FOLIC ACID 1 MG TABLET PO SCH ×2 (09:20→17:50)
[2018-04-24] MEDS: DAKINS QUARTER STRENGTH (0.125%) 480 ML BOTTLE TOP SCH (09:31)
[2018-04-24] MEDS: VANCOMYCIN 0.75 GM in IV D5W 250 ML IV SCH (10:16)
--- NOTE | 2018-04-24 12:00 | NUR ---
PATIENT FOR DISCHARGE. AMBULANCE REFUSED TO TAKE THE PATIENT DUE TO INCREASE HEART RATE OF 120s AND LOW BP=88/49. NOTIFIED MARK GREY, NEW ORDER OF 500ML NS BOLUS NOTED AND WILL CARRY OUT. WILL MONIOTR ACCORDINGLY.
[2018-04-24] MEDS: DIGOXIN 0.125 MG TABLET PO SCH (12:28)
--- NOTE | 2018-04-24 13:00 | NUR ---
RECHECKED BP=95/52, SR=905. MARK GREY AWARE. WILL CONTINUE TO MONITOR ACCORDINGLY.
--- NOTE | 2018-04-24 14:22 | NUR ---
MARK GREY AT BEDSIDE TALKING TO FAMILY. PER MARK, HOLD DISCHARGE FOR NOW.
[2018-04-24 16:00] VITALS: BP 98/64
--- NOTE | 2018-04-24 18:00 | NUR ---
TURNED AND REPOSITIONED PATIENT EVERY 2HRS NEEDED.
--- NOTE | 2018-04-24 18:30 | NUR ---
RN NOTES IV SITE NOT PATENT, REMOVED IV, APPLIED PRESSURE, NO BLEEDING, NO COMPLICATIONS. INSERTED NEW IV ON RIGHT FOREARM GAUGE 22, INTACT AND PATENT. PER MARK GREY NP, DISCVHARGE PATIENT WITH IV IN PLACE.
--- NOTE | 2018-04-24 18:53 | NUR ---
RN CLOSING NOTES PATIENT IN STABLE CONDITION. ALL NEEDS ATTENDED AND PROVIDED. ALL DUE MEDICATIONS GIVEN ORDERED. KEPT PATIENT SAFE AND COMFORTABLE. PATIENT IS FOR DISCHARGE. BED IN LOW/LOCKED POSITION, SIDERAILS UPX2, SEMIFOWLERS, CALL LIGHT IN REACH. ENDORSED TO NIGHT RN FOR ANTONI.
--- NOTE | 2018-04-24 18:55 | NUR ---
PER MARK GREY NP, PATIENT IS OK FOR DISCHARGE.
--- NOTE | 2018-04-24 19:45 | NUR ---
LOT TECHNICIAN NOTES PATIENT IN BED, AWAKE, ALERT TO SELF, EYES OPEN, RESPONSIVE BY NODDING HER HEAD AND SMILING. GAVE REPORT TO [facility] TRANSPORTATION PERSONNEL, RADHA AT BEDSIDE. 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 REPORT GIVEN TO ADWOA LOMAS. ADMITTING NURSE AT [facility]. PT DISCHARGE PACKET AND BELONGINGS BROUGHT WITH PT. EXITED UNIT VIA GURNEY, WITH NO SOB, BREATHING EVEN AND UNLABORED, IV PERIPHERAL ON RFA G#22 INTACT AND PATENT TO BE USED FOR FURTHER IV ATB THERAPY AT SNF. PT IN NO ACUTE DISTRESS.
== END 2018-04-24 19:45 | DRG 659 ==
LOC: ER 20:32 → TELE 22:44 → MED 04-10 09:05
PROVIDERS: ADMIT Internal Medicine; ATTEND Internal Medicine
PROC: 0T133JD Bypass Right Kidney Pelvis to Cutaneous with Synthetic Substitute, Percutaneous Approach (ICD-10-PCS; 2018-04-11)
PROC: 0KBP0ZZ Excision of Left Hip Muscle, Open Approach (ICD-10-PCS; principal; 2018-04-12)
PROC: 0KBN0ZZ Excision of Right Hip Muscle, Open Approach (ICD-10-PCS; 2018-04-12)
PROC: 0QB10ZZ Excision of Sacrum, Open Approach (ICD-10-PCS; 2018-04-16)
DX: N99.521 Infection of incontinent external stoma of urinary tract (principal); A41.9 Sepsis, unspecified organism; L89.154 Pressure ulcer of sacral region, stage 4; L89.324 Pressure ulcer of left buttock, stage 4; E43 Unspecified severe protein-calorie malnutrition; G92 Toxic encephalopathy; N17.0 Acute kidney failure with tubular necrosis; R65.21 Severe sepsis with septic shock; D68.59 Other primary thrombophilia; I50.32 Chronic diastolic (congestive) heart failure; E87.2 Acidosis; I69.354 Hemiplegia and hemiparesis following cerebral infarction affecting left non-dominant side; Z68.1 Body mass index [BMI] 19.9 or less, adult; N13.6 Pyonephrosis; Z66 Do not resuscitate; G35 Multiple sclerosis; E78.5 Hyperlipidemia, unspecified; K21.9 Gastro-esophageal reflux disease without esophagitis; M06.9 Rheumatoid arthritis, unspecified; F32.9 Major depressive disorder, single episode, unspecified; D72.829 Elevated white blood cell count, unspecified; N99.522 Malfunction of incontinent external stoma of urinary tract; Y83.9 Surgical procedure, unspecified as the cause of abnormal reaction of the patient, or of later complication, without mention of misadventure at the time of the procedure; Y92.89 Other specified places as the place of occurrence of the external cause; D50.9 Iron deficiency anemia, unspecified; Z85.51 Personal history of malignant neoplasm of bladder; G89.4 Chronic pain syndrome; G62.9 Polyneuropathy, unspecified; D47.3 Essential (hemorrhagic) thrombocythemia; B96.89 Other specified bacterial agents as the cause of diseases classified elsewhere; B96.1 Klebsiella pneumoniae [K. pneumoniae] as the cause of diseases classified elsewhere; E87.6 Hypokalemia; B95.62 Methicillin resistant Staphylococcus aureus infection as the cause of diseases classified elsewhere; Z16.24 Resistance to multiple antibiotics; I35.0 Nonrheumatic aortic (valve) stenosis; N76.0 Acute vaginitis; F03.90 Unspecified dementia, unspecified severity, without behavioral disturbance, psychotic disturbance, mood disturbance, and anxiety
CPT/HCPCS: 36415; 71045-TC; 75989; 75989-TC; 80048-TC; 80076-TC; 80162-TC; 80202-TC; 81000-TC; 83605-TC; 83735-TC; 84100-TC; 84134-TC; 84484-TC; 85025-TC; 85730-TC; 86850-TC; 87040-TC; 87070-TC; 87081-TC; 87086-TC; 87186-TC; A4216; A4606; A6253; A6402; A6403; J0696; J0713; J2250; J2310; J3010; J3370; J3480; J3490; J7030; J7040; J7050; J7060; Z7610

== ENCOUNTER 2018-05-11 14:03 | Inpatient (IN) | payer MEDICARE, MEDICAID ==
[~2018-05-11] VITALS: Ht 157.5 cm; Wt 61.2 kg
--- NOTE | 2018-05-11 14:05 | NUR ---
JOHNNY FROM [facility] FOR O2 DESATURATION AND HYPOTENSION. GSC 3, NOT ALERT, NO GAG REFLEX. BREATHING SHALLOW, TACHYPNIC. ON NON-REBREATHER. HYPOTENSIVE UPON ARRIVAL. IV ESTABLISHED EN ROUTE ON LEFT FOOT, 20G. IVF RUNNING FROM FIELD. SAFETY AND COMFORT MEASURES IN PLACE. MD AT BEDSIDE FOR EVAL.
[2018-05-11 14:20] VITALS: BP 75/46
--- NOTE | 2018-05-11 14:20 | NUR ---
PT REC'D ON NON REBREATHER MASK 15LPM. PT UNABLE TO COMMUNICATED. ABG TAKEN AND DR KOENIG AWARE OF RESULTS. PT PLACED ON BIPAP PER DR KOENIG REQUEST ON SETTINGS CHARTED. BIPAP PLUGGED INTO RED OUTLET. ALARMS ARE SET AND AUDIBLE. WILL CONTINUE TO MONITOR CLOSELY. Addendum: 05/11/18 at 1509 by BENNY DOWNS RT Amended: Links added.
[2018-05-11 14:23] LABS: BASOPHILS # (AUTO) 0.1 /CMM (0.0-0.2); BASOPHILS % (AUTO) 0.3 % (0.0-2.0); HEMATOCRIT 28 % (33-45); HEMOGLOBIN 8.3 g/dL (11.5-14.8); LYMPHOCYTES # (AUTO) 1.4 /CMM (0.8-4.8); LYMPHOCYTES % (AUTO) 4.1 % (20.0-44.0); MEAN CORPUSCULAR HGB CONC 30 g/dl (31.0-36.0); MEAN CORPUSCULAR VOLUME 81 fL (82-100); MONOCYTES # (AUTO) 1.1 /CMM (0.1-1.30); MONOCYTES % (AUTO) 3.4 % (2.0-12.0); NEUTROPHILS # (AUTO) 31.2 /CMM (1.8-8.9); NEUTROPHILS % (AUTO) 92.2 % (43.0-81.0); PLATELET COUNT (AUTO) 428 /CMM (150-450); RDW COEFFICIENT OF VARIATION 19.6 (11.5-15.0); RED BLOOD CELL COUNT(AUTO) 3.38 MIL/uL (4.0-5.2)
[2018-05-11] MEDS ORDERED: BISA10SU8 RC (14:23)
[2018-05-11] MEDS ORDERED: MULT-447 PO (14:23)
[2018-05-11] MEDS ORDERED: ACET-868 PO (14:23)
[2018-05-11] MEDS ORDERED: ATOR10TA PO (14:23)
[2018-05-11] MEDS ORDERED: MAG30ORA PO (14:23)
[2018-05-11] MEDS ORDERED: PANTOPRAZOLE 40 MG VIAL ONE (14:23)
[2018-05-11] MEDS ORDERED: ACET-2605 PO (14:23)
[2018-05-11] MEDS ORDERED: NA P133E RC (14:23)
[2018-05-11] MEDS ORDERED: HYDR-552 PO (14:23)
[2018-05-11] MEDS ORDERED: AMIN30LI4 PO (14:23)
[2018-05-11] MEDS ORDERED: CYAN100T3 PO (14:23)
[2018-05-11] MEDS ORDERED: ASCO500T9 PO (14:23)
[2018-05-11] MEDS ORDERED: ASPI-1169 PO (14:23)
[2018-05-11] MEDS ORDERED: MAGN400O6 PO (14:23)
[2018-05-11] MEDS ORDERED: DOCU-141 PO (14:23)
[2018-05-11] MEDS ORDERED: ZINC220C6 PO (14:24)
[2018-05-11 14:25] LABS: ABG BASE EXCESS -0.3 mmol/L; ABG OXYGEN SATURATION 93.5 % (92.0-98.5); ABG PCO2 74.4 mmHg (35.0-45.0); ABG PH 7.201 (7.350-7.450); ABG PO2 82.6 mmHg (75.0-100.0); COHb 0.8 % (0.5-1.5); MetHb 1.1 % (0.0-1.5); O2Hb 91.7 % (94.0-97.0); SITE, ABG Right Radial
--- NOTE | 2018-05-11 14:29 | NUR ---
RT AT BEDSIDE FOR BIPAP PER MD ORDERS
[2018-05-11] MEDS ORDERED: PANTOPRAZOLE 40 MG VIAL IV ONE (14:30)
[2018-05-11] MEDS ORDERED: IV NS 0.9% 1,000 ML BAG IV ONE ×2 (14:30→15:00)
[2018-05-11 14:32] LABS: WHITE BLOOD COUNT (AUTO) 33.8 K/uL (4.3-11.0)
[2018-05-11 14:35] LABS: INR 1.28 (0.85-1.15)
--- NOTE | 2018-05-11 14:35 | NUR ---
URINE OBTAINED AND SENT TO LAB.
--- NOTE | 2018-05-11 14:41 | NUR ---
BLOOD PRESSURE DOWN TO 68/47. DR. KOENIG INFORMED, ORDERED SECOND IV LINE AND 1 L NS BOLUS.
[2018-05-11 14:42] LABS: TROPONIN I 0.104 ng/mL (0.00-0.056)
[2018-05-11 14:43] LABS: B-TYPE NATRIURETIC PEPTIDE 4231 PG/ML (0-125); CARBON DIOXIDE 31 mmol/L (21-32); CHLORIDE 112 mmol/L (98-107); CREATININE 0.8 mg/dL (0.6-1.3); GLUCOSE 84 mg/dL (74-106); POTASSIUM 4.9 mmol/L (3.5-5.1); SODIUM SERUM 145 mmol/L (136-145); UREA NITROGEN, BLOOD 67 mg/dL (7-18)
[2018-05-11 14:47] LABS: CALCIUM, SERUM 13.6 mg/dL (8.5-10.1)
[2018-05-11 14:52] LABS: APPEARANCE,URINE Slightly Cloudy (CLEAR); BILIRUBIN,URINE Negative (NEGATIVE); BLOOD, URINE Large Ery/uL (NEGATIVE); COLOR,URINE Yellow (YELLOW); KETONES,URINE Negative (NEGATIVE); LEUKOCYTE ESTERASE ,URINE Small (NEGATIVE); NITRITE, URINE Negative (NEGATIVE); PROTEIN,URINE >=300 mg/dl (NEGATIVE); UGLUCOSE Negative (NEGATIVE); UROBILINOGEN,URINE 0.2 EU/dL (0.2)
[2018-05-11 14:54] LABS: BACTERIA,URINE Many /HPF (None Seen); RBC,URINE 81-100 /HPF (0-2); SQUAMOUS EPITHELIAL CELL,UR Few /HPF (None Seen)
[2018-05-11] MEDS ORDERED: PIPERACILLIN /TAZOBACTAM 3.375 G in IV D5W 50 ML IV ONE (15:00)
[2018-05-11] MEDS ORDERED: VANCOMYCIN 1 GM in IV D5W 250 ML IV ONE (15:00)
--- NOTE | 2018-05-11 15:00 | NUR ---
BLOOD PRESSURE STILL 76/48. DR. KOENIG ORDERED 3RD LITER OF NS BOLUS.
--- NOTE | 2018-05-11 15:56 | NUR ---
PATIENT TAKEN TO CT VIA STRETCHER.
--- NOTE | 2018-05-11 16:07 | NUR ---
PATIENT RETURNED FROM CT.
[2018-05-11 16:08] LABS: BAND % (MANUAL) 1 % (0.0-5.0); LYMPHOCYTES % (MANUAL) 3 % (16-48); MONOCYTES % (MANUAL) 4 % (0-11.0); NEUTROPHILS % (MANUAL) 92 (42-76)
[2018-05-11 16:28] VITALS: BP 68/48
[2018-05-11] MEDS ORDERED: MAGNESIUM HYDROXIDE 30 ML UDC PO PRN (16:30)
[2018-05-11] MEDS ORDERED: MAG HYDROX/AL HYDROX/SIMETH 30 ML UDC PO PRN (16:30)
[2018-05-11] MEDS ORDERED: ACETAMINOPHEN 650 MG/SUPP.RECT RC PRN (16:30)
[2018-05-11] MEDS ORDERED: MORPHINE SULFATE INJ 4 MG/ML DISP.SYRIN IV PRN (16:30)
[2018-05-11] MEDS ORDERED: ZOLPIDEM TARTRATE 5 MG TABLET PO PRN (16:30)
[2018-05-11] MEDS ORDERED: NITROGLYCERIN 0.4 MG/TAB BOTTLE SL PRN (16:30)
[2018-05-11] MEDS ORDERED: HYDROCODONE/APAP 5/325MG 1 EACH TABLET PO PRN (16:30)
[2018-05-11] MEDS ORDERED: ALBUTEROL FS 2.5 MG/3 ML VIAL.NEB NEB PRN (16:30)
[2018-05-11] MEDS ORDERED: Z GUARD REMEDY 2 OZ OINT TP PRN (16:30)
[2018-05-11] MEDS ORDERED: ONDANSETRON HCL/PF 4 MG/2 ML VIAL IVP PRN (16:30)
[2018-05-11 16:39] LABS: BILIRUBIN,DIRECT 0.2 mg/dL (0.0-0.2); BILIRUBIN,TOTAL 0.4 mg/dL (0.2-1.0)
[2018-05-11 16:45] VITALS: BP_SYST 95; BP_DIAS 42; BP_DIAS 47
--- NOTE | 2018-05-11 16:45 | NUR ---
ROEL/RN INITIAL NOTES RECEIVED PT FROM ER VIA ARVIND ACCOMPANIED BY RN AND RT. ON BIPAP, SATURATING WELL. PT NONVERBAL AND UNRESPONSIVE, GCS=3. WITH INTACT BILATERAL NEPHROSTOMY TUBE ON MID BACK. WITH INTACT AND PATENT RAC G20 AND LFOOT G20. PLACED ON TELEMONITOR, SR HR 90S. VS TAKEN AND INITIAL PHYSICAL ASSESSMENT DONE. BED IN LOW AND LOCKED POSITION. SAFETY MEASURES IN PLACED. HOB ELEVATED. WILL CONT TO MONITOR
--- NOTE | 2018-05-11 16:50 | NUR ---
BLOOD PRESSURE 69/50, DR. KOENIG INFORMED. ORDERED 1 MORE LITER NS BOLUS AND TO TRANSFER PATIENT TO FLOOR FOR ADMISSION.
--- NOTE | 2018-05-11 16:50 | NUR ---
PATIENT TRANSPORTED TO [facility]- VIA ACLS PROTOCOL. RNNICKO TO PROVIDE ANTONI.
[2018-05-11] MEDS: FOLIC ACID 1 MG TABLET PO SCH (17:00)
[2018-05-11] MEDS ORDERED: NA PHOS,M-B/NA PHOS,DI-BA 1 EA ENEMA RC PRN (17:00)
[2018-05-11] MEDS: FERROUS SULFATE (325 MG) 325 MG/TAB TABLET PO SCH (17:00)
[2018-05-11] MEDS ORDERED: IPRATROPIUM NEB FS 0.5 MG/2.5 ML AMPUL.NEB NEB PRN (17:00)
[2018-05-11] MEDS ORDERED: BISACODYL SUPP (10 MG) 10 MG/SUPP.RECT SUPP.RECT RC PRN (17:00)
[2018-05-11] MEDS: GABAPENTIN 100 MG CAPSULE PO SCH (17:00)
[2018-05-11] MEDS: FAMOTIDINE (20 MG) 20 MG TABLET PO SCH (17:00)
[2018-05-11] MEDS: BETHANECHOL CHLORIDE (25 MG) 25 MG TABLET PO SCH (17:00)
[2018-05-11] MEDS: IV D5/0.45 NACL 1,000 ML IV PRN (17:18)
[2018-05-11] MEDS: PANTOPRAZOLE 40 MG VIAL IV SCH (17:20)
[2018-05-11] MEDS ORDERED: FEE PK DOSING 1 MIN EA MC ONE (17:35)
--- NOTE | 2018-05-11 19:30 | NUR ---
RN NOTES PT IN STABLE CONDITION. ALL NEEDS ANTICIPATED. ENDORSED TO PM SHIFT RN FOR ANTONI
[2018-05-11 20:00] VITALS: BP 94/50
--- NOTE | 2018-05-11 20:00 | NUR ---
RN INITIAL NOTES RECEIVED PT RESTING IN BED . ON BIPAP, SATURATING WELL. PT NONVERBAL, A& OX1. WITH INTACT BILATERAL NEPHROSTOMY TUBE ON MID BACK. WITH INTACT AND PATENT RAC G20 INFUSING FLUIDS @ 75MLS/HR. IV IN L. FOOT G20 S/L. PT ON TELEMONITOR, SR HR 90S. BED IN LOW AND LOCKED POSITION. SAFETY MEASURES IN PLACED. HOB ELEVATED. WILL CONT TO MONITOR
--- NOTE | 2018-05-11 21:16 | NUR ---
RT NOTE PLACED MEPILEX TO PROTECT SKIN INTEGRITY.
[2018-05-11] MEDS: PIPERACILLIN /TAZOBACTAM 2.25 G in IV D5W 50 ML IV SCH (21:18)
[2018-05-12] VITALS: BP 101/41
--- NOTE | 2018-05-12 03:19 | NUR ---
PT RCVD ON BIPAP WITH CHARTED SETTINGS. VENT PLUGGED INTO RED OUTLET. ALARMS ARE ON AND AUDIBLE. NO RESP DISTRESS NOTED AT THIS TIME. WILL CONTINUE TO MONITOR. Addendum: 05/12/18 at 0321 by JORDAN CORODBA RT Amended: Links added.
[2018-05-12] MEDS: VANCOMYCIN 500 MG in IV D5W 100 ML IV SCH ×2 (03:31→16:00)
[2018-05-12] MEDS: IV D5/0.45 NACL 1,000 ML IV PRN ×2 (03:36→08:35)
[2018-05-12 04:00] VITALS: BP 96/45
[2018-05-12] MEDS: PIPERACILLIN /TAZOBACTAM 2.25 G in IV D5W 50 ML IV SCH ×3 (05:06→19:06)
[2018-05-12 07:29] LABS: ALANINE AMINOTRANSFERASE 53 U/L (12-78); ALBUMIN 1.5 g/dL (3.4-5.0); ALKALINE PHOSPHATASE 552 U/L (46-116); ASPARTATE AMINOTRANSFERASE 105 U/L (15-37); BILIRUBIN,TOTAL 0.3 mg/dL (0.2-1.0); CALCIUM, SERUM 12.4 mg/dL (8.5-10.1); CARBON DIOXIDE 24 mmol/L (21-32); CHLORIDE 111 mmol/L (98-107); CREATININE 0.8 mg/dL (0.6-1.3); GLUCOSE 95 mg/dL (74-106); MAGNESIUM 2.3 mg/dL (1.8-2.4); PHOSPHORUS 5.2 mg/dL (2.5-4.9); POTASSIUM 5.7 mmol/L (3.5-5.1); SODIUM SERUM 143 mmol/L (136-145); TOTAL PROTEIN, SERUM 4.8 g/dL (6.4-8.2); UREA NITROGEN, BLOOD 63 mg/dL (7-18)
[2018-05-12 07:31] LABS: CHOLESTEROL 65 mg/dL (<200); HDL CHOLESTEROL 16 mg/dL (40-60); LDL 27 mg/dL (0-99); TRIGLYCERIDES 134 mg/dL (30-150)
--- NOTE | 2018-05-12 07:37 | NUR ---
RN CLOSING NOTES. NO CHANGE IN PTS CONDITION OVER SHIFT. PTS HR STAYED ELEVATED OVER SHIFT 148-168, MD NOTIFIED. ALL DUE MEDS GIVEN. ALL NEEDS MET. PT KEPT SAFE. WILL ENDORSE TO AM RN.
--- NOTE | 2018-05-12 07:37 | NUR ---
RN CLOSING NOTES. NO CHANGE IN PTS CONDITION OVER SHIFT.PT ON BIPAP OVER SHIFT. WOUND DRESSING DONE. WOUND MEASUREMENTS TAKEN. ALL DUE MEDS GIVEN. ALL NEEDS MET. PT KEPT SAFE. WILL ENDORSE TO AM RN.
[2018-05-12 08:00] VITALS: BP_SYST 71; BP_SYST 78; BP_DIAS 45; BP_DIAS 48
--- NOTE | 2018-05-12 08:00 | NUR ---
RN INITIAL NOTES RECEIVED PATIENT IN BED, NONVERBAL, ON BIPAP WITH PRESCRIBED SETTING, SATURATING WELL ON 98% ,PT ON TELEMONITOR, SR HR 90SWITH INTACT BILATERAL NEPHROSTOMY TUBE ON MID BACK: RIGHT DRAINING TO RED/ BLOOD, LEFT DRAINING TO YELLOW DRAINAGE. WITH INTACT AND PATENT RAC G20 INFUSING FLUIDS @ 75MLS/HR. IV IN L. FOOT G20 S/L.BED IN LOW AND LOCKED POSITION. SAFETY MEASURES IN PLACED. HOB ELEVATED. WILL CONTINUE TO MONITOR
[2018-05-12 08:14] LABS: BASOPHILS # (AUTO) 0.2 /CMM (0.0-0.2); BASOPHILS % (AUTO) 0.4 % (0.0-2.0); EOSINOPHILS % (AUTO) 0.2 % (0.0-6.0); HEMATOCRIT 25 % (33-45); HEMOGLOBIN 7.6 g/dL (11.5-14.8); LYMPHOCYTES # (AUTO) 2.1 /CMM (0.8-4.8); LYMPHOCYTES % (AUTO) 5.9 % (20.0-44.0); MEAN CORPUSCULAR HGB CONC 31 g/dl (31.0-36.0); MEAN CORPUSCULAR VOLUME 84 fL (82-100); MONOCYTES # (AUTO) 1.1 /CMM (0.1-1.30); MONOCYTES % (AUTO) 3.1 % (2.0-12.0); NEUTROPHILS # (AUTO) 32.6 /CMM (1.8-8.9); NEUTROPHILS % (AUTO) 90.4 % (43.0-81.0); PLATELET COUNT (AUTO) 200 /CMM (150-450); RDW COEFFICIENT OF VARIATION 21.9 (11.5-15.0); RED BLOOD CELL COUNT(AUTO) 2.94 MIL/uL (4.0-5.2)
--- NOTE | 2018-05-12 08:16 | NUR ---
ROEL RN,patient's b/p shows 71/46 rechecked with 70/41 unified communications engineer epic, left message message and waiting for returning call back
[2018-05-12 08:20] LABS: WHITE BLOOD COUNT (AUTO) 36.1 K/uL (4.3-11.0)
[2018-05-12] MEDS: PANTOPRAZOLE 40 MG VIAL IV SCH ×2 (08:35→19:06)
--- NOTE | 2018-05-12 08:35 | NUR ---
RN NOTE OBTAINED ORDER FOR NORMAL SALINE 1 LITER TO RUN BOLUS FOR BP SUPPORT. ORDERED NOTED AND CARRIED OUT.
[2018-05-12] MEDS: FERROUS SULFATE (325 MG) 325 MG/TAB TABLET PO SCH ×2 (09:00→17:00)
[2018-05-12] MEDS: FAMOTIDINE (20 MG) 20 MG TABLET PO SCH ×2 (09:00→17:00)
[2018-05-12] MEDS: Fluoxetine 10 mg capsule PO SCH (09:00)
[2018-05-12] MEDS: MULTIVIT, IRON, MIN NO. 8, FA 1 TAB PO SCH (09:00)
[2018-05-12] MEDS: ASPIRIN 81 MG TAB.CHEW PO SCH (09:00)
[2018-05-12] MEDS: ASCORBIC ACID 500 MG TABLET PO SCH (09:00)
[2018-05-12] MEDS: BETHANECHOL CHLORIDE (25 MG) 25 MG TABLET PO SCH ×2 (09:00→17:00)
[2018-05-12] MEDS: CYANOCOBALAMIN 100 MCG TABLET PO SCH (09:00)
[2018-05-12] MEDS: ZINC SULFATE 220 MG CAPSULE PO SCH (09:00)
[2018-05-12] MEDS: DOCUSATE SODIUM 100 MG CAPSULE PO SCH (09:00)
[2018-05-12] MEDS: ATORVASTATIN 10 MG TABLET PO SCH (09:00)
[2018-05-12] MEDS: FOLIC ACID 1 MG TABLET PO SCH ×2 (09:00→17:00)
[2018-05-12] MEDS: GABAPENTIN 100 MG CAPSULE PO SCH ×3 (09:00→17:00)
[2018-05-12] MEDS: MONTELUKAST SODIUM (10MG) 10 MG TABLET PO SCH (09:00)
[2018-05-12] MEDS: PROSTAT (PYXIS) 30 ML UDC PO SCH (09:00)
[2018-05-12] MEDS ORDERED: IV NS 0.9% 1,000 ML BAG IV ONE (09:15)
[2018-05-12] MEDS ORDERED: IV NS 0.9% 1,000 ML BAG IV PRN (09:15)
--- NOTE | 2018-05-12 10:30 | NUR ---
RN NOTES BLOOD PRESSURE RECHECKED BP AT 78/48MMHG, HR AT 81, SATURATION ON 100. HAVEN MONTAGUE, CONSTRUCTION PRODUCER AT BEDSIDE AND UPDATED ON THE PATIENT'S CONDITION. PER CONSTRUCTION PRODUCER. PATIENT IS VERYU ILL, FAMILY IS INFORMED ON THE PROGNOSIS, FAMILY ALSO REFUSED VASOPRESSORS. PER CONSTRUCTION PRODUCER, JUST CONTINUE TO MONITOR. ALSO INFORMED CONSTRUCTION PRODUCER THAT WAS NOT ABLE TO GIVE MEDICATION ASIDE FORM THE IV MEDS, PER CONSTRUCTION PRODUCER ASK PHARMACY IF SNY OF THE PO MEDS CAN BE CONVERTED TO IV. PHARMACY WAS ASKED BUT PER PHARMACY NOTHING CAN BE CONVERTED. CONSTRUCTION PRODUCER INFORMED.
[2018-05-12] MEDS ORDERED: LACTULOSE 10 G/15 ML UDC (PYXIS) PO ONE (11:00)
[2018-05-12 11:18] LABS: BAND % (MANUAL) 2 % (0.0-5.0); LYMPHOCYTES % (MANUAL) 8 % (16-48); MONOCYTES % (MANUAL) 1 % (0-11.0); NEUTROPHILS % (MANUAL) 89 (42-76)
[2018-05-12 12:00] VITALS: BP_SYST 74; BP_DIAS 40; BP_DIAS 48
[2018-05-12] MEDS ORDERED: SODIUM POLYSTYRENE SULFONATE 15 G/60 ML BOTTLE PO ONE (12:30)
[2018-05-12] MEDS: DIGOXIN 0.125 MG TABLET PO SCH (13:00)
--- NOTE | 2018-05-12 13:54 | NUR ---
RN NOTES SPOKE TO SON CHRISTEL THROUGH THE TELEPHONE AND OBTAINED FROM HIM CONSENT FOR ORDERED SACRAL WOUND DEBRIDEMENT. CONSENT VERIFIED WITH CHARGE NURSE SOON. ALSO UPDATED SON ABOUT PATIENT'S CURRENT SITUTATION, WHERE IN BLOOD PRESSURE WAS BEEN AT 70/40 FOR THE ENTIRE SHIFT. ALSO INFORMED HIM THAT ATTENDING: HAVEN MONTAGUE, SCREWDOWN OPERATOR IS AWARE AND THAT PER SCREWDOWN OPERATOR KEEP ON MONITORING. SON "JUST LET HER GO IN [place]" AND CLAIMED THAT WILL VISIT MOTHER IN A LITTLE WHILE.
[2018-05-12] MEDS ORDERED: SILVER NITRATE APPLICATOR 1 EA BOX TP SCH (15:00)
[2018-05-12] MEDS ORDERED: LIDOCAINE 1%-EPI 1:100,000 20 ML VIAL TP ONE (15:00)
[2018-05-12 16:00] VITALS: BP 70/40
[2018-05-12] MEDS: DAKINS QUARTER STRENGTH (0.125%) 480 ML BOTTLE TOP SCH (17:20)
--- NOTE | 2018-05-12 17:56 | NUR ---
RT PT ON BIPAP THEA WELL. AMBU BAG AT [facility]. MEPILEX PLACED ON MASK
--- NOTE | 2018-05-12 19:43 | NUR ---
RN NOTES ENDORSED PATIENT FOR CONTINUITY OF CARE. NO ACUTE CHANGES WITHIN THE SHIFT BUT BLOOD PRESSURE CONTINUED TO BE ON THE LOW SIDE 80/40. FAMILY IS AWARE ABOUT THE SITUATION. SAFETY MAINTAINED. BED LOW AND LOCKED.
[2018-05-12 20:00] VITALS: BP 80/45
--- NOTE | 2018-05-12 20:00 | NUR ---
ashlie rn notes received pts on bipap well tolerated ,no sob no distress noted,on sr on the monitor sating 100%,v/s stable afebrile ,all due med iv meds given as ordered, pts on npo status, all needs attended too call light within reach, pts turned and reposition , kept pts clean dry and comfortable noted with bilateral nephrostomy tube intact and patent with ivf of d51/2 ns at 125 ml/hr infusing well .continue to monitor pts.
[2018-05-12] MEDS ORDERED: LINEZOLID RTU BAG 300 ML IV ONE (21:47)
[2018-05-12] MEDS ORDERED: COLISTIMETHATE SODIUM 150 MG VIAL ONE (21:48)
[2018-05-12] MEDS ORDERED: COLISTIMETHATE SODIUM 100 MG in IV NS 0.9% 50 ML IV ONE (22:00)
[2018-05-12] MEDS ORDERED: LINEZOLID RTU BAG 600 MG in PREMIX 1 EA IV ONE (22:00)
[2018-05-13] VITALS: BP 75/50
[2018-05-13] MEDS: IV D5/0.45 NACL 1,000 ML IV PRN ×3 (03:21→21:37)
[2018-05-13 04:00] VITALS: BP 72/48
[2018-05-13 08:00] VITALS: BP 108/92
--- NOTE | 2018-05-13 08:00 | NUR ---
RN INITIAL NOTES RECEIVED PATIENT RESTING IN BED . ON BIPAP WITH PRESCRIBED SETTING, SATURATING WELL ON 100%. PATIENT NONVERBAL. PATIENT ON TELEMONITOR, SR HR 90S WITH INTACT BILATERAL NEPHROSTOMY TUBE ATTACHED ON THE MIDBACK. SKIN WARM TO TOUCH, WITH INTACT AND PATENT RAC G20 INFUSING FLUIDS @ 125MLS/HR. IV IN LEFT FOOT G20 SALINE LOCK.PATIENT MADE COMFORTABLE, BED IN LOW AND LOCKED POSITION. SAFETY MEASURES IN PLACED. HOB ELEVATED. WILL CONTINUE TO MONITOR
[2018-05-13] MEDS: ASPIRIN 81 MG TAB.CHEW PO SCH (08:47)
[2018-05-13] MEDS: DOCUSATE SODIUM 100 MG CAPSULE PO SCH (08:47)
[2018-05-13] MEDS: PANTOPRAZOLE 40 MG VIAL IV SCH ×2 (08:47→16:45)
[2018-05-13] MEDS: FERROUS SULFATE (325 MG) 325 MG/TAB TABLET PO SCH ×2 (08:47→16:50)
[2018-05-13] MEDS: FOLIC ACID 1 MG TABLET PO SCH ×2 (08:48→16:45)
[2018-05-13] MEDS: GABAPENTIN 100 MG CAPSULE PO SCH ×3 (08:48→16:45)
[2018-05-13] MEDS: FAMOTIDINE (20 MG) 20 MG TABLET PO SCH ×2 (08:48→16:45)
[2018-05-13] MEDS: Fluoxetine 10 mg capsule PO SCH (08:48)
[2018-05-13] MEDS: PROSTAT (PYXIS) 30 ML UDC PO SCH (08:48)
[2018-05-13] MEDS: MONTELUKAST SODIUM (10MG) 10 MG TABLET PO SCH (08:48)
[2018-05-13] MEDS: ATORVASTATIN 10 MG TABLET PO SCH (08:48)
[2018-05-13] MEDS: ASCORBIC ACID 500 MG TABLET PO SCH (08:49)
[2018-05-13] MEDS: CYANOCOBALAMIN 100 MCG TABLET PO SCH (08:49)
[2018-05-13] MEDS: MULTIVIT, IRON, MIN NO. 8, FA 1 TAB PO SCH (08:49)
[2018-05-13] MEDS: BETHANECHOL CHLORIDE (25 MG) 25 MG TABLET PO SCH ×2 (08:49→16:45)
[2018-05-13] MEDS: ZINC SULFATE 220 MG CAPSULE PO SCH (08:49)
[2018-05-13] MEDS: DAKINS QUARTER STRENGTH (0.125%) 480 ML BOTTLE TOP SCH (08:52)
[2018-05-13] MEDS ORDERED: COLISTIMETHATE SODIUM 100 MG in IV NS 0.9% 50 ML IV SCH (09:00)
[2018-05-13] MEDS: LINEZOLID RTU BAG 600 MG in PREMIX 1 EA IV SCH ×2 (09:13→21:16)
--- NOTE | 2018-05-13 09:57 | NUR ---
PT FOUND ON BIPAP WITH SKIN TEAR ON LEFT UPPER CHEEK, MEPILEX APPLIED. RN TRIP AT BEDSIDE. Addendum: 05/13/18 at 0959 by SANDRA HOUGH RT Amended: Links added.
--- NOTE | 2018-05-13 09:57 | NUR ---
RN NOTES RT HAD REPORTED THAT A OPEN SKIN WAS NOTED ON THE LEFT CHEEK OF THE PATIENT BY THE AREA COVERED BY THE MASK. AREA CLEAN AND DRY. APPLIED MEPILEX FOR PROTECTION.
[2018-05-13] MEDS: COLISTIMETHATE SODIUM 75 MG in IV NS 0.9% 50 ML IV SCH ×2 (10:30→22:03)
[2018-05-13 12:00] VITALS: BP 84/48
[2018-05-13 12:09] LABS: BASOPHILS # (AUTO) 0.3 /CMM (0.0-0.2); BASOPHILS % (AUTO) 0.9 % (0.0-2.0); EOSINOPHILS % (AUTO) 0.2 % (0.0-6.0); HEMATOCRIT 26 % (33-45); HEMOGLOBIN 8.1 g/dL (11.5-14.8); LYMPHOCYTES # (AUTO) 2.3 /CMM (0.8-4.8); LYMPHOCYTES % (AUTO) 6.2 % (20.0-44.0); MEAN CORPUSCULAR HGB CONC 31 g/dl (31.0-36.0); MEAN CORPUSCULAR VOLUME 82 fL (82-100); MONOCYTES # (AUTO) 1.5 /CMM (0.1-1.30); MONOCYTES % (AUTO) 4.2 % (2.0-12.0); NEUTROPHILS # (AUTO) 32.1 /CMM (1.8-8.9); NEUTROPHILS % (AUTO) 88.5 % (43.0-81.0); PLATELET COUNT (AUTO) 291 /CMM (150-450); RDW COEFFICIENT OF VARIATION 20.2 (11.5-15.0); RED BLOOD CELL COUNT(AUTO) 3.18 MIL/uL (4.0-5.2)
[2018-05-13 12:17] LABS: WHITE BLOOD COUNT (AUTO) 36.3 K/uL (4.3-11.0)
[2018-05-13 12:23] LABS: CALCIUM, SERUM 11.4 mg/dL (8.5-10.1); CARBON DIOXIDE 18 mmol/L (21-32); CHLORIDE 108 mmol/L (98-107); CREATININE 1.1 mg/dL (0.6-1.3); GLUCOSE 141 mg/dL (74-106); POTASSIUM 5.1 mmol/L (3.5-5.1); SODIUM SERUM 139 mmol/L (136-145); UREA NITROGEN, BLOOD 66 mg/dL (7-18)
[2018-05-13 13:00] LABS: BAND % (MANUAL) 1 % (0.0-5.0); LYMPHOCYTES % (MANUAL) 4 % (16-48); METAMYELOCYTES % 1 % (0-0); MYELOCYTES % 1 % (0-0)
[2018-05-13] MEDS: DIGOXIN 0.125 MG TABLET PO SCH (13:00)
--- NOTE | 2018-05-13 13:00 | NUR ---
RN NOTES DEBRIDEMENT DONE TODAY. PATIENT ABLE TO TOLERATE THE PROCEDURE WELL. WOUND PACKED WITH DAKIN'S WET GAUZE AND COVERED WITH ABDOMINAL PACK. WILL CONTINUE TO REPOSITION PATIENT PER PROTOCOL
[2018-05-13 13:01] LABS: MONOCYTES % (MANUAL) 2 % (0-11.0); NEUTROPHILS % (MANUAL) 91 (42-76)
[2018-05-13 16:00] VITALS: BP 82/63
--- NOTE | 2018-05-13 19:40 | NUR ---
RN NOTES ENDORSED PATIENT FOR CONTINUITY OF CARE. STILL ON CPAP/BIPAP. SATURATING AT 100%. BLOOD PRESSURE STILL ON THE LOW SIDE AT 84/44MMHHG THE LATEST. HAVEN MONTAGUE - ATTENDING AWARE. FAMILY AWARE. PATIENT KEPT COMFORTABLE IN BED. SAFETY MAINTAINED.
[2018-05-13 20:00] VITALS: BP 99/72
--- NOTE | 2018-05-13 20:00 | NUR ---
RN INITIAL NOTES RECEIVED PATIENT RESTING IN BED . ON BIPAP WITH PRESCRIBED SETTING, SATURATING WELL ON 100%. PATIENT NONVERBAL. PATIENT ON TELEMONITOR, SR HR 50S WITH INTACT BILATERAL NEPHROSTOMY TUBE ATTACHED ON THE MIDBACK. SKIN WARM TO TOUCH, WITH INTACT AND PATENT RAC G20 INFUSING FLUIDS @ 125MLS/HR. IV IN LEFT FOOT G20 SALINE LOCK. BED IN LOW AND LOCKED POSITION. SAFETY MEASURES IN PLACED. HOB ELEVATED. WILL CONTINUE TO MONITOR
--- NOTE | 2018-05-13 21:40 | NUR ---
RT PT FOUND ON BIPAP ON NOTED SETTING. PT TOLERATING SETTING WELL. NO SOB OR DISTRESS NOTED. SKIN BREAKDOWN NOTED. PT HAS SKIN TEAR ON LEFT UPPER CHEEK. MASK WAS ALTERNATED WITH MEPILEX IN PLACE. PT WAS GIVEN SHORT BREAK FROM BIPAP. WILL CONTINUE TO MONITOR. Addendum: 05/13/18 at 2143 by RALEIGH PETERSON RT Amended: Links added.
[2018-05-14] VITALS: BP 167/67
[2018-05-14 04:00] VITALS: BP 182/88
--- NOTE | 2018-05-14 06:18 | NUR ---
RN CLOSING NOTES PT IS STILL ON CPAP/BIPAP, SATURATING AT 100%. PIC OF WOUND TAKEN, WOUND CARE DONE. IV FLUID INFUSING ORDERED. PATIENT KEPT COMFORTABLE IN BED. SAFETY MAINTAINED. WILL ENDORSE TO AM RN.
--- NOTE | 2018-05-14 07:15 | NUR ---
BAR POINTER INITIAL NOTES PATIENT RESTING IN BED, ON BIPAP MACHINE MD ORDERED SAT ABOVE 94%, NO SOB AT THIS TIME, LEFT FOOT IV SITE INTACT AND PATENT NO INFILTRATION, BEDBOUND, ALL SAFETY MEASURES INITIATED, PT NONVERBAL MOVES ARMS SLIGHTLY, DNR DNI, WILL CONTINUE TO MONITOR.
[2018-05-14 07:29] LABS: CALCIUM, SERUM 10.6 mg/dL (8.5-10.1); CARBON DIOXIDE 20 mmol/L (21-32); CHLORIDE 106 mmol/L (98-107); CREATININE 1.2 mg/dL (0.6-1.3); GLUCOSE 125 mg/dL (74-106); POTASSIUM 4.6 mmol/L (3.5-5.1); SODIUM SERUM 136 mmol/L (136-145); UREA NITROGEN, BLOOD 62 mg/dL (7-18)
[2018-05-14 08:00] VITALS: BP 61/19
[2018-05-14] MEDS: ASPIRIN 81 MG TAB.CHEW PO SCH (08:15)
[2018-05-14] MEDS: MULTIVIT, IRON, MIN NO. 8, FA 1 TAB PO SCH (08:18)
[2018-05-14] MEDS: ATORVASTATIN 10 MG TABLET PO SCH (08:18)
[2018-05-14] MEDS: DOCUSATE SODIUM 100 MG CAPSULE PO SCH (08:18)
[2018-05-14] MEDS: FERROUS SULFATE (325 MG) 325 MG/TAB TABLET PO SCH (08:18)
[2018-05-14] MEDS: MONTELUKAST SODIUM (10MG) 10 MG TABLET PO SCH (08:18)
[2018-05-14] MEDS: FOLIC ACID 1 MG TABLET PO SCH (08:18)
[2018-05-14] MEDS: PROSTAT (PYXIS) 30 ML UDC PO SCH (08:18)
[2018-05-14] MEDS: GABAPENTIN 100 MG CAPSULE PO SCH ×2 (08:18→12:50)
[2018-05-14] MEDS: FAMOTIDINE (20 MG) 20 MG TABLET PO SCH (08:18)
[2018-05-14] MEDS: Fluoxetine 10 mg capsule PO SCH (08:18)
[2018-05-14] MEDS: ZINC SULFATE 220 MG CAPSULE PO SCH (08:19)
[2018-05-14] MEDS: CYANOCOBALAMIN 100 MCG TABLET PO SCH (08:19)
[2018-05-14] MEDS: BETHANECHOL CHLORIDE (25 MG) 25 MG TABLET PO SCH (08:19)
[2018-05-14] MEDS: ASCORBIC ACID 500 MG TABLET PO SCH (08:19)
[2018-05-14 08:25] LABS: BASOPHILS % (AUTO) 0.1 % (0.0-2.0); EOSINOPHILS % (AUTO) 0.2 % (0.0-6.0); HEMATOCRIT 24 % (33-45); HEMOGLOBIN 7.8 g/dL (11.5-14.8); LYMPHOCYTES % (AUTO) 7.7 % (20.0-44.0); MEAN CORPUSCULAR HGB CONC 32 g/dl (31.0-36.0); MEAN CORPUSCULAR VOLUME 81 fL (82-100); MONOCYTES # (AUTO) 1.6 /CMM (0.1-1.30); MONOCYTES % (AUTO) 4.2 % (2.0-12.0); NEUTROPHILS # (AUTO) 34.1 /CMM (1.8-8.9); NEUTROPHILS % (AUTO) 87.8 % (43.0-81.0); PLATELET COUNT (AUTO) 312 /CMM (150-450); RED BLOOD CELL COUNT(AUTO) 2.95 MIL/uL (4.0-5.2)
[2018-05-14 08:28] LABS: WHITE BLOOD COUNT (AUTO) 38.8 K/uL (4.3-11.0)
[2018-05-14] MEDS: LINEZOLID RTU BAG 600 MG in PREMIX 1 EA IV SCH (09:11)
[2018-05-14] MEDS: PANTOPRAZOLE 40 MG VIAL IV SCH (09:11)
[2018-05-14] MEDS: DAKINS QUARTER STRENGTH (0.125%) 480 ML BOTTLE TOP SCH (09:12)
[2018-05-14] MEDS: COLISTIMETHATE SODIUM 75 MG in IV NS 0.9% 50 ML IV SCH (09:19)
--- NOTE | 2018-05-14 10:10 | NUR ---
NOVELTY TWISTER TENDER NOTES ENDORSED REPORT TO BETZAIDA ORONA FOR CONTINUITY OF CARE.
[2018-05-14 10:12] LABS: BAND % (MANUAL) 1 % (0.0-5.0); BASOPHILS % (MANUAL) 0 % (0.0-2.0); EOSINOPHILS % (MANUAL) 0 % (0-4); LYMPHOCYTES % (MANUAL) 7 % (16-48); MONOCYTES % (MANUAL) 3 % (0-11.0); NEUTROPHILS % (MANUAL) 87 (42-76)
[2018-05-14 12:00] VITALS: BP 58/32
--- NOTE | 2018-05-14 12:30 | NUR ---
RN NOTE: AT 1025 PATIENT RECEIVED FROM ARMOND ORONA DUE TO ASSIGNMENT CHANGE, ON BIPAP, WITH LABORED BREATHING. RESPONSIVE TO PAINFUL STIMULI ONLY. WILL CONTINUE TO MONITOR. PLAN FOR HOSPICE EVALUATION TODAY. 1200 VITAL SIGNS: TEMP: 95.7, HR 66, RR 18, SPO2 100%, BP 58/32. CONTINUE TO MONITOR CLOSELY. TURN & REPOSITIONING NOT DONE DUE TO PATIENT CURRENT CONDITION. COMFORTABLE POSITION PROVIDED WITH PILLOWS.
[2018-05-14] MEDS: DIGOXIN 0.125 MG TABLET PO SCH (12:49)
[2018-05-14] MEDS: IV D5/0.45 NACL 1,000 ML IV PRN (12:57)
--- NOTE | 2018-05-14 15:00 | NUR ---
RN NOTE: CALLED SON REGARDING PATIENT CONDITION HR 33, LABORED BREATHING.
--- NOTE | 2018-05-14 15:05 | NUR ---
RN NOTE: SON AT BEDSIDE.
--- NOTE | 2018-05-14 15:20 | NUR ---
TEL nurse ,patient is DNR patient with absent respirations ,pulseless,no audible heart tones, pupils fixed and dilated,prononced at this time son at bed side SOLAR THERMAL TECHNICIAN HAVEN Lafleur and house mover supervisor was notified
--- NOTE | 2018-05-14 15:50 | NUR ---
Bhaskar [phone] called, cause of cardiopulmonary arrest secondary to septic shock with multiple comorbidities per MARITO MONTAGUE . CASE # [id number] given by Bhaskar
--- NOTE | 2018-05-14 16:10 | NUR ---
RN NOTE: FAMILY AT BEDSIDE.
--- NOTE | 2018-05-14 18:10 | NUR ---
RN NOTE: BODY PICKED UP BY KEI CORTEZ ([facility]VELT [facility]).
[2018-05-15] MEDS ORDERED: NEOMY SULF/BACITRAC ZN/POLY 15 GM TUBE TP SCH (09:00)
[2018-05-17] MEDS ORDERED: ERGOCALCIFEROL (VITAMIN D 2) 50,000 UNIT CAPSULE PO SCH (12:00)
[2018-05-18 14:14] LABS: CALCITRIOL VIT D,1, 25 DIHYDRO 25.3 pg/mL (19.9-79.3)
== END 2018-05-14 18:10 | disposition hospice, inpatient (51) | DRG 853 ==
LOC: ER 14:04 → TELE-TD 15:49 → TELE1 16:25 → TELE-TD 18:17 → TELE1 05-14 09:45
PROVIDERS: ADMIT Nurse Practitioner Acute Care; ATTEND Nurse Practitioner Acute Care
PROC: 5A09457 Assistance with Respiratory Ventilation, 24-96 Consecutive Hours, Continuous Positive Airway Pressure (ICD-10-PCS; 2018-05-11)
PROC: 0KBP0ZZ Excision of Left Hip Muscle, Open Approach (ICD-10-PCS; principal; 2018-05-13)
PROC: 0KBN0ZZ Excision of Right Hip Muscle, Open Approach (ICD-10-PCS; 2018-05-13)
DX: A41.9 Sepsis, unspecified organism (principal); L89.154 Pressure ulcer of sacral region, stage 4; L89.324 Pressure ulcer of left buttock, stage 4; L89.314 Pressure ulcer of right buttock, stage 4; I21.4 Non-ST elevation (NSTEMI) myocardial infarction; J96.20 Acute and chronic respiratory failure, unspecified whether with hypoxia or hypercapnia; N17.0 Acute kidney failure with tubular necrosis; R65.21 Severe sepsis with septic shock; G92 Toxic encephalopathy; J15.6 Pneumonia due to other Gram-negative bacteria; I50.33 Acute on chronic diastolic (congestive) heart failure; D68.59 Other primary thrombophilia; N39.0 Urinary tract infection, site not specified; E87.2 Acidosis; I69.354 Hemiplegia and hemiparesis following cerebral infarction affecting left non-dominant side; C79.11 Secondary malignant neoplasm of bladder; D49.6 Neoplasm of unspecified behavior of brain; I11.0 Hypertensive heart disease with heart failure; D50.9 Iron deficiency anemia, unspecified; E78.5 Hyperlipidemia, unspecified; E83.52 Hypercalcemia; F32.9 Major depressive disorder, single episode, unspecified; F03.90 Unspecified dementia, unspecified severity, without behavioral disturbance, psychotic disturbance, mood disturbance, and anxiety; G35 Multiple sclerosis; G89.4 Chronic pain syndrome; I25.10 Atherosclerotic heart disease of native coronary artery without angina pectoris; I35.0 Nonrheumatic aortic (valve) stenosis; Z66 Do not resuscitate; Z87.440 Personal history of urinary (tract) infections; Z87.442 Personal history of urinary calculi; Z85.51 Personal history of malignant neoplasm of bladder; Z93.6 Other artificial openings of urinary tract status; G62.9 Polyneuropathy, unspecified
CPT/HCPCS: 31720; 36415; 36600; 70450-TC; 71045-TC; 80048-TC; 80053-TC; 80061-TC; 80202-TC; 81000-TC; 82247-TC; 82248-TC; 82652; 82803-TC; 83605-TC; 83735-TC; 83880; 83970; 84100-TC; 84134-TC; 84484-TC; 85025-TC; 85730-TC; 86850-TC; 87040-TC; 87081-TC; 87086-TC; 87186-TC; 94760-TC; 99082-TC; A4216; A4606; A6253; A6402; A6403; C9113; J0770; J2020; J2543; J3370; J3490; J7030; J7060; Z7610